=== PATIENT | male | born 1975 | race Caucasian/White ===

== ENCOUNTER 2017-01-03 10:28 | Inpatient (IN) | payer SELFPAY ==
[~2017-01-03] VITALS: Ht 170.2 cm; Wt 65.8 kg
[~2017-01-03 10:28] MED LIST: AMOX875T PO; HYDR-971 PO; NAPR500T8 PO
[2017-01-03 11:48] LABS: BASO # 0.1 x10^3/uL (0.0-0.2); BASO % 1 % (0-3); EOS % 1 % (0-3); HEMOGLOBIN 13.3 g/dL (13.0-17.5); LYMPH # 0.8 x10^3/uL (1.0-4.8); LYMPH % 8 % (24-48); MEAN CORPUSCULAR HEMOGLOBIN 29 pg (25-35); MEAN CORPUSCULAR HGB CONC 33 g/dL (31-37); MEAN CORPUSCULAR VOLUME 86 fL (79-100); MONO % 7 % (0-9); NEUT % 83 % (31-73); PLATELET COUNT 389 x10^3/uL (140-400); RED BLOOD COUNT 4.65 x10^6/uL (4.30-5.70); RED CELL DISTRIBUTION WIDTH 13.1 % (11.5-14.5); WHITE BLOOD COUNT 9.7 x10^3/uL (4.0-11.0)
[2017-01-03 12:01] LABS: ALBUMIN 3.5 g/dL (3.4-5.0); ALBUMIN/GLOBULIN RATIO 0.5 (1.0-1.7); CALCIUM 10.3 mg/dL (8.5-10.1); CREATININE 1.4 mg/dL (0.7-1.3); GFR 55.3; POTASSIUM 4.2 mmol/L (3.5-5.1); TOTAL BILIRUBIN 0.8 mg/dL (0.2-1.0); TOTAL PROTEIN 9.9 g/dL (6.4-8.2)
--- NOTE | 2017-01-03 12:03 | RAD ---
Indication injury to the small toe. Diabetic ulcer associated with the great toe. AP oblique and lateral views of the right foot were obtained. Soft tissue swelling is seen associated with the great toe. Definite plain film findings of osteomyelitis are not seen. An acute bony finding is not seen. There is some deformity seen associated with the distal phalanx of the small toe but this has a chronic appearance. IMPRESSION: No acute bony finding
--- NOTE | 2017-01-03 12:25 | PHYS DOC ---
Past Medical History Past Medical History: Diabetes-Type I, Diabetes-Type II Past Surgical History: Appendectomy, Cholecystectomy Smoking: Second-hand Additional Information: Nonsmoker Alcohol Use: Rarely Drug Use: None Adult General Chief Complaint Chief Complaint: TOE PROBLEM HPI HPI Patient is a 41 year old diabetic male who presents with right great toe infection for one week. He states that the wound started as a normal-sized blister on the toe. The wound has gotten worse over the last week with redness spreading across the foot. He also reports that he stubbed to the right fifth toe approximately one week ago. He denies any fevers. He does not have any pain associated with the infection because of his diabetic neuropathy. He does not take any medication for his diabetes because he does not have insurance and does not have a primary care provider. Review of Systems Review of Systems Constitutional: Denies fever or chills. [] Eyes: Denies change in visual acuity, redness, or eye pain. [] HENT: Denies ear pain, nasal congestion or sore throat. [] Respiratory: Denies cough or shortness of breath. [] Cardiovascular: Denies chest pain, palpitations or edema. [] GI: Denies abdominal pain, nausea, vomiting, bloody stools or diarrhea. [] : Denies dysuria, hematuria or urinary frequency. [] Musculoskeletal: Denies back pain or joint pain. [] Integument: Reports right great toe redness with purulent drainage with redness extending across the foot. Reports redness of the right fifth toe. Neurologic: Denies headache, focal weakness. Reports diabetic neuropathy in the feet bilaterally. Endocrine: Denies polyuria or polydipsia. [] Psych: Denies anxiety or depression. [] All systems reviewed and negative unless otherwise stated in the HPI. Current Medications Current Medications Current Medications Medications (Trade) Dose Ordered Sig/Fahad Start Time Stop Time Status Last Admin Dose Admin Insulin Human Regular 10 unit 10 unit 1X ONCE 01/03/17 12:30 01/03/17 12:33 DC 01/03/17 13:01 10 UNIT Piperacillin Sod/ Tazobactam Sod 1 each 1 each PRN DAILY PRN 01/03/17 12:30 Piperacillin Sod/ Tazobactam Sod/ Sodium Chloride (Zosyn/Iv Sodium Chloride 0.9% 50ml) 50 ml @ 100 mls/hr 1X ONCE 01/03/17 13:00 01/03/17 13:29 DC 01/03/17 12:56 100 MLS/HR Sodium Chloride (Iv Sodium Chloride 0.9% 1000ml Bag) 1,000 ml @ 1,000 mls/hr 1X ONCE 01/03/17 12:30 01/03/17 13:29 DC 01/03/17 12:55 1,000 MLS/HR Vancomycin HCl (Vanco Per Pharmacy) 1 each PRN DAILY PRN 01/03/17 12:30 01/03/17 14:53 1 EACH Vancomycin HCl 1.75 gm/Sodium Chloride 500 ml @ 250 mls/hr 1X ONCE 01/03/17 13:00 01/03/17 14:59 DC 01/03/17 13:24 250 MLS/HR Allergies Allergies Allergies Coded Allergies Type Severity Reaction Last Updated Verified diphenhydramine Allergy Intermediate 11/10/16 Yes erythromycin base Allergy Intermediate 11/10/16 Yes Physical Exam Physical Exam Constitutional: Well developed, well nourished, no acute distress, non-toxic appearance. [] HENT: Normocephalic, atraumatic, oropharynx moist. [] Eyes: PERRLA, EOMI, conjunctiva normal, no discharge. [] Skin: Warm, dry. There is a diabetic foot ulcer of the right great toe extending circumferentially around the proximal phalanx. There is a felon of the distal right great toe. There is erythema extending across the distal metatarsals. There is erythema of the right fifth toe. There is no lymphangitis. Back: No midline tenderness, no CVA tenderness. [] Extremities: No tenderness, ROM intact, mild right foot edema. 2+ PT and PT pulses. Less than 2 second capillary refill in the toes. There is no sensation in the toes or foot due to neuropathy. Neurologic: Alert and oriented X 3, normal motor function, no focal deficits noted. There is no sensation in the toes or foot due to neuropathy. Psychologic: Affect normal, judgement normal, mood normal. [] Current Patient Data Vital Signs Vital Signs Date Time Temp Pulse Resp B/P Pulse Ox O2 Delivery O2 Flow Rate FiO2 01/03/17 10:51 98.0 94 18 100 Room Air 98.0 Lab Values Laboratory Tests Test 01/03/17 11:22 White Blood Count 9.7x10^3/uL (4.0-11.0) Red Blood Count 4.65x10^6/uL (4.30-5.70) Hemoglobin 13.3g/dL (13.0-17.5) Hematocrit 40.0% (39.0-53.0) Mean Corpuscular Volume 86fL (79-100) Mean Corpuscular Hemoglobin 29pg (25-35) Mean Corpuscular Hemoglobin Concent 33g/dL (31-37) Red Cell Distribution Width 13.1% (11.5-14.5) Platelet Count 389x10^3/uL (140-400) Neutrophils (%) (Auto) 83% (31-73) H Lymphocytes (%) (Auto) 8% (24-48) L Monocytes (%) (Auto) 7% (0-9) Eosinophils (%) (Auto) 1% (0-3) Basophils (%) (Auto) 1% (0-3) Neutrophils # (Auto) 8.0x10^3uL (1.8-7.7) H Lymphocytes # (Auto) 0.8x10^3/uL (1.0-4.8) L Monocytes # (Auto) 0.7x10^3/uL (0.0-1.1) Eosinophils # (Auto) 0.0x10^3/uL (0.0-0.7) Basophils # (Auto) 0.1x10^3/uL (0.0-0.2) Sodium Level 130mmol/L (136-145) L Potassium Level 4.2mmol/L (3.5-5.1) Chloride Level 88mmol/L (98-107) L Carbon Dioxide Level 31mmol/L (21-32) Anion Gap 11 (6-14) Blood Urea Nitrogen 23mg/dL (8-26) Creatinine 1.4mg/dL (0.7-1.3) H Estimated GFR (Cockcroft-Gault) 55.3 BUN/Creatinine Ratio 16 (6-20) Glucose Level 544mg/dL (70-99) *H Calcium Level 10.3mg/dL (8.5-10.1) H Total Bilirubin 0.8mg/dL (0.2-1.0) Aspartate Amino Transferase (AST) 12U/L (15-37) L Alanine Aminotransferase (ALT) 18U/L (16-63) Alkaline Phosphatase 177U/L (46-116) H Total Protein 9.9g/dL (6.4-8.2) H Albumin 3.5g/dL (3.4-5.0) Albumin/Globulin Ratio 0.5 (1.0-1.7) L Laboratory Tests 01/03/17 11:22 Laboratory Tests 01/03/17 11:22 EKG EKG [] Radiology/Procedures Radiology/Procedures REASON: great toe diabetic ulcer, stubbed 5th toe PROCEDURE: FOOT RIGHT 3V Indication injury to the small toe. Diabetic ulcer associated with the great toe. AP oblique and lateral views of the right foot were obtained. Soft tissue swelling is seen associated with the great toe. Definite plain film findings of osteomyelitis are not seen. An acute bony finding is not seen. There is some deformity seen associated with the distal phalanx of the small toe but this has a chronic appearance. IMPRESSION: No acute bony finding Course & Med Decision Making Course & Med Decision Making Pertinent Labs and Imaging studies reviewed. (See chart for details) Patient is a diabetic male with poorly controlled diabetes who presents with right great toe infection with cellulitis extending across the foot. There appears to be a felon of the great toe. His vital signs are stable. He does not have leukocytosis but does have significantly elevated glucose of 544 with corresponding pseudohyponatremia. He is started on IV vancomycin and Zosyn for the infection. He is also given IV fluids and IV insulin for his hyperglycemia. He's admitted to the hospital by Dr. Sumner of the hospitalist service. He is in agreement with plan for hospital admission. He remains stable in the emergency department. Dragon Disclaimer Dragon Disclaimer This electronic medical record was generated, in whole or in part, using a voice recognition dictation system. Departure Departure Impression: Primary Impression: Diabetic foot infection Additional Impression: Cellulitis of foot Disposition: ADMITTED INPATIENT Admitting Physician: Vanessa Sumner Condition: STABLE Referrals: NO PCP (PCP) Problem Qualifiers KULDEEP GONZALEZ Jan 03, 2017 12:25
[2017-01-03] MEDS ORDERED: INSULIN REGULAR 100 UNIT/ML 10ML VIAL. IV ONE (12:30)
[2017-01-03] MEDS ORDERED: IV NORMAL SALINE 1000ML BAG 1,000 ML IV ONE (12:30)
[2017-01-03] MEDS ORDERED: PIP/TAZO PER PHARMACY MC PRN (12:30)
[2017-01-03] MEDS ORDERED: PIPERACILLIN/TAZOBACTAM 3.375 GM in IV NORMAL SALINE 50ML 50 ML IV ONE (13:00)
[2017-01-03] MEDS ORDERED: VANCOMYCIN 1.75 GM in IV NORMAL SALINE 500ML BAG 500 ML IV ONE (13:00)
[2017-01-03] MEDS: VANCOMYCIN PER PHARMACY MC PRN (14:53)
[2017-01-03] MEDS ORDERED: MORPHINE SULFATE 2 MG/ML DISP.SYRIN. IV PRN (16:00)
[2017-01-03] MEDS ORDERED: DEXTROSE 50% 25 GM / 50ML DISP.SYRIN. IV PRN (16:00)
--- NOTE | 2017-01-03 16:28 | PDOC1 ---
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 Xray foot ok, but BS 533 on admission and the need for IV antibiotics per mid level provider,. CRea 1,4 HEavy counselling about DM and its target organs which now he has manifestations of. HE understands WBC 9.7,. BS 544, crea 1,4 Xray neg Past Medical History Cardiovascular: HTN Endocrine: Diabetes Past Surgical History Past Surgical History: Cholecystectomy, Tonsillectomy Family History Family History: No Significant Social History Smoke: No ALCOHOL: none Drugs: None Current Problem List Problem List Problems Medical Problems: (1) Cellulitis of foot Status: Acute (2) Diabetic foot infection Status: Acute Problems: Current Medications Current Medications Current Medications Vancomycin HCl (Vanco Per Pharmacy) 1 each PRN DAILY PRN MC SEE COMMENTS Last administered on 01/03/17 14:53; Start 01/03/17 at 12:30 Piperacillin Sod/ Tazobactam Sod 1 each 1 each PRN DAILY PRN MC SEE COMMENTS; Start 01/03/17 at 12:30 Sodium Chloride (Iv Sodium Chloride 0.9% 1000ml Bag) 1,000 ml @ 1,000 mls/hr 1X ONCE IV Last administered on 01/03/17 12:55; Start 01/03/17 at 12:30; Stop 01/03/17 at 13:29; Status DC Insulin Human Regular 10 unit 10 unit 1X ONCE IV Last administered on 13:01; Start 01/03/17 at 12:30; Stop 01/03/17 at 12:33; Status DC Vancomycin HCl 1.75 gm/Sodium Chloride 500 ml @ 250 mls/hr 1X ONCE IV Last administered on 01/03/17 13:24; Start 01/03/17 at 13:00; Stop 01/03/17 at 14:59 ; Status DC Piperacillin Sod/ Tazobactam Sod 3.375 gm/Sodium Chloride 50 ml @ 100 mls/hr 1X ONCE IV Last administered on 01/03/17t 12:56; Start 01/03/17 at 13:00; Stop 01/03/17 at 13:29; Status DC Piperacillin Sod/ Tazobactam Sod 3.375 gm/Sodium Chloride 50 ml @ 100 mls/hr Q6HRS IV ; Start 01/03/17 at 18:00 Vancomycin HCl/ Sodium Chloride (Iv Sodium Chloride 0.9% 250ml) 250 ml @ 250 mls/hr Q12H IV ; Start 01/04/17 at 01:00 Vancomycin HCl 1 each 1X ONCE MC ; Start 01/05/17 at 00:30; Stop 01/05/17 at 00 :31 Oxycodone/ Acetaminophen (Percocet 5/325) 1 tab PRN Q4HRS PRN PO PAIN; Start at 16:00 Morphine Sulfate 2 mg PRN Q2HR PRN IV PAIN; Start 01/03/17 at 16:00 Insulin Aspart (Novolog) 0-9 UNITS TIDWMEALS SQ ; Start 01/03/17 at 17:00 Dextrose 12.5 gm PRN Q15MIN PRN IV SEE COMMENTS; Start 01/03/17 at 16:00 Active Scripts Active Naproxen 500 Mg Tablet.dr 1 Tab PO BID [place] 5-325 Tablet (Acetaminophen/Hydrocodone Bitart) 1 Each Tablet 1-2 Tab PO Q4-6HRS Amoxicillin 875 Mg Tablet 1 Tab PO BID Allergies Allergies: Coded Allergies: diphenhydramine (Verified Allergy, Intermediate, 11/10/16) erythromycin base (Verified Allergy, Intermediate, 11/10/16) ROS General: No: Appetite, Chills, Fatigue, Malaise, Night Sweats, Other PSYCHOLOGICAL ROS: No: Anxiety, Behavioral Disorder, Concentration difficultie , Decreased libido, Depression, Disorientation, Hallucinations, Hostility, Irritablity, Memory difficulties, Mood Swings, Obsessive thoughts, Other, Physical abuse, Sexual abuse, Sleep disturbances, Suicidal ideation Eyes: Yes Decreased vision HEENT: No: Epistaxis, Heacaches, Hearing change, Nasal congestion, Nasal discharge, Oral lesions, Other, Sinus pain, Sneezing, Snoring, Sore Throat, Tinnitus, Vertigo, Visual Changes, Vocal changes ALLERGY AND IMMUNOLOGY: No: Hives, Insect Bite Sensitivity, Itchy/Watery Eyes, Nasal Congestion, Other, Post Nasal Drip, Seasonal Allergies Hematological and Lymphatic: No: Bleeding Problems, Blood Clots, Blood Transfusions, Brusing, Night Sweats, Other, Pallor, Swollen Lymph Nodes ENDOCRINE: YES: Skin Changes Breast: No New/Changing Breast Lumps, No Nipple changes, No Nipple discharge, No Other Respiratory: No: Cough, Hemoptysis, Orthopnea, Other, Pleuritic Pain, SOB with excertion, Shortness of breath, Sputum Changes, Stridor, Tachypnea, Wheezing Cardiovascular: No Chest Pain, No Edema, No Lt Headedness, No Orthopnea, No Other, No Palpitations, No Paroxysmal Noc. Dyspnea Gastrointestinal: No Abdominal Pain, No Constipation, No Diarrhea, No Hematochezia, No Melena, No Nausea, No Other, No Vomiting Genitourinary: No , No , No , No , No , No , No , No Discharge, No Dysuria, No Flank Pain, No Frequency, No Hematuria, No Incontinence, No Other, No Pain, No Retention, No Urgency Musculoskeletal: No Gait Disturbance, No Joint Pain, No Joint Stiffness, No Joint Swelling, No Muscle Pain, No Muscular Weakness, No Other, No Pain In:, No Swelling In: Skin: Yes Acne (wound R big toe) Physical Exam General: Alert, Oriented X3, Cooperative, No acute distress HEENT: PERRLA Lungs: Clear to auscultation Heart: S1S2, RRR, no thrills, no rubs Breasts: Normal, Rt breast nml w/o mass, Lt breast nml w/o mass, Nipples normal Abdomen: Normal bowel sounds, Soft, No tenderness, No hepatosplenomegaly, No masses Male Genitals Exam: normal genitalia, normal prostate PELVIC: Nml ext genitalia Extremities: Other (R big toe has what seems to be necrotic, ulcerated wound, no active dc, non foul smelling) Skin: No rashes, No breakdown, No significant lesion Neuro: Normal gait, Normal speech, Strength at 5/5 X4 ext, Normal tone, Sensation intact, Cranial nerves 3-12 NL, Reflexes 2+ Vitals Vitals Vital Signs Date Time Temp Pulse Resp B/P Pulse Ox O2 Delivery O2 Flow Rate FiO2 01/03/17 10:51 98.0 94 18 100 Room Air 98.0 Labs Labs Laboratory Tests Test 01/03/17 11:22 01/03/17 14:14 White Blood Count 9.7x10^3/uL (4.0-11.0) Red Blood Count 4.65x10^6/uL (4.30-5.70) Hemoglobin 13.3g/dL (13.0-17.5) Hematocrit 40.0% (39.0-53.0) Mean Corpuscular Volume 86fL (79-100) Mean Corpuscular Hemoglobin 29pg (25-35) Mean Corpuscular Hemoglobin Concent 33g/dL (31-37) Red Cell Distribution Width 13.1% (11.5-14.5) Platelet Count 389x10^3/uL (140-400) Neutrophils (%) (Auto) 83% (31-73) Lymphocytes (%) (Auto) 8% (24-48) Monocytes (%) (Auto) 7% (0-9) Eosinophils (%) (Auto) 1% (0-3) Basophils (%) (Auto) 1% (0-3) Neutrophils # (Auto) 8.0x10^3uL (1.8-7.7) Lymphocytes # (Auto) 0.8x10^3/uL (1.0-4.8) Monocytes # (Auto) 0.7x10^3/uL (0.0-1.1) Eosinophils # (Auto) 0.0x10^3/uL (0.0-0.7) Basophils # (Auto) 0.1x10^3/uL (0.0-0.2) Sodium Level 130mmol/L (136-145) Potassium Level 4.2mmol/L (3.5-5.1) Chloride Level 88mmol/L (98-107) Carbon Dioxide Level 31mmol/L (21-32) Anion Gap 11 (6-14) Blood Urea Nitrogen 23mg/dL (8-26) Creatinine 1.4mg/dL (0.7-1.3) Estimated GFR (Cockcroft-Gault) 55.3 BUN/Creatinine Ratio 16 (6-20) Glucose Level 544mg/dL (70-99) Calcium Level 10.3mg/dL (8.5-10.1) Total Bilirubin 0.8mg/dL (0.2-1.0) Aspartate Amino Transf (AST/SGOT) 12U/L (15-37) Alanine Aminotransferase (ALT/SGPT) 18U/L (16-63) Alkaline Phosphatase 177U/L (46-116) Total Protein 9.9g/dL (6.4-8.2) Albumin 3.5g/dL (3.4-5.0) Albumin/Globulin Ratio 0.5 (1.0-1.7) Glucose (Fingerstick) 361mg/dL (70-99) Laboratory Tests Test 01/03/17 11:22 01/03/17 14:14 White Blood Count 9.7x10^3/uL (4.0-11.0) Red Blood Count 4.65x10^6/uL (4.30-5.70) Hemoglobin 13.3g/dL (13.0-17.5) Hematocrit 40.0% (39.0-53.0) Mean Corpuscular Volume 86fL (79-100) Mean Corpuscular Hemoglobin 29pg (25-35) Mean Corpuscular Hemoglobin Concent 33g/dL (31-37) Red Cell Distribution Width 13.1% (11.5-14.5) Platelet Count 389x10^3/uL (140-400) Neutrophils (%) (Auto) 83% (31-73) Lymphocytes (%) (Auto) 8% (24-48) Monocytes (%) (Auto) 7% (0-9) Eosinophils (%) (Auto) 1% (0-3) Basophils (%) (Auto) 1% (0-3) Neutrophils # (Auto) 8.0x10^3uL (1.8-7.7) Lymphocytes # (Auto) 0.8x10^3/uL (1.0-4.8) Monocytes # (Auto) 0.7x10^3/uL (0.0-1.1) Eosinophils # (Auto) 0.0x10^3/uL (0.0-0.7) Basophils # (Auto) 0.1x10^3/uL (0.0-0.2) Sodium Level 130mmol/L (136-145) Potassium Level 4.2mmol/L (3.5-5.1) Chloride Level 88mmol/L (98-107) Carbon Dioxide Level 31mmol/L (21-32) Anion Gap 11 (6-14) Blood Urea Nitrogen 23mg/dL (8-26) Creatinine 1.4mg/dL (0.7-1.3) Estimated GFR (Cockcroft-Gault) 55.3 BUN/Creatinine Ratio 16 (6-20) Glucose Level 544mg/dL (70-99) Calcium Level 10.3mg/dL (8.5-10.1) Total Bilirubin 0.8mg/dL (0.2-1.0) Aspartate Amino Transf (AST/SGOT) 12U/L (15-37) Alanine Aminotransferase (ALT/SGPT) 18U/L (16-63) Alkaline Phosphatase 177U/L (46-116) Total Protein 9.9g/dL (6.4-8.2) Albumin 3.5g/dL (3.4-5.0) Albumin/Globulin Ratio 0.5 (1.0-1.7) Glucose (Fingerstick) 361mg/dL (70-99) VTE Prophylaxis Ordered VTE Prophylaxis Devices: Yes VTE Pharmacological Prophylaxi: Yes Assessment/Plan Assessment/Plan 1. DM 2 uncontrolled with unknown hgba1c and end organ target damage as below 2. DM foot wound, R big toe, severe neuropathy - caused his wound 3. NISSA likely on CKD 4. Blind left eye/dm retinopathy 5. HTN 6. HONK POA PLAN: IVF now Start levemir 20 qhs 10 novolog TID x SSI high dose CHeck hgba1c DM education ID consult Broad spectrum Follow BC Cont PO BP meds PAin control Check ESR Will need podiatry and optha as OP - might order ophtha eval while in house sec to poor compliance dw him in room and mid level at ER MOnitor BMP RACHEL KINGSLEY MD Jan 03, 2017 16:28
[2017-01-03] MEDS ORDERED: INSULIN ASPART 300 UNITS/3 ML INSULN.PEN SQ SCH (17:00)
[2017-01-03] MEDS: IV NORMAL SALINE 1000ML BAG 1,000 ML IV SCH (17:22)
[2017-01-03] MEDS: PIPERACILLIN/TAZOBACTAM 3.375 GM in IV NORMAL SALINE 50ML 50 ML IV SCH (17:25)
[2017-01-03] MEDS: INSULIN ASPART 300 UNITS/3 ML INSULN.PEN SQ SCH (17:30)
[2017-01-03 18:19] VITALS: BP 137/86
[2017-01-03] MEDS ORDERED: INSULIN DETEMIR 300 UNITS/3 ML INSULN.PEN. SQ SCH (21:00)
[2017-01-03] MEDS ORDERED: INSULIN ASPART 300 UNITS/3 ML INSULN.PEN SQ ONE (21:30)
[2017-01-03] MEDS ORDERED: INSULIN DETEMIR 300 UNITS/3 ML INSULN.PEN. SQ ONE (21:30)
[2017-01-03 23:20] VITALS: BP 120/76
[2017-01-04] MEDS: PIPERACILLIN/TAZOBACTAM 3.375 GM in IV NORMAL SALINE 50ML 50 ML IV SCH ×4 (00:26→17:49)
[2017-01-04] MEDS: VANCOMYCIN 1 GM in IV NORMAL SALINE 250ML 250 ML IV SCH ×2 (00:27→12:47)
--- NOTE | 2017-01-04 00:38 | ACF ---
Admission Forms Criteria CELLULITIS Clinical Indications for Admission to Inpatient Care (Place 'X' for any and all applicable criteria): Admission is indicated for ANY ONE of the following(1)(2)(3)(4)(5): [ ]I. Limb-threatening infection [ ]II. High-risk comorbid condition as indicated by ANY ONE of the following: [ ]a) Uncontrolled diabetes (eg, HbA1c greater than 10% (0.1)) [ ]b) Cirrhosis [ ]c) Neutropenia [ ]d) Asplenia [ ]e) Immunosuppression [ ]f) Symptomatic heart failure [ ]III. Failure of outpatient therapy as indicated by ALL of the following: [ ]a) Progression or no improvement after adequate trial (minimum of 48 hours, with longer period for stable lower extremity infection) [ ]b) Adequate antibiotic regimen as indicated by use of ANY ONE of the following: [ ]i) First-generation cephalosporin (e.g., cephalexin) [ ]ii) Antistaphylococcal penicillin (e.g., dicloxacillin) [ ]iii) Penicillin-allergic patient regimen (clindamycin, extended-spectrum fluoroquinolone, or doxycycline) [ ]iv) Resistant organism (eg, methicillin-resistant Staphylococcus aureus) regimen (6) [ ]c) Outpatient intravenous therapy regimen is not appropriate due to ANY ONE of the following. (7)(8)(9)(10): [ ]i) It was tried and was not successful (eg, progression of infection). [ ]ii) It is not available or cannot be arranged in a clinically appropriate time frame (e.g., the next day). [ ]iii) Clinical presentation (eg, acuity of infection, rapidity of progression, confirmed or suspected bacteremia) is judged to require ALL of the following: [ ]1) Immediate initiation of intravenous therapy ( eg, cannot wait for next day) [ ]2) Intensity of patient monitoring and observation (eg, vital sign measurement, checks for infection progression) that cannot be provided at other than inpatient level of care [ ]IV. Mental status changes [ ]V. Bacteremia [ ]. Hemodynamic instability [ ]VII. Suspected necrotizing soft tissue infection (e.g., gas in tissue)(11)( 12) [ ]VIII. Orbital infection (13)(14) [ ]IX. Associated surgical procedure (e.g., abscess drainage, debridement) not amenable to outpatient, emergency department, or observation care [ ]X. Cutaneous gangrene [ ]XI. High fever (temperature greater than 39.5 degrees C (103.1 degrees F) (oral)) not responsive to outpatient, emergency department, or observation care therapy [X]XIII. Inpatient admission required rather than observation care (Also use Cellulitis: Observation Care as appropriate) because of ANY ONE of the following : [ ]a) Periorbital or perineal infection that is severe or worsening [ ]b) Severe pain requiring acute inpatient management [ ]c) IV fluid to replace significant ongoing (e.g., for over 24 hours) losses (greater than 3L/m2 per day) [ ]d) Compartment syndrome monitoring (17) [ ]e) Strict or protective (eg, laminar flow) isolation [ ]f) Urgent debridement or skin grafting [ ]g) Bone or joint debridement [ ]h) Immediate inpatient surgery [X]i) Other condition, treatment or monitoring requiring inpatient admission (He is started on IV vancomycin and Zosyn for the infection. He is also given IV fluids and IV insulin for his hyperglycemia). Extended stay beyond goal length of stay may be needed for (1)(18): [ ]a) Necrotizing soft tissue infection or fasciitis [ ]b) Gram-negative infection [ ]c) Methicillin-resistant Staphylococcal aureus (MRSA) infection [ ]d) Peripheral venous insufficiency with cellulitis [ ]e) Extensive edema [ ]f) Sepsis or continued Hemodynamic instability [ ]g) Continued high fever or mental status change [ ]h) Bacteremia [ ]i) Active serious comorbid conditions ( eg, heart failure, renal insufficiency) The original [facility] [employer] content created by [facility] has been revised. The portions of the content which have been revised are identified through the use of italic text or in bold, and [facility] has neither reviewed nor approved the modified material. All other unmodified content is copyright [facility] Please see references footnoted in the original [facility] edition 2016 Admission Criteria Met?: Yes MARION GATICA Jan 04, 2017 00:38
[2017-01-04 03:25] VITALS: BP 137/82
[2017-01-04] MEDS: IV NORMAL SALINE 1000ML BAG 1,000 ML IV SCH ×3 (05:45→17:50)
[2017-01-04 06:44] LABS: BASO # 0.1 x10^3/uL (0.0-0.2); BASO % 1 % (0-3); EOS % 2 % (0-3); HEMATOCRIT 32.2 % (39.0-53.0); LYMPH # 1.6 x10^3/uL (1.0-4.8); LYMPH % 20 % (24-48); MEAN CORPUSCULAR HEMOGLOBIN 29 pg (25-35); MEAN CORPUSCULAR HGB CONC 34 g/dL (31-37); MEAN CORPUSCULAR VOLUME 85 fL (79-100); MONO % 14 % (0-9); NEUT % 63 % (31-73); PLATELET COUNT 343 x10^3/uL (140-400); RED BLOOD COUNT 3.81 x10^6/uL (4.30-5.70); RED CELL DISTRIBUTION WIDTH 12.6 % (11.5-14.5); WHITE BLOOD COUNT 8.2 x10^3/uL (4.0-11.0)
[2017-01-04 06:57] LABS: GFR 81.6; POTASSIUM 3.7 mmol/L (3.5-5.1)
[2017-01-04 07:00] VITALS: BP 136/71
[2017-01-04] MEDS: INSULIN ASPART 300 UNITS/3 ML INSULN.PEN SQ SCH ×6 (08:55→17:27)
[2017-01-04] MEDS ORDERED: PNEUMOC CONJ VACC 23-VALENT 0.5 ML VIAL. VAX IM ONE (09:00)
--- NOTE | 2017-01-04 10:50 | PDOC ---
PROGRESS NOTES Chief Complaint Chief Complaint 1. DM 2 uncontrolled with unknown hgba1c and end organ target damage as below 2. DM foot wound, R big toe, severe neuropathy - caused his wound 3. NISSA likely on CKD 4. Blind left eye/dm retinopathy 5. HTN 6. HONK POA History of Present Illness History of Present Illness NO complaints Blind left eye for 1.5 yrs now - has never seen ophtha - no insurance BS has been running high, 500s highest - calls last night Seen by ID this AM Wound I have inspected PLAN: Inc levemir to 35 qhs Inc novolog 15 tID SSI HIgh dose OPhtha consult in the light of blindness and signif end organ target damage Await ID recs [id number] still pending sw RN and pt Vitals Vitals Vital Signs Date Time Temp Pulse Resp B/P Pulse Ox O2 Delivery O2 Flow Rate FiO2 01/04/17 07:00 98.7 85 16 136/71 96 Room Air 98.7 Physical Exam General: Alert, Oriented X3, Cooperative, No acute distress Abdomen: Normal bowel sounds, Soft, No tenderness, No hepatosplenomegaly, No masses Extremities: Other (R big toe has what seems to be necrotic, ulcerated wound, no active dc, non foul smelling) Skin: No rashes, No breakdown, No significant lesion Labs LABS Laboratory Tests Test 01/03/17 11:22 01/03/17 14:14 01/03/17 16:05 01/03/17 20:53 White Blood Count 9.7x10^3/uL (4.0-11.0) Red Blood Count 4.65x10^6/uL (4.30-5.70) Hemoglobin 13.3g/dL (13.0-17.5) Hematocrit 40.0% (39.0-53.0) Mean Corpuscular Volume 86fL (79-100) Mean Corpuscular Hemoglobin 29pg (25-35) Mean Corpuscular Hemoglobin Concent 33g/dL (31-37) Red Cell Distribution Width 13.1% (11.5-14.5) Platelet Count 389x10^3/uL (140-400) Neutrophils (%) (Auto) 83% (31-73) Lymphocytes (%) (Auto) 8% (24-48) Monocytes (%) (Auto) 7% (0-9) Eosinophils (%) (Auto) 1% (0-3) Basophils (%) (Auto) 1% (0-3) Neutrophils # (Auto) 8.0x10^3uL (1.8-7.7) Lymphocytes # (Auto) 0.8x10^3/uL (1.0-4.8) Monocytes # (Auto) 0.7x10^3/uL (0.0-1.1) Eosinophils # (Auto) 0.0x10^3/uL (0.0-0.7) Basophils # (Auto) 0.1x10^3/uL (0.0-0.2) Erythrocyte Sedimentation Rate 90 (0-15) Sodium Level 130mmol/L (136-145) Potassium Level 4.2mmol/L (3.5-5.1) Chloride Level 88mmol/L (98-107) Carbon Dioxide Level 31mmol/L (21-32) Anion Gap 11 (6-14) Blood Urea Nitrogen 23mg/dL (8-26) Creatinine 1.4mg/dL (0.7-1.3) Estimated GFR (Cockcroft-Gault) 55.3 BUN/Creatinine Ratio 16 (6-20) Glucose Level 544mg/dL (70-99) Calcium Level 10.3mg/dL (8.5-10.1) Total Bilirubin 0.8mg/dL (0.2-1.0) Aspartate Amino Transf (AST/SGOT) 12U/L (15-37) Alanine Aminotransferase (ALT/SGPT) 18U/L (16-63) Alkaline Phosphatase 177U/L (46-116) Total Protein 9.9g/dL (6.4-8.2) Albumin 3.5g/dL (3.4-5.0) Albumin/Globulin Ratio 0.5 (1.0-1.7) Glucose (Fingerstick) 361mg/dL (70-99) 284mg/dL (70-99) 417mg/dL (70-99) Test 01/04/17 05:40 01/04/17 07:15 White Blood Count 8.2x10^3/uL (4.0-11.0) Red Blood Count 3.81x10^6/uL (4.30-5.70) Hemoglobin 11.0g/dL (13.0-17.5) Hematocrit 32.2% (39.0-53.0) Mean Corpuscular Volume 85fL (79-100) Mean Corpuscular Hemoglobin 29pg (25-35) Mean Corpuscular Hemoglobin Concent 34g/dL (31-37) Red Cell Distribution Width 12.6% (11.5-14.5) Platelet Count 343x10^3/uL (140-400) Neutrophils (%) (Auto) 63% (31-73) Lymphocytes (%) (Auto) 20% (24-48) Monocytes (%) (Auto) 14% (0-9) Eosinophils (%) (Auto) 2% (0-3) Basophils (%) (Auto) 1% (0-3) Neutrophils # (Auto) 5.2x10^3uL (1.8-7.7) Lymphocytes # (Auto) 1.6x10^3/uL (1.0-4.8) Monocytes # (Auto) 1.2x10^3/uL (0.0-1.1) Eosinophils # (Auto) 0.1x10^3/uL (0.0-0.7) Basophils # (Auto) 0.1x10^3/uL (0.0-0.2) Sodium Level 138mmol/L (136-145) Potassium Level 3.7mmol/L (3.5-5.1) Chloride Level 100mmol/L (98-107) Carbon Dioxide Level 29mmol/L (21-32) Anion Gap 9 (6-14) Blood Urea Nitrogen 15mg/dL (8-26) Creatinine 1.0mg/dL (0.7-1.3) Estimated GFR (Cockcroft-Gault) 81.6 Glucose Level 237mg/dL (70-99) Calcium Level 9.0mg/dL (8.5-10.1) Glucose (Fingerstick) 225mg/dL (70-99) Review of Systems Review of Systems no pain, no soa, no cp, no abd pain, no diarrhea Assessment and Plan Assessmemt and Plan Problems Medical Problems: (1) Cellulitis of foot Status: Acute (2) Diabetic foot infection Status: Acute Problems: Comment Review of Relevant I have reviewed the following items lilli (where applicable) has been applied. Labs Laboratory Tests Test 01/03/17 11:22 01/03/17 14:14 01/03/17 16:05 01/03/17 20:53 White Blood Count 9.7x10^3/uL (4.0-11.0) Red Blood Count 4.65x10^6/uL (4.30-5.70) Hemoglobin 13.3g/dL (13.0-17.5) Hematocrit 40.0% (39.0-53.0) Mean Corpuscular Volume 86fL (79-100) Mean Corpuscular Hemoglobin 29pg (25-35) Mean Corpuscular Hemoglobin Concent 33g/dL (31-37) Red Cell Distribution Width 13.1% (11.5-14.5) Platelet Count 389x10^3/uL (140-400) Neutrophils (%) (Auto) 83% (31-73) Lymphocytes (%) (Auto) 8% (24-48) Monocytes (%) (Auto) 7% (0-9) Eosinophils (%) (Auto) 1% (0-3) Basophils (%) (Auto) 1% (0-3) Neutrophils # (Auto) 8.0x10^3uL (1.8-7.7) Lymphocytes # (Auto) 0.8x10^3/uL (1.0-4.8) Monocytes # (Auto) 0.7x10^3/uL (0.0-1.1) Eosinophils # (Auto) 0.0x10^3/uL (0.0-0.7) Basophils # (Auto) 0.1x10^3/uL (0.0-0.2) Erythrocyte Sedimentation Rate 90 (0-15) Sodium Level 130mmol/L (136-145) Potassium Level 4.2mmol/L (3.5-5.1) Chloride Level 88mmol/L (98-107) Carbon Dioxide Level 31mmol/L (21-32) Anion Gap 11 (6-14) Blood Urea Nitrogen 23mg/dL (8-26) Creatinine 1.4mg/dL (0.7-1.3) Estimated GFR (Cockcroft-Gault) 55.3 BUN/Creatinine Ratio 16 (6-20) Glucose Level 544mg/dL (70-99) Calcium Level 10.3mg/dL (8.5-10.1) Total Bilirubin 0.8mg/dL (0.2-1.0) Aspartate Amino Transf (AST/SGOT) 12U/L (15-37) Alanine Aminotransferase (ALT/SGPT) 18U/L (16-63) Alkaline Phosphatase 177U/L (46-116) Total Protein 9.9g/dL (6.4-8.2) Albumin 3.5g/dL (3.4-5.0) Albumin/Globulin Ratio 0.5 (1.0-1.7) Glucose (Fingerstick) 361mg/dL (70-99) 284mg/dL (70-99) 417mg/dL (70-99) Test 01/04/17 05:40 01/04/17 07:15 White Blood Count 8.2x10^3/uL (4.0-11.0) Red Blood Count 3.81x10^6/uL (4.30-5.70) Hemoglobin 11.0g/dL (13.0-17.5) Hematocrit 32.2% (39.0-53.0) Mean Corpuscular Volume 85fL (79-100) Mean Corpuscular Hemoglobin 29pg (25-35) Mean Corpuscular Hemoglobin Concent 34g/dL (31-37) Red Cell Distribution Width 12.6% (11.5-14.5) Platelet Count 343x10^3/uL (140-400) Neutrophils (%) (Auto) 63% (31-73) Lymphocytes (%) (Auto) 20% (24-48) Monocytes (%) (Auto) 14% (0-9) Eosinophils (%) (Auto) 2% (0-3) Basophils (%) (Auto) 1% (0-3) Neutrophils # (Auto) 5.2x10^3uL (1.8-7.7) Lymphocytes # (Auto) 1.6x10^3/uL (1.0-4.8) Monocytes # (Auto) 1.2x10^3/uL (0.0-1.1) Eosinophils # (Auto) 0.1x10^3/uL (0.0-0.7) Basophils # (Auto) 0.1x10^3/uL (0.0-0.2) Sodium Level 138mmol/L (136-145) Potassium Level 3.7mmol/L (3.5-5.1) Chloride Level 100mmol/L (98-107) Carbon Dioxide Level 29mmol/L (21-32) Anion Gap 9 (6-14) Blood Urea Nitrogen 15mg/dL (8-26) Creatinine 1.0mg/dL (0.7-1.3) Estimated GFR (Cockcroft-Gault) 81.6 Glucose Level 237mg/dL (70-99) Calcium Level 9.0mg/dL (8.5-10.1) Glucose (Fingerstick) 225mg/dL (70-99) Laboratory Tests Test 01/03/17 11:22 01/03/17 14:14 01/03/17 16:05 01/03/17 20:53 White Blood Count 9.7x10^3/uL (4.0-11.0) Red Blood Count 4.65x10^6/uL (4.30-5.70) Hemoglobin 13.3g/dL (13.0-17.5) Hematocrit 40.0% (39.0-53.0) Mean Corpuscular Volume 86fL (79-100) Mean Corpuscular Hemoglobin 29pg (25-35) Mean Corpuscular Hemoglobin Concent 33g/dL (31-37) Red Cell Distribution Width 13.1% (11.5-14.5) Platelet Count 389x10^3/uL (140-400) Neutrophils (%) (Auto) 83% (31-73) Lymphocytes (%) (Auto) 8% (24-48) Monocytes (%) (Auto) 7% (0-9) Eosinophils (%) (Auto) 1% (0-3) Basophils (%) (Auto) 1% (0-3) Neutrophils # (Auto) 8.0x10^3uL (1.8-7.7) Lymphocytes # (Auto) 0.8x10^3/uL (1.0-4.8) Monocytes # (Auto) 0.7x10^3/uL (0.0-1.1) Eosinophils # (Auto) 0.0x10^3/uL (0.0-0.7) Basophils # (Auto) 0.1x10^3/uL (0.0-0.2) Erythrocyte Sedimentation Rate 90 (0-15) Sodium Level 130mmol/L (136-145) Potassium Level 4.2mmol/L (3.5-5.1) Chloride Level 88mmol/L (98-107) Carbon Dioxide Level 31mmol/L (21-32) Anion Gap 11 (6-14) Blood Urea Nitrogen 23mg/dL (8-26) Creatinine 1.4mg/dL (0.7-1.3) Estimated GFR (Cockcroft-Gault) 55.3 BUN/Creatinine Ratio 16 (6-20) Glucose Level 544mg/dL (70-99) Calcium Level 10.3mg/dL (8.5-10.1) Total Bilirubin 0.8mg/dL (0.2-1.0) Aspartate Amino Transf (AST/SGOT) 12U/L (15-37) Alanine Aminotransferase (ALT/SGPT) 18U/L (16-63) Alkaline Phosphatase 177U/L (46-116) Total Protein 9.9g/dL (6.4-8.2) Albumin 3.5g/dL (3.4-5.0) Albumin/Globulin Ratio 0.5 (1.0-1.7) Glucose (Fingerstick) 361mg/dL (70-99) 284mg/dL (70-99) 417mg/dL (70-99) Test 01/04/17 05:40 01/04/17 07:15 White Blood Count 8.2x10^3/uL (4.0-11.0) Red Blood Count 3.81x10^6/uL (4.30-5.70) Hemoglobin 11.0g/dL (13.0-17.5) Hematocrit 32.2% (39.0-53.0) Mean Corpuscular Volume 85fL (79-100) Mean Corpuscular Hemoglobin 29pg (25-35) Mean Corpuscular Hemoglobin Concent 34g/dL (31-37) Red Cell Distribution Width 12.6% (11.5-14.5) Platelet Count 343x10^3/uL (140-400) Neutrophils (%) (Auto) 63% (31-73) Lymphocytes (%) (Auto) 20% (24-48) Monocytes (%) (Auto) 14% (0-9) Eosinophils (%) (Auto) 2% (0-3) Basophils (%) (Auto) 1% (0-3) Neutrophils # (Auto) 5.2x10^3uL (1.8-7.7) Lymphocytes # (Auto) 1.6x10^3/uL (1.0-4.8) Monocytes # (Auto) 1.2x10^3/uL (0.0-1.1) Eosinophils # (Auto) 0.1x10^3/uL (0.0-0.7) Basophils # (Auto) 0.1x10^3/uL (0.0-0.2) Sodium Level 138mmol/L (136-145) Potassium Level 3.7mmol/L (3.5-5.1) Chloride Level 100mmol/L (98-107) Carbon Dioxide Level 29mmol/L (21-32) Anion Gap 9 (6-14) Blood Urea Nitrogen 15mg/dL (8-26) Creatinine 1.0mg/dL (0.7-1.3) Estimated GFR (Cockcroft-Gault) 81.6 Glucose Level 237mg/dL (70-99) Calcium Level 9.0mg/dL (8.5-10.1) Glucose (Fingerstick) 225mg/dL (70-99) Microbiology 01/03/17 Gram Stain - Final, Complete Medications Current Medications Vancomycin HCl (Vanco Per Pharmacy) 1 each PRN DAILY PRN MC SEE COMMENTS Last administered on 01/03/17 14:53; Start 01/03/17 at 12:30 Piperacillin Sod/ Tazobactam Sod 1 each 1 each PRN DAILY PRN MC SEE COMMENTS; Start 01/03/17 at 12:30 Sodium Chloride (Iv Sodium Chloride 0.9% 1000ml Bag) 1,000 ml @ 1,000 mls/hr 1X ONCE IV Last administered on 01/03/17 12:55; Start 01/03/17 at 12:30; Stop 01/03/17 at 13:29; Status DC Insulin Human Regular 10 unit 10 unit 1X ONCE IV Last administered on 13:01; Start 01/03/17 at 12:30; Stop 01/03/17 at 12:33; Status DC Vancomycin HCl 1.75 gm/Sodium Chloride 500 ml @ 250 mls/hr 1X ONCE IV Last administered on 01/03/17 13:24; Start 01/03/17 at 13:00; Stop 01/03/17 at 14:59 ; Status DC Piperacillin Sod/ Tazobactam Sod 3.375 gm/Sodium Chloride 50 ml @ 100 mls/hr 1X ONCE IV Last administered on 01/03/17 12:56; Start 01/03/17 at 13:00; Stop 01/03/17 at 13:29; Status DC Piperacillin Sod/ Tazobactam Sod 3.375 gm/Sodium Chloride 50 ml @ 100 mls/hr Q6HRS IV Last administered on 01/04/17 05:45; Start 01/03/17 at 18:00 Vancomycin HCl/ Sodium Chloride (Iv Sodium Chloride 0.9% 250ml) 250 ml @ 250 mls/hr Q12H IV Last administered on 01/04/17 00:27; Start 01/04/17 at 01:00 Vancomycin HCl 1 each 1X ONCE MC ; Start 01/05/17 at 00:30; Stop 01/05/17 at 00 :31 Oxycodone/ Acetaminophen (Percocet 5/325) 1 tab PRN Q4HRS PRN PO PAIN; Start at 16:00 Morphine Sulfate 2 mg PRN Q2HR PRN IV PAIN; Start 01/03/17 at 16:00 Insulin Aspart (Novolog) 0-9 UNITS TIDWMEALS SQ Last administered on 01/04/17 08:55; Start 01/03/17 at 17:00 Dextrose 12.5 gm PRN Q15MIN PRN IV SEE COMMENTS; Start 01/03/17 at 16:00 Insulin Detemir (Levemir) 20 units QHS SQ ; Start 01/03/17 at 21:00; Stop at 09:11; Status DC Insulin Aspart (Novolog) 10 units TIDAC SQ Last administered on 01/03/17 17:30 ; Start 01/03/17 at 17:00; Stop 01/03/17 at 21:08; Status DC Pneumococcal Polyvalent Vaccine 0.5 ml 0.5 ml ONCE ONCE VAX IM Last administered on 01/04/17 09:59; Start 01/04/17 at 09:00; Stop 01/04/17 at 09:01 ; Status DC Sodium Chloride (Iv Sodium Chloride 0.9% 1000ml Bag) 1,000 ml @ 100 mls/hr Q10H IV Last administered on 01/04/17 05:45; Start 01/03/17 at 16:30 Insulin Aspart (Novolog) 15 units TIDAC SQ Last administered on 01/04/17 08:56 ; Start 01/04/17 at 07:30 Insulin Detemir (Levemir) 35 units 1X ONCE SQ Last administered on 01/03/17 21:18; Start 01/03/17 at 21:30; Stop 01/03/17 at 21:31; Status DC Insulin Aspart (Novolog) 12 units 1X ONCE SQ Last administered on 01/03/17 21 :17; Start 01/03/17 at 21:30; Stop 01/03/17 at 21:31; Status DC Insulin Detemir (Levemir) 35 units QHS SQ ; Start 01/04/17 at 21:00 Active Scripts Active Naproxen 500 Mg Tablet.dr 1 Tab PO BID [place] 5-325 Tablet (Acetaminophen/Hydrocodone Bitart) 1 Each Tablet 1-2 Tab PO Q4-6HRS Amoxicillin 875 Mg Tablet 1 Tab PO BID Vitals/I & O Vital Sign - Last 24 Hours 01/03/17 01/03/17 01/03/17 01/03/17 10:51 15:00 18:19 20:00 Temp 98.0 98.1 98.0 98.1 Pulse 94 91 Resp 18 18 B/P 137/86 Pulse Ox 100 94 O2 Delivery Room Air Room Air Room Air Room Air 01/03/17 01/04/17 01/04/17 23:20 03:25 07:00 Temp 98.4 98.6 98.7 98.4 98.6 98.7 Pulse 92 84 85 Resp 18 14 16 B/P 120/76 137/82 136/71 Pulse Ox 98 97 96 O2 Delivery Room Air Room Air Room Air Intake and Output 01/03/17 01/03/17 01/04/17 15:00 23:00 07:00 Intake Total 1050 ml 230 ml 1475 ml Balance 1050 ml 230 ml 1475 ml RACHEL KINGSLEY MD Jan 04, 2017 10:50
[2017-01-04 11:00] VITALS: BP 116/72
--- NOTE | 2017-01-04 11:09 | PDOC ---
Infectious Disease Note Vital Sign Vital Signs Vital Signs Date Time Temp Pulse Resp B/P Pulse Ox O2 Delivery O2 Flow Rate FiO2 01/04/17 07:00 98.7 85 16 136/71 96 Room Air 98.7 Labs Lab Laboratory Tests Test 01/03/17 11:22 01/03/17 14:14 01/03/17 16:05 01/03/17 20:53 White Blood Count 9.7x10^3/uL (4.0-11.0) Red Blood Count 4.65x10^6/uL (4.30-5.70) Hemoglobin 13.3g/dL (13.0-17.5) Hematocrit 40.0% (39.0-53.0) Mean Corpuscular Volume 86fL (79-100) Mean Corpuscular Hemoglobin 29pg (25-35) Mean Corpuscular Hemoglobin Concent 33g/dL (31-37) Red Cell Distribution Width 13.1% (11.5-14.5) Platelet Count 389x10^3/uL (140-400) Neutrophils (%) (Auto) 83% (31-73) Lymphocytes (%) (Auto) 8% (24-48) Monocytes (%) (Auto) 7% (0-9) Eosinophils (%) (Auto) 1% (0-3) Basophils (%) (Auto) 1% (0-3) Neutrophils # (Auto) 8.0x10^3uL (1.8-7.7) Lymphocytes # (Auto) 0.8x10^3/uL (1.0-4.8) Monocytes # (Auto) 0.7x10^3/uL (0.0-1.1) Eosinophils # (Auto) 0.0x10^3/uL (0.0-0.7) Basophils # (Auto) 0.1x10^3/uL (0.0-0.2) Erythrocyte Sedimentation Rate 90 (0-15) Sodium Level 130mmol/L (136-145) Potassium Level 4.2mmol/L (3.5-5.1) Chloride Level 88mmol/L (98-107) Carbon Dioxide Level 31mmol/L (21-32) Anion Gap 11 (6-14) Blood Urea Nitrogen 23mg/dL (8-26) Creatinine 1.4mg/dL (0.7-1.3) Estimated GFR (Cockcroft-Gault) 55.3 BUN/Creatinine Ratio 16 (6-20) Glucose Level 544mg/dL (70-99) Calcium Level 10.3mg/dL (8.5-10.1) Total Bilirubin 0.8mg/dL (0.2-1.0) Aspartate Amino Transf (AST/SGOT) 12U/L (15-37) Alanine Aminotransferase (ALT/SGPT) 18U/L (16-63) Alkaline Phosphatase 177U/L (46-116) Total Protein 9.9g/dL (6.4-8.2) Albumin 3.5g/dL (3.4-5.0) Albumin/Globulin Ratio 0.5 (1.0-1.7) Glucose (Fingerstick) 361mg/dL (70-99) 284mg/dL (70-99) 417mg/dL (70-99) Test 01/04/17 05:40 01/04/17 07:15 White Blood Count 8.2x10^3/uL (4.0-11.0) Red Blood Count 3.81x10^6/uL (4.30-5.70) Hemoglobin 11.0g/dL (13.0-17.5) Hematocrit 32.2% (39.0-53.0) Mean Corpuscular Volume 85fL (79-100) Mean Corpuscular Hemoglobin 29pg (25-35) Mean Corpuscular Hemoglobin Concent 34g/dL (31-37) Red Cell Distribution Width 12.6% (11.5-14.5) Platelet Count 343x10^3/uL (140-400) Neutrophils (%) (Auto) 63% (31-73) Lymphocytes (%) (Auto) 20% (24-48) Monocytes (%) (Auto) 14% (0-9) Eosinophils (%) (Auto) 2% (0-3) Basophils (%) (Auto) 1% (0-3) Neutrophils # (Auto) 5.2x10^3uL (1.8-7.7) Lymphocytes # (Auto) 1.6x10^3/uL (1.0-4.8) Monocytes # (Auto) 1.2x10^3/uL (0.0-1.1) Eosinophils # (Auto) 0.1x10^3/uL (0.0-0.7) Basophils # (Auto) 0.1x10^3/uL (0.0-0.2) Sodium Level 138mmol/L (136-145) Potassium Level 3.7mmol/L (3.5-5.1) Chloride Level 100mmol/L (98-107) Carbon Dioxide Level 29mmol/L (21-32) Anion Gap 9 (6-14) Blood Urea Nitrogen 15mg/dL (8-26) Creatinine 1.0mg/dL (0.7-1.3) Estimated GFR (Cockcroft-Gault) 81.6 Glucose Level 237mg/dL (70-99) Calcium Level 9.0mg/dL (8.5-10.1) Glucose (Fingerstick) 225mg/dL (70-99) Objective Assessment Infected diabetic ulcer of right great toe Diabetic neuropathy NISSA Avulsion of right 5th toenail d/t trauma Plan Plan of Care sherin and Romulo f/u am labs and cultures await podiatry evaluation glycemic control D/w Dr. Sumner Thank you Dict 65... Attending Co-Sign Attending Co-Sign The patient was seen and interviewed as well as examined at the bedside. The chart was reviewed. The case was discussed. Agree with the plan of care. JUSTINO ATKINSON APRN Jan 04, 2017 09:14 SHARON BAPTISTE MD Jan 04, 2017 15:22
[2017-01-04] MEDS: VANCOMYCIN PER PHARMACY MC PRN (12:22)
[2017-01-04 15:00] VITALS: BP 126/76
[2017-01-04 19:00] VITALS: BP 123/80
[2017-01-04] MEDS ORDERED: INSULIN DETEMIR 300 UNITS/3 ML INSULN.PEN. SQ SCH (21:00)
[2017-01-04] MEDS: OXYCODONE/APAP 5/325 TABLET. PO PRN (22:12)
[2017-01-04 23:11] VITALS: BP 134/87
[2017-01-05] MEDS: PIPERACILLIN/TAZOBACTAM 3.375 GM in IV NORMAL SALINE 50ML 50 ML IV SCH ×4 (00:05→18:18)
[2017-01-05] MEDS: VANCOMYCIN PER PHARMACY MC PRN ×2 (02:19→11:14)
[2017-01-05 03:00] VITALS: BP 139/84
[2017-01-05] MEDS: VANCOMYCIN 1 GM in IV NORMAL SALINE 250ML 250 ML IV SCH ×2 (03:05→13:52)
--- NOTE | 2017-01-05 04:50 | CONS ---
DATE OF CONSULTATION: 01/03/2017 REFERRING PHYSICIAN: Dr. Sumner. REASON FOR CONSULTATION: Right toe wound infection. HISTORY OF PRESENT ILLNESS: The patient is a 41-year-old male who has been a diabetic for about 13 years associated with peripheral neuropathy and poor glycemic control. He has some visual loss in his right eye and does not drive. He walks or takes a bus to get around. As such, he developed a callus to his right great toe. About a week ago after spending the day walking, he was getting into the bathtub and noticed a blister on the dorsal side of the right great toe. The blister ruptured after he rubbed it. He has since been applying hydrogen peroxide, alcohol and topical triple antibiotic ointment to help keep it clean. However, the toe became increasingly red and swollen. He reports subjective fevers without chills or sweats. During this time, the patient got up in the middle of the night to go to the bathroom when he stepped his right fifth toe on the vacuum cleaner housekeeping causing the toenail to rip. On arrival to the ER, he was afebrile with a normal WBC count. Sed rate was 90. Glucose level was 544. An x-ray of the right foot showed soft tissue swelling without bony abnormality. A culture of the wound was ordered. He was started on vancomycin and Zosyn. PAST MEDICAL HISTORY: Diabetes mellitus type 2 for about 13 years. Peripheral neuropathy. Right vision loss. 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 PAST SURGICAL HISTORY: Appendectomy, cholecystectomy. SOCIAL HISTORY: The patient is single. Nonsmoker. FAMILY HISTORY: Noncontributory. ALLERGIES: BENADRYL AND . MEDICATIONS: Vancomycin and Zosyn. Other medications are available and have been reviewed on the JAN. REVIEW OF SYSTEMS: The patient verbalizes at the moment. Denies headache, nasal/sinus congestion or sore throat. Mild cough, but denies shortness of air or chest discomfort. He had some nausea and vomiting prior to admit that has since down. He denies abdominal pain, diarrhea or constipation. Denies dysuria, frequency or urgency. PHYSICAL EXAMINATION: GENERAL: male, propped up in bed, in no apparent distress. VITAL SIGNS: Temperature 98.7, blood pressure 136/71, heart rate 85, respiratory rate 16, pulse oximetry 96% on room air. Weight is 145 pounds. HEENT: Pupils equally round and reactive. Normal conjunctivae. Oral mucosa is pink and moist. No lesions seen. NECK: Supple, no adenopathy present. LUNGS: Clear to auscultation bilaterally. HEART: Normal S1, S2. ABDOMEN: Bowel sounds present, soft, nontender. EXTREMITIES: No gross edema or cyanosis. The right great toe is swollen with ulceration on the plantar aspect of the toe with ischemic changes. Malodorous. Nontender. Distal pedis pulse palpable. Right fifth toenail loose. No redness or swelling. SKIN: Without rash. Warm to touch. NEUROLOGIC: Alert and oriented x 3. Moves all extremities. Decreased sensation in the lower extremities. LABORATORY DATA: Today, WBC 8.2, hemoglobin 11.0, platelet count 343,000, sed rate 90, electrolytes are unremarkable. Creatinine 1.0 from 1.4 on admission. BUN 15, glucose 237. Albumin 3.5, total bilirubin 0.8, AST 12, ALT 18. Blood cultures and anaerobic-aerobic cultures pending. X-ray per HPI. IMPRESSION: 1. Infected diabetic ulcer of the right great toe. 2. Diabetic neuropathy. 3. Acute kidney injury. 4. Avulsion of right fifth toenail due to trauma. PLAN: Continue vancomycin and Zosyn. We will follow up on repeat laboratory values in the morning and cultures. Await Podiatry evaluation. Needs glycemic control. Thank you Dr. Sumner for asking us to participate in this patient's care. Should you have further questions or concerns, please call. SHARON BAPTISTE MD DR: NUHA/stephen JOB#: [id number] / [id number]
[2017-01-05] MEDS: IV NORMAL SALINE 1000ML BAG 1,000 ML IV SCH (05:32)
[2017-01-05 06:15] LABS: BASO # 0.1 x10^3/uL (0.0-0.2); BASO % 1 % (0-3); EOS % 2 % (0-3); HEMATOCRIT 29.8 % (39.0-53.0); HEMOGLOBIN 10.2 g/dL (13.0-17.5); LYMPH # 1.9 x10^3/uL (1.0-4.8); LYMPH % 22 % (24-48); MEAN CORPUSCULAR HEMOGLOBIN 29 pg (25-35); MEAN CORPUSCULAR HGB CONC 34 g/dL (31-37); MEAN CORPUSCULAR VOLUME 86 fL (79-100); MONO % 11 % (0-9); NEUT % 64 % (31-73); PLATELET COUNT 335 x10^3/uL (140-400); RED BLOOD COUNT 3.47 x10^6/uL (4.30-5.70); RED CELL DISTRIBUTION WIDTH 12.8 % (11.5-14.5); WHITE BLOOD COUNT 8.8 x10^3/uL (4.0-11.0)
[2017-01-05 06:34] LABS: CALCIUM 8.7 mg/dL (8.5-10.1); CREATININE 0.9 mg/dL (0.7-1.3); GFR 92.1; POTASSIUM 3.4 mmol/L (3.5-5.1)
[2017-01-05 07:00] VITALS: BP 145/88
[2017-01-05] MEDS: INSULIN ASPART 300 UNITS/3 ML INSULN.PEN SQ SCH ×6 (08:33→17:10)
[2017-01-05] MEDS ORDERED: INFLUENZA VAX SCREEN BY RX. MC PRN (10:00)
[2017-01-05] MEDS ORDERED: FLU VACC QUAD 2016-17 (36MOS+)/PF 0.5 ML SYRINGE. VAX IM ONE (10:15)
[2017-01-05 10:52] VITALS: BP 128/80
--- NOTE | 2017-01-05 10:57 | PDOC ---
PROGRESS NOTES Chief Complaint Chief Complaint 1. DM 1 uncontrolled, A1c 11.8, with end organ target damage - multiple 2. DM foot wound, R big toe, severe neuropathy - caused his wound 3. NISSA likely on CKD 4. Blind left eye/dm retinopathy 5. HTN 6. HONK POA 7. Concern for Peripheral vascular disease, check BEBETO History of Present Illness History of Present Illness weakness, nausea, some sweatyness without fever Blind left eye for 1.5 yrs now - BS has been running high, now low 73 this AM, will back off on dosing ID following PLAN: dec levemir to 30 qhs novolog 13 TID SSI HIgh dose OPhtha consult pending check BEBETO right, consult vascular, pulses are palpable, poor for age, Vitals Vitals Vital Signs Date Time Temp Pulse Resp B/P Pulse Ox O2 Delivery O2 Flow Rate FiO2 01/05/17 08:00 Room Air 01/05/17 07:00 98.5 82 18 145/88 95 98.5 Physical Exam Physical Exam dorsalis pedis pulse on left is relatively weak General: Alert, Oriented X3, Cooperative, No acute distress Heart: Regular rate (distant), No murmurs Abdomen: Normal bowel sounds, Soft, No tenderness, No hepatosplenomegaly, No masses Extremities: Other (R big toe has what seems to be necrotic, ulcerated wound, no active dc, non foul smelling) Skin: No rashes, No breakdown, No significant lesion Labs LABS Laboratory Tests Test 01/04/17 11:01 01/04/17 16:25 01/04/17 21:04 01/05/17 00:15 Glucose (Fingerstick) 138mg/dL (70-99) 108mg/dL (70-99) 230mg/dL (70-99) Vancomycin Level Trough 13.6mcg/mL (10.0-20.0) Vancomycin Last Dose Date [id number] Vancomycin Last Dose Time 1300 Test 01/05/17 05:50 01/05/17 07:15 White Blood Count 8.8x10^3/uL (4.0-11.0) Red Blood Count 3.47x10^6/uL (4.30-5.70) Hemoglobin 10.2g/dL (13.0-17.5) Hematocrit 29.8% (39.0-53.0) Mean Corpuscular Volume 86fL (79-100) Mean Corpuscular Hemoglobin 29pg (25-35) Mean Corpuscular Hemoglobin Concent 34g/dL (31-37) Red Cell Distribution Width 12.8% (11.5-14.5) Platelet Count 335x10^3/uL (140-400) Neutrophils (%) (Auto) 64% (31-73) Lymphocytes (%) (Auto) 22% (24-48) Monocytes (%) (Auto) 11% (0-9) Eosinophils (%) (Auto) 2% (0-3) Basophils (%) (Auto) 1% (0-3) Neutrophils # (Auto) 5.6x10^3uL (1.8-7.7) Lymphocytes # (Auto) 1.9x10^3/uL (1.0-4.8) Monocytes # (Auto) 1.0x10^3/uL (0.0-1.1) Eosinophils # (Auto) 0.2x10^3/uL (0.0-0.7) Basophils # (Auto) 0.1x10^3/uL (0.0-0.2) Sodium Level 142mmol/L (136-145) Potassium Level 3.4mmol/L (3.5-5.1) Chloride Level 105mmol/L (98-107) Carbon Dioxide Level 27mmol/L (21-32) Anion Gap 10 (6-14) Blood Urea Nitrogen 9mg/dL (8-26) Creatinine 0.9mg/dL (0.7-1.3) Estimated GFR (Cockcroft-Gault) 92.1 Glucose Level 206mg/dL (70-99) Calcium Level 8.7mg/dL (8.5-10.1) Glucose (Fingerstick) 153mg/dL (70-99) Review of Systems Review of Systems weakness, nausea Assessment and Plan Assessmemt and Plan Problems Medical Problems: (1) Cellulitis of foot Status: Acute (2) Diabetic foot infection Status: Acute Problems: Comment Review of Relevant I have reviewed the following items lilli (where applicable) has been applied. Labs Laboratory Tests Test 01/03/17 11:22 01/03/17 14:14 01/03/17 16:05 01/03/17 20:53 White Blood Count 9.7x10^3/uL (4.0-11.0) Red Blood Count 4.65x10^6/uL (4.30-5.70) Hemoglobin 13.3g/dL (13.0-17.5) Hematocrit 40.0% (39.0-53.0) Mean Corpuscular Volume 86fL (79-100) Mean Corpuscular Hemoglobin 29pg (25-35) Mean Corpuscular Hemoglobin Concent 33g/dL (31-37) Red Cell Distribution Width 13.1% (11.5-14.5) Platelet Count 389x10^3/uL (140-400) Neutrophils (%) (Auto) 83% (31-73) Lymphocytes (%) (Auto) 8% (24-48) Monocytes (%) (Auto) 7% (0-9) Eosinophils (%) (Auto) 1% (0-3) Basophils (%) (Auto) 1% (0-3) Neutrophils # (Auto) 8.0x10^3uL (1.8-7.7) Lymphocytes # (Auto) 0.8x10^3/uL (1.0-4.8) Monocytes # (Auto) 0.7x10^3/uL (0.0-1.1) Eosinophils # (Auto) 0.0x10^3/uL (0.0-0.7) Basophils # (Auto) 0.1x10^3/uL (0.0-0.2) Erythrocyte Sedimentation Rate 90 (0-15) Sodium Level 130mmol/L (136-145) Potassium Level 4.2mmol/L (3.5-5.1) Chloride Level 88mmol/L (98-107) Carbon Dioxide Level 31mmol/L (21-32) Anion Gap 11 (6-14) Blood Urea Nitrogen 23mg/dL (8-26) Creatinine 1.4mg/dL (0.7-1.3) Estimated GFR (Cockcroft-Gault) 55.3 BUN/Creatinine Ratio 16 (6-20) Glucose Level 544mg/dL (70-99) Hemoglobin A1c 11.8% (4.8-5.6) Calcium Level 10.3mg/dL (8.5-10.1) Total Bilirubin 0.8mg/dL (0.2-1.0) Aspartate Amino Transf (AST/SGOT) 12U/L (15-37) Alanine Aminotransferase (ALT/SGPT) 18U/L (16-63) Alkaline Phosphatase 177U/L (46-116) Total Protein 9.9g/dL (6.4-8.2) Albumin 3.5g/dL (3.4-5.0) Albumin/Globulin Ratio 0.5 (1.0-1.7) Glucose (Fingerstick) 361mg/dL (70-99) 284mg/dL (70-99) 417mg/dL (70-99) Test 01/04/17 05:40 01/04/17 07:15 01/04/17 11:01 01/04/17 16:25 White Blood Count 8.2x10^3/uL (4.0-11.0) Red Blood Count 3.81x10^6/uL (4.30-5.70) Hemoglobin 11.0g/dL (13.0-17.5) Hematocrit 32.2% (39.0-53.0) Mean Corpuscular Volume 85fL (79-100) Mean Corpuscular Hemoglobin 29pg (25-35) Mean Corpuscular Hemoglobin Concent 34g/dL (31-37) Red Cell Distribution Width 12.6% (11.5-14.5) Platelet Count 343x10^3/uL (140-400) Neutrophils (%) (Auto) 63% (31-73) Lymphocytes (%) (Auto) 20% (24-48) Monocytes (%) (Auto) 14% (0-9) Eosinophils (%) (Auto) 2% (0-3) Basophils (%) (Auto) 1% (0-3) Neutrophils # (Auto) 5.2x10^3uL (1.8-7.7) Lymphocytes # (Auto) 1.6x10^3/uL (1.0-4.8) Monocytes # (Auto) 1.2x10^3/uL (0.0-1.1) Eosinophils # (Auto) 0.1x10^3/uL (0.0-0.7) Basophils # (Auto) 0.1x10^3/uL (0.0-0.2) Sodium Level 138mmol/L (136-145) Potassium Level 3.7mmol/L (3.5-5.1) Chloride Level 100mmol/L (98-107) Carbon Dioxide Level 29mmol/L (21-32) Anion Gap 9 (6-14) Blood Urea Nitrogen 15mg/dL (8-26) Creatinine 1.0mg/dL (0.7-1.3) Estimated GFR (Cockcroft-Gault) 81.6 Glucose Level 237mg/dL (70-99) Calcium Level 9.0mg/dL (8.5-10.1) Glucose (Fingerstick) 225mg/dL (70-99) 138mg/dL (70-99) 108mg/dL (70-99) Test 01/04/17 21:04 01/05/17 00:15 01/05/17 05:50 01/05/17 07:15 Glucose (Fingerstick) 230mg/dL (70-99) 153mg/dL (70-99) Vancomycin Level Trough 13.6mcg/mL (10.0-20.0) Vancomycin Last Dose Date [id number] Vancomycin Last Dose Time 1300 White Blood Count 8.8x10^3/uL (4.0-11.0) Red Blood Count 3.47x10^6/uL (4.30-5.70) Hemoglobin 10.2g/dL (13.0-17.5) Hematocrit 29.8% (39.0-53.0) Mean Corpuscular Volume 86fL (79-100) Mean Corpuscular Hemoglobin 29pg (25-35) Mean Corpuscular Hemoglobin Concent 34g/dL (31-37) Red Cell Distribution Width 12.8% (11.5-14.5) Platelet Count 335x10^3/uL (140-400) Neutrophils (%) (Auto) 64% (31-73) Lymphocytes (%) (Auto) 22% (24-48) Monocytes (%) (Auto) 11% (0-9) Eosinophils (%) (Auto) 2% (0-3) Basophils (%) (Auto) 1% (0-3) Neutrophils # (Auto) 5.6x10^3uL (1.8-7.7) Lymphocytes # (Auto) 1.9x10^3/uL (1.0-4.8) Monocytes # (Auto) 1.0x10^3/uL (0.0-1.1) Eosinophils # (Auto) 0.2x10^3/uL (0.0-0.7) Basophils # (Auto) 0.1x10^3/uL (0.0-0.2) Sodium Level 142mmol/L (136-145) Potassium Level 3.4mmol/L (3.5-5.1) Chloride Level 105mmol/L (98-107) Carbon Dioxide Level 27mmol/L (21-32) Anion Gap 10 (6-14) Blood Urea Nitrogen 9mg/dL (8-26) Creatinine 0.9mg/dL (0.7-1.3) Estimated GFR (Cockcroft-Gault) 92.1 Glucose Level 206mg/dL (70-99) Calcium Level 8.7mg/dL (8.5-10.1) Laboratory Tests Test 01/04/17 11:01 01/04/17 16:25 01/04/17 21:04 01/05/17 00:15 Glucose (Fingerstick) 138mg/dL (70-99) 108mg/dL (70-99) 230mg/dL (70-99) Vancomycin Level Trough 13.6mcg/mL (10.0-20.0) Vancomycin Last Dose Date [id number] Vancomycin Last Dose Time 1300 Test 01/05/17 05:50 01/05/17 07:15 White Blood Count 8.8x10^3/uL (4.0-11.0) Red Blood Count 3.47x10^6/uL (4.30-5.70) Hemoglobin 10.2g/dL (13.0-17.5) Hematocrit 29.8% (39.0-53.0) Mean Corpuscular Volume 86fL (79-100) Mean Corpuscular Hemoglobin 29pg (25-35) Mean Corpuscular Hemoglobin Concent 34g/dL (31-37) Red Cell Distribution Width 12.8% (11.5-14.5) Platelet Count 335x10^3/uL (140-400) Neutrophils (%) (Auto) 64% (31-73) Lymphocytes (%) (Auto) 22% (24-48) Monocytes (%) (Auto) 11% (0-9) Eosinophils (%) (Auto) 2% (0-3) Basophils (%) (Auto) 1% (0-3) Neutrophils # (Auto) 5.6x10^3uL (1.8-7.7) Lymphocytes # (Auto) 1.9x10^3/uL (1.0-4.8) Monocytes # (Auto) 1.0x10^3/uL (0.0-1.1) Eosinophils # (Auto) 0.2x10^3/uL (0.0-0.7) Basophils # (Auto) 0.1x10^3/uL (0.0-0.2) Sodium Level 142mmol/L (136-145) Potassium Level 3.4mmol/L (3.5-5.1) Chloride Level 105mmol/L (98-107) Carbon Dioxide Level 27mmol/L (21-32) Anion Gap 10 (6-14) Blood Urea Nitrogen 9mg/dL (8-26) Creatinine 0.9mg/dL (0.7-1.3) Estimated GFR (Cockcroft-Gault) 92.1 Glucose Level 206mg/dL (70-99) Calcium Level 8.7mg/dL (8.5-10.1) Glucose (Fingerstick) 153mg/dL (70-99) Microbiology 01/03/17 Blood Culture - Preliminary, Resulted NO GROWTH AFTER 1 DAY 01/03/17 Gram Stain - Final, Complete Medications Current Medications Vancomycin HCl (Vanco Per Pharmacy) 1 each PRN DAILY PRN MC SEE COMMENTS Last administered on 01/05/17 02:19; Start 01/03/17 at 12:30 Piperacillin Sod/ Tazobactam Sod 1 each 1 each PRN DAILY PRN MC SEE COMMENTS; Start 01/03/17 at 12:30 Sodium Chloride (Iv Sodium Chloride 0.9% 1000ml Bag) 1,000 ml @ 1,000 mls/hr 1X ONCE IV Last administered on 01/03/17 12:55; Start 01/03/17 at 12:30; Stop 01/03/17 at 13:29; Status DC Insulin Human Regular 10 unit 10 unit 1X ONCE IV Last administered on 13:01; Start 01/03/17 at 12:30; Stop 01/03/17 at 12:33; Status DC Vancomycin HCl 1.75 gm/Sodium Chloride 500 ml @ 250 mls/hr 1X ONCE IV Last administered on 01/03/17 13:24; Start 01/03/17 at 13:00; Stop 01/03/17 at 14:59 ; Status DC Piperacillin Sod/ Tazobactam Sod 3.375 gm/Sodium Chloride 50 ml @ 100 mls/hr 1X ONCE IV Last administered on 01/03/17 12:56; Start 01/03/17 at 13:00; Stop 01/03/17 at 13:29; Status DC Piperacillin Sod/ Tazobactam Sod 3.375 gm/Sodium Chloride 50 ml @ 100 mls/hr Q6HRS IV Last administered on 01/05/17 05:31; Start 01/03/17 at 18:00 Vancomycin HCl/ Sodium Chloride (Iv Sodium Chloride 0.9% 250ml) 250 ml @ 250 mls/hr Q12H IV Last administered on 01/05/17 03:05; Start 01/04/17 at 01:00 Vancomycin HCl 1 each 1X ONCE MC Last administered on 01/05/17 00:30; Start 01/05/17 at 00:30; Stop 01/05/17 at 00:31; Status DC Oxycodone/ Acetaminophen (Percocet 5/325) 1 tab PRN Q4HRS PRN PO PAIN Last administered on 01/04/17 22:12; Start 01/03/17 at 16:00 Morphine Sulfate 2 mg PRN Q2HR PRN IV PAIN; Start 01/03/17 at 16:00 Insulin Aspart (Novolog) 0-9 UNITS TIDWMEALS SQ Last administered on 01/05/17 08:34; Start 01/03/17 at 17:00 Dextrose 12.5 gm PRN Q15MIN PRN IV SEE COMMENTS; Start 01/03/17 at 16:00 Insulin Detemir (Levemir) 20 units QHS SQ ; Start 01/03/17 at 21:00; Stop at 09:11; Status DC Insulin Aspart (Novolog) 10 units TIDAC SQ Last administered on 01/03/17 17:30 ; Start 01/03/17 at 17:00; Stop 01/03/17 at 21:08; Status DC Pneumococcal Polyvalent Vaccine 0.5 ml 0.5 ml ONCE ONCE VAX IM Last administered on 01/04/17 09:59; Start 01/04/17 at 09:00; Stop 01/04/17 at 09:01 ; Status DC Sodium Chloride (Iv Sodium Chloride 0.9% 1000ml Bag) 1,000 ml @ 100 mls/hr Q10H IV Last administered on 01/05/17 05:32; Start 01/03/17 at 16:30 Insulin Aspart (Novolog) 15 units TIDAC SQ Last administered on 01/05/17 08:33 ; Start 01/04/17 at 07:30 Insulin Detemir (Levemir) 35 units 1X ONCE SQ Last administered on 01/03/17 21:18; Start 01/03/17 at 21:30; Stop 01/03/17 at 21:31; Status DC Insulin Aspart (Novolog) 12 units 1X ONCE SQ Last administered on 01/03/17 21 :17; Start 01/03/17 at 21:30; Stop 01/03/17 at 21:31; Status DC Insulin Detemir (Levemir) 35 units QHS SQ Last administered on 01/04/17 21:36 ; Start 01/04/17 at 21:00 Info (Do NOT chart on this placeholder) 1 each PRN 1X PRN MC SEE COMMENTS; Start 01/05/17 at 10:00; Status UNV Influenza Virus Vaccine Quadrival (Fluarix Quad [id number] Syringe) 0.5 ml ONCE ONCE VAX IM ; Start 01/05/17 at 10:15; Stop 01/05/17 at 10:16; Status DC Active Scripts Active Naproxen 500 Mg Tablet. 1 Tab PO BID Wheeler 5-325 Tablet (Acetaminophen/Hydrocodone Bitart) 1 Each Tablet 1-2 Tab PO Q4-6HRS Amoxicillin 875 Mg Tablet 1 Tab PO BID Vitals/I & O Vital Sign - Last 24 Hours 01/04/17 01/04/17 01/04/17 01/04/17 11:00 15:00 19:00 19:40 Temp 98.6 98.1 97.6 98.6 98.1 97.6 Pulse 82 91 90 Resp 18 16 20 B/P 116/72 126/76 123/80 Pulse Ox 99 97 97 O2 Delivery Room Air Room Air Room Air Room Air 01/04/17 01/04/17 01/04/17 01/05/17 22:12 23:11 23:12 03:00 Temp 98.5 98.2 98.5 98.2 Pulse 87 85 Resp B/P 134/87 139/84 Pulse Ox 97 99 99 95 O2 Delivery Room Air Room Air Room Air Room Air 01/05/17 01/05/17 07:00 08:00 Temp 98.5 98.5 Pulse 82 Resp 18 B/P 145/88 Pulse Ox 95 O2 Delivery Room Air Room Air Intake and Output 01/04/17 01/04/17 01/05/17 15:00 23:00 07:00 Intake Total 2841 ml 1597 ml Balance 2841 ml 1597 ml JOANN MAYA MD Jan 05, 2017 10:56
--- NOTE | 2017-01-05 11:17 | PDOC ---
Infectious Disease Note Subjective Subjective No acute distress overnight. Denies any pain at this time. Low blood sugar earlier is better ROS ROS GEN: Denies fevers, chills, sweats HEENT: Denies blurred vision, sore throat CV: Denies chest pain RESP: Denies shortness of air, cough GI: Denies n/v/d NEURO: Denies confusion, dizziness MSK: Denies weakness, joint pain/swelling Vital Sign Vital Signs Vital Signs Date Time Temp Pulse Resp B/P Pulse Ox O2 Delivery O2 Flow Rate FiO2 01/05/17 10:52 98.5 74 18 128/80 99 Room Air 98.5 Physical Exam PHYSICAL EXAM GENERAL: NAD, Alert HEENT: PERRL, OC/OP -clear NECK: Supple, no JVD, no LN LUNGS: Clear HEART: S1S2, no gallop, no murmur ABD: Soft, NT, no organomegaly, no rebound EXT: No edema, no cyanosis. Toe dressed with some dried blood. + Pulses DIRECTOR RELIGIOUS EDUCATION: Alert, oriented x 3, no focal neurologic deficit SKIN: No rash IV: ok Labs Lab Laboratory Tests Test 01/04/17 16:25 01/04/17 21:04 01/05/17 00:15 01/05/17 05:50 Glucose (Fingerstick) 108mg/dL (70-99) 230mg/dL (70-99) Vancomycin Level Trough 13.6mcg/mL (10.0-20.0) Vancomycin Last Dose Date Vancomycin Last Dose Time 1300 White Blood Count 8.8x10^3/uL (4.0-11.0) Red Blood Count 3.47x10^6/uL (4.30-5.70) Hemoglobin 10.2g/dL (13.0-17.5) Hematocrit 29.8% (39.0-53.0) Mean Corpuscular Volume 86fL (79-100) Mean Corpuscular Hemoglobin 29pg (25-35) Mean Corpuscular Hemoglobin Concent 34g/dL (31-37) Red Cell Distribution Width 12.8% (11.5-14.5) Platelet Count 335x10^3/uL (140-400) Neutrophils (%) (Auto) 64% (31-73) Lymphocytes (%) (Auto) 22% (24-48) Monocytes (%) (Auto) 11% (0-9) Eosinophils (%) (Auto) 2% (0-3) Basophils (%) (Auto) 1% (0-3) Neutrophils # (Auto) 5.6x10^3uL (1.8-7.7) Lymphocytes # (Auto) 1.9x10^3/uL (1.0-4.8) Monocytes # (Auto) 1.0x10^3/uL (0.0-1.1) Eosinophils # (Auto) 0.2x10^3/uL (0.0-0.7) Basophils # (Auto) 0.1x10^3/uL (0.0-0.2) Sodium Level 142mmol/L (136-145) Potassium Level 3.4mmol/L (3.5-5.1) Chloride Level 105mmol/L (98-107) Carbon Dioxide Level 27mmol/L (21-32) Anion Gap 10 (6-14) Blood Urea Nitrogen 9mg/dL (8-26) Creatinine 0.9mg/dL (0.7-1.3) Estimated GFR (Cockcroft-Gault) 92.1 Glucose Level 206mg/dL (70-99) Calcium Level 8.7mg/dL (8.5-10.1) Test 01/05/17 07:15 01/05/17 10:51 Glucose (Fingerstick) 153mg/dL (70-99) 73mg/dL (70-99) Objective Assessment Infected diabetic ulcer of right great toe. Staph aureus Diabetic neuropathy NISSA Avulsion of right 5th toenail d/t trauma Plan Plan of Care cont. vanc and Zosyn grew S. aureus in wound Podiatry evaluation declined. Vascular consulted F/u labs and cults D/w SHARON Khan MD Jan 05, 2017 11:17
[2017-01-05] MEDS ORDERED: POTASSIUM CHLORIDE 20 MEQ in IV NORMAL SALINE 1000ML BAG 1,000 ML IV SCH (11:30)
--- NOTE | 2017-01-05 11:50 | PDOC2 ---
CONSULT Date of Consult Date of Consult DATE: 01/05/17 TIME: 11:44 Reason for Consult Reason for Consult: S. 41 yrs Wmale, diabetic for 13-15 years, not well controlled, developed non- healing ulcer on right foot. Developed gradually worsening vision in right eye over last 2 years. Cannot see well with right, and seeing blurry with left eye. No new changes, no pain, no redness. No recent eye exam. O. EOM Full and normal OU Ext 2+ low tear meniscus OU Conj No injection, no discharge OU Cornea Clear and compact OU AC deep and quiet OU Pupil 3 mm round reacting equal no APD OU Lens mild cortical changes of cataract OU Fundus signs of diabetic retinopathy and maculopathy OU (OD > OS) Confrontation Visual Field No gross limitations OU A. Diabetic Retinopathy OD > OS/ mild Cortical Cataract OU/ Dry Eyes P. Explained to pt about diabetic eye and retina complications and needed complete ocular exam in my office when discharged from here. Probably will nee laser photocoagulation treatments Thanking you, Chela Asencio MD Past Medical History Cardiovascular: HTN Endocrine: Diabetes Past Surgical History Past Surgical History: Cholecystectomy, Tonsillectomy Family History Family History: No Significant Social History No ALCOHOL: none Drugs: None Current Problem List Problem List Problems Medical Problems: (1) Cellulitis of foot Status: Acute (2) Diabetic foot infection Status: Acute Current Medications Current Medications Current Medications Vancomycin HCl (Vanco Per Pharmacy) 1 each PRN DAILY PRN MC SEE COMMENTS Last administered on 01/05/17 11:14; Start 01/03/17 at 12:30 Piperacillin Sod/ Tazobactam Sod 1 each 1 each PRN DAILY PRN MC SEE COMMENTS; Start 01/03/17 at 12:30; Stop 01/05/17 at 11:05; Status DC Sodium Chloride (Iv Sodium Chloride 0.9% 1000ml Bag) 1,000 ml @ 1,000 mls/hr 1X ONCE IV Last administered on 01/03/17 12:55; Start 01/03/17 at 12:30; Stop 01/03/17 at 13:29; Status DC Insulin Human Regular 10 unit 10 unit 1X ONCE IV Last administered on 13:01; Start 01/03/17 at 12:30; Stop 01/03/17 at 12:33; Status DC Vancomycin HCl 1.75 gm/Sodium Chloride 500 ml @ 250 mls/hr 1X ONCE IV Last administered on 01/03/17 13:24; Start 01/03/17 at 13:00; Stop 01/03/17 at 14:59 ; Status DC Piperacillin Sod/ Tazobactam Sod 3.375 gm/Sodium Chloride 50 ml @ 100 mls/hr 1X ONCE IV Last administered on 01/03/17 12:56; Start 01/03/17 at 13:00; Stop 01/03/17 at 13:29; Status DC Piperacillin Sod/ Tazobactam Sod 3.375 gm/Sodium Chloride 50 ml @ 100 mls/hr Q6HRS IV Last administered on 01/05/17 05:31; Start 01/03/17 at 18:00 Vancomycin HCl/ Sodium Chloride (Iv Sodium Chloride 0.9% 250ml) 250 ml @ 250 mls/hr Q12H IV Last administered on 01/05/17 03:05; Start 01/04/17 at 01:00 Vancomycin HCl 1 each 1X ONCE MC Last administered on 01/05/17 00:30; Start 01/05/17 at 00:30; Stop 01/05/17 at 00:31; Status DC Oxycodone/ Acetaminophen (Percocet 5/325) 1 tab PRN Q4HRS PRN PO PAIN Last administered on 01/04/17 22:12; Start 01/03/17 at 16:00 Morphine Sulfate 2 mg PRN Q2HR PRN IV PAIN; Start 01/03/17 at 16:00 Insulin Aspart (Novolog) 0-9 UNITS TIDWMEALS SQ Last administered on 01/05/17 08:34; Start 01/03/17 at 17:00 Dextrose 12.5 gm PRN Q15MIN PRN IV SEE COMMENTS; Start 01/03/17 at 16:00 Insulin Detemir (Levemir) 20 units QHS SQ ; Start 01/03/17 at 21:00; Stop at 09:11; Status DC Insulin Aspart (Novolog) 10 units TIDAC SQ Last administered on 01/03/17 17:30 ; Start 01/03/17 at 17:00; Stop 01/03/17 at 21:08; Status DC Pneumococcal Polyvalent Vaccine 0.5 ml 0.5 ml ONCE ONCE VAX IM Last administered on 01/04/17 09:59; Start 01/04/17 at 09:00; Stop 01/04/17 at 09:01 ; Status DC Sodium Chloride (Iv Sodium Chloride 0.9% 1000ml Bag) 1,000 ml @ 100 mls/hr Q10H IV Last administered on 01/05/17 05:32; Start 01/03/17 at 16:30; Stop at 11:11; Status DC Insulin Aspart (Novolog) 15 units TIDAC SQ Last administered on 01/05/17 08:33 ; Start 01/04/17 at 07:30; Stop 01/05/17 at 10:56; Status DC Insulin Detemir (Levemir) 35 units 1X ONCE SQ Last administered on 01/03/17 21:18; Start 01/03/17 at 21:30; Stop 01/03/17 at 21:31; Status DC Insulin Aspart (Novolog) 12 units 1X ONCE SQ Last administered on 01/03/17 21 :17; Start 01/03/17 at 21:30; Stop 01/03/17 at 21:31; Status DC Insulin Detemir (Levemir) 35 units QHS SQ Last administered on 01/04/17 21:36 ; Start 01/04/17 at 21:00; Stop 01/05/17 at 10:56; Status DC Info (Do NOT chart on this placeholder) 1 each PRN 1X PRN MC SEE COMMENTS; Start 01/05/17 at 10:00; Status UNV Influenza Virus Vaccine Quadrival (Fluarix Quad [id number] Syringe) 0.5 ml ONCE ONCE VAX IM ; Start 01/05/17 at 10:15; Stop 01/05/17 at 10:16; Status DC Insulin Aspart (Novolog) 14 units TIDAC SQ ; Start 01/05/17 at 11:30 Insulin Detemir 30 units 30 units QHS SQ ; Start 01/05/17 at 21:00 Potassium Chloride 20 meq/ Sodium Chloride 1,010 ml @ 100 mls/hr Q10H6M IV ; Start 01/05/17 at 11:30; Stop 01/05/17 at 11:30; Status DC Potassium Chloride/Sodium Chloride (KCl 20 Meq-NS 1,000 ml Iv Soln) 1,000 ml @ 100 mls/hr Q10H IV ; Start 01/05/17 at 11:30 Active Scripts Active Naproxen 500 Mg Tablet. 1 Tab PO BID [place] 5-325 Tablet (Acetaminophen/Hydrocodone Bitart) 1 Each Tablet 1-2 Tab PO Q4-6HRS Amoxicillin 875 Mg Tablet 1 Tab PO BID Allergies Allergies: Coded Allergies: diphenhydramine (Verified Allergy, Intermediate, 11/10/16) erythromycin base (Verified Allergy, Intermediate, 11/10/16) Vitals VITALS Vital Signs Date Time Temp Pulse Resp B/P Pulse Ox O2 Delivery O2 Flow Rate FiO2 01/05/17 10:52 98.5 74 18 128/80 99 Room Air 98.5 Labs Labs Laboratory Tests Test 01/03/17 14:14 01/03/17 16:05 01/03/17 20:53 01/04/17 05:40 Glucose (Fingerstick) 361mg/dL (70-99) 284mg/dL (70-99) 417mg/dL (70-99) White Blood Count 8.2x10^3/uL (4.0-11.0) Red Blood Count 3.81x10^6/uL (4.30-5.70) Hemoglobin 11.0g/dL (13.0-17.5) Hematocrit 32.2% (39.0-53.0) Mean Corpuscular Volume 85fL (79-100) Mean Corpuscular Hemoglobin 29pg (25-35) Mean Corpuscular Hemoglobin Concent 34g/dL (31-37) Red Cell Distribution Width 12.6% (11.5-14.5) Platelet Count 343x10^3/uL (140-400) Neutrophils (%) (Auto) 63% (31-73) Lymphocytes (%) (Auto) 20% (24-48) Monocytes (%) (Auto) 14% (0-9) Eosinophils (%) (Auto) 2% (0-3) Basophils (%) (Auto) 1% (0-3) Neutrophils # (Auto) 5.2x10^3uL (1.8-7.7) Lymphocytes # (Auto) 1.6x10^3/uL (1.0-4.8) Monocytes # (Auto) 1.2x10^3/uL (0.0-1.1) Eosinophils # (Auto) 0.1x10^3/uL (0.0-0.7) Basophils # (Auto) 0.1x10^3/uL (0.0-0.2) Sodium Level 138mmol/L (136-145) Potassium Level 3.7mmol/L (3.5-5.1) Chloride Level 100mmol/L (98-107) Carbon Dioxide Level 29mmol/L (21-32) Anion Gap 9 (6-14) Blood Urea Nitrogen 15mg/dL (8-26) Creatinine 1.0mg/dL (0.7-1.3) Estimated GFR (Cockcroft-Gault) 81.6 Glucose Level 237mg/dL (70-99) Calcium Level 9.0mg/dL (8.5-10.1) Test 01/04/17 07:15 01/04/17 11:01 01/04/17 16:25 01/04/17 21:04 Glucose (Fingerstick) 225mg/dL (70-99) 138mg/dL (70-99) 108mg/dL (70-99) 230mg/dL (70-99) Test 01/05/17 00:15 01/05/17 05:50 01/05/17 07:15 01/05/17 10:51 Vancomycin Level Trough 13.6mcg/mL (10.0-20.0) Vancomycin Last Dose Date [id number] Vancomycin Last Dose Time 1300 White Blood Count 8.8x10^3/uL (4.0-11.0) Red Blood Count 3.47x10^6/uL (4.30-5.70) Hemoglobin 10.2g/dL (13.0-17.5) Hematocrit 29.8% (39.0-53.0) Mean Corpuscular Volume 86fL (79-100) Mean Corpuscular Hemoglobin 29pg (25-35) Mean Corpuscular Hemoglobin Concent 34g/dL (31-37) Red Cell Distribution Width 12.8% (11.5-14.5) Platelet Count 335x10^3/uL (140-400) Neutrophils (%) (Auto) 64% (31-73) Lymphocytes (%) (Auto) 22% (24-48) Monocytes (%) (Auto) 11% (0-9) Eosinophils (%) (Auto) 2% (0-3) Basophils (%) (Auto) 1% (0-3) Neutrophils # (Auto) 5.6x10^3uL (1.8-7.7) Lymphocytes # (Auto) 1.9x10^3/uL (1.0-4.8) Monocytes # (Auto) 1.0x10^3/uL (0.0-1.1) Eosinophils # (Auto) 0.2x10^3/uL (0.0-0.7) Basophils # (Auto) 0.1x10^3/uL (0.0-0.2) Sodium Level 142mmol/L (136-145) Potassium Level 3.4mmol/L (3.5-5.1) Chloride Level 105mmol/L (98-107) Carbon Dioxide Level 27mmol/L (21-32) Anion Gap 10 (6-14) Blood Urea Nitrogen 9mg/dL (8-26) Creatinine 0.9mg/dL (0.7-1.3) Estimated GFR (Cockcroft-Gault) 92.1 Glucose Level 206mg/dL (70-99) Calcium Level 8.7mg/dL (8.5-10.1) Magnesium Level 1.9mg/dL (1.8-2.4) Glucose (Fingerstick) 153mg/dL (70-99) 73mg/dL (70-99) Laboratory Tests Test 01/04/17 16:25 01/04/17 21:04 01/05/17 00:15 01/05/17 05:50 Glucose (Fingerstick) 108mg/dL (70-99) 230mg/dL (70-99) Vancomycin Level Trough 13.6mcg/mL (10.0-20.0) Vancomycin Last Dose Date Vancomycin Last Dose Time 1300 White Blood Count 8.8x10^3/uL (4.0-11.0) Red Blood Count 3.47x10^6/uL (4.30-5.70) Hemoglobin 10.2g/dL (13.0-17.5) Hematocrit 29.8% (39.0-53.0) Mean Corpuscular Volume 86fL (79-100) Mean Corpuscular Hemoglobin 29pg (25-35) Mean Corpuscular Hemoglobin Concent 34g/dL (31-37) Red Cell Distribution Width 12.8% (11.5-14.5) Platelet Count 335x10^3/uL (140-400) Neutrophils (%) (Auto) 64% (31-73) Lymphocytes (%) (Auto) 22% (24-48) Monocytes (%) (Auto) 11% (0-9) Eosinophils (%) (Auto) 2% (0-3) Basophils (%) (Auto) 1% (0-3) Neutrophils # (Auto) 5.6x10^3uL (1.8-7.7) Lymphocytes # (Auto) 1.9x10^3/uL (1.0-4.8) Monocytes # (Auto) 1.0x10^3/uL (0.0-1.1) Eosinophils # (Auto) 0.2x10^3/uL (0.0-0.7) Basophils # (Auto) 0.1x10^3/uL (0.0-0.2) Sodium Level 142mmol/L (136-145) Potassium Level 3.4mmol/L (3.5-5.1) Chloride Level 105mmol/L (98-107) Carbon Dioxide Level 27mmol/L (21-32) Anion Gap 10 (6-14) Blood Urea Nitrogen 9mg/dL (8-26) Creatinine 0.9mg/dL (0.7-1.3) Estimated GFR (Cockcroft-Gault) 92.1 Glucose Level 206mg/dL (70-99) Calcium Level 8.7mg/dL (8.5-10.1) Magnesium Level 1.9mg/dL (1.8-2.4) Test 01/05/17 07:15 01/05/17 10:51 Glucose (Fingerstick) 153mg/dL (70-99) 73mg/dL (70-99) VLAD ASENCIO MD Jan 05, 2017 11:50
[2017-01-05] MEDS: OXYCODONE/APAP 5/325 TABLET. PO PRN ×2 (14:13→22:41)
[2017-01-05 15:02] VITALS: BP 163/87
--- NOTE | 2017-01-05 18:50 | PDOC ---
Provider Note Provider Note VASCULAR CONSULT Dictated Diabetic foot infection with ulceration to the bone palpable dp pulse uncontrolled diabetes Rec: open first toe amputation continued abx diabetic care wound VAC pt may benefit from HBO YUNG ZARAGOZA MD Jan 05, 2017 18:50
[2017-01-05 19:15] VITALS: BP 123/76
[2017-01-05] MEDS: INSULIN DETEMIR 300 UNITS/3 ML INSULN.PEN. SQ SCH (21:51)
[2017-01-05 23:07] VITALS: BP 123/87
[2017-01-06] VITALS (12 sets, daily range): BP systolic 128–200; BP diastolic 70–116
[2017-01-06] MEDS: PIPERACILLIN/TAZOBACTAM 3.375 GM in IV NORMAL SALINE 50ML 50 ML IV SCH ×4 (00:23→17:52)
[2017-01-06] MEDS: VANCOMYCIN 1 GM in IV NORMAL SALINE 250ML 250 ML IV SCH ×2 (00:27→12:40)
--- NOTE | 2017-01-06 00:35 | DS ---
DATE OF DISCHARGE: 01/05/2017 REASON FOR CONSULTATION: Draining sore, first toe, right foot. HISTORY OF PRESENT ILLNESS: This is a 41-year-old diabetic male with uncontrolled diabetes and end-stage organ damage with vision loss, peripheral neuropathy, and peripheral vascular disease. He is admitted to the hospital with a draining sore on the plantar surface of his right foot. When evaluated in the Emergency Room, he was noted to have blood sugar of 530. Serum creatinine 1.4. The patient does not smoke. He does know he has diabetes. He has been previously on insulin, but has not been managing his diabetes lately because of financial concerns and lack of insurance. At the time of admission, his white count was 9700, blood sugar was 544, creatinine was 1.4. Vascular consultation was requested because of a draining infected first toe. The patient does not have a history of previous tobacco use. He is on no illicit drugs. PRIOR SURGERIES: Include cholecystectomy and tonsillectomy. No history of claudication or ischemic rest pain, but the patient does state he has almost no sensation in his lower extremities. ALLERGIES: He is allergic to Benadryl and erythromycin. CURRENT MEDICATIONS: He was placed on vancomycin in the Emergency Room as well as piperacillin. He has IV infusion running. He is on regular insulin and Percocet for pain. PHYSICAL EXAMINATION: GENERAL: Sitting in bed, in no acute distress. LUNGS: Clear. ABDOMEN: Soft, nontender, no organomegaly or masses. EXTREMITIES: He has excellent brachial and radial pulses. Palpable femoral and popliteal pulses bilaterally. Palpable dorsalis pedis pulses bilaterally. He has a callus buildup beneath the plantar surface of the first toe on the right foot. There is purulent drainage beneath this and there is a blister on the toe tip with purulent drainage coming from this. Expecting plantar surface of the wound, there is an area of full thickness necrosis, which penetrates to the bone. There is some surrounding cellulitis extending up toward the metatarsophalangeal joint. 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 The patient is going to require some long-term antibiotics as well as digit amputation and wound management. I discussed this with the patient. Would recommend continuing him on antibiotic therapy for now and we will schedule him for open first toe amputation in the near future. Wound VAC and wound care will be required long-term. Thank you for this consult. YUNG ZARAGOZA MD DR: SEUN/stephen JOB#: [id number] / [id number]
[2017-01-06] MEDS: INSULIN ASPART 300 UNITS/3 ML INSULN.PEN SQ SCH ×6 (07:30→17:59)
--- NOTE | 2017-01-06 08:25 | PDOC ---
Infectious Disease Note Subjective Subjective Planning for for digit amputation this afternoon. + Bm ROS ROS GEN: Denies fevers, chills, sweats HEENT: Denies blurred vision, sore throat CV: Denies chest pain RESP: Denies shortness of air, cough GI: Denies n/v/d NEURO: Denies confusion, dizziness MSK: Denies weakness, joint pain/swelling Vital Sign Vital Signs Vital Signs Date Time Temp Pulse Resp B/P Pulse Ox O2 Delivery O2 Flow Rate FiO2 01/06/17 03:05 97.9 80 18 137/81 95 Room Air 97.9 Physical Exam PHYSICAL EXAM GENERAL: NAD, Alert HEENT: PERRL, OC/OP -clear NECK: Supple, no JVD, no LN LUNGS: Clear HEART: S1S2, no gallop, no murmur ABD: Soft, NT, no organomegaly, no rebound EXT: No edema, no cyanosis. 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 Staph aureus Diabetic neuropathy NISSA Avulsion of right 5th toenail d/t trauma Plan Plan of Care cont. vanc and Zosyn; will change to PO after surgery if wound is closed grew S. aureus in wound F/u labs and cults SHARON BAPTISTE MD Jan 06, 2017 08:25
[2017-01-06] MEDS: VANCOMYCIN PER PHARMACY MC PRN (10:26)
[2017-01-06] MEDS ORDERED: LIDOCAINE 1% PF 30 ML VIAL. ONE (12:30)
[2017-01-06] MEDS ORDERED: BUPIVACAINE 0.25% 50 ML VIAL. ONE (12:30)
[2017-01-06] MEDS ORDERED: PROPOFOL 20 ML IV ONE (12:49)
[2017-01-06] MEDS ORDERED: LIDOCAINE 2% PF Vial for OR 5 ML VIAL. ONE (12:50)
[2017-01-06] MEDS ORDERED: ONDANSETRON PF 4 MG/2 ML VIAL. ONE (12:50)
[2017-01-06] MEDS ORDERED: FAMOTIDINE 20 MG/2 ML VIAL ONE (12:50)
[2017-01-06] MEDS ORDERED: FENTANYL PF 100 MCG/2 ML VIAL. ONE ×2 (12:52→14:51)
[2017-01-06] MEDS ORDERED: POTASSIUM CHLORIDE 20 MEQ TABLET.ER. PO ONE (14:15)
--- NOTE | 2017-01-06 15:00 | PDOC ---
VASCULAR BRIEF OPERATIVE NOTE Date: Jan 06, 2017 Pre-Op Diagnosis neuropathic ulcer 1st toe right foot Post-Op Diagnosis same Procedure Performed open first toe amputation with wound VAC application Surgeon Danielle Anesthesia Type: General Blood Loss min YUNG ZARAGOZA MD Jan 06, 2017 15:00
[2017-01-06] MEDS ORDERED: FENTANYL PF 100 MCG/2 ML VIAL. IV PRN ×2 (15:15)
[2017-01-06] MEDS ORDERED: MORPHINE SULFATE 4 MG/ML DISP.SYRIN. IV PRN (15:15)
[2017-01-06] MEDS ORDERED: MORPHINE SULFATE 2 MG/ML DISP.SYRIN. IV PRN (15:15)
[2017-01-06] MEDS ORDERED: HYDROMORPHONE 2 MG/ML VIAL. IV PRN (15:15)
[2017-01-06] MEDS: IV RINGERS,LACTATED 1000ML 1,000 ML IV SCH (15:30)
--- NOTE | 2017-01-06 19:57 | OP ---
DATE OF SURGERY: 01/06/2017 PREOPERATIVE DIAGNOSIS: Open ulcerated wound, plantar surface, first right toe, extending down to bone. POSTOPERATIVE DIAGNOSIS: Open ulcerated wound, plantar surface, first right toe, extending down to bone. PROCEDURE PERFORMED: First toe amputation, wound VAC application. SURGEON: Yung Santos MD ANESTHESIA: General. INDICATIONS: This is a 41-year-old, poorly-controlled diabetic male, who presented with neuropathic ulceration of the first toe of his right foot. There was associated cellulitis and hypertrophic callus formation. He had palpable popliteal and distal pulses. ____ for IV antibiotics, management of his diabetes and amputation of the toe. He has been on IV antibiotics since admission to the hospital. His blood sugars were under better control than they were initially. First toe amputation was recommended. DESCRIPTION OF PROCEDURE: The patient was given general anesthetic, prepped and draped in sterile fashion. A fishmouth incision was placed at the base of the first toe. Soft tissues were divided using sharp dissection and electrocautery. There was excellent pulsatile bleeding from the digital vessels. The bone was transected and proximal bone segment was removed with a rongeur. Hemostasis achieved with electrocautery. The wound was dressed with a wound VAC sponge and a wound VAC was applied. The patient tolerated the procedure well and was moved from the operating room to recovery in satisfactory stable condition. YUNG SANTOS MD DR: SEUN/stephen JOB#: [id number] / [id number]
[2017-01-06] MEDS: OXYCODONE/APAP 5/325 TABLET. PO PRN (20:56)
[2017-01-06] MEDS: INSULIN DETEMIR 300 UNITS/3 ML INSULN.PEN. SQ SCH (21:01)
[2017-01-07] MEDS: PIPERACILLIN/TAZOBACTAM 3.375 GM in IV NORMAL SALINE 50ML 50 ML IV SCH ×2 (00:23→05:52)
[2017-01-07] MEDS: VANCOMYCIN 1 GM in IV NORMAL SALINE 250ML 250 ML IV SCH (01:49)
[2017-01-07 03:00] VITALS: BP 139/86
[2017-01-07] MEDS: IV RINGERS,LACTATED 1000ML 1,000 ML IV SCH (05:47)
[2017-01-07 07:41] VITALS: BP 154/87
[2017-01-07] MEDS: INSULIN ASPART 300 UNITS/3 ML INSULN.PEN SQ SCH ×6 (08:11→16:31)
--- NOTE | 2017-01-07 08:41 | PDOC ---
Infectious Disease Note Subjective Subjective s/p open first toe amputation with wound VAC Pt doing well. Passing gas and +Bm ROS ROS GEN: Denies fevers, chills, sweats HEENT: Denies blurred vision, sore throat CV: Denies chest pain RESP: Denies shortness of air, cough GI: Denies n/v/d NEURO: Denies confusion, dizziness MSK: Denies weakness, joint pain/swelling Vital Sign Vital Signs Vital Signs Date Time Temp Pulse Resp B/P Pulse Ox O2 Delivery O2 Flow Rate FiO2 01/07/17 07:41 98.0 81 16 154/87 96 98.0 01/07/17 03:00 Room Air 01/06/17 15:02 10 Physical Exam PHYSICAL EXAM GENERAL: NAD, Alert HEENT: PERRL, OC/OP- clear NECK: Supple, no JVD, no LN LUNGS: Clear HEART: S1S2, no gallop, no murmur ABD: Soft, NT, no organomegaly, no rebound EXT: No edema, no cyanosis; Right toe wound vac; clean, dry, intact dressing 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 MSSA - s/p open first toe amputation with wound VAC 01/06 Diabetic neuropathy NISSA Avulsion of right 5th toenail d/t trauma Plan Plan of Care Discont. vanc and Zosyn for now Rocephin - discussed Rationale and indicated meds include Nafcillin/Cefazolin but given lack of insurance and transportation issues need once a day PICC line D/w Social service F/u labs and cults D/w SHARON Khan MD Jan 07, 2017 08:41
[2017-01-07] MEDS ORDERED: POLYETHYLENE GLYCOL 3350 17 GM PACKET. PO SCH (09:00)
--- NOTE | 2017-01-07 09:59 | PDOC ---
PROGRESS NOTES Chief Complaint Chief Complaint 1. DM 1 uncontrolled, A1c 11.8, with end organ target damage - multiple 2. DM foot wound, R big toe, w/ neuropathy - osteomyelitis 3. NISSA on CKD 4. Blind left eye/dm retinopathy 5. HTN 6. HONK POA 7. Peripheral vascular disease 8. hypokalemia, replaced History of Present Illness History of Present Illness feels better s/p amputation sugars better cont levemir novolog doses SSI avail pt and OT Vitals Vitals Vital Signs Date Time Temp Pulse Resp B/P Pulse Ox O2 Delivery O2 Flow Rate FiO2 01/07/17 07:41 98.0 81 16 154/87 96 98.0 01/07/17 03:00 Room Air 01/06/17 15:02 10 Physical Exam Physical Exam General: Alert, Oriented X3, Cooperative, No acute distress Heart: Regular rate (distant), No murmurs Abdomen: Normal bowel sounds, Soft, No tenderness, No hepatosplenomegaly, No masses Extremities: Other (R big toe has what seems to be necrotic, ulcerated wound, no active dc, non foul smelling) Skin: No rashes, No breakdown, No significant lesion Labs LABS Laboratory Tests Test 01/06/17 11:20 01/06/17 15:11 01/06/17 16:12 01/06/17 20:30 Glucose (Fingerstick) 101mg/dL (70-99) 114mg/dL (70-99) 111mg/dL (70-99) 294mg/dL (70-99) Test 01/07/17 07:47 Glucose (Fingerstick) 162mg/dL (70-99) Review of Systems Review of Systems min pain, 0/10 now stooled yesterday str. ok Assessment and Plan Assessmemt and Plan Pt and OT stool softener, cont current blood sugars better Problems Medical Problems: (1) Cellulitis of foot Status: Acute (2) Diabetic foot infection Status: Acute Problems: Comment Review of Relevant I have reviewed the following items lilli (where applicable) has been applied. Labs Laboratory Tests Test 01/05/17 10:51 01/05/17 11:56 01/05/17 16:10 01/05/17 21:30 Glucose (Fingerstick) 73mg/dL (70-99) 134mg/dL (70-99) 186mg/dL (70-99) 191mg/dL (70-99) Test 01/06/17 08:14 01/06/17 11:20 01/06/17 15:11 01/06/17 16:12 Glucose (Fingerstick) 113mg/dL (70-99) 101mg/dL (70-99) 114mg/dL (70-99) 111mg/dL (70-99) Test 01/06/17 20:30 01/07/17 07:47 Glucose (Fingerstick) 294mg/dL (70-99) 162mg/dL (70-99) Laboratory Tests Test 01/06/17 11:20 01/06/17 15:11 01/06/17 16:12 01/06/17 20:30 Glucose (Fingerstick) 101mg/dL (70-99) 114mg/dL (70-99) 111mg/dL (70-99) 294mg/dL (70-99) Test 01/07/17 07:47 Glucose (Fingerstick) 162mg/dL (70-99) Microbiology 01/03/17 Blood Culture - Preliminary, Resulted NO GROWTH AFTER 3 DAYS 01/03/17 Gram Stain - Final, Complete Medications Current Medications Vancomycin HCl (Vanco Per Pharmacy) 1 each PRN DAILY PRN MC SEE COMMENTS Last administered on 01/06/17 10:26; Start 01/03/17 at 12:30 Piperacillin Sod/ Tazobactam Sod 1 each 1 each PRN DAILY PRN MC SEE COMMENTS; Start 01/03/17 at 12:30; Stop 01/05/17 at 11:05; Status DC Sodium Chloride (Iv Sodium Chloride 0.9% 1000ml Bag) 1,000 ml @ 1,000 mls/hr 1X ONCE IV Last administered on 01/03/17 12:55; Start 01/03/17 at 12:30; Stop 01/03/17 at 13:29; Status DC Insulin Human Regular 10 unit 10 unit 1X ONCE IV Last administered on 13:01; Start 01/03/17 at 12:30; Stop 01/03/17 at 12:33; Status DC Vancomycin HCl 1.75 gm/Sodium Chloride 500 ml @ 250 mls/hr 1X ONCE IV Last administered on 01/03/17 13:24; Start 01/03/17 at 13:00; Stop 01/03/17 at 14:59 ; Status DC Piperacillin Sod/ Tazobactam Sod 3.375 gm/Sodium Chloride 50 ml @ 100 mls/hr 1X ONCE IV Last administered on 01/03/17 12:56; Start 01/03/17 at 13:00; Stop 01/03/17 at 13:29; Status DC Piperacillin Sod/ Tazobactam Sod 3.375 gm/Sodium Chloride 50 ml @ 100 mls/hr Q6HRS IV Last administered on 01/07/17 05:52; Start 01/03/17 at 18:00 Vancomycin HCl/ Sodium Chloride (Iv Sodium Chloride 0.9% 250ml) 250 ml @ 250 mls/hr Q12H IV Last administered on 01/07/17 01:49; Start 01/04/17 at 01:00 Vancomycin HCl 1 each 1X ONCE MC Last administered on 01/05/17 00:30; Start 01/05/17 at 00:30; Stop 01/05/17 at 00:31; Status DC Oxycodone/ Acetaminophen (Percocet 5/325) 1 tab PRN Q4HRS PRN PO PAIN Last administered on 01/06/17 20:56; Start 01/03/17 at 16:00 Morphine Sulfate 2 mg PRN Q2HR PRN IV PAIN; Start 01/03/17 at 16:00 Insulin Aspart (Novolog) 0-9 UNITS TIDWMEALS SQ Last administered on 01/07/17 08:11; Start 01/03/17 at 17:00 Dextrose 12.5 gm PRN Q15MIN PRN IV SEE COMMENTS; Start 01/03/17 at 16:00 Insulin Detemir (Levemir) 20 units QHS SQ ; Start 01/03/17 at 21:00; Stop at 09:11; Status DC Insulin Aspart (Novolog) 10 units TIDAC SQ Last administered on 01/03/17 17:30 ; Start 01/03/17 at 17:00; Stop 01/03/17 at 21:08; Status DC Pneumococcal Polyvalent Vaccine 0.5 ml 0.5 ml ONCE ONCE VAX IM Last administered on 01/04/17 09:59; Start 01/04/17 at 09:00; Stop 01/04/17 at 09:01 ; Status DC Sodium Chloride (Iv Sodium Chloride 0.9% 1000ml Bag) 1,000 ml @ 100 mls/hr Q10H IV Last administered on 01/05/17 05:32; Start 01/03/17 at 16:30; Stop at 11:11; Status DC Insulin Aspart (Novolog) 15 units TIDAC SQ Last administered on 01/05/17 08:33 ; Start 01/04/17 at 07:30; Stop 01/05/17 at 10:56; Status DC Insulin Detemir (Levemir) 35 units 1X ONCE SQ Last administered on 01/03/17 21:18; Start 01/03/17 at 21:30; Stop 01/03/17 at 21:31; Status DC Insulin Aspart (Novolog) 12 units 1X ONCE SQ Last administered on 01/03/17 21 :17; Start 01/03/17 at 21:30; Stop 01/03/17 at 21:31; Status DC Insulin Detemir (Levemir) 35 units QHS SQ Last administered on 01/04/17 21:36 ; Start 01/04/17 at 21:00; Stop 01/05/17 at 10:56; Status DC Info (Do NOT chart on this placeholder) 1 each PRN 1X PRN MC SEE COMMENTS; Start 01/05/17 at 10:00; Status UNV Influenza Virus Vaccine Quadrival (Fluarix Quad [id number] Syringe) 0.5 ml ONCE ONCE VAX IM Last administered on 01/05/17 13:07; Start 01/05/17 at 10:15; Stop 01/05/17 at 10:16; Status DC Insulin Aspart (Novolog) 14 units TIDAC SQ Last administered on 01/07/17 08:11 ; Start 01/05/17 at 11:30 Insulin Detemir 30 units 30 units QHS SQ Last administered on 01/06/17 21:01; Start 01/05/17 at 21:00 Potassium Chloride 20 meq/ Sodium Chloride 1,010 ml @ 100 mls/hr Q10H6M IV ; Start 01/05/17 at 11:30; Stop 01/05/17 at 11:30; Status DC Potassium Chloride/Sodium Chloride (KCl 20 Meq-NS 1,000 ml Iv Soln) 1,000 ml @ 100 mls/hr Q10H IV Last administered on 01/07/17t 05:52; Start 01/05/17 at 11: 30 Bupivacaine HCl (Marcaine 0.25%) 50 ml STK-MED ONCE .ROUTE ; Start 01/06/17 at 12:30; Stop 01/06/17 at 12:31; Status DC Lidocaine HCl 30 ml 30 ml STK-MED ONCE .ROUTE ; Start 01/06/17 at 12:30; Stop at 12:31; Status DC Propofol (Diprivan) 20 ml @ As Directed STK-MED ONCE IV ; Start 01/06/17 at 12: 49; Stop 01/06/17 at 12:50; Status DC Lidocaine HCl (Lidocaine Pf 2% Vial) 5 ml STK-MED ONCE .ROUTE ; Start 01/06/17 at 12:50; Stop 01/06/17 at 12:51; Status DC Famotidine (Pepcid) 20 mg STK-MED ONCE .ROUTE ; Start 01/06/17 at 12:50; Stop at 12:51; Status DC Ondansetron HCl (Zofran) 4 mg STK-MED ONCE .ROUTE ; Start 01/06/17 at 12:50; Stop 01/06/17 at 12:51; Status DC Fentanyl Citrate (Fentanyl 2ml Vial) 100 mcg STK-MED ONCE .ROUTE ; Start at 12:52; Stop 01/06/17 at 12:53; Status DC Potassium Chloride (Klor-Con) 20 meq 1X ONCE PO Last administered on t 17:36; Start 01/06/17 at 14:15; Stop 01/06/17 at 14:16; Status DC Fentanyl Citrate (Fentanyl 2ml Vial) 100 mcg STK-MED ONCE .ROUTE ; Start at 14:51; Stop 01/06/17 at 14:52; Status DC Fentanyl Citrate (Fentanyl 2ml Vial) 25 mcg PRN Q5MIN PRN IV Acute Pain; Start 01/06/17 at 15:15; Stop 01/06/17 at 20:00; Status DC Fentanyl Citrate (Fentanyl 2ml Vial) 50 mcg PRN Q5MIN PRN IV Acute Pain; Start 01/06/17 at 15:15; Stop 01/06/17 at 20:00; Status DC Morphine Sulfate 2 mg PRN Q10MIN PRN IV Mild Pain; Start 01/06/17 at 15:15; Stop 01/06/17 at 20:00; Status DC Morphine Sulfate 4 mg PRN Q10MIN PRN IV Moderate Pain; Start 01/06/17 at 15:15 ; Stop 01/06/17 at 20:00; Status DC Hydromorphone HCl 0.4 mg 0.4 mg PRN Q10MIN PRN IV Moderate to severe pain; Start 01/06/17 at 15:15; Stop 01/06/17 at 20:00; Status DC Lactated Ringer's (Iv Lactated Ringers) 1,000 ml @ 75 mls/hr [id number] IV ; Start 01/06/17 at 15:30 Active Scripts Active Naproxen 500 Mg Tablet. 1 Tab PO BID [place] 5-325 Tablet (Acetaminophen/Hydrocodone Bitart) 1 Each Tablet 1-2 Tab PO Q4-6HRS Amoxicillin 875 Mg Tablet 1 Tab PO BID Vitals/I & O Vital Sign - Last 24 Hours 01/06/17 01/06/17 01/06/17 01/06/17 11:00 11:56 15:02 15:02 Temp 97.7 97.3 97.4 97.7 97.3 97.4 Pulse 78 77 98 Resp 16 B/P 151/90 164/93 116/67 Pulse Ox 95 98 100 O2 Delivery Room Air Room Air Mask Simple Mask O2 Flow Rate 10 10 01/06/17 01/06/17 01/06/17 01/06/17 15:17 15:30 15:32 15:45 Temp 98.2 97.7 98.2 97.7 Pulse 103 74 100 79 Resp 18 16 B/P 141/79 198/70 138/85 200/116 Pulse Ox 92 96 94 O2 Delivery Room Air Room Air Room Air Room Air 01/06/17 01/06/17 01/06/17 01/06/17 16:00 16:15 16:45 17:15 Pulse 70 67 71 81 B/P 192/77 135/72 135/75 165/82 Pulse Ox 97 96 97 98 O2 Delivery Room Air Room Air Room Air Room Air 01/06/17 01/06/17 01/06/17 01/06/17 18:15 19:00 19:50 20:56 Pulse 79 89 Resp 20 B/P 176/89 128/79 Pulse Ox 98 96 96 O2 Delivery Room Air Room Air Room Air Room Air 01/06/17 01/06/17 01/07/17 01/07/17 22:00 23:00 03:00 07:41 Temp 98.2 98.1 98.0 98.2 98.1 98.0 Pulse 98 86 81 Resp 20 18 18 16 B/P 142/89 139/86 154/87 Pulse Ox 96 95 95 96 O2 Delivery Room Air Room Air Room Air Intake and Output 01/06/17 01/06/17 01/07/17 15:00 23:00 07:00 Intake Total 1050 ml 3800 ml Output Total 875 ml 750 ml Balance 175 ml 3050 ml JOANN MAYA MD Jan 07, 2017 09:59
[2017-01-07] MEDS ORDERED: POLYETHYLENE GLYCOL 3350 17 GM PACKET. PO PRN (10:15)
[2017-01-07] MEDS: POLYETHYLENE GLYCOL 3350 17 GM PACKET. PO SCH (10:38)
[2017-01-07] MEDS: DOCUSATE SODIUM 100 MG CAPSULE PO SCH (10:38)
[2017-01-07 10:52] LABS: BASO # 0.1 x10^3/uL (0.0-0.2); BASO % 1 % (0-3); EOS % 3 % (0-3); HEMOGLOBIN 11.2 g/dL (13.0-17.5); LYMPH # 1.6 x10^3/uL (1.0-4.8); LYMPH % 21 % (24-48); MEAN CORPUSCULAR HEMOGLOBIN 29 pg (25-35); MEAN CORPUSCULAR HGB CONC 34 g/dL (31-37); MEAN CORPUSCULAR VOLUME 85 fL (79-100); MONO % 9 % (0-9); NEUT % 67 % (31-73); PLATELET COUNT 415 x10^3/uL (140-400); RED CELL DISTRIBUTION WIDTH 12.7 % (11.5-14.5); WHITE BLOOD COUNT 7.9 x10^3/uL (4.0-11.0)
[2017-01-07] MEDS: CEFTRIAXONE SODIUM 2 GM in IV NORMAL SALINE 100ML 100 ML IV SCH (11:00)
[2017-01-07 11:08] LABS: ALBUMIN 2.4 g/dL (3.4-5.0); ALBUMIN/GLOBULIN RATIO 0.5 (1.0-1.7); CALCIUM 9.1 mg/dL (8.5-10.1); GFR 81.6; MAGNESIUM 1.7 mg/dL (1.8-2.4); POTASSIUM 4.5 mmol/L (3.5-5.1); TOTAL BILIRUBIN 0.2 mg/dL (0.2-1.0); TOTAL PROTEIN 6.9 g/dL (6.4-8.2)
[2017-01-07 11:14] VITALS: BP 141/88
--- NOTE | 2017-01-07 12:03 | PDOC ---
SURGICAL PROGRESS NOTE Subjective no complaints Vital Signs Vital Signs Date Time Temp Pulse Resp B/P Pulse Ox O2 Delivery O2 Flow Rate FiO2 01/07/17 11:14 97.7 85 16 141/88 95 Room Air 97.7 01/06/17 15:02 10 I&O Intake and Output 01/07/17 07:00 Intake Total 4850 ml Output Total 1625 ml Balance 3225 ml Intake Oral 1050 ml IV Total 3800 ml Output Urine Total 1625 ml # Voids 2 Extremities: Other (wound vac in place; ) Labs Laboratory Tests Test 01/05/17 16:10 01/05/17 21:30 01/06/17 08:14 01/06/17 11:20 Glucose (Fingerstick) 186mg/dL (70-99) 191mg/dL (70-99) 113mg/dL (70-99) 101mg/dL (70-99) Test 01/06/17 15:11 01/06/17 16:12 01/06/17 20:30 01/07/17 07:47 Glucose (Fingerstick) 114mg/dL (70-99) 111mg/dL (70-99) 294mg/dL (70-99) 162mg/dL (70-99) Test 01/07/17 10:40 01/07/17 11:21 White Blood Count 7.9x10^3/uL (4.0-11.0) Red Blood Count 3.90x10^6/uL (4.30-5.70) Hemoglobin 11.2g/dL (13.0-17.5) Hematocrit 33.0% (39.0-53.0) Mean Corpuscular Volume 85fL (79-100) Mean Corpuscular Hemoglobin 29pg (25-35) Mean Corpuscular Hemoglobin Concent 34g/dL (31-37) Red Cell Distribution Width 12.7% (11.5-14.5) Platelet Count 415x10^3/uL (140-400) Neutrophils (%) (Auto) 67% (31-73) Lymphocytes (%) (Auto) 21% (24-48) Monocytes (%) (Auto) 9% (0-9) Eosinophils (%) (Auto) 3% (0-3) Basophils (%) (Auto) 1% (0-3) Neutrophils # (Auto) 5.3x10^3uL (1.8-7.7) Lymphocytes # (Auto) 1.6x10^3/uL (1.0-4.8) Monocytes # (Auto) 0.7x10^3/uL (0.0-1.1) Eosinophils # (Auto) 0.2x10^3/uL (0.0-0.7) Basophils # (Auto) 0.1x10^3/uL (0.0-0.2) Sodium Level 141mmol/L (136-145) Potassium Level 4.5mmol/L (3.5-5.1) Chloride Level 104mmol/L (98-107) Carbon Dioxide Level 33mmol/L (21-32) Anion Gap 4 (6-14) Blood Urea Nitrogen 5mg/dL (8-26) Creatinine 1.0mg/dL (0.7-1.3) Estimated GFR (Cockcroft-Gault) 81.6 BUN/Creatinine Ratio 5 (6-20) Glucose Level 137mg/dL (70-99) Calcium Level 9.1mg/dL (8.5-10.1) Magnesium Level 1.7mg/dL (1.8-2.4) Total Bilirubin 0.2mg/dL (0.2-1.0) Aspartate Amino Transf (AST/SGOT) 15U/L (15-37) Alanine Aminotransferase (ALT/SGPT) 15U/L (16-63) Alkaline Phosphatase 103U/L (46-116) Total Protein 6.9g/dL (6.4-8.2) Albumin 2.4g/dL (3.4-5.0) Albumin/Globulin Ratio 0.5 (1.0-1.7) Glucose (Fingerstick) 143mg/dL (70-99) Laboratory Tests Test 01/06/17 15:11 01/06/17 16:12 01/06/17 20:30 01/07/17 07:47 Glucose (Fingerstick) 114mg/dL (70-99) 111mg/dL (70-99) 294mg/dL (70-99) 162mg/dL (70-99) Test 01/07/17 10:40 01/07/17 11:21 White Blood Count 7.9x10^3/uL (4.0-11.0) Red Blood Count 3.90x10^6/uL (4.30-5.70) Hemoglobin 11.2g/dL (13.0-17.5) Hematocrit 33.0% (39.0-53.0) Mean Corpuscular Volume 85fL (79-100) Mean Corpuscular Hemoglobin 29pg (25-35) Mean Corpuscular Hemoglobin Concent 34g/dL (31-37) Red Cell Distribution Width 12.7% (11.5-14.5) Platelet Count 415x10^3/uL (140-400) Neutrophils (%) (Auto) 67% (31-73) Lymphocytes (%) (Auto) 21% (24-48) Monocytes (%) (Auto) 9% (0-9) Eosinophils (%) (Auto) 3% (0-3) Basophils (%) (Auto) 1% (0-3) Neutrophils # (Auto) 5.3x10^3uL (1.8-7.7) Lymphocytes # (Auto) 1.6x10^3/uL (1.0-4.8) Monocytes # (Auto) 0.7x10^3/uL (0.0-1.1) Eosinophils # (Auto) 0.2x10^3/uL (0.0-0.7) Basophils # (Auto) 0.1x10^3/uL (0.0-0.2) Sodium Level 141mmol/L (136-145) Potassium Level 4.5mmol/L (3.5-5.1) Chloride Level 104mmol/L (98-107) Carbon Dioxide Level 33mmol/L (21-32) Anion Gap 4 (6-14) Blood Urea Nitrogen 5mg/dL (8-26) Creatinine 1.0mg/dL (0.7-1.3) Estimated GFR (Cockcroft-Gault) 81.6 BUN/Creatinine Ratio 5 (6-20) Glucose Level 137mg/dL (70-99) Calcium Level 9.1mg/dL (8.5-10.1) Magnesium Level 1.7mg/dL (1.8-2.4) Total Bilirubin 0.2mg/dL (0.2-1.0) Aspartate Amino Transf (AST/SGOT) 15U/L (15-37) Alanine Aminotransferase (ALT/SGPT) 15U/L (16-63) Alkaline Phosphatase 103U/L (46-116) Total Protein 6.9g/dL (6.4-8.2) Albumin 2.4g/dL (3.4-5.0) Albumin/Globulin Ratio 0.5 (1.0-1.7) Glucose (Fingerstick) 143mg/dL (70-99) Problem List Problems Medical Problems: (1) Cellulitis of foot Status: Acute (2) Diabetic foot infection Status: Acute Problems: WESLEY THORNTON II, MD Jan 07, 2017 12:03
--- NOTE | 2017-01-07 12:50 | RAD ---
Portable chest, 01/07/2017: History: Check PICC placement Comparison is made to a study from 03/28/2011. A right PICC has been inserted extending into the superior vena cava. The heart size and pulmonary vascularity are normal. The lungs are clear. There is no evidence of pleural fluid. IMPRESSION: 1. The right PICC extends into the superior vena cava. 2. No acute cardiopulmonary abnormality is detected.
[2017-01-07 14:39] VITALS: BP 142/86
[2017-01-07] MEDS ORDERED: MAGNESIUM SULFATE 2GM 50 ML IV ONE (15:15)
[2017-01-07] MEDS: OXYCODONE/APAP 5/325 TABLET. PO PRN (18:16)
[2017-01-07 19:10] VITALS: BP 157/85
[2017-01-07] MEDS: INSULIN DETEMIR 300 UNITS/3 ML INSULN.PEN. SQ SCH (21:22)
[2017-01-07 23:07] VITALS: BP 142/86
[2017-01-08] MEDS: OXYCODONE/APAP 5/325 TABLET. PO PRN ×3 (01:28→21:45)
[2017-01-08 03:14] VITALS: BP 139/94
[2017-01-08 07:00] VITALS: BP 146/84
[2017-01-08] MEDS: DOCUSATE SODIUM 100 MG CAPSULE PO SCH (08:42)
[2017-01-08] MEDS: POLYETHYLENE GLYCOL 3350 17 GM PACKET. PO SCH (08:43)
[2017-01-08] MEDS: INSULIN ASPART 300 UNITS/3 ML INSULN.PEN SQ SCH ×6 (08:54→17:31)
--- NOTE | 2017-01-08 09:46 | PDOC ---
Infectious Disease Note Subjective Subjective s/p open first toe amputation with wound VAC Pt doing well. Passing gas and +Bm ROS ROS GEN: Denies fevers, chills, sweats HEENT: Denies blurred vision, sore throat CV: Denies chest pain RESP: Denies shortness of air, cough GI: Denies n/v/d NEURO: Denies confusion, dizziness MSK: Denies weakness, joint pain/swelling Vital Sign Vital Signs Vital Signs Date Time Temp Pulse Resp B/P Pulse Ox O2 Delivery O2 Flow Rate FiO2 01/08/17 03:14 97.7 88 18 139/94 95 Room Air 97.7 Physical Exam PHYSICAL EXAM GENERAL: NAD, Alert HEENT: PERRL, OC/OP -clear NECK: Supple, no JVD, no LN LUNGS: Clear HEART: S1S2, no gallop, no murmur ABD: Soft, NT, no organomegaly, no rebound EXT: No edema, no cyanosis. Vac to right foot EVENT DECORATOR: Alert, oriented x 3, no focal neurologic deficit SKIN: No rash IV: PICC - clean Labs Lab Laboratory Tests Test 01/07/17 10:40 01/07/17 11:21 01/07/17 16:28 01/07/17 20:50 White Blood Count 7.9x10^3/uL (4.0-11.0) Red Blood Count 3.90x10^6/uL (4.30-5.70) Hemoglobin 11.2g/dL (13.0-17.5) Hematocrit 33.0% (39.0-53.0) Mean Corpuscular Volume 85fL (79-100) Mean Corpuscular Hemoglobin 29pg (25-35) Mean Corpuscular Hemoglobin Concent 34g/dL (31-37) Red Cell Distribution Width 12.7% (11.5-14.5) Platelet Count 415x10^3/uL (140-400) Neutrophils (%) (Auto) 67% (31-73) Lymphocytes (%) (Auto) 21% (24-48) Monocytes (%) (Auto) 9% (0-9) Eosinophils (%) (Auto) 3% (0-3) Basophils (%) (Auto) 1% (0-3) Neutrophils # (Auto) 5.3x10^3uL (1.8-7.7) Lymphocytes # (Auto) 1.6x10^3/uL (1.0-4.8) Monocytes # (Auto) 0.7x10^3/uL (0.0-1.1) Eosinophils # (Auto) 0.2x10^3/uL (0.0-0.7) Basophils # (Auto) 0.1x10^3/uL (0.0-0.2) Sodium Level 141mmol/L (136-145) Potassium Level 4.5mmol/L (3.5-5.1) Chloride Level 104mmol/L (98-107) Carbon Dioxide Level 33mmol/L (21-32) Anion Gap 4 (6-14) Blood Urea Nitrogen 5mg/dL (8-26) Creatinine 1.0mg/dL (0.7-1.3) Estimated GFR (Cockcroft-Gault) 81.6 BUN/Creatinine Ratio 5 (6-20) Glucose Level 137mg/dL (70-99) Calcium Level 9.1mg/dL (8.5-10.1) Magnesium Level 1.7mg/dL (1.8-2.4) Total Bilirubin 0.2mg/dL (0.2-1.0) Aspartate Amino Transf (AST/SGOT) 15U/L (15-37) Alanine Aminotransferase (ALT/SGPT) 15U/L (16-63) Alkaline Phosphatase 103U/L (46-116) Total Protein 6.9g/dL (6.4-8.2) Albumin 2.4g/dL (3.4-5.0) Albumin/Globulin Ratio 0.5 (1.0-1.7) Glucose (Fingerstick) 143mg/dL (70-99) 148mg/dL (70-99) 147mg/dL (70-99) Test 01/08/17 07:45 Glucose (Fingerstick) 172mg/dL (70-99) Objective Assessment Infected diabetic ulcer of right great toe. MSSA - s/p open first toe amputation with wound VAC 01/06 Diabetic neuropathy NISSA Avulsion of right 5th toenail d/t trauma Plan Plan of Care Cont Rocephin 4 to 6 weeks. Dose in am Q Thursday CBC/CMP/Sed rate Contact ID electronic data processing auditor in 2 weeks to eval in outpatient D/w Social service Ok to d/c ID to sign off SHARON BAPTISTE MD Jan 08, 2017 09:46
--- NOTE | 2017-01-08 10:41 | PDOC ---
PROGRESS NOTES Chief Complaint Chief Complaint 1. DM 1 uncontrolled, A1c 11.8, with end organ target damage - multiple 2. DM foot wound, R big toe, w/ neuropathy - osteomyelitis and s/p Great toe amputation 3. NISSA on CKD 4. Blind left eye/dm retinopathy 5. HTN 6. HONK POA 7. Peripheral vascular disease 8. Hypokalemia, replaced History of Present Illness History of Present Illness The pt was sitting up in bed doing well upon arrival to his room. He is complaining of some pain at the site of the amputation. He has been able to tolerate the wound vac well. Pt also states that his sugars have been better controlled. Today he has questions about discharge- he is concerned with his ability to come back for regular IV abx treatment. Plan to discuss case with case management/SW to see if discharge possible Vitals Vitals Vital Signs Date Time Temp Pulse Resp B/P Pulse Ox O2 Delivery O2 Flow Rate FiO2 01/08/17 07:00 97.3 84 18 146/84 91 97.3 01/08/17 03:14 Room Air Physical Exam Physical Exam General: Alert, Oriented X3, Cooperative, No acute distress Heart: Regular rate (distant), Normal S1, Normal S2, No murmurs Lungs: Clear, Other (no wheezes) Abdomen: Normal bowel sounds, Soft, No tenderness Extremities: No clubbing, No edema, Other (wound vac in place over incision site on Right foot at site of right great toe) Skin: No rashes, No breakdown, No significant lesion Labs LABS Laboratory Tests Test 01/07/17 10:40 01/07/17 11:21 01/07/17 16:28 01/07/17 20:50 White Blood Count 7.9x10^3/uL (4.0-11.0) Red Blood Count 3.90x10^6/uL (4.30-5.70) Hemoglobin 11.2g/dL (13.0-17.5) Hematocrit 33.0% (39.0-53.0) Mean Corpuscular Volume 85fL (79-100) Mean Corpuscular Hemoglobin 29pg (25-35) Mean Corpuscular Hemoglobin Concent 34g/dL (31-37) Red Cell Distribution Width 12.7% (11.5-14.5) Platelet Count 415x10^3/uL (140-400) Neutrophils (%) (Auto) 67% (31-73) Lymphocytes (%) (Auto) 21% (24-48) Monocytes (%) (Auto) 9% (0-9) Eosinophils (%) (Auto) 3% (0-3) Basophils (%) (Auto) 1% (0-3) Neutrophils # (Auto) 5.3x10^3uL (1.8-7.7) Lymphocytes # (Auto) 1.6x10^3/uL (1.0-4.8) Monocytes # (Auto) 0.7x10^3/uL (0.0-1.1) Eosinophils # (Auto) 0.2x10^3/uL (0.0-0.7) Basophils # (Auto) 0.1x10^3/uL (0.0-0.2) Sodium Level 141mmol/L (136-145) Potassium Level 4.5mmol/L (3.5-5.1) Chloride Level 104mmol/L (98-107) Carbon Dioxide Level 33mmol/L (21-32) Anion Gap 4 (6-14) Blood Urea Nitrogen 5mg/dL (8-26) Creatinine 1.0mg/dL (0.7-1.3) Estimated GFR (Cockcroft-Gault) 81.6 BUN/Creatinine Ratio 5 (6-20) Glucose Level 137mg/dL (70-99) Calcium Level 9.1mg/dL (8.5-10.1) Magnesium Level 1.7mg/dL (1.8-2.4) Total Bilirubin 0.2mg/dL (0.2-1.0) Aspartate Amino Transf (AST/SGOT) 15U/L (15-37) Alanine Aminotransferase (ALT/SGPT) 15U/L (16-63) Alkaline Phosphatase 103U/L (46-116) Total Protein 6.9g/dL (6.4-8.2) Albumin 2.4g/dL (3.4-5.0) Albumin/Globulin Ratio 0.5 (1.0-1.7) Glucose (Fingerstick) 143mg/dL (70-99) 148mg/dL (70-99) 147mg/dL (70-99) Test 01/08/17 07:45 Glucose (Fingerstick) 172mg/dL (70-99) Review of Systems Review of Systems Complaining of Pain at site of incision Complaining of hunger All other ROS Assessment and Plan Assessmemt and Plan Problems Medical Problems: (1) Cellulitis of foot Status: Acute (2) Diabetic foot infection Status: Acute 1. DM 1 uncontrolled, A1c 11.8, with end organ target damage - multiple 2. DM foot wound, R big toe, w/ neuropathy - osteomyelitis and s/p Great toe amputation 3. NISSA on CKD 4. Blind left eye/dm retinopathy 5. HTN 6. HONK POA 7. Peripheral vascular disease 8. Hypokalemia, replaced Plan: - Continue Care per Regular Floor protocol - Infectious Disease Consulted- appreciate recommendations - Continue Rocephin for 4 to 6 weeks - F/U outpatient after discharge - ID signed off 01/08/17 - Wound Vac in place over R Great Toe amputation site - Continuing the IV Abx at this time - Continue Regular home medications - Scheduled Regular Glucose Checks in place per protocol; Restarted regular home diabetes regimen with ISS in place prn - Will continue regular vitals Disposition: Discharge when ok with subspecialists; SW has given him hardship applications and pt stated he is still in process of coordinating getting back for regular abx treatments- pt asked about whether there was any way to help; Would like to discuss situation further with Case Management Problems: Comment Review of Relevant I have reviewed the following items lilli (where applicable) has been applied. Labs Laboratory Tests Test 01/06/17 11:20 01/06/17 15:11 01/06/17 16:12 01/06/17 20:30 Glucose (Fingerstick) 101mg/dL (70-99) 114mg/dL (70-99) 111mg/dL (70-99) 294mg/dL (70-99) Test 01/07/17 07:47 01/07/17 10:40 01/07/17 11:21 01/07/17 16:28 Glucose (Fingerstick) 162mg/dL (70-99) 143mg/dL (70-99) 148mg/dL (70-99) White Blood Count 7.9x10^3/uL (4.0-11.0) Red Blood Count 3.90x10^6/uL (4.30-5.70) Hemoglobin 11.2g/dL (13.0-17.5) Hematocrit 33.0% (39.0-53.0) Mean Corpuscular Volume 85fL (79-100) Mean Corpuscular Hemoglobin 29pg (25-35) Mean Corpuscular Hemoglobin Concent 34g/dL (31-37) Red Cell Distribution Width 12.7% (11.5-14.5) Platelet Count 415x10^3/uL (140-400) Neutrophils (%) (Auto) 67% (31-73) Lymphocytes (%) (Auto) 21% (24-48) Monocytes (%) (Auto) 9% (0-9) Eosinophils (%) (Auto) 3% (0-3) Basophils (%) (Auto) 1% (0-3) Neutrophils # (Auto) 5.3x10^3uL (1.8-7.7) Lymphocytes # (Auto) 1.6x10^3/uL (1.0-4.8) Monocytes # (Auto) 0.7x10^3/uL (0.0-1.1) Eosinophils # (Auto) 0.2x10^3/uL (0.0-0.7) Basophils # (Auto) 0.1x10^3/uL (0.0-0.2) Sodium Level 141mmol/L (136-145) Potassium Level 4.5mmol/L (3.5-5.1) Chloride Level 104mmol/L (98-107) Carbon Dioxide Level 33mmol/L (21-32) Anion Gap 4 (6-14) Blood Urea Nitrogen 5mg/dL (8-26) Creatinine 1.0mg/dL (0.7-1.3) Estimated GFR (Cockcroft-Gault) 81.6 BUN/Creatinine Ratio 5 (6-20) Glucose Level 137mg/dL (70-99) Calcium Level 9.1mg/dL (8.5-10.1) Magnesium Level 1.7mg/dL (1.8-2.4) Total Bilirubin 0.2mg/dL (0.2-1.0) Aspartate Amino Transf (AST/SGOT) 15U/L (15-37) Alanine Aminotransferase (ALT/SGPT) 15U/L (16-63) Alkaline Phosphatase 103U/L (46-116) Total Protein 6.9g/dL (6.4-8.2) Albumin 2.4g/dL (3.4-5.0) Albumin/Globulin Ratio 0.5 (1.0-1.7) Test 01/07/17 20:50 01/08/17 07:45 Glucose (Fingerstick) 147mg/dL (70-99) 172mg/dL (70-99) Laboratory Tests Test 01/07/17 10:40 01/07/17 11:21 01/07/17 16:28 01/07/17 20:50 White Blood Count 7.9x10^3/uL (4.0-11.0) Red Blood Count 3.90x10^6/uL (4.30-5.70) Hemoglobin 11.2g/dL (13.0-17.5) Hematocrit 33.0% (39.0-53.0) Mean Corpuscular Volume 85fL (79-100) Mean Corpuscular Hemoglobin 29pg (25-35) Mean Corpuscular Hemoglobin Concent 34g/dL (31-37) Red Cell Distribution Width 12.7% (11.5-14.5) Platelet Count 415x10^3/uL (140-400) Neutrophils (%) (Auto) 67% (31-73) Lymphocytes (%) (Auto) 21% (24-48) Monocytes (%) (Auto) 9% (0-9) Eosinophils (%) (Auto) 3% (0-3) Basophils (%) (Auto) 1% (0-3) Neutrophils # (Auto) 5.3x10^3uL (1.8-7.7) Lymphocytes # (Auto) 1.6x10^3/uL (1.0-4.8) Monocytes # (Auto) 0.7x10^3/uL (0.0-1.1) Eosinophils # (Auto) 0.2x10^3/uL (0.0-0.7) Basophils # (Auto) 0.1x10^3/uL (0.0-0.2) Sodium Level 141mmol/L (136-145) Potassium Level 4.5mmol/L (3.5-5.1) Chloride Level 104mmol/L (98-107) Carbon Dioxide Level 33mmol/L (21-32) Anion Gap 4 (6-14) Blood Urea Nitrogen 5mg/dL (8-26) Creatinine 1.0mg/dL (0.7-1.3) Estimated GFR (Cockcroft-Gault) 81.6 BUN/Creatinine Ratio 5 (6-20) Glucose Level 137mg/dL (70-99) Calcium Level 9.1mg/dL (8.5-10.1) Magnesium Level 1.7mg/dL (1.8-2.4) Total Bilirubin 0.2mg/dL (0.2-1.0) Aspartate Amino Transf (AST/SGOT) 15U/L (15-37) Alanine Aminotransferase (ALT/SGPT) 15U/L (16-63) Alkaline Phosphatase 103U/L (46-116) Total Protein 6.9g/dL (6.4-8.2) Albumin 2.4g/dL (3.4-5.0) Albumin/Globulin Ratio 0.5 (1.0-1.7) Glucose (Fingerstick) 143mg/dL (70-99) 148mg/dL (70-99) 147mg/dL (70-99) Test 01/08/17 07:45 Glucose (Fingerstick) 172mg/dL (70-99) Microbiology 01/03/17 Blood Culture - Preliminary, Resulted NO GROWTH AFTER 4 DAYS 01/03/17 Gram Stain - Final, Complete Medications Current Medications Vancomycin HCl (Vanco Per Pharmacy) 1 each PRN DAILY PRN MC SEE COMMENTS Last administered on 01/06/17 10:26; Start 01/03/17 at 12:30; Stop 01/07/17 at 11:19 ; Status DC Piperacillin Sod/ Tazobactam Sod 1 each 1 each PRN DAILY PRN MC SEE COMMENTS; Start 01/03/17 at 12:30; Stop 01/05/17 at 11:05; Status DC Sodium Chloride (Iv Sodium Chloride 0.9% 1000ml Bag) 1,000 ml @ 1,000 mls/hr 1X ONCE IV Last administered on 01/03/17 12:55; Start 01/03/17 at 12:30; Stop 01/03/17 at 13:29; Status DC Insulin Human Regular 10 unit 10 unit 1X ONCE IV Last administered on 13:01; Start 01/03/17 at 12:30; Stop 01/03/17 at 12:33; Status DC Vancomycin HCl 1.75 gm/Sodium Chloride 500 ml @ 250 mls/hr 1X ONCE IV Last administered on 01/03/17 13:24; Start 01/03/17 at 13:00; Stop 01/03/17 at 14:59 ; Status DC Piperacillin Sod/ Tazobactam Sod 3.375 gm/Sodium Chloride 50 ml @ 100 mls/hr 1X ONCE IV Last administered on 01/03/17 12:56; Start 01/03/17 at 13:00; Stop 01/03/17 at 13:29; Status DC Piperacillin Sod/ Tazobactam Sod 3.375 gm/Sodium Chloride 50 ml @ 100 mls/hr Q6HRS IV Last administered on 01/07/17 05:52; Start 01/03/17 at 18:00; Stop at 10:10; Status DC Vancomycin HCl/ Sodium Chloride (Iv Sodium Chloride 0.9% 250ml) 250 ml @ 250 mls/hr Q12H IV Last administered on 01/07/17 01:49; Start 01/04/17 at 01:00; Stop 01/07/17 at 11:20; Status DC Vancomycin HCl 1 each 1X ONCE MC Last administered on 01/05/17 00:30; Start 01/05/17 at 00:30; Stop 01/05/17 at 00:31; Status DC Oxycodone/ Acetaminophen (Percocet 5/325) 1 tab PRN Q4HRS PRN PO PAIN Last administered on 01/08/17 08:43; Start 01/03/17 at 16:00 Morphine Sulfate 2 mg PRN Q2HR PRN IV PAIN; Start 01/03/17 at 16:00 Insulin Aspart (Novolog) 0-9 UNITS TIDWMEALS SQ Last administered on 01/08/17 08:54; Start 01/03/17 at 17:00 Dextrose 12.5 gm PRN Q15MIN PRN IV SEE COMMENTS; Start 01/03/17 at 16:00 Insulin Detemir (Levemir) 20 units QHS SQ ; Start 01/03/17 at 21:00; Stop at 09:11; Status DC Insulin Aspart (Novolog) 10 units TIDAC SQ Last administered on 01/03/17 17:30 ; Start 01/03/17 at 17:00; Stop 01/03/17 at 21:08; Status DC Pneumococcal Polyvalent Vaccine 0.5 ml 0.5 ml ONCE ONCE VAX IM Last administered on 01/04/17 09:59; Start 01/04/17 at 09:00; Stop 01/04/17 at 09:01 ; Status DC Sodium Chloride (Iv Sodium Chloride 0.9% 1000ml Bag) 1,000 ml @ 100 mls/hr Q10H IV Last administered on 01/05/17 05:32; Start 01/03/17 at 16:30; Stop at 11:11; Status DC Insulin Aspart (Novolog) 15 units TIDAC SQ Last administered on 01/05/17 08:33 ; Start 01/04/17 at 07:30; Stop 01/05/17 at 10:56; Status DC Insulin Detemir (Levemir) 35 units 1X ONCE SQ Last administered on 01/03/17 21:18; Start 01/03/17 at 21:30; Stop 01/03/17 at 21:31; Status DC Insulin Aspart (Novolog) 12 units 1X ONCE SQ Last administered on 01/03/17 21 :17; Start 01/03/17 at 21:30; Stop 01/03/17 at 21:31; Status DC Insulin Detemir (Levemir) 35 units QHS SQ Last administered on 01/04/17 21:36 ; Start 01/04/17 at 21:00; Stop 01/05/17 at 10:56; Status DC Info (Do NOT chart on this placeholder) 1 each PRN 1X PRN MC SEE COMMENTS; Start 01/05/17 at 10:00; Status UNV Influenza Virus Vaccine Quadrival (Fluarix Quad [id number] Syringe) 0.5 ml ONCE ONCE VAX IM Last administered on 01/05/17 13:07; Start 01/05/17 at 10:15; Stop 01/05/17 at 10:16; Status DC Insulin Aspart (Novolog) 14 units TIDAC SQ Last administered on 01/08/17 08:55 ; Start 01/05/17 at 11:30 Insulin Detemir 30 units 30 units QHS SQ Last administered on 01/07/17 21:22; Start 01/05/17 at 21:00 Potassium Chloride 20 meq/ Sodium Chloride 1,010 ml @ 100 mls/hr Q10H6M IV ; Start 01/05/17 at 11:30; Stop 01/05/17 at 11:30; Status DC Potassium Chloride/Sodium Chloride (KCl 20 Meq-NS 1,000 ml Iv Soln) 1,000 ml @ 100 mls/hr Q10H IV Last administered on 01/07/17 05:52; Start 01/05/17 at 11: 30; Stop 01/07/17 at 15:14; Status DC Bupivacaine HCl (Marcaine 0.25%) 50 ml STK-MED ONCE .ROUTE ; Start 01/06/17 at 12:30; Stop 01/06/17 at 12:31; Status DC Lidocaine HCl 30 ml 30 ml STK-MED ONCE .ROUTE ; Start 01/06/17 at 12:30; Stop at 12:31; Status DC Propofol (Diprivan) 20 ml @ As Directed STK-MED ONCE IV ; Start 01/06/17 at 12: 49; Stop 01/06/17 at 12:50; Status DC Lidocaine HCl (Lidocaine Pf 2% Vial) 5 ml STK-MED ONCE .ROUTE ; Start 01/06/17 at 12:50; Stop 01/06/17 at 12:51; Status DC Famotidine (Pepcid) 20 mg STK-MED ONCE .ROUTE ; Start 01/06/17 at 12:50; Stop at 12:51; Status DC Ondansetron HCl (Zofran) 4 mg STK-MED ONCE .ROUTE ; Start 01/06/17 at 12:50; Stop 01/06/17 at 12:51; Status DC Fentanyl Citrate (Fentanyl 2ml Vial) 100 mcg STK-MED ONCE .ROUTE ; Start at 12:52; Stop 01/06/17 at 12:53; Status DC Potassium Chloride (Klor-Con) 20 meq 1X ONCE PO Last administered on 17:36; Start 01/06/17 at 14:15; Stop 01/06/17 at 14:16; Status DC Fentanyl Citrate (Fentanyl 2ml Vial) 100 mcg STK-MED ONCE .ROUTE ; Start at 14:51; Stop 01/06/17 at 14:52; Status DC Fentanyl Citrate (Fentanyl 2ml Vial) 25 mcg PRN Q5MIN PRN IV Acute Pain; Start 01/06/17 at 15:15; Stop 01/06/17 at 20:00; Status DC Fentanyl Citrate (Fentanyl 2ml Vial) 50 mcg PRN Q5MIN PRN IV Acute Pain; Start 01/06/17 at 15:15; Stop 01/06/17 at 20:00; Status DC Morphine Sulfate 2 mg PRN Q10MIN PRN IV Mild Pain; Start 01/06/17 at 15:15; Stop 01/06/17 at 20:00; Status DC Morphine Sulfate 4 mg PRN Q10MIN PRN IV Moderate Pain; Start 01/06/17 at 15:15 ; Stop 01/06/17 at 20:00; Status DC Hydromorphone HCl 0.4 mg 0.4 mg PRN Q10MIN PRN IV Moderate to severe pain; Start 01/06/17 at 15:15; Stop 01/06/17 at 20:00; Status DC Lactated Ringer's (Iv Lactated Ringers) 1,000 ml @ 75 mls/hr [id number] IV ; Start 01/06/17 at 15:30; Stop 01/07/17 at 19:43; Status DC Polyethylene Glycol (miraLAX PACKET) 17 gm DAILY PO ; Start 01/07/17 at 09:00; Stop 01/07/17 at 10:07; Status DC Polyethylene Glycol (miraLAX PACKET) 17 gm PRN DAILY PRN PO CONSTIPATION; Start 01/07/17 at 10:15 Docusate Sodium (Colace) 100 mg DAILY PO Last administered on 01/08/17 08:42; Start 01/07/17 at 11:00 Polyethylene Glycol 17 gm 17 gm DAILY PO Last administered on 01/08/17 08:43; Start 01/07/17 at 11:00 Ceftriaxone Sodium 2 gm/ Sodium Chloride 100 ml @ 200 mls/hr Q24H IV Last administered on 01/07/17 11:00; Start 01/07/17 at 11:00 Magnesium Sulfate/ Dextrose (Magnesium Sulfate PREMIX 2GM) 50 ml @ 25 mls/hr 1X ONCE IV Last administered on 01/07/17t 16:13; Start 01/07/17 at 15:15; Stop 01/07/17 at 17:14; Status DC Active Scripts Active Naproxen 500 Mg Tablet. 1 Tab PO BID [place] 5-325 Tablet (Acetaminophen/Hydrocodone Bitart) 1 Each Tablet 1-2 Tab PO Q4-6HRS Amoxicillin 875 Mg Tablet 1 Tab PO BID Vitals/I & O Vital Sign - Last 24 Hours 01/07/17 01/07/17 01/07/17 01/07/17 11:14 14:39 19:10 19:52 Temp 97.7 98.6 98.5 97.7 98.6 98.5 Pulse 85 84 84 Resp 16 18 18 B/P 141/88 142/86 157/85 Pulse Ox 95 98 94 O2 Delivery Room Air Room Air Room Air Room Air 01/07/17 01/08/17 01/08/17 01/08/17 23:07 01:28 02:30 03:14 Temp 97.7 97.7 97.7 97.7 Pulse 80 88 Resp 20 20 20 18 B/P 142/86 139/94 Pulse Ox 96 96 96 95 O2 Delivery Room Air Room Air Room Air Room Air 01/08/17 07:00 Temp 97.3 97.3 Pulse 84 Resp 18 B/P 146/84 Pulse Ox 91 Intake and Output 01/07/17 01/07/17 01/08/17 15:00 23:00 07:00 Intake Total 1840 ml Output Total 200 ml 2725 ml 1650 ml Balance -200 ml -885 ml -1650 ml FRANCISCO GARCIA III DO Jan 08, 2017 10:41
[2017-01-08 11:00] VITALS: BP 118/79
[2017-01-08] MEDS: CEFTRIAXONE SODIUM 2 GM in IV NORMAL SALINE 100ML 100 ML IV SCH (11:48)
--- NOTE | 2017-01-08 13:40 | PDOC ---
SURGICAL PROGRESS NOTE Subjective pt without complaints Vital Signs Vital Signs Date Time Temp Pulse Resp B/P Pulse Ox O2 Delivery O2 Flow Rate FiO2 01/08/17 11:00 98.3 81 16 118/79 93 Room Air 98.3 I&O Intake and Output 01/08/17 07:00 Intake Total 1840 ml Output Total 4575 ml Balance -2735 ml Intake Oral 1840 ml Output Urine Total 4575 ml Extremities: Other (wound vac in place right great toe and ray open amp site with minimal erythema surrounding the open wound. ) Labs Laboratory Tests Test 01/06/17 15:11 01/06/17 16:12 01/06/17 20:30 01/07/17 07:47 Glucose (Fingerstick) 114mg/dL (70-99) 111mg/dL (70-99) 294mg/dL (70-99) 162mg/dL (70-99) Test 01/07/17 10:40 01/07/17 11:21 01/07/17 16:28 01/07/17 20:50 White Blood Count 7.9x10^3/uL (4.0-11.0) Red Blood Count 3.90x10^6/uL (4.30-5.70) Hemoglobin 11.2g/dL (13.0-17.5) Hematocrit 33.0% (39.0-53.0) Mean Corpuscular Volume 85fL (79-100) Mean Corpuscular Hemoglobin 29pg (25-35) Mean Corpuscular Hemoglobin Concent 34g/dL (31-37) Red Cell Distribution Width 12.7% (11.5-14.5) Platelet Count 415x10^3/uL (140-400) Neutrophils (%) (Auto) 67% (31-73) Lymphocytes (%) (Auto) 21% (24-48) Monocytes (%) (Auto) 9% (0-9) Eosinophils (%) (Auto) 3% (0-3) Basophils (%) (Auto) 1% (0-3) Neutrophils # (Auto) 5.3x10^3uL (1.8-7.7) Lymphocytes # (Auto) 1.6x10^3/uL (1.0-4.8) Monocytes # (Auto) 0.7x10^3/uL (0.0-1.1) Eosinophils # (Auto) 0.2x10^3/uL (0.0-0.7) Basophils # (Auto) 0.1x10^3/uL (0.0-0.2) Sodium Level 141mmol/L (136-145) Potassium Level 4.5mmol/L (3.5-5.1) Chloride Level 104mmol/L (98-107) Carbon Dioxide Level 33mmol/L (21-32) Anion Gap 4 (6-14) Blood Urea Nitrogen 5mg/dL (8-26) Creatinine 1.0mg/dL (0.7-1.3) Estimated GFR (Cockcroft-Gault) 81.6 BUN/Creatinine Ratio 5 (6-20) Glucose Level 137mg/dL (70-99) Calcium Level 9.1mg/dL (8.5-10.1) Magnesium Level 1.7mg/dL (1.8-2.4) Total Bilirubin 0.2mg/dL (0.2-1.0) Aspartate Amino Transf (AST/SGOT) 15U/L (15-37) Alanine Aminotransferase (ALT/SGPT) 15U/L (16-63) Alkaline Phosphatase 103U/L (46-116) Total Protein 6.9g/dL (6.4-8.2) Albumin 2.4g/dL (3.4-5.0) Albumin/Globulin Ratio 0.5 (1.0-1.7) Glucose (Fingerstick) 143mg/dL (70-99) 148mg/dL (70-99) 147mg/dL (70-99) Test 01/08/17 07:45 01/08/17 11:05 Glucose (Fingerstick) 172mg/dL (70-99) 161mg/dL (70-99) Laboratory Tests Test 01/07/17 16:28 01/07/17 20:50 01/08/17 07:45 01/08/17 11:05 Glucose (Fingerstick) 148mg/dL (70-99) 147mg/dL (70-99) 172mg/dL (70-99) 161mg/dL (70-99) Problem List Problems Medical Problems: (1) Cellulitis of foot Status: Acute (2) Diabetic foot infection Status: Acute Assessment/Plan Imp: 1. status post right great toe and ray resection with open wound, treated with suction dressing 2. DM Rec: 1. cont. wound care and IV antibx. Problems: WESLEY THORNTON II, MD Jan 08, 2017 13:40
[2017-01-08 15:00] VITALS: BP 126/89
[2017-01-08 19:00] VITALS: BP 143/85
[2017-01-08] MEDS: INSULIN DETEMIR 300 UNITS/3 ML INSULN.PEN. SQ SCH (21:39)
[2017-01-08 23:00] VITALS: BP 149/91
[2017-01-09 03:00] VITALS: BP 135/84
[2017-01-09 07:00] VITALS: BP 129/83
[2017-01-09] MEDS: INSULIN ASPART 300 UNITS/3 ML INSULN.PEN SQ SCH ×6 (08:00→17:00)
[2017-01-09] MEDS: DOCUSATE SODIUM 100 MG CAPSULE PO SCH (08:32)
[2017-01-09] MEDS: POLYETHYLENE GLYCOL 3350 17 GM PACKET. PO SCH (08:32)
[2017-01-09 11:00] VITALS: BP 104/75
[2017-01-09] MEDS: OXYCODONE/APAP 5/325 TABLET. PO PRN ×2 (11:45→21:21)
[2017-01-09] MEDS: CEFTRIAXONE SODIUM 2 GM in IV NORMAL SALINE 100ML 100 ML IV SCH (11:47)
--- NOTE | 2017-01-09 12:25 | PDOC ---
PROGRESS NOTES Chief Complaint Chief Complaint 1. DM 1 uncontrolled, A1c - 11.8, With end organ target damage - Multiple 2. DM foot wound, R big toe, w/ neuropathy - osteomyelitis and s/p Great toe amputation 3. NISSA on CKD 4. Blind left eye/dm retinopathy 5. HTN 6. HONK POA 7. Peripheral vascular disease 8. 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 said with was already discussed Will talk with insurance case manager to clarify Pt does not have insurance VSS JULIET RN Vitals Vitals Vital Signs Date Time Temp Pulse Resp B/P Pulse Ox O2 Delivery O2 Flow Rate FiO2 01/09/17 11:00 98.4 86 20 104/75 99 Room Air 98.4 01/08/17 22:45 10.0 Physical Exam Physical Exam General: Alert, Oriented X3, Cooperative, No acute distress Heart: Regular rate (distant), Normal S1, Normal S2, No murmurs Lungs: Clear, Other (no wheezes) Abdomen: Normal bowel sounds, Soft, No tenderness Extremities: Other (wound vac in place right great toe and ray open amp site with minimal erythema surrounding the open wound. ) Skin: No rashes, No breakdown, No significant lesion Labs LABS Laboratory Tests Test 01/08/17 16:59 01/08/17 20:53 01/09/17 07:28 Glucose (Fingerstick) 110mg/dL (70-99) 134mg/dL (70-99) 141mg/dL (70-99) Review of Systems Review of Systems Complains of fatigue Complains of hunger Assessment and Plan Assessmemt and Plan Problems Medical Problems: (1) Cellulitis of foot Status: Acute (2) Diabetic foot infection Status: Acute Assessment: 1. DM 1 uncontrolled, A1c - 11.8, With end organ target damage - Multiple 2. DM foot wound, R big toe, w/ neuropathy - osteomyelitis and s/p Great toe amputation 3. NISSA on CKD 4. Blind left eye/dm retinopathy 5. HTN 6. HONK POA 7. Peripheral vascular disease 8. Hypokalemia, replaced Plan: Discuss transportation situation with insurance case manager - pt does not have insurance ID is following - continue Rocephin 4-6 weeks at home Repeat labs Continue wound vac PTOT Appreciate subspecialty input Problems: Comment Review of Relevant I have reviewed the following items lilli (where applicable) has been applied. Labs Laboratory Tests Test 01/07/17 16:28 01/07/17 20:50 01/08/17 07:45 01/08/17 11:05 Glucose (Fingerstick) 148mg/dL (70-99) 147mg/dL (70-99) 172mg/dL (70-99) 161mg/dL (70-99) Test 01/08/17 16:59 01/08/17 20:53 01/09/17 07:28 Glucose (Fingerstick) 110mg/dL (70-99) 134mg/dL (70-99) 141mg/dL (70-99) Laboratory Tests Test 01/08/17 16:59 01/08/17 20:53 01/09/17 07:28 Glucose (Fingerstick) 110mg/dL (70-99) 134mg/dL (70-99) 141mg/dL (70-99) Microbiology 01/03/17 Blood Culture - Final, Complete NO GROWTH AFTER 5 DAYS 01/03/17 Gram Stain - Final, Complete Medications Current Medications Vancomycin HCl (Vanco Per Pharmacy) 1 each PRN DAILY PRN MC SEE COMMENTS Last administered on 01/06/17 10:26; Start 01/03/17 at 12:30; Stop 01/07/17 at 11:19 ; Status DC Piperacillin Sod/ Tazobactam Sod 1 each 1 each PRN DAILY PRN MC SEE COMMENTS; Start 01/03/17 at 12:30; Stop 01/05/17 at 11:05; Status DC Sodium Chloride (Iv Sodium Chloride 0.9% 1000ml Bag) 1,000 ml @ 1,000 mls/hr 1X ONCE IV Last administered on 01/03/17 12:55; Start 01/03/17 at 12:30; Stop 01/03/17 at 13:29; Status DC Insulin Human Regular 10 unit 10 unit 1X ONCE IV Last administered on 13:01; Start 01/03/17 at 12:30; Stop 01/03/17 at 12:33; Status DC Vancomycin HCl 1.75 gm/Sodium Chloride 500 ml @ 250 mls/hr 1X ONCE IV Last administered on 01/03/17 13:24; Start 01/03/17 at 13:00; Stop 01/03/17 at 14:59 ; Status DC Piperacillin Sod/ Tazobactam Sod 3.375 gm/Sodium Chloride 50 ml @ 100 mls/hr 1X ONCE IV Last administered on 01/03/17 12:56; Start 01/03/17 at 13:00; Stop 01/03/17 at 13:29; Status DC Piperacillin Sod/ Tazobactam Sod 3.375 gm/Sodium Chloride 50 ml @ 100 mls/hr Q6HRS IV Last administered on 01/07/17 05:52; Start 01/03/17 at 18:00; Stop at 10:10; Status DC Vancomycin HCl/ Sodium Chloride (Iv Sodium Chloride 0.9% 250ml) 250 ml @ 250 mls/hr Q12H IV Last administered on 01/07/17 01:49; Start 01/04/17 at 01:00; Stop 01/07/17 at 11:20; Status DC Vancomycin HCl 1 each 1X ONCE MC Last administered on 01/05/17 00:30; Start 01/05/17 at 00:30; Stop 01/05/17 at 00:31; Status DC Oxycodone/ Acetaminophen (Percocet 5/325) 1 tab PRN Q4HRS PRN PO PAIN Last administered on 01/09/17 11:45; Start 01/03/17 at 16:00 Morphine Sulfate 2 mg PRN Q2HR PRN IV PAIN; Start 01/03/17 at 16:00 Insulin Aspart (Novolog) 0-9 UNITS TIDWMEALS SQ Last administered on 01/09/17 11:56; Start 01/03/17 at 17:00 Dextrose 12.5 gm PRN Q15MIN PRN IV SEE COMMENTS; Start 01/03/17 at 16:00 Insulin Detemir (Levemir) 20 units QHS SQ ; Start 01/03/17 at 21:00; Stop at 09:11; Status DC Insulin Aspart (Novolog) 10 units TIDAC SQ Last administered on 01/03/17 17:30 ; Start 01/03/17 at 17:00; Stop 01/03/17 at 21:08; Status DC Pneumococcal Polyvalent Vaccine 0.5 ml 0.5 ml ONCE ONCE VAX IM Last administered on 01/04/17 09:59; Start 01/04/17 at 09:00; Stop 01/04/17 at 09:01 ; Status DC Sodium Chloride (Iv Sodium Chloride 0.9% 1000ml Bag) 1,000 ml @ 100 mls/hr Q10H IV Last administered on 01/05/17 05:32; Start 01/03/17 at 16:30; Stop at 11:11; Status DC Insulin Aspart (Novolog) 15 units TIDAC SQ Last administered on 01/05/17 08:33 ; Start 01/04/17 at 07:30; Stop 01/05/17 at 10:56; Status DC Insulin Detemir (Levemir) 35 units 1X ONCE SQ Last administered on 01/03/17 21:18; Start 01/03/17 at 21:30; Stop 01/03/17 at 21:31; Status DC Insulin Aspart (Novolog) 12 units 1X ONCE SQ Last administered on 01/03/17 21 :17; Start 01/03/17 at 21:30; Stop 01/03/17 at 21:31; Status DC Insulin Detemir (Levemir) 35 units QHS SQ Last administered on 01/04/17 21:36 ; Start 01/04/17 at 21:00; Stop 01/05/17 at 10:56; Status DC Info (Do NOT chart on this placeholder) 1 each PRN 1X PRN MC SEE COMMENTS; Start 01/05/17 at 10:00; Status UNV Influenza Virus Vaccine Quadrival (Fluarix Quad 0614-0721 Syringe) 0.5 ml ONCE ONCE VAX IM Last administered on 01/05/17 13:07; Start 01/05/17 at 10:15; Stop 01/05/17 at 10:16; Status DC Insulin Aspart (Novolog) 14 units TIDAC SQ Last administered on 01/09/17 11:56 ; Start 01/05/17 at 11:30 Insulin Detemir 30 units 30 units QHS SQ Last administered on 01/08/17 21:39; Start 01/05/17 at 21:00 Potassium Chloride 20 meq/ Sodium Chloride 1,010 ml @ 100 mls/hr Q10H6M IV ; Start 01/05/17 at 11:30; Stop 01/05/17 at 11:30; Status DC Potassium Chloride/Sodium Chloride (KCl 20 Meq-NS 1,000 ml Iv Soln) 1,000 ml @ 100 mls/hr Q10H IV Last administered on 01/07/17 05:52; Start 01/05/17 at 11: 30; Stop 01/07/17 at 15:14; Status DC Bupivacaine HCl (Marcaine 0.25%) 50 ml STK-MED ONCE .ROUTE ; Start 01/06/17 at 12:30; Stop 01/06/17 at 12:31; Status DC Lidocaine HCl 30 ml 30 ml STK-MED ONCE .ROUTE ; Start 01/06/17 at 12:30; Stop at 12:31; Status DC Propofol (Diprivan) 20 ml @ As Directed STK-MED ONCE IV ; Start 01/06/17 at 12: 49; Stop 01/06/17 at 12:50; Status DC Lidocaine HCl (Lidocaine Pf 2% Vial) 5 ml STK-MED ONCE .ROUTE ; Start 01/06/17 at 12:50; Stop 01/06/17 at 12:51; Status DC Famotidine (Pepcid) 20 mg STK-MED ONCE .ROUTE ; Start 01/06/17 at 12:50; Stop at 12:51; Status DC Ondansetron HCl (Zofran) 4 mg STK-MED ONCE .ROUTE ; Start 01/06/17 at 12:50; Stop 01/06/17 at 12:51; Status DC Fentanyl Citrate (Fentanyl 2ml Vial) 100 mcg STK-MED ONCE .ROUTE ; Start at 12:52; Stop 01/06/17 at 12:53; Status DC Potassium Chloride (Klor-Con) 20 meq 1X ONCE PO Last administered on t 17:36; Start 01/06/17 at 14:15; Stop 01/06/17 at 14:16; Status DC Fentanyl Citrate (Fentanyl 2ml Vial) 100 mcg STK-MED ONCE .ROUTE ; Start at 14:51; Stop 01/06/17 at 14:52; Status DC Fentanyl Citrate (Fentanyl 2ml Vial) 25 mcg PRN Q5MIN PRN IV Acute Pain; Start 01/06/17 at 15:15; Stop 01/06/17 at 20:00; Status DC Fentanyl Citrate (Fentanyl 2ml Vial) 50 mcg PRN Q5MIN PRN IV Acute Pain; Start 01/06/17 at 15:15; Stop 01/06/17 at 20:00; Status DC Morphine Sulfate 2 mg PRN Q10MIN PRN IV Mild Pain; Start 01/06/17 at 15:15; Stop 01/06/17 at 20:00; Status DC Morphine Sulfate 4 mg PRN Q10MIN PRN IV Moderate Pain; Start 01/06/17 at 15:15 ; Stop 01/06/17 at 20:00; Status DC Hydromorphone HCl 0.4 mg 0.4 mg PRN Q10MIN PRN IV Moderate to severe pain; Start 01/06/17 at 15:15; Stop 01/06/17 at 20:00; Status DC Lactated Ringer's (Iv Lactated Ringers) 1,000 ml @ 75 mls/hr [id number] IV ; Start 01/06/17 at 15:30; Stop 01/07/17 at 19:43; Status DC Polyethylene Glycol (miraLAX PACKET) 17 gm DAILY PO ; Start 01/07/17 at 09:00; Stop 01/07/17 at 10:07; Status DC Polyethylene Glycol (miraLAX PACKET) 17 gm PRN DAILY PRN PO CONSTIPATION; Start 01/07/17 at 10:15 Docusate Sodium (Colace) 100 mg DAILY PO Last administered on 01/09/17 08:32; Start 01/07/17 at 11:00 Polyethylene Glycol 17 gm 17 gm DAILY PO Last administered on 01/09/17 08:32; Start 01/07/17 at 11:00 Ceftriaxone Sodium 2 gm/ Sodium Chloride 100 ml @ 200 mls/hr Q24H IV Last administered on 01/09/17 11:47; Start 01/07/17 at 11:00 Magnesium Sulfate/ Dextrose (Magnesium Sulfate PREMIX 2GM) 50 ml @ 25 mls/hr 1X ONCE IV Last administered on 01/07/17 16:13; Start 01/07/17 at 15:15; Stop 01/07/17 at 17:14; Status DC Active Scripts Active Naproxen 500 Mg Tablet.dr 1 Tab PO BID [place] 5-325 Tablet (Acetaminophen/Hydrocodone Bitart) 1 Each Tablet 1-2 Tab PO Q4-6HRS Amoxicillin 875 Mg Tablet 1 Tab PO BID Vitals/I & O Vital Sign - Last 24 Hours 01/08/17 01/08/17 01/08/17 01/08/17 15:00 19:00 20:00 21:45 Temp 97.8 98.1 97.8 98.1 Pulse 84 82 Resp 18 18 14 B/P 126/89 143/85 Pulse Ox 91 97 97 O2 Delivery Room Air Room Air Room Air Room Air O2 Flow Rate 10.0 01/08/17 01/08/17 01/09/17 01/09/17 22:45 23:00 03:00 07:00 Temp 98.1 97.7 98.0 98.1 97.7 98.0 Pulse 80 76 82 Resp 16 18 18 16 B/P 149/91 135/84 129/83 Pulse Ox 95 95 95 97 O2 Delivery Room Air Room Air Room Air Room Air O2 Flow Rate 10.0 01/09/17 11:00 Temp 98.4 98.4 Pulse 86 Resp 20 B/P 104/75 Pulse Ox 99 O2 Delivery Room Air Intake and Output 01/08/17 01/08/17 01/09/17 15:00 23:00 07:00 Intake Total 1000 ml 0 ml Output Total 1250 ml Balance -250 ml 0 ml FRANCISCO GARCIA III DO Jan 09, 2017 12:25
[2017-01-09 15:00] VITALS: BP 91/59
--- NOTE | 2017-01-09 15:38 | PATHOLOGY ---
PATHOLOGY REPORT * * * * * * * * FINAL DIAGNOSIS: Right great toe amputation: - Gangrenous necrosis and ulceration of toe with extensive acute cellulitis and acute osteomyelitis. (JPM:csd; d/t: 01/09/2017) REPORT ELECTRONICALLY SIGNED BY: Marshal Stout M.D. DATE/TIME: 01/09/2017 15:37 * * * * * * * * GROSS PATHOLOGY: The specimen is received in formalin labeled "Aung Reese, right great toe". Received is an amputated digit measuring 4.1 x 3.9 x 3.3 cm in greatest dimensions. The bone margin is jagged in appearance. The bone and soft tissue margins are inked black. The nail is present displaying a pale montano appearance measuring 1.9 x 1.7 cm. The epidermal surface displays a poorly circumscribed, irregular in contour, partially crusted and light montano to gregory-brown lesion measuring 4.9 x 3.2 cm, which is 0.1 cm from the closest skin margin. The specimen is submitted representatively as follows: A1 hospital insurance representative sections of lesion to show relationship to closest skin margin A2-A3 full-thickness longitudinal cross-section of specimen, submitted from proximal to distal aspects, following decalcification. (CAA; 01/08/2017) INITIAL CPT CODE(S): A; 14816, 96239 Professional services performed by [facility] [place] [address] Technical services performed by [facility] at [address] [place] [address]. SPECIMEN(S) RECEIVED: A.Right great toe CLINICAL HISTORY: Diabetic wound ulcer PATIENT: AUNG REESE /AGE: 4 1975 (Age: 41) PATIENT #: [id number] ALT CASE #: SPECIMEN COLLECTION DATE: 01/06/2017 SPECIMEN RECEIVED DATE: 01/07/2017 [facility] [place] [address] - PHONE: [phone] * * * END OF REPORT * * *
[2017-01-09 19:25] VITALS: BP 137/89
[2017-01-09] MEDS: INSULIN DETEMIR 300 UNITS/3 ML INSULN.PEN. SQ SCH (21:26)
[2017-01-09 23:14] VITALS: BP 126/73
[2017-01-10 03:02] VITALS: BP 127/85
[2017-01-10 06:14] LABS: CALCIUM 9.4 mg/dL (8.5-10.1); CREATININE 0.9 mg/dL (0.7-1.3); GFR 92.1; POTASSIUM 4.4 mmol/L (3.5-5.1)
[2017-01-10 06:17] LABS: BASO # 0.1 x10^3/uL (0.0-0.2); BASO % 1 % (0-3); EOS % 3 % (0-3); HEMOGLOBIN 11.7 g/dL (13.0-17.5); LYMPH # 2.2 x10^3/uL (1.0-4.8); LYMPH % 24 % (24-48); MEAN CORPUSCULAR HEMOGLOBIN 28 pg (25-35); MEAN CORPUSCULAR HGB CONC 34 g/dL (31-37); MEAN CORPUSCULAR VOLUME 85 fL (79-100); MONO % 9 % (0-9); NEUT % 64 % (31-73); PLATELET COUNT 414 x10^3/uL (140-400); RED BLOOD COUNT 4.13 x10^6/uL (4.30-5.70); RED CELL DISTRIBUTION WIDTH 12.9 % (11.5-14.5); WHITE BLOOD COUNT 9.1 x10^3/uL (4.0-11.0)
[2017-01-10 07:00] VITALS: BP 127/93
[2017-01-10] MEDS: DOCUSATE SODIUM 100 MG CAPSULE PO SCH (08:16)
[2017-01-10] MEDS: POLYETHYLENE GLYCOL 3350 17 GM PACKET. PO SCH (08:16)
[2017-01-10] MEDS: INSULIN ASPART 300 UNITS/3 ML INSULN.PEN SQ SCH ×6 (08:23→17:23)
[2017-01-10 11:00] VITALS: BP 131/78
--- NOTE | 2017-01-10 11:22 | PDOC ---
PROGRESS NOTES Chief Complaint Chief Complaint 1. DM 1 uncontrolled, A1c - 11.8, With end organ target damage - Multiple 2. DM foot wound, R big toe, w/ neuropathy - osteomyelitis and s/p Great toe amputation 3. NISSA on CKD 4. Blind left eye/dm retinopathy 5. HTN 6. HONK POA 7. Peripheral vascular disease 8. Hypokalemia, replaced History of Present Illness History of Present Illness Pt sitting up in bed Wound vac in place on R foot Two family members in the room Pt does not have insurance Working with long term care social worker Probable D/C today if OK with subspecialists VSTrudy CHUNG RN Vitals Vitals Vital Signs Date Time Temp Pulse Resp B/P Pulse Ox O2 Delivery O2 Flow Rate FiO2 01/10/17 07:00 98.0 90 20 127/93 99 Room Air 98.0 Physical Exam Physical Exam General: Alert, Oriented X3, Cooperative, No acute distress Heart: Regular rate (distant), Normal S1, Normal S2, No murmurs Lungs: Clear, Other (no wheezes) Abdomen: Normal bowel sounds, Soft, No tenderness Extremities: Other (wound vac in place right great toe and ray open amp site with minimal erythema surrounding the open wound. ) Skin: No rashes, No breakdown Labs LABS Laboratory Tests Test 01/09/17 11:40 01/09/17 17:09 01/09/17 20:30 01/10/17 05:00 Glucose (Fingerstick) 171mg/dL (70-99) 102mg/dL (70-99) 201mg/dL (70-99) White Blood Count 9.1x10^3/uL (4.0-11.0) Red Blood Count 4.13x10^6/uL (4.30-5.70) Hemoglobin 11.7g/dL (13.0-17.5) Hematocrit 35.0% (39.0-53.0) Mean Corpuscular Volume 85fL (79-100) Mean Corpuscular Hemoglobin 28pg (25-35) Mean Corpuscular Hemoglobin Concent 34g/dL (31-37) Red Cell Distribution Width 12.9% (11.5-14.5) Platelet Count 414x10^3/uL (140-400) Neutrophils (%) (Auto) 64% (31-73) Lymphocytes (%) (Auto) 24% (24-48) Monocytes (%) (Auto) 9% (0-9) Eosinophils (%) (Auto) 3% (0-3) Basophils (%) (Auto) 1% (0-3) Neutrophils # (Auto) 5.8x10^3uL (1.8-7.7) Lymphocytes # (Auto) 2.2x10^3/uL (1.0-4.8) Monocytes # (Auto) 0.8x10^3/uL (0.0-1.1) Eosinophils # (Auto) 0.2x10^3/uL (0.0-0.7) Basophils # (Auto) 0.1x10^3/uL (0.0-0.2) Sodium Level 139mmol/L (136-145) Potassium Level 4.4mmol/L (3.5-5.1) Chloride Level 101mmol/L (98-107) Carbon Dioxide Level 30mmol/L (21-32) Anion Gap 8 (6-14) Blood Urea Nitrogen 17mg/dL (8-26) Creatinine 0.9mg/dL (0.7-1.3) Estimated GFR (Cockcroft-Gault) 92.1 Glucose Level 236mg/dL (70-99) Calcium Level 9.4mg/dL (8.5-10.1) Test 01/10/17 07:58 Glucose (Fingerstick) 241mg/dL (70-99) Review of Systems Review of Systems Complains of fatigue Complains of hunger Assessment and Plan Assessmemt and Plan Problems Medical Problems: (1) Cellulitis of foot Status: Acute (2) Diabetic foot infection Status: Acute Assessment: 1. DM 1 uncontrolled, A1c - 11.8, With end organ target damage - Multiple 2. DM foot wound, R big toe, w/ neuropathy - osteomyelitis and s/p Great toe amputation 3. NISSA on CKD 4. Blind left eye/dm retinopathy 5. HTN 6. HONK POA 7. Peripheral vascular disease 8. Hypokalemia, replaced Plan: Probable D/C today if OK with subspecialties ID is following - continue abx from home, f/u with ID in two weeks Continue wound vac from home Continue home meds Appreciate input from subspecialties Problems: Comment Review of Relevant I have reviewed the following items lilli (where applicable) has been applied. Labs Laboratory Tests Test 01/08/17 16:59 01/08/17 20:53 01/09/17 07:28 01/09/17 11:40 Glucose (Fingerstick) 110mg/dL (70-99) 134mg/dL (70-99) 141mg/dL (70-99) 171mg/dL (70-99) Test 01/09/17 17:09 01/09/17 20:30 01/10/17 05:00 01/10/17 07:58 Glucose (Fingerstick) 102mg/dL (70-99) 201mg/dL (70-99) 241mg/dL (70-99) White Blood Count 9.1x10^3/uL (4.0-11.0) Red Blood Count 4.13x10^6/uL (4.30-5.70) Hemoglobin 11.7g/dL (13.0-17.5) Hematocrit 35.0% (39.0-53.0) Mean Corpuscular Volume 85fL (79-100) Mean Corpuscular Hemoglobin 28pg (25-35) Mean Corpuscular Hemoglobin Concent 34g/dL (31-37) Red Cell Distribution Width 12.9% (11.5-14.5) Platelet Count 414x10^3/uL (140-400) Neutrophils (%) (Auto) 64% (31-73) Lymphocytes (%) (Auto) 24% (24-48) Monocytes (%) (Auto) 9% (0-9) Eosinophils (%) (Auto) 3% (0-3) Basophils (%) (Auto) 1% (0-3) Neutrophils # (Auto) 5.8x10^3uL (1.8-7.7) Lymphocytes # (Auto) 2.2x10^3/uL (1.0-4.8) Monocytes # (Auto) 0.8x10^3/uL (0.0-1.1) Eosinophils # (Auto) 0.2x10^3/uL (0.0-0.7) Basophils # (Auto) 0.1x10^3/uL (0.0-0.2) Sodium Level 139mmol/L (136-145) Potassium Level 4.4mmol/L (3.5-5.1) Chloride Level 101mmol/L (98-107) Carbon Dioxide Level 30mmol/L (21-32) Anion Gap 8 (6-14) Blood Urea Nitrogen 17mg/dL (8-26) Creatinine 0.9mg/dL (0.7-1.3) Estimated GFR (Cockcroft-Gault) 92.1 Glucose Level 236mg/dL (70-99) Calcium Level 9.4mg/dL (8.5-10.1) Laboratory Tests Test 01/09/17 11:40 01/09/17 17:09 01/09/17 20:30 01/10/17 05:00 Glucose (Fingerstick) 171mg/dL (70-99) 102mg/dL (70-99) 201mg/dL (70-99) White Blood Count 9.1x10^3/uL (4.0-11.0) Red Blood Count 4.13x10^6/uL (4.30-5.70) Hemoglobin 11.7g/dL (13.0-17.5) Hematocrit 35.0% (39.0-53.0) Mean Corpuscular Volume 85fL (79-100) Mean Corpuscular Hemoglobin 28pg (25-35) Mean Corpuscular Hemoglobin Concent 34g/dL (31-37) Red Cell Distribution Width 12.9% (11.5-14.5) Platelet Count 414x10^3/uL (140-400) Neutrophils (%) (Auto) 64% (31-73) Lymphocytes (%) (Auto) 24% (24-48) Monocytes (%) (Auto) 9% (0-9) Eosinophils (%) (Auto) 3% (0-3) Basophils (%) (Auto) 1% (0-3) Neutrophils # (Auto) 5.8x10^3uL (1.8-7.7) Lymphocytes # (Auto) 2.2x10^3/uL (1.0-4.8) Monocytes # (Auto) 0.8x10^3/uL (0.0-1.1) Eosinophils # (Auto) 0.2x10^3/uL (0.0-0.7) Basophils # (Auto) 0.1x10^3/uL (0.0-0.2) Sodium Level 139mmol/L (136-145) Potassium Level 4.4mmol/L (3.5-5.1) Chloride Level 101mmol/L (98-107) Carbon Dioxide Level 30mmol/L (21-32) Anion Gap 8 (6-14) Blood Urea Nitrogen 17mg/dL (8-26) Creatinine 0.9mg/dL (0.7-1.3) Estimated GFR (Cockcroft-Gault) 92.1 Glucose Level 236mg/dL (70-99) Calcium Level 9.4mg/dL (8.5-10.1) Test 01/10/17 07:58 Glucose (Fingerstick) 241mg/dL (70-99) Microbiology 01/03/17 Blood Culture - Final, Complete NO GROWTH AFTER 5 DAYS 01/03/17 Gram Stain - Final, Complete Medications Current Medications Vancomycin HCl (Vanco Per Pharmacy) 1 each PRN DAILY PRN MC SEE COMMENTS Last administered on 01/06/17 10:26; Start 01/03/17 at 12:30; Stop 01/07/17 at 11:19 ; Status DC Piperacillin Sod/ Tazobactam Sod 1 each 1 each PRN DAILY PRN MC SEE COMMENTS; Start 01/03/17 at 12:30; Stop 01/05/17 at 11:05; Status DC Sodium Chloride (Iv Sodium Chloride 0.9% 1000ml Bag) 1,000 ml @ 1,000 mls/hr 1X ONCE IV Last administered on 01/03/17 12:55; Start 01/03/17 at 12:30; Stop 01/03/17 at 13:29; Status DC Insulin Human Regular 10 unit 10 unit 1X ONCE IV Last administered on 13:01; Start 01/03/17 at 12:30; Stop 01/03/17 at 12:33; Status DC Vancomycin HCl 1.75 gm/Sodium Chloride 500 ml @ 250 mls/hr 1X ONCE IV Last administered on 01/03/17 13:24; Start 01/03/17 at 13:00; Stop 01/03/17 at 14:59 ; Status DC Piperacillin Sod/ Tazobactam Sod 3.375 gm/Sodium Chloride 50 ml @ 100 mls/hr 1X ONCE IV Last administered on 01/03/17 12:56; Start 01/03/17 at 13:00; Stop 01/03/17 at 13:29; Status DC Piperacillin Sod/ Tazobactam Sod 3.375 gm/Sodium Chloride 50 ml @ 100 mls/hr Q6HRS IV Last administered on 01/07/17 05:52; Start 01/03/17 at 18:00; Stop at 10:10; Status DC Vancomycin HCl/ Sodium Chloride (Iv Sodium Chloride 0.9% 250ml) 250 ml @ 250 mls/hr Q12H IV Last administered on 01/07/17 01:49; Start 01/04/17 at 01:00; Stop 01/07/17 at 11:20; Status DC Vancomycin HCl 1 each 1X ONCE MC Last administered on 01/05/17 00:30; Start 01/05/17 at 00:30; Stop 01/05/17 at 00:31; Status DC Oxycodone/ Acetaminophen (Percocet 5/325) 1 tab PRN Q4HRS PRN PO PAIN Last administered on 01/09/17 21:21; Start 01/03/17 at 16:00 Morphine Sulfate 2 mg PRN Q2HR PRN IV PAIN; Start 01/03/17 at 16:00 Insulin Aspart (Novolog) 0-9 UNITS TIDWMEALS SQ Last administered on 01/10/17 08:23; Start 01/03/17 at 17:00 Dextrose 12.5 gm PRN Q15MIN PRN IV SEE COMMENTS; Start 01/03/17 at 16:00 Insulin Detemir (Levemir) 20 units QHS SQ ; Start 01/03/17 at 21:00; Stop at 09:11; Status DC Insulin Aspart (Novolog) 10 units TIDAC SQ Last administered on 01/03/17 17:30 ; Start 01/03/17 at 17:00; Stop 01/03/17 at 21:08; Status DC Pneumococcal Polyvalent Vaccine 0.5 ml 0.5 ml ONCE ONCE VAX IM Last administered on 01/04/17 09:59; Start 01/04/17 at 09:00; Stop 01/04/17 at 09:01 ; Status DC Sodium Chloride (Iv Sodium Chloride 0.9% 1000ml Bag) 1,000 ml @ 100 mls/hr Q10H IV Last administered on 01/05/17 05:32; Start 01/03/17 at 16:30; Stop at 11:11; Status DC Insulin Aspart (Novolog) 15 units TIDAC SQ Last administered on 01/05/17 08:33 ; Start 01/04/17 at 07:30; Stop 01/05/17 at 10:56; Status DC Insulin Detemir (Levemir) 35 units 1X ONCE SQ Last administered on 01/03/17 21:18; Start 01/03/17 at 21:30; Stop 01/03/17 at 21:31; Status DC Insulin Aspart (Novolog) 12 units 1X ONCE SQ Last administered on 01/03/17 21 :17; Start 01/03/17 at 21:30; Stop 01/03/17 at 21:31; Status DC Insulin Detemir (Levemir) 35 units QHS SQ Last administered on 01/04/17 21:36 ; Start 01/04/17 at 21:00; Stop 01/05/17 at 10:56; Status DC Info (Do NOT chart on this placeholder) 1 each PRN 1X PRN MC SEE COMMENTS; Start 01/05/17 at 10:00; Status UNV Influenza Virus Vaccine Quadrival (Fluarix Quad [id number] Syringe) 0.5 ml ONCE ONCE VAX IM Last administered on 01/05/17 13:07; Start 01/05/17 at 10:15; Stop 01/05/17 at 10:16; Status DC Insulin Aspart (Novolog) 14 units TIDAC SQ Last administered on 01/10/17 08:24 ; Start 01/05/17 at 11:30 Insulin Detemir 30 units 30 units QHS SQ Last administered on 01/09/17 21:26; Start 01/05/17 at 21:00 Potassium Chloride 20 meq/ Sodium Chloride 1,010 ml @ 100 mls/hr Q10H6M IV ; Start 01/05/17 at 11:30; Stop 01/05/17 at 11:30; Status DC Potassium Chloride/Sodium Chloride (KCl 20 Meq-NS 1,000 ml Iv Soln) 1,000 ml @ 100 mls/hr Q10H IV Last administered on 01/07/17 05:52; Start 01/05/17 at 11: 30; Stop 01/07/17 at 15:14; Status DC Bupivacaine HCl (Marcaine 0.25%) 50 ml STK-MED ONCE .ROUTE ; Start 01/06/17 at 12:30; Stop 01/06/17 at 12:31; Status DC Lidocaine HCl 30 ml 30 ml STK-MED ONCE .ROUTE ; Start 01/06/17 at 12:30; Stop at 12:31; Status DC Propofol (Diprivan) 20 ml @ As Directed STK-MED ONCE IV ; Start 01/06/17 at 12: 49; Stop 01/06/17 at 12:50; Status DC Lidocaine HCl (Lidocaine Pf 2% Vial) 5 ml STK-MED ONCE .ROUTE ; Start 01/06/17 at 12:50; Stop 01/06/17 at 12:51; Status DC Famotidine (Pepcid) 20 mg STK-MED ONCE .ROUTE ; Start 01/06/17 at 12:50; Stop at 12:51; Status DC Ondansetron HCl (Zofran) 4 mg STK-MED ONCE .ROUTE ; Start 01/06/17 at 12:50; Stop 01/06/17 at 12:51; Status DC Fentanyl Citrate (Fentanyl 2ml Vial) 100 mcg STK-MED ONCE .ROUTE ; Start at 12:52; Stop 01/06/17 at 12:53; Status DC Potassium Chloride (Klor-Con) 20 meq 1X ONCE PO Last administered on t 17:36; Start 01/06/17 at 14:15; Stop 01/06/17 at 14:16; Status DC Fentanyl Citrate (Fentanyl 2ml Vial) 100 mcg STK-MED ONCE .ROUTE ; Start at 14:51; Stop 01/06/17 at 14:52; Status DC Fentanyl Citrate (Fentanyl 2ml Vial) 25 mcg PRN Q5MIN PRN IV Acute Pain; Start 01/06/17 at 15:15; Stop 01/06/17 at 20:00; Status DC Fentanyl Citrate (Fentanyl 2ml Vial) 50 mcg PRN Q5MIN PRN IV Acute Pain; Start 01/06/17 at 15:15; Stop 01/06/17 at 20:00; Status DC Morphine Sulfate 2 mg PRN Q10MIN PRN IV Mild Pain; Start 01/06/17 at 15:15; Stop 01/06/17 at 20:00; Status DC Morphine Sulfate 4 mg PRN Q10MIN PRN IV Moderate Pain; Start 01/06/17 at 15:15 ; Stop 01/06/17 at 20:00; Status DC Hydromorphone HCl 0.4 mg 0.4 mg PRN Q10MIN PRN IV Moderate to severe pain; Start 01/06/17 at 15:15; Stop 01/06/17 at 20:00; Status DC Lactated Ringer's (Iv Lactated Ringers) 1,000 ml @ 75 mls/hr [id number] IV ; Start 01/06/17 at 15:30; Stop 01/07/17 at 19:43; Status DC Polyethylene Glycol (miraLAX PACKET) 17 gm DAILY PO ; Start 01/07/17 at 09:00; Stop 01/07/17 at 10:07; Status DC Polyethylene Glycol (miraLAX PACKET) 17 gm PRN DAILY PRN PO CONSTIPATION; Start 01/07/17 at 10:15 Docusate Sodium (Colace) 100 mg DAILY PO Last administered on 01/10/17 08:16; Start 01/07/17 at 11:00 Polyethylene Glycol 17 gm 17 gm DAILY PO Last administered on 01/10/17 08:16; Start 01/07/17 at 11:00 Ceftriaxone Sodium 2 gm/ Sodium Chloride 100 ml @ 200 mls/hr Q24H IV Last administered on 01/09/17 11:47; Start 01/07/17 at 11:00 Magnesium Sulfate/ Dextrose (Magnesium Sulfate PREMIX 2GM) 50 ml @ 25 mls/hr 1X ONCE IV Last administered on 01/07/17 16:13; Start 01/07/17 at 15:15; Stop 01/07/17 at 17:14; Status DC Active Scripts Active Naproxen 500 Mg Tablet. 1 Tab PO BID [place] 5-325 Tablet (Acetaminophen/Hydrocodone Bitart) 1 Each Tablet 1-2 Tab PO Q4-6HRS Amoxicillin 875 Mg Tablet 1 Tab PO BID Vitals/I & O Vital Sign - Last 24 Hours 01/09/17 01/09/17 01/09/17 01/09/17 15:00 19:25 20:50 21:21 Temp 98.6 98.1 98.6 98.1 Pulse 80 82 Resp B/P 91/59 137/89 Pulse Ox 94 94 94 O2 Delivery Room Air Room Air Room Air Room Air 01/09/17 01/09/17 01/10/17 01/10/17 22:22 23:14 03:02 07:00 Temp 98.2 98.2 98.0 98.2 98.2 98.0 Pulse 82 83 90 Resp B/P 126/73 127/85 127/93 Pulse Ox 94 95 92 99 O2 Delivery Room Air Room Air Room Air Room Air Intake and Output 01/09/17 01/09/17 01/10/17 15:00 23:00 07:00 Intake Total 120 ml Output Total 500 ml 800 ml Balance -380 ml -800 ml FRANCISCO GARCIA III DO Jan 10, 2017 11:22
[2017-01-10] MEDS: CEFTRIAXONE SODIUM 2 GM in IV NORMAL SALINE 100ML 100 ML IV SCH (12:56)
[2017-01-10 15:00] VITALS: BP 120/81
[2017-01-10] MEDS: OXYCODONE/APAP 5/325 TABLET. PO PRN ×2 (17:27→22:28)
[2017-01-10 19:00] VITALS: BP 135/80
[2017-01-10] MEDS: INSULIN DETEMIR 300 UNITS/3 ML INSULN.PEN. SQ SCH (22:33)
[2017-01-10 23:00] VITALS: BP 129/82
[2017-01-11 03:14] VITALS: BP 139/86
[2017-01-11] MEDS: OXYCODONE/APAP 5/325 TABLET. PO PRN ×2 (05:45→21:51)
[2017-01-11 06:11] LABS: BASO # 0.1 x10^3/uL (0.0-0.2); BASO % 2 % (0-3); EOS % 3 % (0-3); HEMOGLOBIN 11.2 g/dL (13.0-17.5); LYMPH # 1.7 x10^3/uL (1.0-4.8); LYMPH % 22 % (24-48); MEAN CORPUSCULAR HEMOGLOBIN 29 pg (25-35); MEAN CORPUSCULAR HGB CONC 34 g/dL (31-37); MEAN CORPUSCULAR VOLUME 86 fL (79-100); MONO % 10 % (0-9); NEUT % 63 % (31-73); PLATELET COUNT 343 x10^3/uL (140-400); RED BLOOD COUNT 3.83 x10^6/uL (4.30-5.70); WHITE BLOOD COUNT 7.6 x10^3/uL (4.0-11.0)
[2017-01-11 06:27] LABS: CALCIUM 8.9 mg/dL (8.5-10.1); GFR 81.6; POTASSIUM 4.5 mmol/L (3.5-5.1)
[2017-01-11 07:00] VITALS: BP 128/79
[2017-01-11] MEDS: DOCUSATE SODIUM 100 MG CAPSULE PO SCH (09:00)
[2017-01-11] MEDS: POLYETHYLENE GLYCOL 3350 17 GM PACKET. PO SCH (09:00)
[2017-01-11] MEDS: INSULIN ASPART 300 UNITS/3 ML INSULN.PEN SQ SCH ×6 (09:18→17:22)
[2017-01-11 11:00] VITALS: BP 126/76
[2017-01-11] MEDS: CEFTRIAXONE SODIUM 2 GM in IV NORMAL SALINE 100ML 100 ML IV SCH (12:42)
--- NOTE | 2017-01-11 12:55 | PDOC ---
PROGRESS NOTES Chief Complaint Chief Complaint 1. DM 1 uncontrolled, A1c - 11.8, With end organ target damage - Multiple 2. DM foot wound, R big toe, w/ neuropathy - osteomyelitis and s/p Great toe amputation 3. NISSA on CKD 4. Blind left eye/dm retinopathy 5. HTN 6. HONK POA 7. Peripheral vascular disease 8. 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 - pt is still concerned about getting transportation home upon D/C and for follow up visits Cousin Tima said he may be able to help with transportation some of the time Probable D/C in am VSS DW RN Vitals Vitals Vital Signs Date Time Temp Pulse Resp B/P Pulse Ox O2 Delivery O2 Flow Rate FiO2 01/11/17 11:00 98.0 81 20 126/76 95 Room Air 98.0 01/10/17 23:30 10.0 Physical Exam Physical Exam General: Alert, Oriented X3, Cooperative, No acute distress Heart: Regular rate (distant), Normal S1, Normal S2, No murmurs Lungs: Clear, Other (no wheezes) Abdomen: Normal bowel sounds, Soft, No tenderness Extremities: Other (wound vac in place right great toe and ray open amp site with minimal erythema surrounding the open wound. ) Skin: No rashes, No breakdown Labs LABS Laboratory Tests Test 01/10/17 17:09 01/10/17 20:33 01/11/17 05:45 01/11/17 07:43 Glucose (Fingerstick) 118mg/dL (70-99) 186mg/dL (70-99) 228mg/dL (70-99) White Blood Count 7.6x10^3/uL (4.0-11.0) Red Blood Count 3.83x10^6/uL (4.30-5.70) Hemoglobin 11.2g/dL (13.0-17.5) Hematocrit 33.0% (39.0-53.0) Mean Corpuscular Volume 86fL (79-100) Mean Corpuscular Hemoglobin 29pg (25-35) Mean Corpuscular Hemoglobin Concent 34g/dL (31-37) Red Cell Distribution Width 13.0% (11.5-14.5) Platelet Count 343x10^3/uL (140-400) Neutrophils (%) (Auto) 63% (31-73) Lymphocytes (%) (Auto) 22% (24-48) Monocytes (%) (Auto) 10% (0-9) Eosinophils (%) (Auto) 3% (0-3) Basophils (%) (Auto) 2% (0-3) Neutrophils # (Auto) 4.8x10^3uL (1.8-7.7) Lymphocytes # (Auto) 1.7x10^3/uL (1.0-4.8) Monocytes # (Auto) 0.8x10^3/uL (0.0-1.1) Eosinophils # (Auto) 0.2x10^3/uL (0.0-0.7) Basophils # (Auto) 0.1x10^3/uL (0.0-0.2) Sodium Level 139mmol/L (136-145) Potassium Level 4.5mmol/L (3.5-5.1) Chloride Level 101mmol/L (98-107) Carbon Dioxide Level 30mmol/L (21-32) Anion Gap 8 (6-14) Blood Urea Nitrogen 18mg/dL (8-26) Creatinine 1.0mg/dL (0.7-1.3) Estimated GFR (Cockcroft-Gault) 81.6 Glucose Level 243mg/dL (70-99) Calcium Level 8.9mg/dL (8.5-10.1) Test 01/11/17 11:52 Glucose (Fingerstick) 186mg/dL (70-99) Review of Systems Review of Systems Complains of weakness Complains of fatigue Assessment and Plan Assessmemt and Plan Problems Medical Problems: (1) Cellulitis of foot Status: Acute (2) Diabetic foot infection Status: Acute Assessment: 1. DM 1 uncontrolled, A1c - 11.8, With end organ target damage - Multiple 2. DM foot wound, R big toe, w/ neuropathy - osteomyelitis and s/p Great toe amputation 3. NISSA on CKD 4. Blind left eye/dm retinopathy 5. HTN 6. HONK POA 7. Peripheral vascular disease 8. Hypokalemia, replaced Plan: Probable D/C in am Continue abx from home Continue wound vac from home Fu with subspecialists as directed Recheck labs in am PTOT Problems: Comment Review of Relevant I have reviewed the following items lilli (where applicable) has been applied. Labs Laboratory Tests Test 01/09/17 17:09 01/09/17 20:30 01/10/17 05:00 01/10/17 07:58 Glucose (Fingerstick) 102mg/dL (70-99) 201mg/dL (70-99) 241mg/dL (70-99) White Blood Count 9.1x10^3/uL (4.0-11.0) Red Blood Count 4.13x10^6/uL (4.30-5.70) Hemoglobin 11.7g/dL (13.0-17.5) Hematocrit 35.0% (39.0-53.0) Mean Corpuscular Volume 85fL (79-100) Mean Corpuscular Hemoglobin 28pg (25-35) Mean Corpuscular Hemoglobin Concent 34g/dL (31-37) Red Cell Distribution Width 12.9% (11.5-14.5) Platelet Count 414x10^3/uL (140-400) Neutrophils (%) (Auto) 64% (31-73) Lymphocytes (%) (Auto) 24% (24-48) Monocytes (%) (Auto) 9% (0-9) Eosinophils (%) (Auto) 3% (0-3) Basophils (%) (Auto) 1% (0-3) Neutrophils # (Auto) 5.8x10^3uL (1.8-7.7) Lymphocytes # (Auto) 2.2x10^3/uL (1.0-4.8) Monocytes # (Auto) 0.8x10^3/uL (0.0-1.1) Eosinophils # (Auto) 0.2x10^3/uL (0.0-0.7) Basophils # (Auto) 0.1x10^3/uL (0.0-0.2) Sodium Level 139mmol/L (136-145) Potassium Level 4.4mmol/L (3.5-5.1) Chloride Level 101mmol/L (98-107) Carbon Dioxide Level 30mmol/L (21-32) Anion Gap 8 (6-14) Blood Urea Nitrogen 17mg/dL (8-26) Creatinine 0.9mg/dL (0.7-1.3) Estimated GFR (Cockcroft-Gault) 92.1 Glucose Level 236mg/dL (70-99) Calcium Level 9.4mg/dL (8.5-10.1) Test 01/10/17 11:51 01/10/17 17:09 01/10/17 20:33 01/11/17 05:45 Glucose (Fingerstick) 191mg/dL (70-99) 118mg/dL (70-99) 186mg/dL (70-99) White Blood Count 7.6x10^3/uL (4.0-11.0) Red Blood Count 3.83x10^6/uL (4.30-5.70) Hemoglobin 11.2g/dL (13.0-17.5) Hematocrit 33.0% (39.0-53.0) Mean Corpuscular Volume 86fL (79-100) Mean Corpuscular Hemoglobin 29pg (25-35) Mean Corpuscular Hemoglobin Concent 34g/dL (31-37) Red Cell Distribution Width 13.0% (11.5-14.5) Platelet Count 343x10^3/uL (140-400) Neutrophils (%) (Auto) 63% (31-73) Lymphocytes (%) (Auto) 22% (24-48) Monocytes (%) (Auto) 10% (0-9) Eosinophils (%) (Auto) 3% (0-3) Basophils (%) (Auto) 2% (0-3) Neutrophils # (Auto) 4.8x10^3uL (1.8-7.7) Lymphocytes # (Auto) 1.7x10^3/uL (1.0-4.8) Monocytes # (Auto) 0.8x10^3/uL (0.0-1.1) Eosinophils # (Auto) 0.2x10^3/uL (0.0-0.7) Basophils # (Auto) 0.1x10^3/uL (0.0-0.2) Sodium Level 139mmol/L (136-145) Potassium Level 4.5mmol/L (3.5-5.1) Chloride Level 101mmol/L (98-107) Carbon Dioxide Level 30mmol/L (21-32) Anion Gap 8 (6-14) Blood Urea Nitrogen 18mg/dL (8-26) Creatinine 1.0mg/dL (0.7-1.3) Estimated GFR (Cockcroft-Gault) 81.6 Glucose Level 243mg/dL (70-99) Calcium Level 8.9mg/dL (8.5-10.1) Test 01/11/17 07:43 01/11/17 11:52 Glucose (Fingerstick) 228mg/dL (70-99) 186mg/dL (70-99) Laboratory Tests Test 01/10/17 17:09 01/10/17 20:33 01/11/17 05:45 01/11/17 07:43 Glucose (Fingerstick) 118mg/dL (70-99) 186mg/dL (70-99) 228mg/dL (70-99) White Blood Count 7.6x10^3/uL (4.0-11.0) Red Blood Count 3.83x10^6/uL (4.30-5.70) Hemoglobin 11.2g/dL (13.0-17.5) Hematocrit 33.0% (39.0-53.0) Mean Corpuscular Volume 86fL (79-100) Mean Corpuscular Hemoglobin 29pg (25-35) Mean Corpuscular Hemoglobin Concent 34g/dL (31-37) Red Cell Distribution Width 13.0% (11.5-14.5) Platelet Count 343x10^3/uL (140-400) Neutrophils (%) (Auto) 63% (31-73) Lymphocytes (%) (Auto) 22% (24-48) Monocytes (%) (Auto) 10% (0-9) Eosinophils (%) (Auto) 3% (0-3) Basophils (%) (Auto) 2% (0-3) Neutrophils # (Auto) 4.8x10^3uL (1.8-7.7) Lymphocytes # (Auto) 1.7x10^3/uL (1.0-4.8) Monocytes # (Auto) 0.8x10^3/uL (0.0-1.1) Eosinophils # (Auto) 0.2x10^3/uL (0.0-0.7) Basophils # (Auto) 0.1x10^3/uL (0.0-0.2) Sodium Level 139mmol/L (136-145) Potassium Level 4.5mmol/L (3.5-5.1) Chloride Level 101mmol/L (98-107) Carbon Dioxide Level 30mmol/L (21-32) Anion Gap 8 (6-14) Blood Urea Nitrogen 18mg/dL (8-26) Creatinine 1.0mg/dL (0.7-1.3) Estimated GFR (Cockcroft-Gault) 81.6 Glucose Level 243mg/dL (70-99) Calcium Level 8.9mg/dL (8.5-10.1) Test 01/11/17 11:52 Glucose (Fingerstick) 186mg/dL (70-99) Microbiology 01/03/17 Blood Culture - Final, Complete NO GROWTH AFTER 5 DAYS 01/03/17 Gram Stain - Final, Complete Medications Current Medications Vancomycin HCl (Vanco Per Pharmacy) 1 each PRN DAILY PRN MC SEE COMMENTS Last administered on 01/06/17 10:26; Start 01/03/17 at 12:30; Stop 01/07/17 at 11:19 ; Status DC Piperacillin Sod/ Tazobactam Sod 1 each 1 each PRN DAILY PRN MC SEE COMMENTS; Start 01/03/17 at 12:30; Stop 01/05/17 at 11:05; Status DC Sodium Chloride (Iv Sodium Chloride 0.9% 1000ml Bag) 1,000 ml @ 1,000 mls/hr 1X ONCE IV Last administered on 01/03/17 12:55; Start 01/03/17 at 12:30; Stop 01/03/17 at 13:29; Status DC Insulin Human Regular 10 unit 10 unit 1X ONCE IV Last administered on 13:01; Start 01/03/17 at 12:30; Stop 01/03/17 at 12:33; Status DC Vancomycin HCl 1.75 gm/Sodium Chloride 500 ml @ 250 mls/hr 1X ONCE IV Last administered on 01/03/17 13:24; Start 01/03/17 at 13:00; Stop 01/03/17 at 14:59 ; Status DC Piperacillin Sod/ Tazobactam Sod 3.375 gm/Sodium Chloride 50 ml @ 100 mls/hr 1X ONCE IV Last administered on 01/03/17 12:56; Start 01/03/17 at 13:00; Stop 01/03/17 at 13:29; Status DC Piperacillin Sod/ Tazobactam Sod 3.375 gm/Sodium Chloride 50 ml @ 100 mls/hr Q6HRS IV Last administered on 01/07/17 05:52; Start 01/03/17 at 18:00; Stop at 10:10; Status DC Vancomycin HCl/ Sodium Chloride (Iv Sodium Chloride 0.9% 250ml) 250 ml @ 250 mls/hr Q12H IV Last administered on 01/07/17 01:49; Start 01/04/17 at 01:00; Stop 01/07/17 at 11:20; Status DC Vancomycin HCl 1 each 1X ONCE MC Last administered on 01/05/17 00:30; Start 01/05/17 at 00:30; Stop 01/05/17 at 00:31; Status DC Oxycodone/ Acetaminophen (Percocet 5/325) 1 tab PRN Q4HRS PRN PO PAIN Last administered on 01/11/17 05:45; Start 01/03/17 at 16:00 Morphine Sulfate 2 mg PRN Q2HR PRN IV PAIN; Start 01/03/17 at 16:00 Insulin Aspart (Novolog) 0-9 UNITS TIDWMEALS SQ Last administered on 01/11/17 09:19; Start 01/03/17 at 17:00 Dextrose 12.5 gm PRN Q15MIN PRN IV SEE COMMENTS; Start 01/03/17 at 16:00 Insulin Detemir (Levemir) 20 units QHS SQ ; Start 01/03/17 at 21:00; Stop at 09:11; Status DC Insulin Aspart (Novolog) 10 units TIDAC SQ Last administered on 01/03/17 17:30 ; Start 01/03/17 at 17:00; Stop 01/03/17 at 21:08; Status DC Pneumococcal Polyvalent Vaccine 0.5 ml 0.5 ml ONCE ONCE VAX IM Last administered on 01/04/17 09:59; Start 01/04/17 at 09:00; Stop 01/04/17 at 09:01 ; Status DC Sodium Chloride (Iv Sodium Chloride 0.9% 1000ml Bag) 1,000 ml @ 100 mls/hr Q10H IV Last administered on 01/05/17 05:32; Start 01/03/17 at 16:30; Stop at 11:11; Status DC Insulin Aspart (Novolog) 15 units TIDAC SQ Last administered on 01/05/17 08:33 ; Start 01/04/17 at 07:30; Stop 01/05/17 at 10:56; Status DC Insulin Detemir (Levemir) 35 units 1X ONCE SQ Last administered on 01/03/17 21:18; Start 01/03/17 at 21:30; Stop 01/03/17 at 21:31; Status DC Insulin Aspart (Novolog) 12 units 1X ONCE SQ Last administered on 01/03/17 21 :17; Start 01/03/17 at 21:30; Stop 01/03/17 at 21:31; Status DC Insulin Detemir (Levemir) 35 units QHS SQ Last administered on 01/04/17 21:36 ; Start 01/04/17 at 21:00; Stop 01/05/17 at 10:56; Status DC Info (Do NOT chart on this placeholder) 1 each PRN 1X PRN MC SEE COMMENTS; Start 01/05/17 at 10:00; Status UNV Influenza Virus Vaccine Quadrival (Fluarix Quad [id number] Syringe) 0.5 ml ONCE ONCE VAX IM Last administered on 01/05/17 13:07; Start 01/05/17 at 10:15; Stop 01/05/17 at 10:16; Status DC Insulin Aspart (Novolog) 14 units TIDAC SQ Last administered on 01/11/17 09:18 ; Start 01/05/17 at 11:30 Insulin Detemir 30 units 30 units QHS SQ Last administered on 01/10/17 22:33; Start 01/05/17 at 21:00 Potassium Chloride 20 meq/ Sodium Chloride 1,010 ml @ 100 mls/hr Q10H6M IV ; Start 01/05/17 at 11:30; Stop 01/05/17 at 11:30; Status DC Potassium Chloride/Sodium Chloride (KCl 20 Meq-NS 1,000 ml Iv Soln) 1,000 ml @ 100 mls/hr Q10H IV Last administered on 01/07/17t 05:52; Start 01/05/17 at 11: 30; Stop 01/07/17 at 15:14; Status DC Bupivacaine HCl (Marcaine 0.25%) 50 ml STK-MED ONCE .ROUTE ; Start 01/06/17 at 12:30; Stop 01/06/17 at 12:31; Status DC Lidocaine HCl 30 ml 30 ml STK-MED ONCE .ROUTE ; Start 01/06/17 at 12:30; Stop at 12:31; Status DC Propofol (Diprivan) 20 ml @ As Directed STK-MED ONCE IV ; Start 01/06/17 at 12: 49; Stop 01/06/17 at 12:50; Status DC Lidocaine HCl (Lidocaine Pf 2% Vial) 5 ml STK-MED ONCE .ROUTE ; Start 01/06/17 at 12:50; Stop 01/06/17 at 12:51; Status DC Famotidine (Pepcid) 20 mg STK-MED ONCE .ROUTE ; Start 01/06/17 at 12:50; Stop at 12:51; Status DC Ondansetron HCl (Zofran) 4 mg STK-MED ONCE .ROUTE ; Start 01/06/17 at 12:50; Stop 01/06/17 at 12:51; Status DC Fentanyl Citrate (Fentanyl 2ml Vial) 100 mcg STK-MED ONCE .ROUTE ; Start at 12:52; Stop 01/06/17 at 12:53; Status DC Potassium Chloride (Klor-Con) 20 meq 1X ONCE PO Last administered on t 17:36; Start 01/06/17 at 14:15; Stop 01/06/17 at 14:16; Status DC Fentanyl Citrate (Fentanyl 2ml Vial) 100 mcg STK-MED ONCE .ROUTE ; Start at 14:51; Stop 01/06/17 at 14:52; Status DC Fentanyl Citrate (Fentanyl 2ml Vial) 25 mcg PRN Q5MIN PRN IV Acute Pain; Start 01/06/17 at 15:15; Stop 01/06/17 at 20:00; Status DC Fentanyl Citrate (Fentanyl 2ml Vial) 50 mcg PRN Q5MIN PRN IV Acute Pain; Start 01/06/17 at 15:15; Stop 01/06/17 at 20:00; Status DC Morphine Sulfate 2 mg PRN Q10MIN PRN IV Mild Pain; Start 01/06/17 at 15:15; Stop 01/06/17 at 20:00; Status DC Morphine Sulfate 4 mg PRN Q10MIN PRN IV Moderate Pain; Start 01/06/17 at 15:15 ; Stop 01/06/17 at 20:00; Status DC Hydromorphone HCl 0.4 mg 0.4 mg PRN Q10MIN PRN IV Moderate to severe pain; Start 01/06/17 at 15:15; Stop 01/06/17 at 20:00; Status DC Lactated Ringer's (Iv Lactated Ringers) 1,000 ml @ 75 mls/hr [id number] IV ; Start 01/06/17 at 15:30; Stop 01/07/17 at 19:43; Status DC Polyethylene Glycol (miraLAX PACKET) 17 gm DAILY PO ; Start 01/07/17 at 09:00; Stop 01/07/17 at 10:07; Status DC Polyethylene Glycol (miraLAX PACKET) 17 gm PRN DAILY PRN PO CONSTIPATION; Start 01/07/17 at 10:15 Docusate Sodium (Colace) 100 mg DAILY PO Last administered on 01/10/17 08:16; Start 01/07/17 at 11:00 Polyethylene Glycol 17 gm 17 gm DAILY PO Last administered on 01/10/17 08:16; Start 01/07/17 at 11:00 Ceftriaxone Sodium 2 gm/ Sodium Chloride 100 ml @ 200 mls/hr Q24H IV Last administered on 01/11/17 12:42; Start 01/07/17 at 11:00 Magnesium Sulfate/ Dextrose (Magnesium Sulfate PREMIX 2GM) 50 ml @ 25 mls/hr 1X ONCE IV Last administered on 01/07/17 16:13; Start 01/07/17 at 15:15; Stop 01/07/17 at 17:14; Status DC Active Scripts Active Naproxen 500 Mg Tablet. 1 Tab PO BID [place] 5-325 Tablet (Acetaminophen/Hydrocodone Bitart) 1 Each Tablet 1-2 Tab PO Q4-6HRS Amoxicillin 875 Mg Tablet 1 Tab PO BID Vitals/I & O Vital Sign - Last 24 Hours 01/10/17 01/10/17 01/10/17 01/10/17 15:00 19:00 20:30 23:00 Temp 98.4 97.7 98.1 98.4 97.7 98.1 Pulse 82 79 81 Resp 20 20 20 B/P 120/81 135/80 129/82 Pulse Ox 96 96 95 O2 Delivery Room Air Room Air Room Air Room Air 01/10/17 01/11/17 01/11/17 01/11/17 23:30 03:14 07:00 08:45 Temp 96.6 98.0 96.6 98.0 Pulse 74 77 Resp 16 B/P 139/86 128/79 Pulse Ox 95 95 97 O2 Delivery Room Air Room Air Room Air Room Air O2 Flow Rate 10.0 01/11/17 11:00 Temp 98.0 98.0 Pulse 81 Resp 20 B/P 126/76 Pulse Ox 95 O2 Delivery Room Air Intake and Output 01/10/17 01/10/17 01/11/17 15:00 23:00 07:00 Intake Total 250 ml Output Total 500 ml 1600 ml Balance -500 ml -1350 ml FRANCISCO GARCIA III DO Jan 11, 2017 12:55
[2017-01-11 15:00] VITALS: BP 128/84
[2017-01-11 19:59] VITALS: BP 117/77
[2017-01-11] MEDS ORDERED: INSULIN ASPART 300 UNITS/3 ML INSULN.PEN SQ ONE (21:30)
[2017-01-11] MEDS: INSULIN DETEMIR 300 UNITS/3 ML INSULN.PEN. SQ SCH (21:58)
[2017-01-11 23:28] VITALS: BP 133/77
[2017-01-12 03:06] VITALS: BP 131/82
[2017-01-12 06:56] LABS: BASO # 0.1 x10^3/uL (0.0-0.2); BASO % 1 % (0-3); EOS % 2 % (0-3); HEMATOCRIT 33.4 % (39.0-53.0); HEMOGLOBIN 11.1 g/dL (13.0-17.5); LYMPH # 1.8 x10^3/uL (1.0-4.8); LYMPH % 18 % (24-48); MEAN CORPUSCULAR HEMOGLOBIN 29 pg (25-35); MEAN CORPUSCULAR HGB CONC 33 g/dL (31-37); MEAN CORPUSCULAR VOLUME 86 fL (79-100); MONO % 8 % (0-9); NEUT % 71 % (31-73); PLATELET COUNT 436 x10^3/uL (140-400); RED BLOOD COUNT 3.87 x10^6/uL (4.30-5.70); RED CELL DISTRIBUTION WIDTH 12.9 % (11.5-14.5); WHITE BLOOD COUNT 10.1 x10^3/uL (4.0-11.0)
[2017-01-12 07:00] VITALS: BP 125/87
[2017-01-12 07:10] LABS: CALCIUM 9.3 mg/dL (8.5-10.1); CREATININE 0.9 mg/dL (0.7-1.3); GFR 92.1; POTASSIUM 4.3 mmol/L (3.5-5.1)
[2017-01-12] MEDS: DOCUSATE SODIUM 100 MG CAPSULE PO SCH (08:39)
[2017-01-12] MEDS: POLYETHYLENE GLYCOL 3350 17 GM PACKET. PO SCH (08:39)
[2017-01-12] MEDS: INSULIN ASPART 300 UNITS/3 ML INSULN.PEN SQ SCH ×6 (08:44→17:33)
[2017-01-12 11:00] VITALS: BP 136/88
--- NOTE | 2017-01-12 12:06 | PDOC ---
PROGRESS NOTES Subjective Subjective "I'm hoping to go home today or to a rehab place. 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 Wound vac dressing removed. Base of wound healthy with presence of granulation in wound base. Clean. Plan: 1. Ok to discharge from vascular surgery perspective once arrangements made for ongoing IV antibiotic therapy. 2. Continue wound vac dressing with dressing changes at [facility]. 3. Follow up with Dr. Danielle OREILLY. Vital Signs Date Time Temp Pulse Resp B/P Pulse Ox O2 Delivery O2 Flow Rate FiO2 01/12/17 11:00 98.2 86 18 136/88 95 Room Air 98.2 01/10/17 23:30 10.0 Intake and Output 01/12/17 07:00 Intake Total 450 ml Output Total 500 ml Balance -50 ml Intake Oral 450 ml Output Urine Total 500 ml # Voids 3 # Bowel Movements 1 Assessment Assessment Problems Medical Problems: (1) Cellulitis of foot Status: Acute (2) Diabetic foot infection Status: Acute Comment Review of Relevant I have reviewed the following items lilli (where applicable) has been applied. Labs Laboratory Tests Test 01/10/17 17:09 01/10/17 20:33 01/11/17 05:45 01/11/17 07:43 Glucose (Fingerstick) 118mg/dL (70-99) 186mg/dL (70-99) 228mg/dL (70-99) White Blood Count 7.6x10^3/uL (4.0-11.0) Red Blood Count 3.83x10^6/uL (4.30-5.70) Hemoglobin 11.2g/dL (13.0-17.5) Hematocrit 33.0% (39.0-53.0) Mean Corpuscular Volume 86fL (79-100) Mean Corpuscular Hemoglobin 29pg (25-35) Mean Corpuscular Hemoglobin Concent 34g/dL (31-37) Red Cell Distribution Width 13.0% (11.5-14.5) Platelet Count 343x10^3/uL (140-400) Neutrophils (%) (Auto) 63% (31-73) Lymphocytes (%) (Auto) 22% (24-48) Monocytes (%) (Auto) 10% (0-9) Eosinophils (%) (Auto) 3% (0-3) Basophils (%) (Auto) 2% (0-3) Neutrophils # (Auto) 4.8x10^3uL (1.8-7.7) Lymphocytes # (Auto) 1.7x10^3/uL (1.0-4.8) Monocytes # (Auto) 0.8x10^3/uL (0.0-1.1) Eosinophils # (Auto) 0.2x10^3/uL (0.0-0.7) Basophils # (Auto) 0.1x10^3/uL (0.0-0.2) Sodium Level 139mmol/L (136-145) Potassium Level 4.5mmol/L (3.5-5.1) Chloride Level 101mmol/L (98-107) Carbon Dioxide Level 30mmol/L (21-32) Anion Gap 8 (6-14) Blood Urea Nitrogen 18mg/dL (8-26) Creatinine 1.0mg/dL (0.7-1.3) Estimated GFR (Cockcroft-Gault) 81.6 Glucose Level 243mg/dL (70-99) Calcium Level 8.9mg/dL (8.5-10.1) Test 01/11/17 11:52 01/11/17 17:02 01/11/17 20:58 01/12/17 06:30 Glucose (Fingerstick) 186mg/dL (70-99) 140mg/dL (70-99) 306mg/dL (70-99) White Blood Count 10.1x10^3/uL (4.0-11.0) Red Blood Count 3.87x10^6/uL (4.30-5.70) Hemoglobin 11.1g/dL (13.0-17.5) Hematocrit 33.4% (39.0-53.0) Mean Corpuscular Volume 86fL (79-100) Mean Corpuscular Hemoglobin 29pg (25-35) Mean Corpuscular Hemoglobin Concent 33g/dL (31-37) Red Cell Distribution Width 12.9% (11.5-14.5) Platelet Count 436x10^3/uL (140-400) Neutrophils (%) (Auto) 71% (31-73) Lymphocytes (%) (Auto) 18% (24-48) Monocytes (%) (Auto) 8% (0-9) Eosinophils (%) (Auto) 2% (0-3) Basophils (%) (Auto) 1% (0-3) Neutrophils # (Auto) 7.1x10^3uL (1.8-7.7) Lymphocytes # (Auto) 1.8x10^3/uL (1.0-4.8) Monocytes # (Auto) 0.8x10^3/uL (0.0-1.1) Eosinophils # (Auto) 0.2x10^3/uL (0.0-0.7) Basophils # (Auto) 0.1x10^3/uL (0.0-0.2) Sodium Level 140mmol/L (136-145) Potassium Level 4.3mmol/L (3.5-5.1) Chloride Level 103mmol/L (98-107) Carbon Dioxide Level 30mmol/L (21-32) Anion Gap 7 (6-14) Blood Urea Nitrogen 16mg/dL (8-26) Creatinine 0.9mg/dL (0.7-1.3) Estimated GFR (Cockcroft-Gault) 92.1 Glucose Level 244mg/dL (70-99) Calcium Level 9.3mg/dL (8.5-10.1) Test 01/12/17 08:16 01/12/17 10:47 Glucose (Fingerstick) 236mg/dL (70-99) 324mg/dL (70-99) Laboratory Tests Test 01/11/17 17:02 01/11/17 20:58 01/12/17 06:30 01/12/17 08:16 Glucose (Fingerstick) 140mg/dL (70-99) 306mg/dL (70-99) 236mg/dL (70-99) White Blood Count 10.1x10^3/uL (4.0-11.0) Red Blood Count 3.87x10^6/uL (4.30-5.70) Hemoglobin 11.1g/dL (13.0-17.5) Hematocrit 33.4% (39.0-53.0) Mean Corpuscular Volume 86fL (79-100) Mean Corpuscular Hemoglobin 29pg (25-35) Mean Corpuscular Hemoglobin Concent 33g/dL (31-37) Red Cell Distribution Width 12.9% (11.5-14.5) Platelet Count 436x10^3/uL (140-400) Neutrophils (%) (Auto) 71% (31-73) Lymphocytes (%) (Auto) 18% (24-48) Monocytes (%) (Auto) 8% (0-9) Eosinophils (%) (Auto) 2% (0-3) Basophils (%) (Auto) 1% (0-3) Neutrophils # (Auto) 7.1x10^3uL (1.8-7.7) Lymphocytes # (Auto) 1.8x10^3/uL (1.0-4.8) Monocytes # (Auto) 0.8x10^3/uL (0.0-1.1) Eosinophils # (Auto) 0.2x10^3/uL (0.0-0.7) Basophils # (Auto) 0.1x10^3/uL (0.0-0.2) Sodium Level 140mmol/L (136-145) Potassium Level 4.3mmol/L (3.5-5.1) Chloride Level 103mmol/L (98-107) Carbon Dioxide Level 30mmol/L (21-32) Anion Gap 7 (6-14) Blood Urea Nitrogen 16mg/dL (8-26) Creatinine 0.9mg/dL (0.7-1.3) Estimated GFR (Cockcroft-Gault) 92.1 Glucose Level 244mg/dL (70-99) Calcium Level 9.3mg/dL (8.5-10.1) Test 01/12/17 10:47 Glucose (Fingerstick) 324mg/dL (70-99) Microbiology 01/03/17 Blood Culture - Final, Complete NO GROWTH AFTER 5 DAYS 01/03/17 Gram Stain - Final, Complete Medications Current Medications Vancomycin HCl (Vanco Per Pharmacy) 1 each PRN DAILY PRN MC SEE COMMENTS Last administered on 01/06/17t 10:26; Start 01/03/17 at 12:30; Stop 01/07/17 at 11:19 ; Status DC Piperacillin Sod/ Tazobactam Sod 1 each 1 each PRN DAILY PRN MC SEE COMMENTS; Start 01/03/17 at 12:30; Stop 01/05/17 at 11:05; Status DC Sodium Chloride (Iv Sodium Chloride 0.9% 1000ml Bag) 1,000 ml @ 1,000 mls/hr 1X ONCE IV Last administered on 01/03/17 12:55; Start 01/03/17 at 12:30; Stop 01/03/17 at 13:29; Status DC Insulin Human Regular 10 unit 10 unit 1X ONCE IV Last administered on 13:01; Start 01/03/17 at 12:30; Stop 01/03/17 at 12:33; Status DC Vancomycin HCl 1.75 gm/Sodium Chloride 500 ml @ 250 mls/hr 1X ONCE IV Last administered on 01/03/17 13:24; Start 01/03/17 at 13:00; Stop 01/03/17 at 14:59 ; Status DC Piperacillin Sod/ Tazobactam Sod 3.375 gm/Sodium Chloride 50 ml @ 100 mls/hr 1X ONCE IV Last administered on 01/03/17 12:56; Start 01/03/17 at 13:00; Stop 01/03/17 at 13:29; Status DC Piperacillin Sod/ Tazobactam Sod 3.375 gm/Sodium Chloride 50 ml @ 100 mls/hr Q6HRS IV Last administered on 01/07/17 05:52; Start 01/03/17 at 18:00; Stop at 10:10; Status DC Vancomycin HCl/ Sodium Chloride (Iv Sodium Chloride 0.9% 250ml) 250 ml @ 250 mls/hr Q12H IV Last administered on 01/07/17 01:49; Start 01/04/17 at 01:00; Stop 01/07/17 at 11:20; Status DC Vancomycin HCl 1 each 1X ONCE MC Last administered on 01/05/17 00:30; Start 01/05/17 at 00:30; Stop 01/05/17 at 00:31; Status DC Oxycodone/ Acetaminophen (Percocet 5/325) 1 tab PRN Q4HRS PRN PO PAIN Last administered on 01/11/17 21:51; Start 01/03/17 at 16:00 Morphine Sulfate 2 mg PRN Q2HR PRN IV PAIN; Start 01/03/17 at 16:00 Insulin Aspart (Novolog) 0-9 UNITS TIDWMEALS SQ Last administered on 01/12/17 08:44; Start 01/03/17 at 17:00 Dextrose 12.5 gm PRN Q15MIN PRN IV SEE COMMENTS; Start 01/03/17 at 16:00 Insulin Detemir (Levemir) 20 units QHS SQ ; Start 01/03/17 at 21:00; Stop at 09:11; Status DC Insulin Aspart (Novolog) 10 units TIDAC SQ Last administered on 01/03/17 17:30 ; Start 01/03/17 at 17:00; Stop 01/03/17 at 21:08; Status DC Pneumococcal Polyvalent Vaccine 0.5 ml 0.5 ml ONCE ONCE VAX IM Last administered on 01/04/17 09:59; Start 01/04/17 at 09:00; Stop 01/04/17 at 09:01 ; Status DC Sodium Chloride (Iv Sodium Chloride 0.9% 1000ml Bag) 1,000 ml @ 100 mls/hr Q10H IV Last administered on 01/05/17 05:32; Start 01/03/17 at 16:30; Stop at 11:11; Status DC Insulin Aspart (Novolog) 15 units TIDAC SQ Last administered on 01/05/17 08:33 ; Start 01/04/17 at 07:30; Stop 01/05/17 at 10:56; Status DC Insulin Detemir (Levemir) 35 units 1X ONCE SQ Last administered on 01/03/17 21:18; Start 01/03/17 at 21:30; Stop 01/03/17 at 21:31; Status DC Insulin Aspart (Novolog) 12 units 1X ONCE SQ Last administered on 01/03/17 21 :17; Start 01/03/17 at 21:30; Stop 01/03/17 at 21:31; Status DC Insulin Detemir (Levemir) 35 units QHS SQ Last administered on 01/04/17 21:36 ; Start 01/04/17 at 21:00; Stop 01/05/17 at 10:56; Status DC Info (Do NOT chart on this placeholder) 1 each PRN 1X PRN MC SEE COMMENTS; Start 01/05/17 at 10:00; Status UNV Influenza Virus Vaccine Quadrival (Fluarix Quad [id number] Syringe) 0.5 ml ONCE ONCE VAX IM Last administered on 01/05/17 13:07; Start 01/05/17 at 10:15; Stop 01/05/17 at 10:16; Status DC Insulin Aspart (Novolog) 14 units TIDAC SQ Last administered on 01/12/17 08:44 ; Start 01/05/17 at 11:30 Insulin Detemir 30 units 30 units QHS SQ Last administered on 01/11/17 21:58; Start 01/05/17 at 21:00 Potassium Chloride 20 meq/ Sodium Chloride 1,010 ml @ 100 mls/hr Q10H6M IV ; Start 01/05/17 at 11:30; Stop 01/05/17 at 11:30; Status DC Potassium Chloride/Sodium Chloride (KCl 20 Meq-NS 1,000 ml Iv Soln) 1,000 ml @ 100 mls/hr Q10H IV Last administered on 01/07/17 05:52; Start 01/05/17 at 11: 30; Stop 01/07/17 at 15:14; Status DC Bupivacaine HCl (Marcaine 0.25%) 50 ml STK-MED ONCE .ROUTE ; Start 01/06/17 at 12:30; Stop 01/06/17 at 12:31; Status DC Lidocaine HCl 30 ml 30 ml STK-MED ONCE .ROUTE ; Start 01/06/17 at 12:30; Stop at 12:31; Status DC Propofol (Diprivan) 20 ml @ As Directed STK-MED ONCE IV ; Start 01/06/17 at 12: 49; Stop 01/06/17 at 12:50; Status DC Lidocaine HCl (Lidocaine Pf 2% Vial) 5 ml STK-MED ONCE .ROUTE ; Start 01/06/17 at 12:50; Stop 01/06/17 at 12:51; Status DC Famotidine (Pepcid) 20 mg STK-MED ONCE .ROUTE ; Start 01/06/17 at 12:50; Stop at 12:51; Status DC Ondansetron HCl (Zofran) 4 mg STK-MED ONCE .ROUTE ; Start 01/06/17 at 12:50; Stop 01/06/17 at 12:51; Status DC Fentanyl Citrate (Fentanyl 2ml Vial) 100 mcg STK-MED ONCE .ROUTE ; Start at 12:52; Stop 01/06/17 at 12:53; Status DC Potassium Chloride (Klor-Con) 20 meq 1X ONCE PO Last administered on t 17:36; Start 01/06/17 at 14:15; Stop 01/06/17 at 14:16; Status DC Fentanyl Citrate (Fentanyl 2ml Vial) 100 mcg STK-MED ONCE .ROUTE ; Start at 14:51; Stop 01/06/17 at 14:52; Status DC Fentanyl Citrate (Fentanyl 2ml Vial) 25 mcg PRN Q5MIN PRN IV Acute Pain; Start 01/06/17 at 15:15; Stop 01/06/17 at 20:00; Status DC Fentanyl Citrate (Fentanyl 2ml Vial) 50 mcg PRN Q5MIN PRN IV Acute Pain; Start 01/06/17 at 15:15; Stop 01/06/17 at 20:00; Status DC Morphine Sulfate 2 mg PRN Q10MIN PRN IV Mild Pain; Start 01/06/17 at 15:15; Stop 01/06/17 at 20:00; Status DC Morphine Sulfate 4 mg PRN Q10MIN PRN IV Moderate Pain; Start 01/06/17 at 15:15 ; Stop 01/06/17 at 20:00; Status DC Hydromorphone HCl 0.4 mg 0.4 mg PRN Q10MIN PRN IV Moderate to severe pain; Start 01/06/17 at 15:15; Stop 01/06/17 at 20:00; Status DC Lactated Ringer's (Iv Lactated Ringers) 1,000 ml @ 75 mls/hr [id number] IV ; Start 01/06/17 at 15:30; Stop 01/07/17 at 19:43; Status DC Polyethylene Glycol (miraLAX PACKET) 17 gm DAILY PO ; Start 01/07/17 at 09:00; Stop 01/07/17 at 10:07; Status DC Polyethylene Glycol (miraLAX PACKET) 17 gm PRN DAILY PRN PO CONSTIPATION; Start 01/07/17 at 10:15 Docusate Sodium (Colace) 100 mg DAILY PO Last administered on 01/10/17 08:16; Start 01/07/17 at 11:00 Polyethylene Glycol 17 gm 17 gm DAILY PO Last administered on 01/10/17 08:16; Start 01/07/17 at 11:00 Ceftriaxone Sodium 2 gm/ Sodium Chloride 100 ml @ 200 mls/hr Q24H IV Last administered on 01/11/17 12:42; Start 01/07/17 at 11:00 Magnesium Sulfate/ Dextrose (Magnesium Sulfate PREMIX 2GM) 50 ml @ 25 mls/hr 1X ONCE IV Last administered on 01/07/17 16:13; Start 01/07/17 at 15:15; Stop 01/07/17 at 17:14; Status DC Insulin Aspart (Novolog) 9 units 1X ONCE SQ Last administered on 01/11/17 21: 58; Start 01/11/17 at 21:30; Stop 01/11/17 at 21:31; Status DC Active Scripts Active Naproxen 500 Mg Tablet.dr 1 Tab PO BID Celina 5-325 Tablet (Acetaminophen/Hydrocodone Bitart) 1 Each Tablet 1-2 Tab PO Q4-6HRS Amoxicillin 875 Mg Tablet 1 Tab PO BID Vitals/I & O Vital Sign - Last 24 Hours 01/11/17 01/11/17 01/11/17 01/11/17 15:00 19:59 20:30 23:28 Temp 98.0 98.6 98.6 98.0 98.6 98.6 Pulse 79 87 87 Resp 18 B/P 128/84 117/77 133/77 Pulse Ox 95 99 96 O2 Delivery Room Air Room Air Room Air Room Air 01/12/17 01/12/17 01/12/17 01/12/17 03:06 07:00 07:50 11:00 Temp 97.8 98.3 98.2 97.8 98.3 98.2 Pulse 88 85 86 Resp 18 B/P 131/82 125/87 136/88 Pulse Ox 96 97 95 O2 Delivery Room Air Room Air Room Air Room Air Intake and Output 01/11/17 01/11/17 01/12/17 15:00 23:00 07:00 Intake Total 450 ml Output Total 500 ml Balance -500 ml 450 ml BEN GORE APRN Jan 12, 2017 12:06
[2017-01-12] MEDS: OXYCODONE/APAP 5/325 TABLET. PO PRN ×2 (12:56→20:53)
[2017-01-12] MEDS: CEFTRIAXONE SODIUM 2 GM in IV NORMAL SALINE 100ML 100 ML IV SCH (12:56)
--- NOTE | 2017-01-12 13:43 | PDOC ---
PROGRESS NOTES Chief Complaint Chief Complaint 1. DM 1 uncontrolled, A1c - 11.8 2. DM foot wound, R big toe, w/ neuropathy - osteomyelitis and s/p Great toe amputation 3. NISSA on CKD 4. Blind left eye/dm retinopathy 5. HTN 6. HONK POA 7. Peripheral vascular disease 8. Hypokalemia, replaced Plan wound wac Abx per ID recommendations Cont Rocephin 4 to 6 weeks. Q Thursday CBC/CMP/Sed rate Follow up ID in 2 weeks as out pt SW to arrange for abx and transportation labs reviwed Pain control SSI History of Present Illness History of Present Illness no new complaints No fever pain tolerable Vitals Vitals Vital Signs Date Time Temp Pulse Resp B/P Pulse Ox O2 Delivery O2 Flow Rate FiO2 01/12/17 12:56 Room Air 01/12/17 11:00 98.2 86 18 136/88 95 98.2 Physical Exam Physical Exam General: Alert, Oriented X3, Cooperative, No acute distress Heart: Regular rate (distant), Normal S1, Normal S2, No murmurs Lungs: Clear, Other (no wheezes) Abdomen: Normal bowel sounds, Soft, No tenderness Extremities: Other (wound vac in place right great toe and ray open amp site with minimal erythema surrounding the open wound. ) Skin: No rashes, No breakdown Labs LABS Laboratory Tests Test 01/11/17 17:02 01/11/17 20:58 01/12/17 06:30 01/12/17 08:16 Glucose (Fingerstick) 140mg/dL (70-99) 306mg/dL (70-99) 236mg/dL (70-99) White Blood Count 10.1x10^3/uL (4.0-11.0) Red Blood Count 3.87x10^6/uL (4.30-5.70) Hemoglobin 11.1g/dL (13.0-17.5) Hematocrit 33.4% (39.0-53.0) Mean Corpuscular Volume 86fL (79-100) Mean Corpuscular Hemoglobin 29pg (25-35) Mean Corpuscular Hemoglobin Concent 33g/dL (31-37) Red Cell Distribution Width 12.9% (11.5-14.5) Platelet Count 436x10^3/uL (140-400) Neutrophils (%) (Auto) 71% (31-73) Lymphocytes (%) (Auto) 18% (24-48) Monocytes (%) (Auto) 8% (0-9) Eosinophils (%) (Auto) 2% (0-3) Basophils (%) (Auto) 1% (0-3) Neutrophils # (Auto) 7.1x10^3uL (1.8-7.7) Lymphocytes # (Auto) 1.8x10^3/uL (1.0-4.8) Monocytes # (Auto) 0.8x10^3/uL (0.0-1.1) Eosinophils # (Auto) 0.2x10^3/uL (0.0-0.7) Basophils # (Auto) 0.1x10^3/uL (0.0-0.2) Sodium Level 140mmol/L (136-145) Potassium Level 4.3mmol/L (3.5-5.1) Chloride Level 103mmol/L (98-107) Carbon Dioxide Level 30mmol/L (21-32) Anion Gap 7 (6-14) Blood Urea Nitrogen 16mg/dL (8-26) Creatinine 0.9mg/dL (0.7-1.3) Estimated GFR (Cockcroft-Gault) 92.1 Glucose Level 244mg/dL (70-99) Calcium Level 9.3mg/dL (8.5-10.1) Test 01/12/17 10:47 Glucose (Fingerstick) 324mg/dL (70-99) Assessment and Plan Assessmemt and Plan Problems Medical Problems: (1) Cellulitis of foot Status: Acute (2) Diabetic foot infection Status: Acute Problems: Comment Review of Relevant I have reviewed the following items lilli (where applicable) has been applied. Labs Laboratory Tests Test 01/10/17 17:09 01/10/17 20:33 01/11/17 05:45 01/11/17 07:43 Glucose (Fingerstick) 118mg/dL (70-99) 186mg/dL (70-99) 228mg/dL (70-99) White Blood Count 7.6x10^3/uL (4.0-11.0) Red Blood Count 3.83x10^6/uL (4.30-5.70) Hemoglobin 11.2g/dL (13.0-17.5) Hematocrit 33.0% (39.0-53.0) Mean Corpuscular Volume 86fL (79-100) Mean Corpuscular Hemoglobin 29pg (25-35) Mean Corpuscular Hemoglobin Concent 34g/dL (31-37) Red Cell Distribution Width 13.0% (11.5-14.5) Platelet Count 343x10^3/uL (140-400) Neutrophils (%) (Auto) 63% (31-73) Lymphocytes (%) (Auto) 22% (24-48) Monocytes (%) (Auto) 10% (0-9) Eosinophils (%) (Auto) 3% (0-3) Basophils (%) (Auto) 2% (0-3) Neutrophils # (Auto) 4.8x10^3uL (1.8-7.7) Lymphocytes # (Auto) 1.7x10^3/uL (1.0-4.8) Monocytes # (Auto) 0.8x10^3/uL (0.0-1.1) Eosinophils # (Auto) 0.2x10^3/uL (0.0-0.7) Basophils # (Auto) 0.1x10^3/uL (0.0-0.2) Sodium Level 139mmol/L (136-145) Potassium Level 4.5mmol/L (3.5-5.1) Chloride Level 101mmol/L (98-107) Carbon Dioxide Level 30mmol/L (21-32) Anion Gap 8 (6-14) Blood Urea Nitrogen 18mg/dL (8-26) Creatinine 1.0mg/dL (0.7-1.3) Estimated GFR (Cockcroft-Gault) 81.6 Glucose Level 243mg/dL (70-99) Calcium Level 8.9mg/dL (8.5-10.1) Test 01/11/17 11:52 01/11/17 17:02 01/11/17 20:58 01/12/17 06:30 Glucose (Fingerstick) 186mg/dL (70-99) 140mg/dL (70-99) 306mg/dL (70-99) White Blood Count 10.1x10^3/uL (4.0-11.0) Red Blood Count 3.87x10^6/uL (4.30-5.70) Hemoglobin 11.1g/dL (13.0-17.5) Hematocrit 33.4% (39.0-53.0) Mean Corpuscular Volume 86fL (79-100) Mean Corpuscular Hemoglobin 29pg (25-35) Mean Corpuscular Hemoglobin Concent 33g/dL (31-37) Red Cell Distribution Width 12.9% (11.5-14.5) Platelet Count 436x10^3/uL (140-400) Neutrophils (%) (Auto) 71% (31-73) Lymphocytes (%) (Auto) 18% (24-48) Monocytes (%) (Auto) 8% (0-9) Eosinophils (%) (Auto) 2% (0-3) Basophils (%) (Auto) 1% (0-3) Neutrophils # (Auto) 7.1x10^3uL (1.8-7.7) Lymphocytes # (Auto) 1.8x10^3/uL (1.0-4.8) Monocytes # (Auto) 0.8x10^3/uL (0.0-1.1) Eosinophils # (Auto) 0.2x10^3/uL (0.0-0.7) Basophils # (Auto) 0.1x10^3/uL (0.0-0.2) Sodium Level 140mmol/L (136-145) Potassium Level 4.3mmol/L (3.5-5.1) Chloride Level 103mmol/L (98-107) Carbon Dioxide Level 30mmol/L (21-32) Anion Gap 7 (6-14) Blood Urea Nitrogen 16mg/dL (8-26) Creatinine 0.9mg/dL (0.7-1.3) Estimated GFR (Cockcroft-Gault) 92.1 Glucose Level 244mg/dL (70-99) Calcium Level 9.3mg/dL (8.5-10.1) Test 01/12/17 08:16 01/12/17 10:47 Glucose (Fingerstick) 236mg/dL (70-99) 324mg/dL (70-99) Laboratory Tests Test 01/11/17 17:02 01/11/17 20:58 01/12/17 06:30 01/12/17 08:16 Glucose (Fingerstick) 140mg/dL (70-99) 306mg/dL (70-99) 236mg/dL (70-99) White Blood Count 10.1x10^3/uL (4.0-11.0) Red Blood Count 3.87x10^6/uL (4.30-5.70) Hemoglobin 11.1g/dL (13.0-17.5) Hematocrit 33.4% (39.0-53.0) Mean Corpuscular Volume 86fL (79-100) Mean Corpuscular Hemoglobin 29pg (25-35) Mean Corpuscular Hemoglobin Concent 33g/dL (31-37) Red Cell Distribution Width 12.9% (11.5-14.5) Platelet Count 436x10^3/uL (140-400) Neutrophils (%) (Auto) 71% (31-73) Lymphocytes (%) (Auto) 18% (24-48) Monocytes (%) (Auto) 8% (0-9) Eosinophils (%) (Auto) 2% (0-3) Basophils (%) (Auto) 1% (0-3) Neutrophils # (Auto) 7.1x10^3uL (1.8-7.7) Lymphocytes # (Auto) 1.8x10^3/uL (1.0-4.8) Monocytes # (Auto) 0.8x10^3/uL (0.0-1.1) Eosinophils # (Auto) 0.2x10^3/uL (0.0-0.7) Basophils # (Auto) 0.1x10^3/uL (0.0-0.2) Sodium Level 140mmol/L (136-145) Potassium Level 4.3mmol/L (3.5-5.1) Chloride Level 103mmol/L (98-107) Carbon Dioxide Level 30mmol/L (21-32) Anion Gap 7 (6-14) Blood Urea Nitrogen 16mg/dL (8-26) Creatinine 0.9mg/dL (0.7-1.3) Estimated GFR (Cockcroft-Gault) 92.1 Glucose Level 244mg/dL (70-99) Calcium Level 9.3mg/dL (8.5-10.1) Test 01/12/17 10:47 Glucose (Fingerstick) 324mg/dL (70-99) Microbiology 01/03/17 Blood Culture - Final, Complete NO GROWTH AFTER 5 DAYS 01/03/17 Gram Stain - Final, Complete Medications Current Medications Vancomycin HCl (Vanco Per Pharmacy) 1 each PRN DAILY PRN MC SEE COMMENTS Last administered on 01/06/17 10:26; Start 01/03/17 at 12:30; Stop 01/07/17 at 11:19 ; Status DC Piperacillin Sod/ Tazobactam Sod 1 each 1 each PRN DAILY PRN MC SEE COMMENTS; Start 01/03/17 at 12:30; Stop 01/05/17 at 11:05; Status DC Sodium Chloride (Iv Sodium Chloride 0.9% 1000ml Bag) 1,000 ml @ 1,000 mls/hr 1X ONCE IV Last administered on 01/03/17 12:55; Start 01/03/17 at 12:30; Stop 01/03/17 at 13:29; Status DC Insulin Human Regular 10 unit 10 unit 1X ONCE IV Last administered on 13:01; Start 01/03/17 at 12:30; Stop 01/03/17 at 12:33; Status DC Vancomycin HCl 1.75 gm/Sodium Chloride 500 ml @ 250 mls/hr 1X ONCE IV Last administered on 01/03/17 13:24; Start 01/03/17 at 13:00; Stop 01/03/17 at 14:59 ; Status DC Piperacillin Sod/ Tazobactam Sod 3.375 gm/Sodium Chloride 50 ml @ 100 mls/hr 1X ONCE IV Last administered on 01/03/17 12:56; Start 01/03/17 at 13:00; Stop 01/03/17 at 13:29; Status DC Piperacillin Sod/ Tazobactam Sod 3.375 gm/Sodium Chloride 50 ml @ 100 mls/hr Q6HRS IV Last administered on 01/07/17 05:52; Start 01/03/17 at 18:00; Stop at 10:10; Status DC Vancomycin HCl/ Sodium Chloride (Iv Sodium Chloride 0.9% 250ml) 250 ml @ 250 mls/hr Q12H IV Last administered on 01/07/17 01:49; Start 01/04/17 at 01:00; Stop 01/07/17 at 11:20; Status DC Vancomycin HCl 1 each 1X ONCE MC Last administered on 01/05/17 00:30; Start 01/05/17 at 00:30; Stop 01/05/17 at 00:31; Status DC Oxycodone/ Acetaminophen (Percocet 5/325) 1 tab PRN Q4HRS PRN PO PAIN Last administered on 01/12/17 12:56; Start 01/03/17 at 16:00 Morphine Sulfate 2 mg PRN Q2HR PRN IV PAIN; Start 01/03/17 at 16:00 Insulin Aspart (Novolog) 0-9 UNITS TIDWMEALS SQ Last administered on 01/12/17 12:57; Start 01/03/17 at 17:00 Dextrose 12.5 gm PRN Q15MIN PRN IV SEE COMMENTS; Start 01/03/17 at 16:00 Insulin Detemir (Levemir) 20 units QHS SQ ; Start 01/03/17 at 21:00; Stop at 09:11; Status DC Insulin Aspart (Novolog) 10 units TIDAC SQ Last administered on 01/03/17 17:30 ; Start 01/03/17 at 17:00; Stop 01/03/17 at 21:08; Status DC Pneumococcal Polyvalent Vaccine 0.5 ml 0.5 ml ONCE ONCE VAX IM Last administered on 01/04/17 09:59; Start 01/04/17 at 09:00; Stop 01/04/17 at 09:01 ; Status DC Sodium Chloride (Iv Sodium Chloride 0.9% 1000ml Bag) 1,000 ml @ 100 mls/hr Q10H IV Last administered on 01/05/17 05:32; Start 01/03/17 at 16:30; Stop at 11:11; Status DC Insulin Aspart (Novolog) 15 units TIDAC SQ Last administered on 01/05/17 08:33 ; Start 01/04/17 at 07:30; Stop 01/05/17 at 10:56; Status DC Insulin Detemir (Levemir) 35 units 1X ONCE SQ Last administered on 01/03/17 21:18; Start 01/03/17 at 21:30; Stop 01/03/17 at 21:31; Status DC Insulin Aspart (Novolog) 12 units 1X ONCE SQ Last administered on 01/03/17 21 :17; Start 01/03/17 at 21:30; Stop 01/03/17 at 21:31; Status DC Insulin Detemir (Levemir) 35 units QHS SQ Last administered on 01/04/17 21:36 ; Start 01/04/17 at 21:00; Stop 01/05/17 at 10:56; Status DC Info (Do NOT chart on this placeholder) 1 each PRN 1X PRN MC SEE COMMENTS; Start 01/05/17 at 10:00; Status UNV Influenza Virus Vaccine Quadrival (Fluarix Quad [id number] Syringe) 0.5 ml ONCE ONCE VAX IM Last administered on 01/05/17 13:07; Start 01/05/17 at 10:15; Stop 01/05/17 at 10:16; Status DC Insulin Aspart (Novolog) 14 units TIDAC SQ Last administered on 01/12/17 12:58 ; Start 01/05/17 at 11:30 Insulin Detemir 30 units 30 units QHS SQ Last administered on 01/11/17 21:58; Start 01/05/17 at 21:00 Potassium Chloride 20 meq/ Sodium Chloride 1,010 ml @ 100 mls/hr Q10H6M IV ; Start 01/05/17 at 11:30; Stop 01/05/17 at 11:30; Status DC Potassium Chloride/Sodium Chloride (KCl 20 Meq-NS 1,000 ml Iv Soln) 1,000 ml @ 100 mls/hr Q10H IV Last administered on 01/07/17 05:52; Start 01/05/17 at 11: 30; Stop 01/07/17 at 15:14; Status DC Bupivacaine HCl (Marcaine 0.25%) 50 ml STK-MED ONCE .ROUTE ; Start 01/06/17 at 12:30; Stop 01/06/17 at 12:31; Status DC Lidocaine HCl 30 ml 30 ml STK-MED ONCE .ROUTE ; Start 01/06/17 at 12:30; Stop at 12:31; Status DC Propofol (Diprivan) 20 ml @ As Directed STK-MED ONCE IV ; Start 01/06/17 at 12: 49; Stop 01/06/17 at 12:50; Status DC Lidocaine HCl (Lidocaine Pf 2% Vial) 5 ml STK-MED ONCE .ROUTE ; Start 01/06/17 at 12:50; Stop 01/06/17 at 12:51; Status DC Famotidine (Pepcid) 20 mg STK-MED ONCE .ROUTE ; Start 01/06/17 at 12:50; Stop at 12:51; Status DC Ondansetron HCl (Zofran) 4 mg STK-MED ONCE .ROUTE ; Start 01/06/17 at 12:50; Stop 01/06/17 at 12:51; Status DC Fentanyl Citrate (Fentanyl 2ml Vial) 100 mcg STK-MED ONCE .ROUTE ; Start at 12:52; Stop 01/06/17 at 12:53; Status DC Potassium Chloride (Klor-Con) 20 meq 1X ONCE PO Last administered on t 17:36; Start 01/06/17 at 14:15; Stop 01/06/17 at 14:16; Status DC Fentanyl Citrate (Fentanyl 2ml Vial) 100 mcg STK-MED ONCE .ROUTE ; Start at 14:51; Stop 01/06/17 at 14:52; Status DC Fentanyl Citrate (Fentanyl 2ml Vial) 25 mcg PRN Q5MIN PRN IV Acute Pain; Start 01/06/17 at 15:15; Stop 01/06/17 at 20:00; Status DC Fentanyl Citrate (Fentanyl 2ml Vial) 50 mcg PRN Q5MIN PRN IV Acute Pain; Start 01/06/17 at 15:15; Stop 01/06/17 at 20:00; Status DC Morphine Sulfate 2 mg PRN Q10MIN PRN IV Mild Pain; Start 01/06/17 at 15:15; Stop 01/06/17 at 20:00; Status DC Morphine Sulfate 4 mg PRN Q10MIN PRN IV Moderate Pain; Start 01/06/17 at 15:15 ; Stop 01/06/17 at 20:00; Status DC Hydromorphone HCl 0.4 mg 0.4 mg PRN Q10MIN PRN IV Moderate to severe pain; Start 01/06/17 at 15:15; Stop 01/06/17 at 20:00; Status DC Lactated Ringer's (Iv Lactated Ringers) 1,000 ml @ 75 mls/hr [id number] IV ; Start 01/06/17 at 15:30; Stop 01/07/17 at 19:43; Status DC Polyethylene Glycol (miraLAX PACKET) 17 gm DAILY PO ; Start 01/07/17 at 09:00; Stop 01/07/17 at 10:07; Status DC Polyethylene Glycol (miraLAX PACKET) 17 gm PRN DAILY PRN PO CONSTIPATION; Start 01/07/17 at 10:15 Docusate Sodium (Colace) 100 mg DAILY PO Last administered on 01/10/17 08:16; Start 01/07/17 at 11:00 Polyethylene Glycol 17 gm 17 gm DAILY PO Last administered on 01/10/17 08:16; Start 01/07/17 at 11:00 Ceftriaxone Sodium 2 gm/ Sodium Chloride 100 ml @ 200 mls/hr Q24H IV Last administered on 01/12/17 12:56; Start 01/07/17 at 11:00 Magnesium Sulfate/ Dextrose (Magnesium Sulfate PREMIX 2GM) 50 ml @ 25 mls/hr 1X ONCE IV Last administered on 01/07/17 16:13; Start 01/07/17 at 15:15; Stop 01/07/17 at 17:14; Status DC Insulin Aspart (Novolog) 9 units 1X ONCE SQ Last administered on 01/11/17 21: 58; Start 01/11/17 at 21:30; Stop 01/11/17 at 21:31; Status DC Active Scripts Active Naproxen 500 Mg Tablet.dr 1 Tab PO BID Chancellor 5-325 Tablet (Acetaminophen/Hydrocodone Bitart) 1 Each Tablet 1-2 Tab PO Q4-6HRS Amoxicillin 875 Mg Tablet 1 Tab PO BID Vitals/I & O Vital Sign - Last 24 Hours 01/11/17 01/11/17 01/11/17 01/11/17 15:00 19:59 20:30 23:28 Temp 98.0 98.6 98.6 98.0 98.6 98.6 Pulse 79 87 87 Resp 20 18 18 B/P 128/84 117/77 133/77 Pulse Ox 95 99 96 O2 Delivery Room Air Room Air Room Air Room Air 01/12/17 01/12/17 01/12/17 01/12/17 03:06 07:00 07:50 11:00 Temp 97.8 98.3 98.2 97.8 98.3 98.2 Pulse 88 85 86 Resp 18 18 18 B/P 131/82 125/87 136/88 Pulse Ox 96 97 95 O2 Delivery Room Air Room Air Room Air Room Air 01/12/17 12:56 O2 Delivery Room Air Intake and Output 01/11/17 01/11/17 01/12/17 15:00 23:00 07:00 Intake Total 450 ml Output Total 500 ml Balance -500 ml 450 ml MAI JUAN MD Jan 12, 2017 13:43
[2017-01-12 15:00] VITALS: BP 97/62
[2017-01-12 19:48] VITALS: BP 124/73
[2017-01-12] MEDS: INSULIN DETEMIR 300 UNITS/3 ML INSULN.PEN. SQ SCH (20:56)
[2017-01-12 23:40] VITALS: BP 140/81
[2017-01-13 03:45] VITALS: BP 152/76
[2017-01-13 05:16] LABS: BASO # 0.1 x10^3/uL (0.0-0.2); BASO % 1 % (0-3); EOS % 3 % (0-3); HEMATOCRIT 32.6 % (39.0-53.0); LYMPH % 26 % (24-48); MEAN CORPUSCULAR HEMOGLOBIN 29 pg (25-35); MEAN CORPUSCULAR HGB CONC 34 g/dL (31-37); MEAN CORPUSCULAR VOLUME 86 fL (79-100); MONO % 9 % (0-9); NEUT % 61 % (31-73); PLATELET COUNT 398 x10^3/uL (140-400); RED BLOOD COUNT 3.79 x10^6/uL (4.30-5.70); RED CELL DISTRIBUTION WIDTH 12.7 % (11.5-14.5); WHITE BLOOD COUNT 7.8 x10^3/uL (4.0-11.0)
[2017-01-13 05:30] LABS: CALCIUM 9.4 mg/dL (8.5-10.1); CREATININE 0.9 mg/dL (0.7-1.3); GFR 92.1; POTASSIUM 4.2 mmol/L (3.5-5.1)
[2017-01-13 07:00] VITALS: BP 152/93
[2017-01-13] MEDS: DOCUSATE SODIUM 100 MG CAPSULE PO SCH (07:47)
[2017-01-13] MEDS: POLYETHYLENE GLYCOL 3350 17 GM PACKET. PO SCH (07:47)
[2017-01-13] MEDS: INSULIN ASPART 300 UNITS/3 ML INSULN.PEN SQ SCH ×4 (07:54→13:23)
[2017-01-13 11:07] VITALS: BP 119/82
[2017-01-13] MEDS ORDERED: INSU100I27 SQ (13:14)
[2017-01-13] MEDS ORDERED: CEFT2FRO2 IV (13:14)
[2017-01-13] MEDS: CEFTRIAXONE SODIUM 2 GM in IV NORMAL SALINE 100ML 100 ML IV SCH (13:17)
--- NOTE | 2017-01-13 14:14 | PDOC ---
PROGRESS NOTES Chief Complaint Chief Complaint 1. DM 1 uncontrolled, A1c - 11.8 2. DM foot wound, R big toe, w/ neuropathy - osteomyelitis and s/p Great toe amputation 3. NISSA on CKD 4. Blind left eye/dm retinopathy 5. HTN 6. HONK POA 7. Peripheral vascular disease 8. Hypokalemia, replaced Plan wound wac Abx per ID recommendations Cont Rocephin 4 to 6 weeks. Q Thursday CBC/CMP/Sed rate Follow up ID in 2 weeks as out pt SW to arrange for abx and transportation labs reviwed Pain control SSI d/w SW, able to arrange abx and wound care. History of Present Illness History of Present Illness no new complaints No fever pain tolerable Vitals Vitals Vital Signs Date Time Temp Pulse Resp B/P Pulse Ox O2 Delivery O2 Flow Rate FiO2 01/13/17 11:07 98.2 81 20 119/82 100 Room Air 98.2 Physical Exam Physical Exam General: Alert, Oriented X3, Cooperative, No acute distress Heart: Regular rate (distant), Normal S1, Normal S2, No murmurs Lungs: Clear, Other (no wheezes) Abdomen: Normal bowel sounds, Soft, No tenderness Extremities: Other (wound vac in place right great toe and ray open amp site with minimal erythema surrounding the open wound. ) Skin: No rashes, No breakdown Labs LABS Laboratory Tests Test 01/12/17 16:55 01/12/17 20:28 01/13/17 05:00 01/13/17 07:20 Glucose (Fingerstick) 117mg/dL (70-99) 158mg/dL (70-99) 155mg/dL (70-99) White Blood Count 7.8x10^3/uL (4.0-11.0) Red Blood Count 3.79x10^6/uL (4.30-5.70) Hemoglobin 11.0g/dL (13.0-17.5) Hematocrit 32.6% (39.0-53.0) Mean Corpuscular Volume 86fL (79-100) Mean Corpuscular Hemoglobin 29pg (25-35) Mean Corpuscular Hemoglobin Concent 34g/dL (31-37) Red Cell Distribution Width 12.7% (11.5-14.5) Platelet Count 398x10^3/uL (140-400) Neutrophils (%) (Auto) 61% (31-73) Lymphocytes (%) (Auto) 26% (24-48) Monocytes (%) (Auto) 9% (0-9) Eosinophils (%) (Auto) 3% (0-3) Basophils (%) (Auto) 1% (0-3) Neutrophils # (Auto) 4.7x10^3uL (1.8-7.7) Lymphocytes # (Auto) 2.0x10^3/uL (1.0-4.8) Monocytes # (Auto) 0.7x10^3/uL (0.0-1.1) Eosinophils # (Auto) 0.2x10^3/uL (0.0-0.7) Basophils # (Auto) 0.1x10^3/uL (0.0-0.2) Sodium Level 141mmol/L (136-145) Potassium Level 4.2mmol/L (3.5-5.1) Chloride Level 103mmol/L (98-107) Carbon Dioxide Level 30mmol/L (21-32) Anion Gap 8 (6-14) Blood Urea Nitrogen 16mg/dL (8-26) Creatinine 0.9mg/dL (0.7-1.3) Estimated GFR (Cockcroft-Gault) 92.1 Glucose Level 158mg/dL (70-99) Calcium Level 9.4mg/dL (8.5-10.1) Test 01/13/17 11:21 Glucose (Fingerstick) 151mg/dL (70-99) Assessment and Plan Assessmemt and Plan Problems Medical Problems: (1) Cellulitis of foot Status: Acute (2) Diabetic foot infection Status: Acute Problems: Comment Review of Relevant I have reviewed the following items lilli (where applicable) has been applied. Labs Laboratory Tests Test 01/11/17 17:02 01/11/17 20:58 01/12/17 06:30 01/12/17 08:16 Glucose (Fingerstick) 140mg/dL (70-99) 306mg/dL (70-99) 236mg/dL (70-99) White Blood Count 10.1x10^3/uL (4.0-11.0) Red Blood Count 3.87x10^6/uL (4.30-5.70) Hemoglobin 11.1g/dL (13.0-17.5) Hematocrit 33.4% (39.0-53.0) Mean Corpuscular Volume 86fL (79-100) Mean Corpuscular Hemoglobin 29pg (25-35) Mean Corpuscular Hemoglobin Concent 33g/dL (31-37) Red Cell Distribution Width 12.9% (11.5-14.5) Platelet Count 436x10^3/uL (140-400) Neutrophils (%) (Auto) 71% (31-73) Lymphocytes (%) (Auto) 18% (24-48) Monocytes (%) (Auto) 8% (0-9) Eosinophils (%) (Auto) 2% (0-3) Basophils (%) (Auto) 1% (0-3) Neutrophils # (Auto) 7.1x10^3uL (1.8-7.7) Lymphocytes # (Auto) 1.8x10^3/uL (1.0-4.8) Monocytes # (Auto) 0.8x10^3/uL (0.0-1.1) Eosinophils # (Auto) 0.2x10^3/uL (0.0-0.7) Basophils # (Auto) 0.1x10^3/uL (0.0-0.2) Sodium Level 140mmol/L (136-145) Potassium Level 4.3mmol/L (3.5-5.1) Chloride Level 103mmol/L (98-107) Carbon Dioxide Level 30mmol/L (21-32) Anion Gap 7 (6-14) Blood Urea Nitrogen 16mg/dL (8-26) Creatinine 0.9mg/dL (0.7-1.3) Estimated GFR (Cockcroft-Gault) 92.1 Glucose Level 244mg/dL (70-99) Calcium Level 9.3mg/dL (8.5-10.1) Test 01/12/17 10:47 01/12/17 16:55 01/12/17 20:28 01/13/17 05:00 Glucose (Fingerstick) 324mg/dL (70-99) 117mg/dL (70-99) 158mg/dL (70-99) White Blood Count 7.8x10^3/uL (4.0-11.0) Red Blood Count 3.79x10^6/uL (4.30-5.70) Hemoglobin 11.0g/dL (13.0-17.5) Hematocrit 32.6% (39.0-53.0) Mean Corpuscular Volume 86fL (79-100) Mean Corpuscular Hemoglobin 29pg (25-35) Mean Corpuscular Hemoglobin Concent 34g/dL (31-37) Red Cell Distribution Width 12.7% (11.5-14.5) Platelet Count 398x10^3/uL (140-400) Neutrophils (%) (Auto) 61% (31-73) Lymphocytes (%) (Auto) 26% (24-48) Monocytes (%) (Auto) 9% (0-9) Eosinophils (%) (Auto) 3% (0-3) Basophils (%) (Auto) 1% (0-3) Neutrophils # (Auto) 4.7x10^3uL (1.8-7.7) Lymphocytes # (Auto) 2.0x10^3/uL (1.0-4.8) Monocytes # (Auto) 0.7x10^3/uL (0.0-1.1) Eosinophils # (Auto) 0.2x10^3/uL (0.0-0.7) Basophils # (Auto) 0.1x10^3/uL (0.0-0.2) Sodium Level 141mmol/L (136-145) Potassium Level 4.2mmol/L (3.5-5.1) Chloride Level 103mmol/L (98-107) Carbon Dioxide Level 30mmol/L (21-32) Anion Gap 8 (6-14) Blood Urea Nitrogen 16mg/dL (8-26) Creatinine 0.9mg/dL (0.7-1.3) Estimated GFR (Cockcroft-Gault) 92.1 Glucose Level 158mg/dL (70-99) Calcium Level 9.4mg/dL (8.5-10.1) Test 01/13/17 07:20 01/13/17 11:21 Glucose (Fingerstick) 155mg/dL (70-99) 151mg/dL (70-99) Laboratory Tests Test 01/12/17 16:55 01/12/17 20:28 2/28/17 05:00 01/13/17 07:20 Glucose (Fingerstick) 117mg/dL (70-99) 158mg/dL (70-99) 155mg/dL (70-99) White Blood Count 7.8x10^3/uL (4.0-11.0) Red Blood Count 3.79x10^6/uL (4.30-5.70) Hemoglobin 11.0g/dL (13.0-17.5) Hematocrit 32.6% (39.0-53.0) Mean Corpuscular Volume 86fL (79-100) Mean Corpuscular Hemoglobin 29pg (25-35) Mean Corpuscular Hemoglobin Concent 34g/dL (31-37) Red Cell Distribution Width 12.7% (11.5-14.5) Platelet Count 398x10^3/uL (140-400) Neutrophils (%) (Auto) 61% (31-73) Lymphocytes (%) (Auto) 26% (24-48) Monocytes (%) (Auto) 9% (0-9) Eosinophils (%) (Auto) 3% (0-3) Basophils (%) (Auto) 1% (0-3) Neutrophils # (Auto) 4.7x10^3uL (1.8-7.7) Lymphocytes # (Auto) 2.0x10^3/uL (1.0-4.8) Monocytes # (Auto) 0.7x10^3/uL (0.0-1.1) Eosinophils # (Auto) 0.2x10^3/uL (0.0-0.7) Basophils # (Auto) 0.1x10^3/uL (0.0-0.2) Sodium Level 141mmol/L (136-145) Potassium Level 4.2mmol/L (3.5-5.1) Chloride Level 103mmol/L (98-107) Carbon Dioxide Level 30mmol/L (21-32) Anion Gap 8 (6-14) Blood Urea Nitrogen 16mg/dL (8-26) Creatinine 0.9mg/dL (0.7-1.3) Estimated GFR (Cockcroft-Gault) 92.1 Glucose Level 158mg/dL (70-99) Calcium Level 9.4mg/dL (8.5-10.1) Test 01/13/17 11:21 Glucose (Fingerstick) 151mg/dL (70-99) Microbiology 01/03/17 Blood Culture - Final, Complete NO GROWTH AFTER 5 DAYS 01/03/17 Gram Stain - Final, Complete Medications Current Medications Vancomycin HCl (Vanco Per Pharmacy) 1 each PRN DAILY PRN MC SEE COMMENTS Last administered on 01/06/17 10:26; Start 01/03/17 at 12:30; Stop 01/07/17 at 11:19 ; Status DC Piperacillin Sod/ Tazobactam Sod 1 each 1 each PRN DAILY PRN MC SEE COMMENTS; Start 01/03/17 at 12:30; Stop 01/05/17 at 11:05; Status DC Sodium Chloride (Iv Sodium Chloride 0.9% 1000ml Bag) 1,000 ml @ 1,000 mls/hr 1X ONCE IV Last administered on 01/03/17 12:55; Start 01/03/17 at 12:30; Stop 01/03/17 at 13:29; Status DC Insulin Human Regular 10 unit 10 unit 1X ONCE IV Last administered on 13:01; Start 01/03/17 at 12:30; Stop 01/03/17 at 12:33; Status DC Vancomycin HCl 1.75 gm/Sodium Chloride 500 ml @ 250 mls/hr 1X ONCE IV Last administered on 01/03/17 13:24; Start 01/03/17 at 13:00; Stop 01/03/17 at 14:59 ; Status DC Piperacillin Sod/ Tazobactam Sod 3.375 gm/Sodium Chloride 50 ml @ 100 mls/hr 1X ONCE IV Last administered on 01/03/17 12:56; Start 01/03/17 at 13:00; Stop 01/03/17 at 13:29; Status DC Piperacillin Sod/ Tazobactam Sod 3.375 gm/Sodium Chloride 50 ml @ 100 mls/hr Q6HRS IV Last administered on 01/07/17 05:52; Start 01/03/17 at 18:00; Stop at 10:10; Status DC Vancomycin HCl/ Sodium Chloride (Iv Sodium Chloride 0.9% 250ml) 250 ml @ 250 mls/hr Q12H IV Last administered on 01/07/17 01:49; Start 01/04/17 at 01:00; Stop 01/07/17 at 11:20; Status DC Vancomycin HCl 1 each 1X ONCE MC Last administered on 01/05/17 00:30; Start 01/05/17 at 00:30; Stop 01/05/17 at 00:31; Status DC Oxycodone/ Acetaminophen (Percocet 5/325) 1 tab PRN Q4HRS PRN PO PAIN Last administered on 01/12/17 20:53; Start 01/03/17 at 16:00 Morphine Sulfate 2 mg PRN Q2HR PRN IV PAIN; Start 01/03/17 at 16:00 Insulin Aspart (Novolog) 0-9 UNITS TIDWMEALS SQ Last administered on 01/13/17 13:23; Start 01/03/17 at 17:00 Dextrose 12.5 gm PRN Q15MIN PRN IV SEE COMMENTS; Start 01/03/17 at 16:00 Insulin Detemir (Levemir) 20 units QHS SQ ; Start 01/03/17 at 21:00; Stop at 09:11; Status DC Insulin Aspart (Novolog) 10 units TIDAC SQ Last administered on 01/03/17 17:30 ; Start 01/03/17 at 17:00; Stop 01/03/17 at 21:08; Status DC Pneumococcal Polyvalent Vaccine 0.5 ml 0.5 ml ONCE ONCE VAX IM Last administered on 01/04/17 09:59; Start 01/04/17 at 09:00; Stop 01/04/17 at 09:01 ; Status DC Sodium Chloride (Iv Sodium Chloride 0.9% 1000ml Bag) 1,000 ml @ 100 mls/hr Q10H IV Last administered on 01/05/17 05:32; Start 01/03/17 at 16:30; Stop at 11:11; Status DC Insulin Aspart (Novolog) 15 units TIDAC SQ Last administered on 01/05/17 08:33 ; Start 01/04/17 at 07:30; Stop 01/05/17 at 10:56; Status DC Insulin Detemir (Levemir) 35 units 1X ONCE SQ Last administered on 01/03/17 21:18; Start 01/03/17 at 21:30; Stop 01/03/17 at 21:31; Status DC Insulin Aspart (Novolog) 12 units 1X ONCE SQ Last administered on 01/03/17 21 :17; Start 01/03/17 at 21:30; Stop 01/03/17 at 21:31; Status DC Insulin Detemir (Levemir) 35 units QHS SQ Last administered on 01/04/17 21:36 ; Start 01/04/17 at 21:00; Stop 01/05/17 at 10:56; Status DC Info (Do NOT chart on this placeholder) 1 each PRN 1X PRN MC SEE COMMENTS; Start 01/05/17 at 10:00; Status UNV Influenza Virus Vaccine Quadrival (Fluarix Quad [id number] Syringe) 0.5 ml ONCE ONCE VAX IM Last administered on 01/05/17 13:07; Start 01/05/17 at 10:15; Stop 01/05/17 at 10:16; Status DC Insulin Aspart (Novolog) 14 units TIDAC SQ Last administered on 01/13/17 13:23 ; Start 01/05/17 at 11:30 Insulin Detemir 30 units 30 units QHS SQ Last administered on 01/12/17 20:56; Start 01/05/17 at 21:00 Potassium Chloride 20 meq/ Sodium Chloride 1,010 ml @ 100 mls/hr Q10H6M IV ; Start 01/05/17 at 11:30; Stop 01/05/17 at 11:30; Status DC Potassium Chloride/Sodium Chloride (KCl 20 Meq-NS 1,000 ml Iv Soln) 1,000 ml @ 100 mls/hr Q10H IV Last administered on 01/07/17 05:52; Start 01/05/17 at 11: 30; Stop 01/07/17 at 15:14; Status DC Bupivacaine HCl (Marcaine 0.25%) 50 ml STK-MED ONCE .ROUTE ; Start 01/06/17 at 12:30; Stop 01/06/17 at 12:31; Status DC Lidocaine HCl 30 ml 30 ml STK-MED ONCE .ROUTE ; Start 01/06/17 at 12:30; Stop at 12:31; Status DC Propofol (Diprivan) 20 ml @ As Directed STK-MED ONCE IV ; Start 01/06/17 at 12: 49; Stop 01/06/17 at 12:50; Status DC Lidocaine HCl (Lidocaine Pf 2% Vial) 5 ml STK-MED ONCE .ROUTE ; Start 01/06/17 at 12:50; Stop 01/06/17 at 12:51; Status DC Famotidine (Pepcid) 20 mg STK-MED ONCE .ROUTE ; Start 01/06/17 at 12:50; Stop at 12:51; Status DC Ondansetron HCl (Zofran) 4 mg STK-MED ONCE .ROUTE ; Start 01/06/17 at 12:50; Stop 01/06/17 at 12:51; Status DC Fentanyl Citrate (Fentanyl 2ml Vial) 100 mcg STK-MED ONCE .ROUTE ; Start at 12:52; Stop 01/06/17 at 12:53; Status DC Potassium Chloride (Klor-Con) 20 meq 1X ONCE PO Last administered on t 17:36; Start 01/06/17 at 14:15; Stop 01/06/17 at 14:16; Status DC Fentanyl Citrate (Fentanyl 2ml Vial) 100 mcg STK-MED ONCE .ROUTE ; Start at 14:51; Stop 01/06/17 at 14:52; Status DC Fentanyl Citrate (Fentanyl 2ml Vial) 25 mcg PRN Q5MIN PRN IV Acute Pain; Start 01/06/17 at 15:15; Stop 01/06/17 at 20:00; Status DC Fentanyl Citrate (Fentanyl 2ml Vial) 50 mcg PRN Q5MIN PRN IV Acute Pain; Start 01/06/17 at 15:15; Stop 01/06/17 at 20:00; Status DC Morphine Sulfate 2 mg PRN Q10MIN PRN IV Mild Pain; Start 01/06/17 at 15:15; Stop 01/06/17 at 20:00; Status DC Morphine Sulfate 4 mg PRN Q10MIN PRN IV Moderate Pain; Start 01/06/17 at 15:15 ; Stop 01/06/17 at 20:00; Status DC Hydromorphone HCl 0.4 mg 0.4 mg PRN Q10MIN PRN IV Moderate to severe pain; Start 01/06/17 at 15:15; Stop 01/06/17 at 20:00; Status DC Lactated Ringer's (Iv Lactated Ringers) 1,000 ml @ 75 mls/hr [id number] IV ; Start 01/06/17 at 15:30; Stop 01/07/17 at 19:43; Status DC Polyethylene Glycol (miraLAX PACKET) 17 gm DAILY PO ; Start 01/07/17 at 09:00; Stop 01/07/17 at 10:07; Status DC Polyethylene Glycol (miraLAX PACKET) 17 gm PRN DAILY PRN PO CONSTIPATION; Start 01/07/17 at 10:15 Docusate Sodium (Colace) 100 mg DAILY PO Last administered on 01/10/17 08:16; Start 01/07/17 at 11:00 Polyethylene Glycol 17 gm 17 gm DAILY PO Last administered on 01/10/17 08:16; Start 01/07/17 at 11:00 Ceftriaxone Sodium 2 gm/ Sodium Chloride 100 ml @ 200 mls/hr Q24H IV Last administered on 01/13/17 13:17; Start 01/07/17 at 11:00 Magnesium Sulfate/ Dextrose (Magnesium Sulfate PREMIX 2GM) 50 ml @ 25 mls/hr 1X ONCE IV Last administered on 01/07/17 16:13; Start 01/07/17 at 15:15; Stop 01/07/17 at 17:14; Status DC Insulin Aspart (Novolog) 9 units 1X ONCE SQ Last administered on 01/11/17 21: 58; Start 01/11/17 at 21:30; Stop 01/11/17 at 21:31; Status DC Active Scripts Active Ceftriaxone 2 Gm Piggyback (Ceftriaxone Na/Dextrose,Iso) 2 Gm/50 Ml Froz.piggy 2 Gm IV DAILY 28 Days Levemir Flextouch (Insulin Detemir) 100 Unit/1 Ml Insuln.pen 30 Units SQ QHS Naproxen 500 Mg Tablet. 1 Tab PO BID Hardwick 5-325 Tablet (Acetaminophen/Hydrocodone Bitart) 1 Each Tablet 1-2 Tab PO Q4-6HRS Vitals/I & O Vital Sign - Last 24 Hours 01/12/17 01/12/17 01/12/17 01/12/17 15:00 19:48 20:20 20:53 Temp 98.1 98.6 98.1 98.6 Pulse 82 82 Resp 20 20 20 B/P 97/62 124/73 Pulse Ox 96 95 95 O2 Delivery Room Air Room Air Room Air Room Air 01/12/17 01/12/17 01/13/17 01/13/17 21:55 23:40 03:45 07:00 Temp 97.8 97.6 97.7 97.8 97.6 97.7 Pulse 77 76 81 Resp 20 20 20 18 B/P 140/81 152/76 152/93 Pulse Ox 95 95 94 97 O2 Delivery Room Air Room Air Room Air Room Air 01/13/17 01/13/17 07:20 11:07 Temp 98.2 98.2 Pulse 81 Resp 20 B/P 119/82 Pulse Ox 100 O2 Delivery Room Air Room Air Intake and Output 01/12/17 01/12/17 01/13/17 15:00 23:00 07:00 Intake Total 240 ml 360 ml 647 ml Output Total 250 ml Balance -10 ml 360 ml 647 ml MAI JUNA MD Jan 13, 2017 14:14
[2017-01-13 15:15] VITALS: BP 124/90
--- NOTE | 2017-01-14 00:06 | DS ---
DATE OF DISCHARGE: 01/13/2017 DISCHARGE DIAGNOSES: 1. Type 1 diabetes mellitus, uncontrolled. 2. Diabetic foot wound, right big toe with neuropathy, suspected osteomyelitis, status post great toe amputation. 3. Acute kidney injury and chronic kidney disease, improving. 4. 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 5. Hypertension. 6. Hyperosmolar nonketotic acidosis. 7. Peripheral vascular disease. 8. Hypokalemia, replaced, resolved. CONSULTATION DURING HOSPITALIZATION: Dr. Young, ____ Harshal, Dr. Barragan. PROCEDURES DURING HOSPITALIZATION: First toe amputation and wound VAC application on 01/06/2017. BRIEF HOSPITAL COURSE: A 41-year-old male patient admitted to the hospital on 01/03/2017 for nearly 20 years history of diabetes, presented with uncontrolled diabetes and right big toe wound. He was evaluated by Vascular Surgery and later he was evaluated by Infectious Disease. Initially, the patient was started on broad spectrum antibiotics and his first toe was amputated for neuropathic diabetic ulcer. Post-procedure, the patient's blood sugars has been controlled with insulin and has been advised to have antibiotics for nearly 4-6 weeks as per ID. Today, I did discuss with certified social workers in health care if he could be able to arrange antibiotics and wound care. The patient needs to come to [facility] outpatient facility for regular antibiotics and also he needs to check his labs such as CBC, CMP and sed rate, and follow up with Infectious Disease in 2 weeks. DISCHARGE EXAMINATION: Please see my progress note. DISCHARGE CONDITION: Stable. PROGNOSIS: Guarded. FOLLOWUP: With Infectious Disease and primary care doctor in 1-4 weeks. MEDICATIONS: Reviewed and reconciled. Please see MRAD. Infectious Disease has been provided antibiotics and ____ script has been sent to pharmacy. Total time spent for discharge is 35 minutes for patient education, counseling, and coordination of care. MAI JUAN MD DR: FREDERICK/stephen JOB#: [id number] / [id number] DHAVAL
== END 2017-01-13 16:30 | disposition home or self-care (01) | DRG 617 ==
LOC: ER 10:28 → 4 NORTH 13:38
PROVIDERS: ADMIT Internal Medicine; ATTEND Internal Medicine
PROC: 0Y6P0Z0 Detachment at Right 1st Toe, Complete, Open Approach (ICD-10-PCS; principal; 2017-01-06 13:00)
PROC: 02HV33Z Insertion of Infusion Device into Superior Vena Cava, Percutaneous Approach (ICD-10-PCS; 2017-01-07)
PROC: B5181ZA Fluoroscopy of Superior Vena Cava using Low Osmolar Contrast, Guidance (ICD-10-PCS; 2017-01-07)
DX: E10.69 Type 1 diabetes mellitus with other specified complication (principal); M86.9 Osteomyelitis, unspecified; L03.115 Cellulitis of right lower limb; N17.9 Acute kidney failure, unspecified; E10.65 Type 1 diabetes mellitus with hyperglycemia; E10.319 Type 1 diabetes mellitus with unspecified diabetic retinopathy without macular edema; E10.22 Type 1 diabetes mellitus with diabetic chronic kidney disease; E10.42 Type 1 diabetes mellitus with diabetic polyneuropathy; E10.51 Type 1 diabetes mellitus with diabetic peripheral angiopathy without gangrene; E10.621 Type 1 diabetes mellitus with foot ulcer; E10.628 Type 1 diabetes mellitus with other skin complications; E87.6 Hypokalemia; L97.519 Non-pressure chronic ulcer of other part of right foot with unspecified severity; N18.9 Chronic kidney disease, unspecified; I12.9 Hypertensive chronic kidney disease with stage 1 through stage 4 chronic kidney disease, or unspecified chronic kidney disease; F32.9 Major depressive disorder, single episode, unspecified; H26.9 Unspecified cataract; H54.42 Blindness, left eye, normal vision right eye; H54.61 Unqualified visual loss, right eye, normal vision left eye; J45.909 Unspecified asthma, uncomplicated; Z79.4 Long term (current) use of insulin; Z89.419 Acquired absence of unspecified great toe; Z90.49 Acquired absence of other specified parts of digestive tract; Z88.8 Allergy status to other drugs, medicaments and biological substances; Z91.041 Radiographic dye allergy status
CPT/HCPCS: 36415; 71010; 73630; 80048; 80053; 80202; 82947; 83036; 83735; 85027; 85651; 87040; 87071; 87075; 87186; 87205; 88305; 88311; 90686; 90732; 96365; 96375; J0696; J1815; J2405; J2543; J2704; J3010; J3370; J3490; J7030; J7040; J7050; J7060; S0028; 97605; 99285-25

== ENCOUNTER → 2018-05-03 | Outpatient (CLI) | payer MEDICAID | END | disposition home or self-care (01) | LOC: PMGWOUND 11:49 | DX: E11.621 Type 2 diabetes mellitus with foot ulcer (principal); L97.512 Non-pressure chronic ulcer of other part of right foot with fat layer exposed; E11.51 Type 2 diabetes mellitus with diabetic peripheral angiopathy without gangrene; E11.65 Type 2 diabetes mellitus with hyperglycemia; E11.42 Type 2 diabetes mellitus with diabetic polyneuropathy; E11.319 Type 2 diabetes mellitus with unspecified diabetic retinopathy without macular edema; E11.22 Type 2 diabetes mellitus with diabetic chronic kidney disease; I12.9 Hypertensive chronic kidney disease with stage 1 through stage 4 chronic kidney disease, or unspecified chronic kidney disease; N18.9 Chronic kidney disease, unspecified; E11.69 Type 2 diabetes mellitus with other specified complication; M86.171 Other acute osteomyelitis, right ankle and foot; F32.9 Major depressive disorder, single episode, unspecified; F41.9 Anxiety disorder, unspecified; J45.909 Unspecified asthma, uncomplicated; E78.5 Hyperlipidemia, unspecified; H54.7 Unspecified visual loss; Z79.4 Long term (current) use of insulin; Z90.49 Acquired absence of other specified parts of digestive tract; Z89.419 Acquired absence of unspecified great toe | CPT/HCPCS: 93923; 97597 ==

== ENCOUNTER → 2018-05-10 | Outpatient (CLI) | payer MEDICAID | END | disposition home or self-care (01) | LOC: PMGWOUND 13:01 | DX: E11.621 Type 2 diabetes mellitus with foot ulcer (principal); L97.512 Non-pressure chronic ulcer of other part of right foot with fat layer exposed; E11.51 Type 2 diabetes mellitus with diabetic peripheral angiopathy without gangrene; E11.65 Type 2 diabetes mellitus with hyperglycemia; E11.42 Type 2 diabetes mellitus with diabetic polyneuropathy; E11.319 Type 2 diabetes mellitus with unspecified diabetic retinopathy without macular edema; E11.22 Type 2 diabetes mellitus with diabetic chronic kidney disease; I12.9 Hypertensive chronic kidney disease with stage 1 through stage 4 chronic kidney disease, or unspecified chronic kidney disease; N18.9 Chronic kidney disease, unspecified; E11.69 Type 2 diabetes mellitus with other specified complication; M86.171 Other acute osteomyelitis, right ankle and foot; F32.9 Major depressive disorder, single episode, unspecified; F41.9 Anxiety disorder, unspecified; J45.909 Unspecified asthma, uncomplicated; E78.5 Hyperlipidemia, unspecified; H54.7 Unspecified visual loss; Z79.4 Long term (current) use of insulin; Z90.49 Acquired absence of other specified parts of digestive tract; Z89.419 Acquired absence of unspecified great toe | CPT/HCPCS: 11042; 73630 ==

== ENCOUNTER → 2018-05-18 | Outpatient (CLI) | payer MEDICAID | END | disposition home or self-care (01) | LOC: PMGWOUND 11:20 | DX: E11.621 Type 2 diabetes mellitus with foot ulcer (principal); L97.512 Non-pressure chronic ulcer of other part of right foot with fat layer exposed; E11.51 Type 2 diabetes mellitus with diabetic peripheral angiopathy without gangrene; E11.65 Type 2 diabetes mellitus with hyperglycemia; E11.42 Type 2 diabetes mellitus with diabetic polyneuropathy; E11.319 Type 2 diabetes mellitus with unspecified diabetic retinopathy without macular edema; E11.22 Type 2 diabetes mellitus with diabetic chronic kidney disease; I12.9 Hypertensive chronic kidney disease with stage 1 through stage 4 chronic kidney disease, or unspecified chronic kidney disease; N18.9 Chronic kidney disease, unspecified; E11.69 Type 2 diabetes mellitus with other specified complication; M86.171 Other acute osteomyelitis, right ankle and foot; F32.9 Major depressive disorder, single episode, unspecified; F41.9 Anxiety disorder, unspecified; J45.909 Unspecified asthma, uncomplicated; E78.5 Hyperlipidemia, unspecified; H54.7 Unspecified visual loss; Z79.4 Long term (current) use of insulin; Z90.49 Acquired absence of other specified parts of digestive tract; Z89.419 Acquired absence of unspecified great toe | CPT/HCPCS: 11042 ==

== ENCOUNTER → 2018-05-24 | Outpatient (CLI) | payer MEDICAID | END | disposition home or self-care (01) | LOC: PMGWOUND 12:00 | DX: E11.621 Type 2 diabetes mellitus with foot ulcer (principal); L97.512 Non-pressure chronic ulcer of other part of right foot with fat layer exposed; E11.51 Type 2 diabetes mellitus with diabetic peripheral angiopathy without gangrene; E11.65 Type 2 diabetes mellitus with hyperglycemia; E11.42 Type 2 diabetes mellitus with diabetic polyneuropathy; E11.319 Type 2 diabetes mellitus with unspecified diabetic retinopathy without macular edema; E11.22 Type 2 diabetes mellitus with diabetic chronic kidney disease; I12.9 Hypertensive chronic kidney disease with stage 1 through stage 4 chronic kidney disease, or unspecified chronic kidney disease; N18.9 Chronic kidney disease, unspecified; E11.69 Type 2 diabetes mellitus with other specified complication; M86.171 Other acute osteomyelitis, right ankle and foot; F32.9 Major depressive disorder, single episode, unspecified; F41.9 Anxiety disorder, unspecified; J45.909 Unspecified asthma, uncomplicated; E78.5 Hyperlipidemia, unspecified; H54.7 Unspecified visual loss; Z79.4 Long term (current) use of insulin; Z90.49 Acquired absence of other specified parts of digestive tract; Z89.419 Acquired absence of unspecified great toe | CPT/HCPCS: 11042; 29445 ==

== ENCOUNTER → 2018-05-27 | Outpatient (CLI) | payer MEDICAID | END | disposition home or self-care (01) | LOC: PMGWOUND 11:29 | DX: E11.621 Type 2 diabetes mellitus with foot ulcer (principal); L97.512 Non-pressure chronic ulcer of other part of right foot with fat layer exposed; F41.9 Anxiety disorder, unspecified; E78.5 Hyperlipidemia, unspecified; E11.22 Type 2 diabetes mellitus with diabetic chronic kidney disease; I12.9 Hypertensive chronic kidney disease with stage 1 through stage 4 chronic kidney disease, or unspecified chronic kidney disease; N18.9 Chronic kidney disease, unspecified; F32.9 Major depressive disorder, single episode, unspecified; E11.69 Type 2 diabetes mellitus with other specified complication; M86.171 Other acute osteomyelitis, right ankle and foot; E11.42 Type 2 diabetes mellitus with diabetic polyneuropathy; E11.51 Type 2 diabetes mellitus with diabetic peripheral angiopathy without gangrene; J45.909 Unspecified asthma, uncomplicated; E11.319 Type 2 diabetes mellitus with unspecified diabetic retinopathy without macular edema; H54.7 Unspecified visual loss; Z90.49 Acquired absence of other specified parts of digestive tract; Z79.4 Long term (current) use of insulin | CPT/HCPCS: 29445; 36415 ==

== ENCOUNTER → 2018-05-27 | Outpatient (CLI) | payer OTHER ==
[2018-05-27] MEDS: GADOBUTROL 7.5 MMOL/7.5 ML VIAL IV (13:47)
[2018-05-27 14:57] LABS: CREATININE 1.7 mg/dL (0.7-1.3)
[2018-05-27 14:57] LABS: GFR 43.8
== END | disposition home or self-care (01) ==
LOC: MRI 13:27
DX: E11.621 Type 2 diabetes mellitus with foot ulcer (principal); L97.811 Non-pressure chronic ulcer of other part of right lower leg limited to breakdown of skin; I12.9 Hypertensive chronic kidney disease with stage 1 through stage 4 chronic kidney disease, or unspecified chronic kidney disease; E11.22 Type 2 diabetes mellitus with diabetic chronic kidney disease; N18.9 Chronic kidney disease, unspecified; J45.909 Unspecified asthma, uncomplicated; E87.6 Hypokalemia; E78.5 Hyperlipidemia, unspecified; Z89.421 Acquired absence of other right toe(s); Z98.890 Other specified postprocedural states; Z90.49 Acquired absence of other specified parts of digestive tract
CPT/HCPCS: 36415; 73720; 82565; A9585

== ENCOUNTER → 2018-06-03 | Outpatient (CLI) | payer OTHER | END | disposition home or self-care (01) | LOC: PMGWOUND 11:02 | DX: E11.621 Type 2 diabetes mellitus with foot ulcer (principal); L97.512 Non-pressure chronic ulcer of other part of right foot with fat layer exposed; E11.622 Type 2 diabetes mellitus with other skin ulcer; L89.93 Pressure ulcer of unspecified site, stage 3; L97.811 Non-pressure chronic ulcer of other part of right lower leg limited to breakdown of skin; F41.9 Anxiety disorder, unspecified; E78.5 Hyperlipidemia, unspecified; F32.9 Major depressive disorder, single episode, unspecified; E11.69 Type 2 diabetes mellitus with other specified complication; M86.171 Other acute osteomyelitis, right ankle and foot; E11.42 Type 2 diabetes mellitus with diabetic polyneuropathy; J45.909 Unspecified asthma, uncomplicated; H54.7 Unspecified visual loss; E11.51 Type 2 diabetes mellitus with diabetic peripheral angiopathy without gangrene; E11.22 Type 2 diabetes mellitus with diabetic chronic kidney disease; I12.9 Hypertensive chronic kidney disease with stage 1 through stage 4 chronic kidney disease, or unspecified chronic kidney disease; N18.9 Chronic kidney disease, unspecified; Z90.49 Acquired absence of other specified parts of digestive tract; Z89.419 Acquired absence of unspecified great toe; Z79.4 Long term (current) use of insulin | CPT/HCPCS: 99214 ==

== ENCOUNTER → 2018-06-08 | Outpatient (CLI) | payer OTHER | END | disposition home or self-care (01) | LOC: PMGWOUND 12:56 | DX: E11.621 Type 2 diabetes mellitus with foot ulcer (principal); L97.512 Non-pressure chronic ulcer of other part of right foot with fat layer exposed; E11.622 Type 2 diabetes mellitus with other skin ulcer; L89.893 Pressure ulcer of other site, stage 3; L97.811 Non-pressure chronic ulcer of other part of right lower leg limited to breakdown of skin; E78.5 Hyperlipidemia, unspecified; F32.9 Major depressive disorder, single episode, unspecified; F41.9 Anxiety disorder, unspecified; E11.69 Type 2 diabetes mellitus with other specified complication; M86.171 Other acute osteomyelitis, right ankle and foot; E11.42 Type 2 diabetes mellitus with diabetic polyneuropathy; E11.51 Type 2 diabetes mellitus with diabetic peripheral angiopathy without gangrene; E11.319 Type 2 diabetes mellitus with unspecified diabetic retinopathy without macular edema; E11.22 Type 2 diabetes mellitus with diabetic chronic kidney disease; I12.9 Hypertensive chronic kidney disease with stage 1 through stage 4 chronic kidney disease, or unspecified chronic kidney disease; N18.9 Chronic kidney disease, unspecified; J45.909 Unspecified asthma, uncomplicated; H54.7 Unspecified visual loss; Z90.49 Acquired absence of other specified parts of digestive tract; Z89.419 Acquired absence of unspecified great toe; Z79.4 Long term (current) use of insulin | CPT/HCPCS: 99214 ==

== ENCOUNTER → 2018-06-15 | Outpatient (CLI) | payer OTHER | END | disposition home or self-care (01) | LOC: PMGWOUND 10:55 | DX: E11.621 Type 2 diabetes mellitus with foot ulcer (principal); L97.512 Non-pressure chronic ulcer of other part of right foot with fat layer exposed; E11.622 Type 2 diabetes mellitus with other skin ulcer; L89.893 Pressure ulcer of other site, stage 3; L97.811 Non-pressure chronic ulcer of other part of right lower leg limited to breakdown of skin; F41.9 Anxiety disorder, unspecified; E78.5 Hyperlipidemia, unspecified; E11.22 Type 2 diabetes mellitus with diabetic chronic kidney disease; I12.9 Hypertensive chronic kidney disease with stage 1 through stage 4 chronic kidney disease, or unspecified chronic kidney disease; N18.9 Chronic kidney disease, unspecified; F32.9 Major depressive disorder, single episode, unspecified; E11.69 Type 2 diabetes mellitus with other specified complication; E11.42 Type 2 diabetes mellitus with diabetic polyneuropathy; M86.171 Other acute osteomyelitis, right ankle and foot; E11.51 Type 2 diabetes mellitus with diabetic peripheral angiopathy without gangrene; J45.909 Unspecified asthma, uncomplicated; E11.319 Type 2 diabetes mellitus with unspecified diabetic retinopathy without macular edema; H54.7 Unspecified visual loss; Z90.49 Acquired absence of other specified parts of digestive tract; Z89.419 Acquired absence of unspecified great toe; Z79.4 Long term (current) use of insulin | CPT/HCPCS: 99214 ==

== ENCOUNTER → 2018-06-22 | Outpatient (CLI) | payer OTHER | END | disposition home or self-care (01) | LOC: PMGWOUND 10:19 | DX: E11.621 Type 2 diabetes mellitus with foot ulcer (principal); L97.512 Non-pressure chronic ulcer of other part of right foot with fat layer exposed; E11.622 Type 2 diabetes mellitus with other skin ulcer; L89.893 Pressure ulcer of other site, stage 3; L97.811 Non-pressure chronic ulcer of other part of right lower leg limited to breakdown of skin; F41.9 Anxiety disorder, unspecified; E78.5 Hyperlipidemia, unspecified; E11.22 Type 2 diabetes mellitus with diabetic chronic kidney disease; I12.9 Hypertensive chronic kidney disease with stage 1 through stage 4 chronic kidney disease, or unspecified chronic kidney disease; N18.9 Chronic kidney disease, unspecified; F32.9 Major depressive disorder, single episode, unspecified; E11.42 Type 2 diabetes mellitus with diabetic polyneuropathy; E11.69 Type 2 diabetes mellitus with other specified complication; M86.171 Other acute osteomyelitis, right ankle and foot; E11.51 Type 2 diabetes mellitus with diabetic peripheral angiopathy without gangrene; E11.319 Type 2 diabetes mellitus with unspecified diabetic retinopathy without macular edema; J45.909 Unspecified asthma, uncomplicated; H54.7 Unspecified visual loss; Z90.49 Acquired absence of other specified parts of digestive tract; Z89.419 Acquired absence of unspecified great toe; Z89.421 Acquired absence of other right toe(s); Z79.4 Long term (current) use of insulin | CPT/HCPCS: 10060; 87071; 87075 ==

== ENCOUNTER → 2018-06-25 | Outpatient (CLI) | payer OTHER ==
[2017-02-20 08:05] VITALS: BP 130/79
[~2018-06-25] MED LIST changes: +CEFT2FRO2 IV; +INSU100I27 SQ
== END | disposition home or self-care (01) ==
LOC: PMGWOUND 10:58
PROVIDERS: ATTEND Preventive Medicine Undersea and Hyperbaric Medicine
DX: E11.621 Type 2 diabetes mellitus with foot ulcer (principal); L97.512 Non-pressure chronic ulcer of other part of right foot with fat layer exposed; E11.622 Type 2 diabetes mellitus with other skin ulcer; L89.893 Pressure ulcer of other site, stage 3; L97.811 Non-pressure chronic ulcer of other part of right lower leg limited to breakdown of skin; F41.9 Anxiety disorder, unspecified; E78.5 Hyperlipidemia, unspecified; E11.22 Type 2 diabetes mellitus with diabetic chronic kidney disease; I12.9 Hypertensive chronic kidney disease with stage 1 through stage 4 chronic kidney disease, or unspecified chronic kidney disease; N18.9 Chronic kidney disease, unspecified; F32.9 Major depressive disorder, single episode, unspecified; E11.42 Type 2 diabetes mellitus with diabetic polyneuropathy; E11.69 Type 2 diabetes mellitus with other specified complication; M86.171 Other acute osteomyelitis, right ankle and foot; E11.51 Type 2 diabetes mellitus with diabetic peripheral angiopathy without gangrene; E11.319 Type 2 diabetes mellitus with unspecified diabetic retinopathy without macular edema; J45.909 Unspecified asthma, uncomplicated; H54.7 Unspecified visual loss; Z90.49 Acquired absence of other specified parts of digestive tract; Z89.419 Acquired absence of unspecified great toe; Z89.421 Acquired absence of other right toe(s); Z79.4 Long term (current) use of insulin
CPT/HCPCS: 99214; G0463

== ENCOUNTER → 2018-06-30 | Outpatient (CLI) | payer OTHER ==
[2017-02-20 08:05] VITALS: BP 130/79
== END | disposition home or self-care (01) ==
LOC: PMGWOUND 10:55
PROVIDERS: ATTEND Preventive Medicine Undersea and Hyperbaric Medicine
DX: E11.621 Type 2 diabetes mellitus with foot ulcer (principal); E11.622 Type 2 diabetes mellitus with other skin ulcer; L97.811 Non-pressure chronic ulcer of other part of right lower leg limited to breakdown of skin; L97.512 Non-pressure chronic ulcer of other part of right foot with fat layer exposed; L89.93 Pressure ulcer of unspecified site, stage 3; I12.9 Hypertensive chronic kidney disease with stage 1 through stage 4 chronic kidney disease, or unspecified chronic kidney disease; E11.22 Type 2 diabetes mellitus with diabetic chronic kidney disease; N18.9 Chronic kidney disease, unspecified; E11.65 Type 2 diabetes mellitus with hyperglycemia; E11.319 Type 2 diabetes mellitus with unspecified diabetic retinopathy without macular edema; E11.42 Type 2 diabetes mellitus with diabetic polyneuropathy; E11.51 Type 2 diabetes mellitus with diabetic peripheral angiopathy without gangrene; E11.69 Type 2 diabetes mellitus with other specified complication; M86.171 Other acute osteomyelitis, right ankle and foot; L89.893 Pressure ulcer of other site, stage 3; E78.4 Other hyperlipidemia; J45.909 Unspecified asthma, uncomplicated; H54.7 Unspecified visual loss; F41.9 Anxiety disorder, unspecified; F32.9 Major depressive disorder, single episode, unspecified; Z79.4 Long term (current) use of insulin; Z90.49 Acquired absence of other specified parts of digestive tract; Z89.411 Acquired absence of right great toe; Z89.421 Acquired absence of other right toe(s)
CPT/HCPCS: 11042; 97597

== ENCOUNTER → 2018-07-05 | Outpatient (CLI) | payer OTHER ==
[2017-02-20 08:05] VITALS: BP 130/79
== END | disposition home or self-care (01) ==
LOC: PMGWOUND 13:24
PROVIDERS: ATTEND Emergency Medicine Undersea and Hyperbaric Medicine
DX: E11.621 Type 2 diabetes mellitus with foot ulcer (principal); L97.512 Non-pressure chronic ulcer of other part of right foot with fat layer exposed; L89.893 Pressure ulcer of other site, stage 3; E11.22 Type 2 diabetes mellitus with diabetic chronic kidney disease; I12.9 Hypertensive chronic kidney disease with stage 1 through stage 4 chronic kidney disease, or unspecified chronic kidney disease; N18.9 Chronic kidney disease, unspecified; E11.42 Type 2 diabetes mellitus with diabetic polyneuropathy; E11.65 Type 2 diabetes mellitus with hyperglycemia; E11.51 Type 2 diabetes mellitus with diabetic peripheral angiopathy without gangrene; E11.69 Type 2 diabetes mellitus with other specified complication; M86.171 Other acute osteomyelitis, right ankle and foot; R11.2 Nausea with vomiting, unspecified; J45.909 Unspecified asthma, uncomplicated; E78.4 Other hyperlipidemia; H54.7 Unspecified visual loss; F41.9 Anxiety disorder, unspecified; F32.9 Major depressive disorder, single episode, unspecified; Z89.421 Acquired absence of other right toe(s); Z90.49 Acquired absence of other specified parts of digestive tract; Z89.411 Acquired absence of right great toe; Z79.4 Long term (current) use of insulin
CPT/HCPCS: 82962; 97597

== ENCOUNTER → 2018-07-12 | Outpatient (CLI) | payer OTHER ==
[2017-02-20 08:05] VITALS: BP 130/79
== END | disposition home or self-care (01) ==
LOC: PMGWOUND 13:35
PROVIDERS: ATTEND Emergency Medicine Undersea and Hyperbaric Medicine
DX: E11.622 Type 2 diabetes mellitus with other skin ulcer (principal); L89.893 Pressure ulcer of other site, stage 3; L97.211 Non-pressure chronic ulcer of right calf limited to breakdown of skin; I12.9 Hypertensive chronic kidney disease with stage 1 through stage 4 chronic kidney disease, or unspecified chronic kidney disease; E11.22 Type 2 diabetes mellitus with diabetic chronic kidney disease; N18.9 Chronic kidney disease, unspecified; E11.69 Type 2 diabetes mellitus with other specified complication; M86.171 Other acute osteomyelitis, right ankle and foot; E11.42 Type 2 diabetes mellitus with diabetic polyneuropathy; E11.65 Type 2 diabetes mellitus with hyperglycemia; E11.51 Type 2 diabetes mellitus with diabetic peripheral angiopathy without gangrene; E11.319 Type 2 diabetes mellitus with unspecified diabetic retinopathy without macular edema; R11.2 Nausea with vomiting, unspecified; E78.4 Other hyperlipidemia; H54.7 Unspecified visual loss; J45.909 Unspecified asthma, uncomplicated; F32.9 Major depressive disorder, single episode, unspecified; F41.9 Anxiety disorder, unspecified; Z89.421 Acquired absence of other right toe(s); Z90.49 Acquired absence of other specified parts of digestive tract; Z89.411 Acquired absence of right great toe; Z79.4 Long term (current) use of insulin
CPT/HCPCS: 99214; G0463

== ENCOUNTER → 2018-07-26 | Outpatient (CLI) | payer OTHER ==
[2017-02-20 08:05] VITALS: BP 130/79
== END | disposition home or self-care (01) ==
LOC: PMGWOUND 13:23
PROVIDERS: ATTEND Emergency Medicine Undersea and Hyperbaric Medicine
DX: E11.621 Type 2 diabetes mellitus with foot ulcer (principal); L97.512 Non-pressure chronic ulcer of other part of right foot with fat layer exposed; L89.893 Pressure ulcer of other site, stage 3; I13.10 Hypertensive heart and chronic kidney disease without heart failure, with stage 1 through stage 4 chronic kidney disease, or unspecified chronic kidney disease; E11.22 Type 2 diabetes mellitus with diabetic chronic kidney disease; N18.9 Chronic kidney disease, unspecified; E11.69 Type 2 diabetes mellitus with other specified complication; M86.171 Other acute osteomyelitis, right ankle and foot; E11.42 Type 2 diabetes mellitus with diabetic polyneuropathy; E11.65 Type 2 diabetes mellitus with hyperglycemia; E11.51 Type 2 diabetes mellitus with diabetic peripheral angiopathy without gangrene; E11.319 Type 2 diabetes mellitus with unspecified diabetic retinopathy without macular edema; F41.9 Anxiety disorder, unspecified; F32.9 Major depressive disorder, single episode, unspecified; E78.4 Other hyperlipidemia; J45.909 Unspecified asthma, uncomplicated; H54.7 Unspecified visual loss; Z79.4 Long term (current) use of insulin; Z90.49 Acquired absence of other specified parts of digestive tract
CPT/HCPCS: 99213

== ENCOUNTER 2019-07-26 22:07 | Emergency (ER) | payer MEDICAID, OTHER ==
[~2019-07-26] VITALS: Ht 162.6 cm; Wt 79.4 kg
[~2019-07-26 22:07] MED LIST changes: +HYDR-3164 PO; -HYDR-971 PO
[2019-07-26 22:58] VITALS: BP 161/70
[2019-07-26] MEDS ORDERED: CIPR500T PO (23:22)
--- NOTE | 2019-07-26 23:22 | PHYS DOC ---
Past Medical History Past Medical History: Diabetes-Type II Additional Past Medical Histor: neuropathy Past Surgical History: Appendectomy, Cholecystectomy Additional Past Surgical Histo: R GREAT TOE AMPUTATION Alcohol Use: Rarely Drug Use: None Adult General Chief Complaint Chief Complaint: FOOT INJURY PAIN HPI HPI Patient is a 44 year old male who presents to the ER with complaints of a blister to the plantar surface of his R foot for the last 2 days. Pt states his old post op shoe caused the blister. He states that the area opened up today and drained clear fluids. He denies any fever. He denies any pain. He states that his blood sugar has been well controlled with his highest recent reading not greater than 160. Review of Systems Review of Systems Constitutional: Denies fever or chills [] GI: Denies abdominal pain, nausea, vomiting, or diarrhea [] Musculoskeletal: Denies back pain or joint pain [] Integument: see HPI Neurologic: Denies headache, focal weakness or sensory changes [] Endocrine: Denies polyuria or polydipsia; see HPI[] Complete systems were reviewed and found to be within normal limits, except as documented in this note. Allergies Allergies Allergies Coded Allergies Type Severity Reaction Last Updated Verified diphenhydramine Allergy Intermediate 02/20/17 Yes erythromycin base Allergy Intermediate 02/20/17 Yes Physical Exam Physical Exam Constitutional: Well developed, well nourished, no acute distress, non-toxic appearance. [] HENT: Normocephalic, atraumatic, bilateral external ears normal, oropharynx moist, no oral exudates, nose normal. [] Eyes: PERRLA, EOMI, conjunctiva normal, no discharge. [] Neck: Normal range of motion, no tenderness, supple, no stridor. [] Cardiovascular:Heart rate regular rhythm, no murmur [] Lungs & Thorax: Bilateral breath sounds clear to auscultation [] Abdomen: Bowel sounds normal, soft, no tenderness, no masses, no pulsatile masses. [] Skin: Warm, dry, no erythema, no rash. [] Back: No tenderness, no CVA tenderness. [] Extremities: No tenderness, no cyanosis, no clubbing, ROM intact, no edema. [] Neurologic: Alert and oriented X 3, normal motor function, normal sensory function, no focal deficits noted. [] Psychologic: Affect normal, judgement normal, mood normal. [] Current Patient Data Vital Signs Vital Signs Date Time Temp Pulse Resp B/P (MAP) Pulse Ox O2 Delivery O2 Flow Rate FiO2 07/26/19 22:58 98.5 73 18 161/70 (100) 96 Room Air 98.5 EKG EKG [] Radiology/Procedures Radiology/Procedures [] Course & Med Decision Making Course & Med Decision Making Pertinent Labs and Imaging studies reviewed. (See chart for details) [] Dragon Disclaimer Dragon Disclaimer This electronic medical record was generated, in whole or in part, using a voice recognition dictation system. Departure Departure Impression: Primary Impression: Blister (nonthermal), right foot, initial encounter Additional Impression: Unspecified open wound, right foot, initial encounter Referrals: AUBREE SHAY MD (PCP) Patient Instructions: Blisters, Diabetes and Foot Care Additional Instructions: Fill the prescription and use as directed. Call the wound clinic in the morning to schedule a follow up appointment for further treatment and evaluation. Return to the ER if symptoms worsen. Scripts Ciprofloxacin Hcl (CIPROFLOXACIN HCL) 500 Mg Tablet 1 TAB PO BID, #14 TAB 0 Refills Prov: MADELEINE TORIBIO APRN 07/26/19 Problem Qualifiers MADELEINE TORIBIO APRN Jul 26, 2019 23:22
== END 2019-07-26 23:27 | disposition home or self-care (01) ==
LOC: ER 22:07
DX: S90.821A Blister (nonthermal), right foot, initial encounter (principal); E11.40 Type 2 diabetes mellitus with diabetic neuropathy, unspecified; Z90.89 Acquired absence of other organs; Z90.49 Acquired absence of other specified parts of digestive tract; Z89.411 Acquired absence of right great toe; Z88.1 Allergy status to other antibiotic agents; Z88.8 Allergy status to other drugs, medicaments and biological substances; X58.XXXA Exposure to other specified factors, initial encounter; Y93.89 Activity, other specified; Y92.89 Other specified places as the place of occurrence of the external cause; Y99.8 Other external cause status
CPT/HCPCS: 99283

== ENCOUNTER 2019-12-27 10:06 | Day surgery (SDC) | payer MEDICAID ==
[~2019-12-27 10:06] MED LIST changes: +AMOX1TAB58 PO; +BISO1TAB45 PO; +CIPR500T PO; +GLYCOPYRROLATE 1 MG/5 ML VIAL. ONE; +HYDROmorphone 2 MG/ML VIAL IV PRN; +INSU100I13 SQ; +INSU100V6 SQ; +IV RINGERS,LACTATED 1000ML 1,000 ML IV SCH; +LIDOCAINE 2% PF 5 ML VIAL. ONE; +LINE600T12 PO; +MINERAL OIL for SURGERY 10 ML VIAL. MC ONE; +MORPHINE SULFATE 2 MG/ML VIAL. IV PRN; +NEOSTIGMINE METHYLSULFATE 5 MG/5 ML SYRINGE. ONE; +ONDANSETRON PF 4 MG/2 ML VIAL. IV PRN; +ONDANSETRON PF 4 MG/2 ML VIAL. ONE; +PROCHLORPERAZINE 10 MG/2 ML VIAL. IV PRN; +PROPOFOL 20 ML IV ONE; +fentaNYL PF VIAL 100 MCG/2 ML VIAL IV PRN; +fentaNYL PF VIAL 100 MCG/2 ML VIAL ONE
--- NOTE | 2019-12-27 10:50 | PDOC ---
SURGICAL PROGRESS NOTE Subjective 44 yo with RLE heel non healing wound. TO OR for STSG to right heel from right thigh. R/R/B/A d/w pt. Risks, benefits and alternatives are discussed with patient. Risks, including, but not limited to: bleeding, infection, damage to surrounding structures, risk of anesthesia, risk of , risk of graft failure . He appears to understand, his questions are answered and he elects to proceed. Office note H&P reviewed and unchanged. RLE marked with patient. Labs Laboratory Tests Test 12/27/19 10:42 Glucose (Fingerstick) 241 mg/dL (70-99) Laboratory Tests Test 12/27/19 10:42 Glucose (Fingerstick) 241 mg/dL (70-99) ESTEFANIA MAYERS MD Dec 27, 2019 10:50
[2019-12-27] MEDS: INSULIN LISPRO 100 UNIT/ML 3ML VIAL for OP,RR ONLY. SQ PRN ×3 (11:00→13:25)
[2019-12-27] MEDS ORDERED: DEXAMETHASONE SOD PHOS 4 MG/ML VIAL ONE (11:07)
[2019-12-27] MEDS ORDERED: SEVOFLURANE 31 TO 60 MINUTES. IH ONE (11:07)
[2019-12-27] MEDS ORDERED: BUPIVACAINE-EPI 0.5%-1:200000 MPF 30 ML VIAL. ONE (11:36)
--- NOTE | 2019-12-27 12:53 | PDOC4 ---
OPERATIVE NOTE Date: Date: Dec 27, 2019 Pre-Op Diagnosis: right posterior heel non healing ulcer Post-Op Diagnosis: same Procedure Performed: Split thickness skin graft from right thigh to posterior heel (3:1 mesh, 4 x 3 cm area). Surgeon: Pollo Mayers Anesthesia Type: GETA plus local Blood Loss: 50 Specimans Obtained: none Findings: right posterior ulcer with 50 % good granulation superiorly, 50 % inferior with hard slough (tendon remnant?). Complications: none Operative Note: After obtaining informed consent, patient was taken to OR, induced under GETA and prepped in the usual fashion over right leg and thigh. Right posterior heel ulcer evaluated and noted as above. Area debrided with metzenbaum scissors to prepare for graft. Concern for lower portion without good granulation tissue, but some. STSG harvested with dermatome from anterior right thigh. This area was dressed with aquacel and opsite. Graft meshed and then placed over area and tacked in place with 4 0 monocryl. Zeroform gauze placed over area and dressing placed with ABD, curlex and gabrielle wrap. Patient tolerated procedure well and sent to PACU in stable condition. All counts correct. Wound class is clean. ESTEFANIA MAYERS MD Dec 27, 2019 12:53
[2019-12-27] MEDS ORDERED: HYDROcodone/APAP 5/325MG 1 TAB TABLET PO ONE (13:00)
[2019-12-27 13:22] VITALS: BP 168/79
== END 2019-12-27 13:50 | disposition home or self-care (01) ==
LOC: SURG 10:06
PROVIDERS: ATTEND Surgery
DX: L97.419 Non-pressure chronic ulcer of right heel and midfoot with unspecified severity (principal); I10 Essential (primary) hypertension; J45.909 Unspecified asthma, uncomplicated; K21.9 Gastro-esophageal reflux disease without esophagitis; E11.42 Type 2 diabetes mellitus with diabetic polyneuropathy; F32.9 Major depressive disorder, single episode, unspecified; E66.9 Obesity, unspecified; Z68.31 Body mass index [BMI] 31.0-31.9, adult; Z90.49 Acquired absence of other specified parts of digestive tract; Z87.39 Personal history of other diseases of the musculoskeletal system and connective tissue; Z89.411 Acquired absence of right great toe; Z98.42 Cataract extraction status, left eye; Z98.890 Other specified postprocedural states; Z79.84 Long term (current) use of oral hypoglycemic drugs; Z96.1 Presence of intraocular lens
CPT/HCPCS: 15120; 82962; A7015; J1100; J2001; J2405; J2704; J2710; J3010; J3490; A4461

== ENCOUNTER → 2020-02-28 | Outpatient (CLI) | payer MEDICAID ==
[2020-02-22 11:43] VITALS: BP 171/80
[~2020-02-28] MED LIST changes: +ACET325T9 PO; +ENOX40DI3 SQ; +ERTA1VIA IJ; -GLYCOPYRROLATE 1 MG/5 ML VIAL. ONE; +HYDR-2761 PO; -HYDROmorphone 2 MG/ML VIAL IV PRN; -IV RINGERS,LACTATED 1000ML 1,000 ML IV SCH; +LACT1CAP19 PO; -LIDOCAINE 2% PF 5 ML VIAL. ONE; -MINERAL OIL for SURGERY 10 ML VIAL. MC ONE; -MORPHINE SULFATE 2 MG/ML VIAL. IV PRN; -NEOSTIGMINE METHYLSULFATE 5 MG/5 ML SYRINGE. ONE; -ONDANSETRON PF 4 MG/2 ML VIAL. IV PRN; -ONDANSETRON PF 4 MG/2 ML VIAL. ONE; +PANT40TA77 PO; -PROCHLORPERAZINE 10 MG/2 ML VIAL. IV PRN; -PROPOFOL 20 ML IV ONE; -fentaNYL PF VIAL 100 MCG/2 ML VIAL IV PRN; -fentaNYL PF VIAL 100 MCG/2 ML VIAL ONE
[2020-02-28 14:00] LABS: BASO # 0.1 x10^3/uL (0.0-0.2); BASO % 1 % (0-3); EOS # 0.2 x10^3/uL (0.0-0.7); EOS % 3 % (0-3); HEMATOCRIT 28.4 % (39.0-53.0); HEMOGLOBIN 9.5 g/dL (13.0-17.5); LYMPH # 1.7 x10^3/uL (1.0-4.8); LYMPH % 19 % (24-48); MEAN CORPUSCULAR HEMOGLOBIN 30 pg (25-35); MEAN CORPUSCULAR HGB CONC 33 g/dL (31-37); MEAN CORPUSCULAR VOLUME 90 fL (79-100); MONO # 0.6 x10^3/uL (0.0-1.1); MONO % 7 % (0-9); NEUT # 6.5 x10^3/uL (1.8-7.7); NEUT % 70 % (31-73); PLATELET COUNT 331 x10^3/uL (140-400); RED BLOOD COUNT 3.18 x10^6/uL (4.30-5.70); RED CELL DISTRIBUTION WIDTH 13.7 % (11.5-14.5); WHITE BLOOD COUNT 9.2 x10^3/uL (4.0-11.0)
[2020-02-28 14:19] LABS: CREATININE 1.5 mg/dL (0.7-1.3); GFR 50.2
== END ==
LOC: SPEC 13:52
PROVIDERS: ATTEND Internal Medicine Nephrology
DX: M86.171 Other acute osteomyelitis, right ankle and foot (principal); Z79.2 Long term (current) use of antibiotics
CPT/HCPCS: 36415; 80048; 85025; 85651

== ENCOUNTER → 2020-03-06 | Outpatient (CLI) | payer MEDICAID ==
[2020-02-22 11:43] VITALS: BP 171/80
[2020-03-06 15:43] LABS: CALCIUM 8.8 mg/dL (8.5-10.1); CREATININE 1.5 mg/dL (0.7-1.3); GFR 50.2; POTASSIUM 4.9 mmol/L (3.5-5.1)
[2020-03-06 16:40] LABS: BASO # 0.1 x10^3/uL (0.0-0.2); BASO % 1 % (0-3); EOS # 0.5 x10^3/uL (0.0-0.7); EOS % 7 % (0-3); HEMOGLOBIN 9.4 g/dL (13.0-17.5); LYMPH # 1.4 x10^3/uL (1.0-4.8); LYMPH % 20 % (24-48); MEAN CORPUSCULAR HEMOGLOBIN 31 pg (25-35); MEAN CORPUSCULAR HGB CONC 35 g/dL (31-37); MEAN CORPUSCULAR VOLUME 89 fL (79-100); MONO # 0.5 x10^3/uL (0.0-1.1); MONO % 8 % (0-9); NEUT # 4.5 x10^3/uL (1.8-7.7); NEUT % 64 % (31-73); PLATELET COUNT 294 x10^3/uL (140-400); RED BLOOD COUNT 3.04 x10^6/uL (4.30-5.70); RED CELL DISTRIBUTION WIDTH 13.4 % (11.5-14.5)
== END ==
LOC: SPEC 15:26
PROVIDERS: ATTEND Internal Medicine Nephrology
DX: M86.171 Other acute osteomyelitis, right ankle and foot (principal); Z79.2 Long term (current) use of antibiotics
CPT/HCPCS: 36415; 80048; 85025; 85651

== ENCOUNTER → 2020-03-09 | Outpatient (CLI) | payer MEDICAID ==
[2020-02-22 11:43] VITALS: BP 171/80
[2020-03-09 17:20] LABS: BASO # 0.1 x10^3/uL (0.0-0.2); BASO % 1 % (0-3); EOS # 0.3 x10^3/uL (0.0-0.7); EOS % 6 % (0-3); HEMOGLOBIN 9.2 g/dL (13.0-17.5); LYMPH # 1.5 x10^3/uL (1.0-4.8); LYMPH % 25 % (24-48); MEAN CORPUSCULAR HEMOGLOBIN 30 pg (25-35); MEAN CORPUSCULAR HGB CONC 34 g/dL (31-37); MEAN CORPUSCULAR VOLUME 88 fL (79-100); MONO # 0.5 x10^3/uL (0.0-1.1); MONO % 9 % (0-9); NEUT # 3.5 x10^3/uL (1.8-7.7); NEUT % 59 % (31-73); PLATELET COUNT 269 x10^3/uL (140-400); RED BLOOD COUNT 3.05 x10^6/uL (4.30-5.70); RED CELL DISTRIBUTION WIDTH 13.6 % (11.5-14.5); WHITE BLOOD COUNT 5.9 x10^3/uL (4.0-11.0)
[2020-03-09 17:43] LABS: CALCIUM 9.3 mg/dL (8.5-10.1); CREATININE 1.5 mg/dL (0.7-1.3); GFR 50.2; POTASSIUM 4.9 mmol/L (3.5-5.1)
== END | disposition home or self-care (01) ==
LOC: SPEC 17:05
PROVIDERS: ATTEND Internal Medicine Infectious Disease
DX: M86.171 Other acute osteomyelitis, right ankle and foot (principal); Z79.2 Long term (current) use of antibiotics
CPT/HCPCS: 36415; 80048; 85025; 85651

== ENCOUNTER → 2020-03-13 | Outpatient (CLI) | payer MEDICAID ==
[2020-02-22 11:43] VITALS: BP 171/80
[~2020-03-13] MED LIST changes: -ERTA1VIA IJ; +ERTA1VIA16 IJ
[2020-03-13 16:53] LABS: CALCIUM 9.2 mg/dL (8.5-10.1); CREATININE 1.5 mg/dL (0.7-1.3); GFR 50.2
[2020-03-13 17:46] LABS: BASO # 0.1 x10^3/uL (0.0-0.2); BASO % 1 % (0-3); EOS # 0.3 x10^3/uL (0.0-0.7); EOS % 5 % (0-3); HEMATOCRIT 28.2 % (39.0-53.0); HEMOGLOBIN 9.5 g/dL (13.0-17.5); LYMPH # 1.2 x10^3/uL (1.0-4.8); LYMPH % 19 % (24-48); MEAN CORPUSCULAR HEMOGLOBIN 30 pg (25-35); MEAN CORPUSCULAR HGB CONC 34 g/dL (31-37); MEAN CORPUSCULAR VOLUME 89 fL (79-100); MONO # 0.6 x10^3/uL (0.0-1.1); MONO % 9 % (0-9); NEUT # 4.2 x10^3/uL (1.8-7.7); NEUT % 65 % (31-73); PLATELET COUNT 247 x10^3/uL (140-400); RED BLOOD COUNT 3.16 x10^6/uL (4.30-5.70); RED CELL DISTRIBUTION WIDTH 13.9 % (11.5-14.5); WHITE BLOOD COUNT 6.4 x10^3/uL (4.0-11.0)
== END | disposition home or self-care (01) ==
LOC: SPEC 16:17
PROVIDERS: ATTEND Internal Medicine Infectious Disease
DX: M86.171 Other acute osteomyelitis, right ankle and foot (principal); Z79.2 Long term (current) use of antibiotics
CPT/HCPCS: 36415; 80048; 85025; 85651

== ENCOUNTER → 2020-03-16 | Outpatient (CLI) | payer MEDICAID ==
[2020-02-22 11:43] VITALS: BP 171/80
[2020-03-16 16:33] LABS: BASO # 0.1 x10^3/uL (0.0-0.2); BASO % 2 % (0-3); EOS # 0.2 x10^3/uL (0.0-0.7); EOS % 4 % (0-3); HEMATOCRIT 27.5 % (39.0-53.0); HEMOGLOBIN 9.1 g/dL (13.0-17.5); LYMPH # 1.4 x10^3/uL (1.0-4.8); LYMPH % 24 % (24-48); MEAN CORPUSCULAR HEMOGLOBIN 30 pg (25-35); MEAN CORPUSCULAR HGB CONC 33 g/dL (31-37); MEAN CORPUSCULAR VOLUME 89 fL (79-100); MONO # 0.5 x10^3/uL (0.0-1.1); MONO % 10 % (0-9); NEUT # 3.5 x10^3/uL (1.8-7.7); NEUT % 61 % (31-73); PLATELET COUNT 230 x10^3/uL (140-400); RED BLOOD COUNT 3.08 x10^6/uL (4.30-5.70); WHITE BLOOD COUNT 5.7 x10^3/uL (4.0-11.0)
[2020-03-16 17:18] LABS: CALCIUM 9.1 mg/dL (8.5-10.1); CREATININE 1.5 mg/dL (0.7-1.3); GFR 50.2; POTASSIUM 4.7 mmol/L (3.5-5.1)
== END | disposition home or self-care (01) ==
LOC: LAB 16:12
PROVIDERS: ATTEND Internal Medicine Infectious Disease
DX: E11.69 Type 2 diabetes mellitus with other specified complication (principal); E11.42 Type 2 diabetes mellitus with diabetic polyneuropathy; E11.22 Type 2 diabetes mellitus with diabetic chronic kidney disease; I12.9 Hypertensive chronic kidney disease with stage 1 through stage 4 chronic kidney disease, or unspecified chronic kidney disease; N18.9 Chronic kidney disease, unspecified; M86.171 Other acute osteomyelitis, right ankle and foot; Z79.2 Long term (current) use of antibiotics
CPT/HCPCS: 36415; 80048; 85025; 85651

== ENCOUNTER → 2020-03-20 | Outpatient (CLI) | payer MEDICAID ==
[2020-02-22 11:43] VITALS: BP 171/80
[2020-03-20 16:44] LABS: BASO # 0.1 x10^3/uL (0.0-0.2); BASO % 1 % (0-3); EOS # 0.2 x10^3/uL (0.0-0.7); EOS % 3 % (0-3); HEMOGLOBIN 9.9 g/dL (13.0-17.5); LYMPH # 1.1 x10^3/uL (1.0-4.8); LYMPH % 18 % (24-48); MEAN CORPUSCULAR HEMOGLOBIN 30 pg (25-35); MEAN CORPUSCULAR HGB CONC 34 g/dL (31-37); MEAN CORPUSCULAR VOLUME 88 fL (79-100); MONO # 0.6 x10^3/uL (0.0-1.1); MONO % 9 % (0-9); NEUT # 4.5 x10^3/uL (1.8-7.7); NEUT % 69 % (31-73); PLATELET COUNT 245 x10^3/uL (140-400); RED BLOOD COUNT 3.28 x10^6/uL (4.30-5.70); RED CELL DISTRIBUTION WIDTH 13.9 % (11.5-14.5); WHITE BLOOD COUNT 6.5 x10^3/uL (4.0-11.0)
[2020-03-20 17:15] LABS: CALCIUM 9.1 mg/dL (8.5-10.1); CREATININE 1.4 mg/dL (0.7-1.3); GFR 54.3; POTASSIUM 4.8 mmol/L (3.5-5.1)
== END | disposition home or self-care (01) ==
LOC: SPEC 16:18
PROVIDERS: ATTEND Internal Medicine Infectious Disease
DX: M86.171 Other acute osteomyelitis, right ankle and foot (principal)
CPT/HCPCS: 36415; 80048; 85025; 85651

== ENCOUNTER → 2020-03-23 | Outpatient (CLI) | payer MEDICAID ==
[2020-02-22 11:43] VITALS: BP 171/80
[2020-03-23 15:22] LABS: BASO # 0.1 x10^3/uL (0.0-0.2); BASO % 1 % (0-3); EOS # 0.1 x10^3/uL (0.0-0.7); EOS % 1 % (0-3); HEMATOCRIT 25.5 % (39.0-53.0); HEMOGLOBIN 8.5 g/dL (13.0-17.5); LYMPH % 10 % (24-48); MEAN CORPUSCULAR HEMOGLOBIN 30 pg (25-35); MEAN CORPUSCULAR HGB CONC 33 g/dL (31-37); MEAN CORPUSCULAR VOLUME 89 fL (79-100); MONO % 11 % (0-9); NEUT # 7.3 x10^3/uL (1.8-7.7); NEUT % 77 % (31-73); PLATELET COUNT 228 x10^3/uL (140-400); RED BLOOD COUNT 2.87 x10^6/uL (4.30-5.70); RED CELL DISTRIBUTION WIDTH 14.1 % (11.5-14.5); WHITE BLOOD COUNT 9.4 x10^3/uL (4.0-11.0)
[2020-03-23 15:40] LABS: CREATININE 1.5 mg/dL (0.7-1.3); GFR 50.2; POTASSIUM 4.5 mmol/L (3.5-5.1)
== END ==
LOC: SPEC 15:05
PROVIDERS: ATTEND Internal Medicine Infectious Disease
DX: M86.171 Other acute osteomyelitis, right ankle and foot (principal); Z79.2 Long term (current) use of antibiotics
CPT/HCPCS: 36415; 80048; 85025; 85651

== ENCOUNTER → 2020-04-03 | Outpatient (CLI) | payer MEDICAID ==
[2020-03-31 11:08] VITALS: BP 145/72
[~2020-04-03] MED LIST changes: +ASPI-612 PO; +CARV12.511 PO; +METO25TA4 PO; +VANC125C3 PO
[2020-04-03 17:28] LABS: BASO # 0.1 x10^3/uL (0.0-0.2); BASO % 1 % (0-3); EOS # 0.2 x10^3/uL (0.0-0.7); EOS % 3 % (0-3); HEMATOCRIT 25.8 % (39.0-53.0); HEMOGLOBIN 8.7 g/dL (13.0-17.5); LYMPH # 1.4 x10^3/uL (1.0-4.8); LYMPH % 18 % (24-48); MEAN CORPUSCULAR HEMOGLOBIN 30 pg (25-35); MEAN CORPUSCULAR HGB CONC 34 g/dL (31-37); MEAN CORPUSCULAR VOLUME 88 fL (79-100); MONO # 0.7 x10^3/uL (0.0-1.1); MONO % 8 % (0-9); NEUT # 5.5 x10^3/uL (1.8-7.7); NEUT % 70 % (31-73); PLATELET COUNT 450 x10^3/uL (140-400); RED BLOOD COUNT 2.91 x10^6/uL (4.30-5.70); RED CELL DISTRIBUTION WIDTH 14.3 % (11.5-14.5); WHITE BLOOD COUNT 7.8 x10^3/uL (4.0-11.0)
[2020-04-03 17:45] LABS: CALCIUM 8.6 mg/dL (8.5-10.1); CREATININE 1.5 mg/dL (0.7-1.3); GFR 50.2; POTASSIUM 5.9 mmol/L (3.5-5.1)
== END | disposition home or self-care (01) ==
LOC: SPEC 17:02
PROVIDERS: ATTEND Internal Medicine Infectious Disease
DX: M86.171 Other acute osteomyelitis, right ankle and foot (principal); N18.9 Chronic kidney disease, unspecified; Z79.2 Long term (current) use of antibiotics
CPT/HCPCS: 36415; 80048; 85025; 85651

== ENCOUNTER 2020-04-11 12:10 | Inpatient (IN) | payer MEDICAID ==
[~2020-04-11] VITALS: Ht 165.1 cm; Wt 101.0 kg
[2020-04-11] MEDS ORDERED: MORPHINE SULFATE 4 MG/ML VIAL. IV/SQ PRN (13:15)
--- NOTE | 2020-04-11 13:50 | PHYS DOC ---
Past Medical History Past Medical History: Asthma, Diabetes-Type II, High Cholesterol, Hypertension, Other Additional Past Medical Histor: neuropathy Past Surgical History: Appendectomy, Cholecystectomy Additional Past Surgical Histo: R GREAT TOE AMPUTATION Smoking Status: Never Smoker Alcohol Use: None Drug Use: None General Adult EDM: Chief Complaint: DIARRHEA HPI: HPI: Patient is a 45 year old male with history of diabetes type 2, hypertension, asthma, high cholesterol, who presents to the ED today complaining of diarrhea for 3 weeks. Patient reports having amputation of the right fifth toe roughly 3 weeks ago from an infected toe and being put on antibiotics, he states he developed C. difficile and was being treated for repeat with oral vancomycin. He states he completed the course of treatment a couple days ago. Patient also reports being on antibiotics through a midline and currently on IV antibiotics for the infection on the right fifth amputated toe. Denies any fever. He states he called his infectious disease doctor who sent him to the ED. Review of Systems: Review of Systems: Constitutional: Denies fever or chills. [] Eyes: Denies change in visual acuity. [] HENT: Denies nasal congestion or sore throat. [] Respiratory: Denies cough or shortness of breath. [] Cardiovascular: Denies chest pain or edema. [] GI: Reports diarrhea for 3 weeks. Denies abdominal pain, nausea, vomiting, bloody stools : Denies dysuria. [] Musculoskeletal: Denies back pain or joint pain. [] Integument: Denies rash. [] Neurologic: Denies headache, focal weakness or sensory changes. [] Endocrine: Denies polyuria or polydipsia. [] Lymphatic: Denies swollen glands. [] Psychiatric: Denies depression or anxiety. [] Heart Score: Risk Factors: Risk Factors: DM, Current or recent (<one month) smoker, HTN, HLP, family history of CAD, obesity. Risk Scores: Score 0 - 3: 2.5% MACE over next 6 weeks - Discharge Home Score 4 - 6: 20.3% MACE over next 6 weeks - Admit for Clinical Observation Score 7 - 10: 72.7% MACE over next 6 weeks - Early Invasive Strategies Current Medications: Current Medications Medications (Trade) Dose Ordered Sig/Fahad Start Time Stop Time Status Last Admin Dose Admin Morphine Sulfate (Morphine Sulfate) 4 mg PRN Q15MIN PRN 04/11/20 13:15 5/28/20 13:14 Allergies: Allergies: Allergies Coded Allergies Type Severity Reaction Last Updated Verified sulfamethoxazole Allergy Severe Rash 12/23/19 Yes trimethoprim Allergy Severe Rash 12/23/19 Yes diphenhydramine Allergy Intermediate Hives 12/23/19 Yes erythromycin base Allergy Intermediate 03/27/20 Yes lisinopril Allergy Intermediate 03/27/20 Yes Physical Exam: PE: Constitutional: Well developed, well nourished, no acute distress, non-toxic appearance. [] HENT: Normocephalic, atraumatic, bilateral external ears normal, oropharynx moist, no oral exudates, nose normal. [] Eyes: PERRLA, EOMI, conjunctiva normal, no discharge. [] Neck: Normal range of motion, no tenderness, supple, no stridor. [] Cardiovascular:Heart rate regular rhythm, no murmur [] Lungs & Thorax: Bilateral breath sounds clear to auscultation [] Abdomen: Bowel sounds normal, soft, no tenderness, no masses, no pulsatile masses. [] Skin: Midline noted to the right upper extremity. Right foot specifically on the fifth toe with a wound VAC. Back: No tenderness, no CVA tenderness. [] Extremities: No tenderness, no cyanosis, no clubbing, ROM intact, no edema. [] Neurologic: Alert and oriented X 3, normal motor function, normal sensory function, no focal deficits noted. [] Psychologic: Affect normal, judgement normal, mood normal. [] Current Patient Data: Vital Signs: Vital Signs Date Time Temp Pulse Resp B/P (MAP) Pulse Ox O2 Delivery O2 Flow Rate FiO2 04/11/20 12:35 98.8 85 18 146/74 (98) 99 Room Air 98.8 EKG: EKG: [] Radiology/Procedures: Radiology/Procedures: [] Course & Med Decision Making: Course & Med Decision Making Pertinent Labs and Imaging studies reviewed. (See chart for details) This is a 45-year-old male patient presented to the ED today with diarrhea for 3 weeks, has history of C. difficile from antibiotics use. He finished his C. difficile oral vancomycin a acouple days ago. He is currently on IV antibiotics for infected amputated right fifth toe. Vitals are stable, CBC with a normal WBC, CMP with sodium of 135, potassium 5.5- will be given IV fluids, sed rate 76, creatinine 1.6, BUN 41, creatinine around patient's baseline. Lactic is normal, C-reactive 71.3, glucose 267 with a normal anion gap. Spoke with Dr. Workman infectious disease who recommended admission. IV fluids ordered, spoke with Dr. Comer who accepted patient for admission. Venkatesh Disclaimer: Dragon Disclaimer: This electronic medical record was generated, in whole or in part, using a voice recognition dictation system. Departure Departure Impression: Primary Impression: Diarrhea Qualified Codes: R19.7 - Diarrhea, unspecified Additional Impressions: C. difficile colitis Chronic kidney disease Qualified Codes: N18.9 - Chronic kidney disease, unspecified Dehydration Hyperkalemia Disposition: ADMITTED INPATIENT Condition: STABLE Referrals: AUBREE SHAY MD (PCP) SHARA HERNANDEZ [employer] April 11, 2020 13:49
[2020-04-11 14:59] LABS: BASO # 0.1 x10^3/uL (0.0-0.2); BASO % 1 % (0-3); EOS # 0.3 x10^3/uL (0.0-0.7); EOS % 4 % (0-3); HEMATOCRIT 23.5 % (39.0-53.0); LYMPH # 1.2 x10^3/uL (1.0-4.8); LYMPH % 18 % (24-48); MEAN CORPUSCULAR HEMOGLOBIN 30 pg (25-35); MEAN CORPUSCULAR HGB CONC 34 g/dL (31-37); MEAN CORPUSCULAR VOLUME 88 fL (79-100); MONO # 0.8 x10^3/uL (0.0-1.1); MONO % 12 % (0-9); NEUT # 4.4 x10^3/uL (1.8-7.7); NEUT % 65 % (31-73); PLATELET COUNT 280 x10^3/uL (140-400); RED BLOOD COUNT 2.68 x10^6/uL (4.30-5.70); RED CELL DISTRIBUTION WIDTH 14.4 % (11.5-14.5); WHITE BLOOD COUNT 6.9 x10^3/uL (4.0-11.0)
[2020-04-11 15:07] LABS: CALCIUM 8.8 mg/dL (8.5-10.1); CREATININE 1.6 mg/dL (0.7-1.3); GFR 46.6; POTASSIUM 5.5 mmol/L (3.5-5.1)
[2020-04-11 15:12] LABS: ALBUMIN 3.1 g/dL (3.4-5.0); ALBUMIN/GLOBULIN RATIO 0.9 (1.0-1.7); TOTAL BILIRUBIN 0.2 mg/dL (0.2-1.0); TOTAL PROTEIN 6.7 g/dL (6.4-8.2)
[2020-04-11] MEDS ORDERED: DEXTROSE 50% 25 GM / 50ML DISP.SYRIN. IV PRN (17:45)
[2020-04-11] MEDS ORDERED: IV NORMAL SALINE 1000ML BAG 1,000 ML IV ONE (17:45)
[2020-04-11] MEDS ORDERED: ACETAMINOPHEN 325 MG TABLET. PO PRN ×3 (17:45→18:30)
[2020-04-11] MEDS ORDERED: MORPHINE SULFATE 2 MG/ML VIAL. IV PRN (17:45)
[2020-04-11] MEDS ORDERED: ONDANSETRON PF 4 MG/2 ML VIAL. IV PRN ×2 (17:45→18:30)
[2020-04-11] MEDS ORDERED: 0.9 % SODIUM CHLORIDE 10 ML DISP.SYRIN. IV PRN (18:30)
[2020-04-11] MEDS ORDERED: ALBUTEROL SULFATE 2.5 MG/3 ML NEBU. NEB PRN (18:30)
[2020-04-11] MEDS ORDERED: guaiFENesin ORAL 200 MG/10 ML LIQUID. PO PRN (18:30)
[2020-04-11] MEDS ORDERED: HYDROcodone/APAP 5/325MG 1 TAB TABLET PO PRN (18:30)
[2020-04-11] MEDS ORDERED: cloNIDine HCL 0.1 MG TABLET PO PRN (18:30)
[2020-04-11] MEDS: MEROPENEM 500 MG in IV NORMAL SALINE 50ML 50 ML IV SCH ×2 (19:55→23:46)
[2020-04-11] MEDS: IV NORMAL SALINE 1000ML BAG 1,000 ML IV SCH (19:55)
[2020-04-11] MEDS: CARVEDILOL 12.5 MG TABLET. PO SCH (20:01)
[2020-04-11] MEDS: VANCOMYCIN 125 MG/2.5 ML ORAL SOLUTION. PO SCH (21:57)
[2020-04-11] MEDS: LACTOBACILLUS RHAMNOSUS GG 1 CAPSULE. PO SCH (21:57)
[2020-04-11] MEDS: INSULIN GLARGINE SYRINGE. SQ SCH (21:59)
[2020-04-11] MEDS: ENOXAPARIN 40 MG/0.4 ML SYRINGE. SQ SCH (22:00)
--- NOTE | 2020-04-11 22:16 | PDOC1 ---
History and Physical Date of Admission Date of Admission DATE: 04/11/20 TIME: 22:14 Identification/Chief Complaint Chief Complaint SEEN IN ER WITH FAILED OUT PATIENT TREATMENT OF C-DIFF 45 year old male with history of diabetes type 2, hypertension, asthma, high cholesterol, who presents to the ED today complaining of diarrhea for 3 weeks. Patient reports having amputation of the right fifth toe roughly 3 weeks ago from an infected toe and being put on antibiotics, he developed C. difficile and was being treated for repeat with oral vancomycin. He states he completed the course of treatment reports being on antibiotics through a midline and currently on IV antibiotics for the infection on the right fifth amputated toe. Denies fever. //he called his infectious disease doctor who sent him to the ED. PT appeared dehydrated and k elevated Past Medical History Past Medical History Operative Note Operative Note Date of surgery: 02/16/2020 Preoperative diagnosis: Right foot ulcer with osteomyelitis fifth metatarsal Postoperative diagnosis: Same with extensive purulence and soft tissue destruction Operative procedure: Right fifth ray amputation Surgeon: Cathy Anesthesia: Gen. Estimated blood loss: 50 mL Complications: None Gross specimen of fifth ray for pathology Cardiovascular: HTN, Hyperlipidemia Pulmonary: Asthma CENTRAL NERVOUS SYSTEM: Periperal neuropathy GI: No pertinent hx Heme/Onc: Anemia NOS Hepatobiliary: Cholelithiasis Psych: Depression Rheumatologic: No pertinent hx Infectious disease: No pertinent hx Endocrine: Diabetes Past Surgical History Past Surgical History: Appendectomy, Cholecystectomy, Cataract Removal, Other Family History Family History: Diabetes, Heart Disease Social History Smoke: No ALCOHOL: none Drugs: None Current Problem List Problem List Problems Medical Problems: (1) C. difficile colitis Status: Acute (2) Chronic kidney disease Status: Acute (3) Dehydration Status: Acute (4) Diarrhea Status: Acute (5) Hyperkalemia Status: Acute Current Medications Current Medications Current Medications Morphine Sulfate (Morphine Sulfate) 4 mg PRN Q15MIN PRN IV/SQ PAIN GREATER THAN 3/10; Start 04/11/20 at 13:15; Stop 04/12/20 at 13:14 Ondansetron HCl (Zofran) 4 mg PRN Q8HRS PRN IV NAUSEA/VOMITING; Start 04/11/20 at 17:45; Stop 04/12/20 at 17:44 Morphine Sulfate (Morphine Sulfate) 2 mg PRN Q2HR PRN IV PAIN; Start 04/11/20 at 17:45; Stop 04/12/20 at 17:44 Acetaminophen (Tylenol) 650 mg PRN Q4HRS PRN PO FEVER > 100.3'F; Start 04/11/20 at 17:45; Stop 04/11/20 at 18:28; Status DC Sodium Chloride 1,000 ml @ 125 mls/hr 1X ONCE IV Last administered on 04/11/20at 17:45; Start 04/11/20 at 17:45; Stop 04/12/20 at 01:44 Insulin Human Lispro (HumaLOG) 0-5 UNITS TIDWMEALS SQ ; Start 04/12/20 at 08:00 Dextrose (Dextrose 50%-Water Syringe) 12.5 gm PRN Q15MIN PRN IV SEE COMMENTS; Start 04/11/20 at 17:45 Acetaminophen (Tylenol) 650 mg PRN Q4HRS PRN PO TEMP OVER 100.4F OR MILD PAIN; Start 04/11/20 at 18:30; Status Cancel Aspirin (Ecotrin) 81 mg DAILYWBKFT PO ; Start 04/12/20 at 08:00 Carvedilol (Coreg) 12.5 mg BIDWMEALS PO Last administered on 04/11/20at 20:01; Start 04/11/20 at 19:00 Enoxaparin Sodium (Lovenox 40mg Syringe) 40 mg Q24H SQ Last administered on 04/11/20at 22:00; Start 04/11/20 at 21:00 Ertapenem (INVanz 1GM IVPB for PT ASSIST PROGRAM) 1 gm DAILY10 IV ; Start 04/12/20 at 10:00; Status UNV Acetaminophen/ Hydrocodone Bitart (Lortab 5/325) 1 tab PRN Q6HRS PRN PO MODERATE TO SEVERE PAIN; Start 04/11/20 at 18:30 Lactobacillus Rhamnosus (Culturelle) 1 cap BID PO Last administered on 04/11/20at 21:57; Start 04/11/20 at 21:00 Pantoprazole Sodium (Protonix) 40 mg DAILYAC PO ; Start 04/12/20 at 07:30 Insulin Glargine (Lantus Syringe) 24 unit QHS SQ Last administered on 04/11/20at 21:59; Start 04/11/20 at 21:00 Vancomycin HCl (Vancomycin Oral Solution) 125 mg [id number] PO Last administered on 04/11/20at 21:57; Start 04/11/20 at 21:00 Meropenem 500 mg/ Sodium Chloride 50 ml @ 100 mls/hr Q6HRS IV Last administered on 04/11/20at 19:55; Start 04/11/20 at 19:00 Sodium Chloride (Normal Saline Flush) 3 ml QSHIFT PRN IV AFTER MEDS AND BLOOD DRAWS; Start 04/11/20 at 18:30 Sodium Chloride 1,000 ml @ 100 mls/hr Q10H IV Last administered on 04/11/20at 19:55; Start 04/11/20 at 18:26 Ondansetron HCl (Zofran) 4 mg PRN Q4HRS PRN IV NAUSEA/VOMITING; Start 04/11/20 at 18:30 Acetaminophen (Tylenol) 650 mg PRN Q4HRS PRN PO TEMP OVER 100.4F OR MILD PAIN; Start 04/11/20 at 18:30 Clonidine HCl (Catapres) 0.1 mg PRN Q6HRS PRN PO SBP>160 OR DBP>90; Start 04/11/20 at 18:30 Albuterol Sulfate (Ventolin Neb Soln) 2.5 mg PRN Q4HRS PRN NEB SHORTNESS OF BREATH; Start 04/11/20 at 18:30 Guaifenesin (Robitussin) 200 mg PRN Q4HRS PRN PO COUGH; Start 04/11/20 at 18:30 Lorazepam (Ativan Inj) 2 mg PRN Q4HRS PRN IV ANXIETY / AGITATION; Start 04/11/20 at 18:30 Active Scripts Active Aspirin Ec (Aspirin) 81 Mg Tablet.dr 81 Mg PO DAILYWBKFT 30 Days Carvedilol (Carvedilol) 12.5 Mg Tablet 12.5 Mg PO BIDWMEALS 30 Days Invanz (Ertapenem Sodium) 1 Gm Vial 1 Gm IJ DAILY10 14 Days Culturelle (Lactobacillus Rhamnosus Gg) 1 Each Cap.sprink 1 Cap PO BID 30 Days Tylenol (Acetaminophen) 325 Mg Tablet 650 Mg PO PRN Q4HRS PRN 30 Days Hydrocodone-Apap 5-325 (Hydrocodone Bit/Acetaminophen) 1 Tab Tablet 1 Tab PO PRN Q6HRS PRN 14 Days Enoxaparin Sodium 40 Mg/0.4 Ml Disp.syrin 40 Mg SQ Q24H 30 Days Reported Vancomycin Hcl 125 Mg Capsule 1 Cap PO QID Pantoprazole Sodium (Pantoprazole Sodium) 40 Mg Tablet.dr 40 Mg PO DAILYAC Lantus Solostar (Insulin Glargine,Hum.rec.anlog) 100 Unit/1 Ml Insuln.pen 24 Unit SQ QHS Humalog (Insulin Lispro) 100 Unit/1 Ml Vial 20 Unit SQ TIDPC Allergies Allergies: Coded Allergies: sulfamethoxazole (Verified Allergy, Severe, Rash, 12/23/19) HIVES, ITCHINESS trimethoprim (Verified Allergy, Severe, Rash, 12/23/19) HIVES, ITCHINESS diphenhydramine (Verified Allergy, Intermediate, Hives, 12/23/19) erythromycin base (Verified Allergy, Intermediate, 03/27/20) lisinopril (Verified Allergy, Intermediate, 03/27/20) Physical Exam Physical Exam Constitutional: Well developed, well nourished, no acute distress, non-toxic appearance. [] HENT: Normocephalic, atraumatic, bilateral external ears normal, oropharynx DRY no oral exudates, nose normal. [] Eyes: PERRLA, EOMI, conjunctiva normal, no discharge. [] Neck: Normal range of motion, no tenderness, supple, no stridor. [] Cardiovascular:Heart rate regular rhythm, no murmur [] Lungs & Thorax: Bilateral breath sounds clear to auscultation [] Abdomen: Bowel sounds normal, soft, no tenderness, no masses, no pulsatile masses. [] Skin: Midline noted to the right upper extremity. Right foot specifically on the fifth toe with a wound VAC. Back: No tenderness, no CVA tenderness. [] Extremities: No tenderness, no cyanosis, no clubbing, ROM intact, no edema. [] Neurologic: Alert and oriented X 3, normal motor function, normal sensory function, no focal deficits noted. [] Psychologic: Affect normal, judgment normal, mood normal. [] General: Alert, Oriented X3, Cooperative, No acute distress HEENT: Atraumatic, EOMI Lungs: Clear to auscultation, Normal air movement Heart: RRR Breasts: Not examined Abdomen: Soft Rectal Exam: not examined PELVIC: Examination not indicated Extremities: No cyanosis Neuro: Normal speech, Cranial nerves 3-12 NL Psych/Mental Status: Mental status NL, Mood NL Vitals Vitals Vital Signs Date Time Temp Pulse Resp B/P (MAP) Pulse Ox O2 Delivery O2 Flow Rate FiO2 04/11/20 20:01 72 130/84 04/11/20 19:00 17 98 Room Air 04/11/20 12:35 98.8 98.8 Labs Labs Laboratory Tests Test 04/11/20 14:35 04/11/20 20:37 White Blood Count 6.9 x10^3/uL (4.0-11.0) Red Blood Count 2.68 x10^6/uL (4.30-5.70) Hemoglobin 8.0 g/dL (13.0-17.5) Hematocrit 23.5 % (39.0-53.0) Mean Corpuscular Volume 88 fL (79-100) Mean Corpuscular Hemoglobin 30 pg (25-35) Mean Corpuscular Hemoglobin Concent 34 g/dL (31-37) Red Cell Distribution Width 14.4 % (11.5-14.5) Platelet Count 280 x10^3/uL (140-400) Neutrophils (%) (Auto) 65 % (31-73) Lymphocytes (%) (Auto) 18 % (24-48) Monocytes (%) (Auto) 12 % (0-9) Eosinophils (%) (Auto) 4 % (0-3) Basophils (%) (Auto) 1 % (0-3) Neutrophils # (Auto) 4.4 x10^3/uL (1.8-7.7) Lymphocytes # (Auto) 1.2 x10^3/uL (1.0-4.8) Monocytes # (Auto) 0.8 x10^3/uL (0.0-1.1) Eosinophils # (Auto) 0.3 x10^3/uL (0.0-0.7) Basophils # (Auto) 0.1 x10^3/uL (0.0-0.2) Erythrocyte Sedimentation Rate 76 (0-15) Sodium Level 135 mmol/L (136-145) Potassium Level 5.5 mmol/L (3.5-5.1) Chloride Level 101 mmol/L (98-107) Carbon Dioxide Level 27 mmol/L (21-32) Anion Gap 7 (6-14) Blood Urea Nitrogen 41 mg/dL (8-26) Creatinine 1.6 mg/dL (0.7-1.3) Estimated GFR (Cockcroft-Gault) 46.6 BUN/Creatinine Ratio 26 (6-20) Glucose Level 267 mg/dL (70-99) Lactic Acid Level 1.3 mmol/L (0.4-2.0) Calcium Level 8.8 mg/dL (8.5-10.1) Total Bilirubin 0.2 mg/dL (0.2-1.0) Aspartate Amino Transf (AST/SGOT) 16 U/L (15-37) Alanine Aminotransferase (ALT/SGPT) 27 U/L (16-63) Alkaline Phosphatase 123 U/L (46-116) C-Reactive Protein, Quantitative 71.3 mg/L (0-3.3) Total Protein 6.7 g/dL (6.4-8.2) Albumin 3.1 g/dL (3.4-5.0) Albumin/Globulin Ratio 0.9 (1.0-1.7) Procalcitonin < 0.10 ng/mL (0.00-0.10) Glucose (Fingerstick) 152 mg/dL (70-99) Laboratory Tests Test 04/11/20 14:35 04/11/20 20:37 White Blood Count 6.9 x10^3/uL (4.0-11.0) Red Blood Count 2.68 x10^6/uL (4.30-5.70) Hemoglobin 8.0 g/dL (13.0-17.5) Hematocrit 23.5 % (39.0-53.0) Mean Corpuscular Volume 88 fL (79-100) Mean Corpuscular Hemoglobin 30 pg (25-35) Mean Corpuscular Hemoglobin Concent 34 g/dL (31-37) Red Cell Distribution Width 14.4 % (11.5-14.5) Platelet Count 280 x10^3/uL (140-400) Neutrophils (%) (Auto) 65 % (31-73) Lymphocytes (%) (Auto) 18 % (24-48) Monocytes (%) (Auto) 12 % (0-9) Eosinophils (%) (Auto) 4 % (0-3) Basophils (%) (Auto) 1 % (0-3) Neutrophils # (Auto) 4.4 x10^3/uL (1.8-7.7) Lymphocytes # (Auto) 1.2 x10^3/uL (1.0-4.8) Monocytes # (Auto) 0.8 x10^3/uL (0.0-1.1) Eosinophils # (Auto) 0.3 x10^3/uL (0.0-0.7) Basophils # (Auto) 0.1 x10^3/uL (0.0-0.2) Erythrocyte Sedimentation Rate 76 (0-15) Sodium Level 135 mmol/L (136-145) Potassium Level 5.5 mmol/L (3.5-5.1) Chloride Level 101 mmol/L (98-107) Carbon Dioxide Level 27 mmol/L (21-32) Anion Gap 7 (6-14) Blood Urea Nitrogen 41 mg/dL (8-26) Creatinine 1.6 mg/dL (0.7-1.3) Estimated GFR (Cockcroft-Gault) 46.6 BUN/Creatinine Ratio 26 (6-20) Glucose Level 267 mg/dL (70-99) Lactic Acid Level 1.3 mmol/L (0.4-2.0) Calcium Level 8.8 mg/dL (8.5-10.1) Total Bilirubin 0.2 mg/dL (0.2-1.0) Aspartate Amino Transf (AST/SGOT) 16 U/L (15-37) Alanine Aminotransferase (ALT/SGPT) 27 U/L (16-63) Alkaline Phosphatase 123 U/L (46-116) C-Reactive Protein, Quantitative 71.3 mg/L (0-3.3) Total Protein 6.7 g/dL (6.4-8.2) Albumin 3.1 g/dL (3.4-5.0) Albumin/Globulin Ratio 0.9 (1.0-1.7) Procalcitonin < 0.10 ng/mL (0.00-0.10) Glucose (Fingerstick) 152 mg/dL (70-99) Images Images 02/16/2020 Abdominal aortogram Right lower extremity angiography INDICATION: Right lower extremity foot wounds. COMPARISON STUDY: Arterial duplex ultrasound May 16, 2020 Discussion The procedure was explained in its entirety to the patient or the patients designated inside technical sales representative by a member of the treatment team, including a discussion of the risks, benefits and commonly accepted alternatives to the procedure, as well as the expected consequences of no therapy whatsoever. Discussion of the risks included, but was not limited to, those that are most frequent and those that are rare but possibly severe or life-threatening, as well as the possibility of unforeseen complications. All elements of maximal sterile barrier technique including the use of a cap, mask, sterile gown, sterile gloves, large sterile sheet, appropriate hand hygiene, and 2% chlorhexidine for cutaneous antisepsis (or acceptable alternative antiseptic per current guidelines) were followed for this procedure. The left groin was prepped and draped using sterile barrier technique as described. Ultrasound evaluation demonstrates a left common femoral artery to be patent. The artery is accessed using direct ultrasound guidance and micropuncture technique. Ultrasound images were saved the medical record. 5 [place] vascular sheath was placed. Nonocclusive catheter was advanced into the abdominal aorta. CO2 angiography of the abdomen was performed demonstrating no aneurysm or stenosis. Visualized mesenteric vessels appear patent. Pelvic angiography was then performed again demonstrating no significant aortoiliac stenosis. Catheter was repositioned in the right common femoral artery. CO2 angiography of the right lower extremity was performed demonstrating no common femoral, profunda, superficial femoral artery stenosis. The popliteal artery is also widely patent. CO2 angiography demonstrates the proximal tibial vessels to be patent. Given need for improved resolution of below knee arteries contrast angiography was then performed. 20% narrowing in the proximal anterior tibial artery is seen. Otherwise anterior tibial artery and dorsalis pedis artery are patent to the mid foot. The peroneal artery and posterior tibial artery are patent. At the level of the midfoot there is occlusion of the dorsalis pedis artery with very poor filling of the more distal arteries. Only limited filling of distal digital arteries is seen. The appearance is suggestive of microvascular disease consistent with long-standing diabetes, noted and patient history. A closure device was deployed. The sheath was removed. Manual pressure was held in addition. Sterile dressings were applied. No immediate complications were identified. Total fluoroscopy time: 6.1 minutes min Dose area product: 172 Gycm2 Total contrast administered 16 cc The procedures performed under conscious sedation including continuous cardiopulmonary monitoring via dedicated sedation nurse. [id number] sedation time: 43 minutes Impression: No significant aortoiliac, or femoropopliteal stenosis. 20% narrowing anterior tibial artery, and likely not flow limiting. There is otherwise three-vessel runoff to the mid foot. 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 DICTATED and SIGNED BY: RUBIN COREY MD DATE: 02/17/20 1055 TDI Lateral E' P. V 8.56cm/s Medial E' P. V 8.69cm/s E/Lateral E' 13.1 E/Medial E' 12.9 Tricuspid Valve TR P. Velocity 314cm/s RAP ESTIMATE 3mmHg TR Peak Gr. 45mmHg RVSP 48mmHg Pulmonary Vein S1 Velocity 54.4cm/s S2 Velocity 69.20cm/s D2 Velocity 69.2cm/s PVa duration 130msec LEFT VENTRICLE The left ventricle is normal size. There is borderline to mild concentric left ventricular hypertrophy. The left ventricular systolic function is normal. The Ejection Fraction is 55-60%. There is normal LV segmental wall motion.. The left ventricular diastolic function and filling is normal for age. RIGHT VENTRICLE The right ventricle is normal size. There is normal right ventricular wall thickness. The right ventricular systolic function is normal. ATRIA The left atrium size is normal. The right atrium size is normal. The interatrial septum is intact with no evidence for an atrial septal defect or patent foramen ovale as noted on 2-D or Doppler imaging. AORTIC VALVE The aortic valve is normal in structure and function. Doppler and Color Flow revealed no significant aortic regurgitation. There is no significant aortic valvular stenosis. MITRAL VALVE The mitral valve is normal in structure and function. There is no evidence of mitral valve prolapse. There is no mitral valve stenosis. Doppler and Color-flow revealed trace mitral regurgitation. TRICUSPID VALVE The tricuspid valve is normal in structure and function. Doppler and Color Flow revealed trace tricuspid regurgitation with an estimated PAP of 48 mmHg. There is no tricuspid valve stenosis. PULMONIC VALVE The pulmonary valve is normal in structure and function. Doppler and Color Flow revealed trace pulmonic valvular regurgitation. GREAT VESSELS The aortic root is normal in size. The IVC is normal in size and collapses >50% with inspiration. PERICARDIAL EFFUSION There is no evidence of significant pericardial effusion. Critical Notification Critical Value: No <Conclusion> The left ventricular systolic function is normal. The Ejection Fraction is 55-60%. There is normal LV segmental wall motion.. Trace mitral regurgitation. Trace tricuspid regurgitation with an estimated PAP of 48 mmHg. There is no evidence of significant pericardial effusion. Signed by : Ralph Benito, Electronically Approved : 03/31/2020 08:16:47 VTE Prophylaxis Ordered VTE Prophylaxis Devices: Yes VTE Pharmacological Prophylaxi: Yes Assessment/Plan Assessment/Plan impression C. difficile - on oral vancomycin therapy, failed out-patient treatment Complicated right lateral foot diabetic ulcers - deep tracking, likely osteomyelitis. wound care, iv abx - INVANZ to continue, will consult ID for further recs. 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 Plan: admit NPO IV FLUID SUPPORT ID CONSULT Outpatient sleep study. Consider out-pt stress test for further risk stratification wound care consult nephrology consult 74 min pt exam, chart review> 50% of time spent with exam, chart review, pt care coordination SHILOH BLANCO MD April 11, 2020 22:16
[2020-04-11 23:00] VITALS: BP 138/79
[2020-04-12 03:00] VITALS: BP 118/74
[2020-04-12 03:45] LABS: BASO # 0.1 x10^3/uL (0.0-0.2); BASO % 1 % (0-3); EOS # 0.3 x10^3/uL (0.0-0.7); EOS % 4 % (0-3); HEMATOCRIT 22.9 % (39.0-53.0); HEMOGLOBIN 7.8 g/dL (13.0-17.5); LYMPH # 1.3 x10^3/uL (1.0-4.8); LYMPH % 20 % (24-48); MEAN CORPUSCULAR HEMOGLOBIN 30 pg (25-35); MEAN CORPUSCULAR HGB CONC 34 g/dL (31-37); MEAN CORPUSCULAR VOLUME 87 fL (79-100); MONO # 0.7 x10^3/uL (0.0-1.1); MONO % 10 % (0-9); NEUT # 4.5 x10^3/uL (1.8-7.7); NEUT % 65 % (31-73); PLATELET COUNT 279 x10^3/uL (140-400); RED BLOOD COUNT 2.62 x10^6/uL (4.30-5.70); RED CELL DISTRIBUTION WIDTH 14.3 % (11.5-14.5); WHITE BLOOD COUNT 6.9 x10^3/uL (4.0-11.0)
[2020-04-12 04:00] LABS: CALCIUM 8.5 mg/dL (8.5-10.1); CREATININE 1.4 mg/dL (0.7-1.3); GFR 54.3; POTASSIUM 4.9 mmol/L (3.5-5.1)
[2020-04-12] MEDS: IV NORMAL SALINE 1000ML BAG 1,000 ML IV SCH ×3 (04:26→17:40)
--- NOTE | 2020-04-12 04:41 | NUR ---
NS NOT GIVEN AT 0430. FLUIDS INFUSING
[2020-04-12] MEDS: MEROPENEM 500 MG in IV NORMAL SALINE 50ML 50 ML IV SCH ×3 (05:36→17:41)
[2020-04-12 07:00] VITALS: BP 123/69
--- NOTE | 2020-04-12 07:20 | NUR ---
WOUND VAC LEFT IN PLACE UPON ADMITTANCE LAST NIGHT. PT REQUESTED THERAPY TO CONTINUE UNTIL WOUND CARE CONSULTED.
[2020-04-12] MEDS: INSULIN LISPRO 300 UNITS/3 ML VIAL. SQ SCH ×3 (08:00→17:43)
--- NOTE | 2020-04-12 08:18 | PDOC ---
PROGRESS NOTES Chief Complaint Chief Complaint A/P: Hyperkalemia - on initial admissio likely from NISSA NISSA on Chronic kidney disease - Cr 2.1, up from 1.5 baseline. 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 wound care, iv abx - merrem, to continue, will consult ID for further recs. DM - A1c 7.5 10/18/2019, has a recent A1c pending from last week. Will cont lantus 20u QHS and bolus coverage during day History of Osteomyelitis of right fifth metatarsal head and neck - s/p debridement and amputation Diabetes mellitus with neuropathy - progressive neuropathy Status post history of right toe amputation. Right eye blindness - chronic, progressive, 2/2 cataract surgery previously FEN - ADA diet PPX - lovenox, renally dosed FULL CODE Dispo - inpatient for outpatient failure of complicated diabetic foot ulcer History of Present Illness History of Present Illness Mr Li is a 44yo M w/ PMHx diabetes mellitus type 2, peripheral neuropathy, right vision loss, depression, history of chronic low back pain, chronic nonhealing right foot ulcers, status post amputation of the right great toe and recent amputation of right 5th metatarsal head in February 2020 who returns on 03/26/2020 after feeling short of breath after HBO treatment at wound care clinic, was found with cor pulmonale required oxygen 3L NCO2 to maintain satu rations in the 90s. He returns now after worsening diarrhea outpatient, was directed by ID to go to the ED for IV fluids. He was found with K of 5.5, CR 1.6, no EKG changes EKG NSR. Consult Infectious Disease, GI and Wound Care. [He does have multiple diabetic ulcers: right Achilles tendon distally, 2 cm round over lateral right foot fifth metatarsal head area, and dorsomedial midfoot with orthopedic surgery with wound vac and outpatient wound clinic appointment which have been slowly improving until the past 2 weeks. He has previously had multiple non-healing ulcers and skin graft to his right thigh. He tested positive for c. difficile on 03/19/2020 as well] Overnight with 1 BM, not on his O2 currently. He says he feels a little better. Wound appears improved CR down to 1.4, K normalized. Vitals Vitals Vital Signs Date Time Temp Pulse Resp B/P (MAP) Pulse Ox O2 Delivery O2 Flow Rate FiO2 04/12/20 03:00 98.5 72 19 118/74 (89) 97 Room Air 98.5 Physical Exam General: Alert, Oriented X3, Cooperative, No acute distress Lungs: Clear, Other Abdomen: Soft Extremities: No cyanosis Labs LABS Laboratory Tests Test 04/11/20 14:35 04/11/20 20:37 04/12/20 03:10 White Blood Count 6.9 x10^3/uL (4.0-11.0) 6.9 x10^3/uL (4.0-11.0) Red Blood Count 2.68 x10^6/uL (4.30-5.70) 2.62 x10^6/uL (4.30-5.70) Hemoglobin 8.0 g/dL (13.0-17.5) 7.8 g/dL (13.0-17.5) Hematocrit 23.5 % (39.0-53.0) 22.9 % (39.0-53.0) Mean Corpuscular Volume 88 fL (79-100) 87 fL (79-100) Mean Corpuscular Hemoglobin 30 pg (25-35) 30 pg (25-35) Mean Corpuscular Hemoglobin Concent 34 g/dL (31-37) 34 g/dL (31-37) Red Cell Distribution Width 14.4 % (11.5-14.5) 14.3 % (11.5-14.5) Platelet Count 280 x10^3/uL (140-400) 279 x10^3/uL (140-400) Neutrophils (%) (Auto) 65 % (31-73) 65 % (31-73) Lymphocytes (%) (Auto) 18 % (24-48) 20 % (24-48) Monocytes (%) (Auto) 12 % (0-9) 10 % (0-9) Eosinophils (%) (Auto) 4 % (0-3) 4 % (0-3) Basophils (%) (Auto) 1 % (0-3) 1 % (0-3) Neutrophils # (Auto) 4.4 x10^3/uL (1.8-7.7) 4.5 x10^3/uL (1.8-7.7) Lymphocytes # (Auto) 1.2 x10^3/uL (1.0-4.8) 1.3 x10^3/uL (1.0-4.8) Monocytes # (Auto) 0.8 x10^3/uL (0.0-1.1) 0.7 x10^3/uL (0.0-1.1) Eosinophils # (Auto) 0.3 x10^3/uL (0.0-0.7) 0.3 x10^3/uL (0.0-0.7) Basophils # (Auto) 0.1 x10^3/uL (0.0-0.2) 0.1 x10^3/uL (0.0-0.2) Erythrocyte Sedimentation Rate 76 (0-15) Sodium Level 135 mmol/L (136-145) 138 mmol/L (136-145) Potassium Level 5.5 mmol/L (3.5-5.1) 4.9 mmol/L (3.5-5.1) Chloride Level 101 mmol/L (98-107) 105 mmol/L (98-107) Carbon Dioxide Level 27 mmol/L (21-32) 24 mmol/L (21-32) Anion Gap 7 (6-14) 9 (6-14) Blood Urea Nitrogen 41 mg/dL (8-26) 38 mg/dL (8-26) Creatinine 1.6 mg/dL (0.7-1.3) 1.4 mg/dL (0.7-1.3) Estimated GFR (Cockcroft-Gault) 46.6 54.3 BUN/Creatinine Ratio 26 (6-20) Glucose Level 267 mg/dL (70-99) 139 mg/dL (70-99) Lactic Acid Level 1.3 mmol/L (0.4-2.0) Calcium Level 8.8 mg/dL (8.5-10.1) 8.5 mg/dL (8.5-10.1) Total Bilirubin 0.2 mg/dL (0.2-1.0) Aspartate Amino Transf (AST/SGOT) 16 U/L (15-37) Alanine Aminotransferase (ALT/SGPT) 27 U/L (16-63) Alkaline Phosphatase 123 U/L (46-116) C-Reactive Protein, Quantitative 71.3 mg/L (0-3.3) Total Protein 6.7 g/dL (6.4-8.2) Albumin 3.1 g/dL (3.4-5.0) Albumin/Globulin Ratio 0.9 (1.0-1.7) Procalcitonin < 0.10 ng/mL (0.00-0.10) Glucose (Fingerstick) 152 mg/dL (70-99) Assessment and Plan Assessmemt and Plan Problems Medical Problems: (1) C. difficile colitis Status: Acute (2) Chronic kidney disease Status: Acute (3) Dehydration Status: Acute (4) Diarrhea Status: Acute (5) Hyperkalemia Status: Acute Comment Review of Relevant I have reviewed the following items lilli (where applicable) has been applied. Labs Laboratory Tests Test 04/11/20 14:35 04/11/20 20:37 04/12/20 03:10 White Blood Count 6.9 x10^3/uL (4.0-11.0) 6.9 x10^3/uL (4.0-11.0) Red Blood Count 2.68 x10^6/uL (4.30-5.70) 2.62 x10^6/uL (4.30-5.70) Hemoglobin 8.0 g/dL (13.0-17.5) 7.8 g/dL (13.0-17.5) Hematocrit 23.5 % (39.0-53.0) 22.9 % (39.0-53.0) Mean Corpuscular Volume 88 fL (79-100) 87 fL (79-100) Mean Corpuscular Hemoglobin 30 pg (25-35) 30 pg (25-35) Mean Corpuscular Hemoglobin Concent 34 g/dL (31-37) 34 g/dL (31-37) Red Cell Distribution Width 14.4 % (11.5-14.5) 14.3 % (11.5-14.5) Platelet Count 280 x10^3/uL (140-400) 279 x10^3/uL (140-400) Neutrophils (%) (Auto) 65 % (31-73) 65 % (31-73) Lymphocytes (%) (Auto) 18 % (24-48) 20 % (24-48) Monocytes (%) (Auto) 12 % (0-9) 10 % (0-9) Eosinophils (%) (Auto) 4 % (0-3) 4 % (0-3) Basophils (%) (Auto) 1 % (0-3) 1 % (0-3) Neutrophils # (Auto) 4.4 x10^3/uL (1.8-7.7) 4.5 x10^3/uL (1.8-7.7) Lymphocytes # (Auto) 1.2 x10^3/uL (1.0-4.8) 1.3 x10^3/uL (1.0-4.8) Monocytes # (Auto) 0.8 x10^3/uL (0.0-1.1) 0.7 x10^3/uL (0.0-1.1) Eosinophils # (Auto) 0.3 x10^3/uL (0.0-0.7) 0.3 x10^3/uL (0.0-0.7) Basophils # (Auto) 0.1 x10^3/uL (0.0-0.2) 0.1 x10^3/uL (0.0-0.2) Erythrocyte Sedimentation Rate 76 (0-15) Sodium Level 135 mmol/L (136-145) 138 mmol/L (136-145) Potassium Level 5.5 mmol/L (3.5-5.1) 4.9 mmol/L (3.5-5.1) Chloride Level 101 mmol/L (98-107) 105 mmol/L (98-107) Carbon Dioxide Level 27 mmol/L (21-32) 24 mmol/L (21-32) Anion Gap 7 (6-14) 9 (6-14) Blood Urea Nitrogen 41 mg/dL (8-26) 38 mg/dL (8-26) Creatinine 1.6 mg/dL (0.7-1.3) 1.4 mg/dL (0.7-1.3) Estimated GFR (Cockcroft-Gault) 46.6 54.3 BUN/Creatinine Ratio 26 (6-20) Glucose Level 267 mg/dL (70-99) 139 mg/dL (70-99) Lactic Acid Level 1.3 mmol/L (0.4-2.0) Calcium Level 8.8 mg/dL (8.5-10.1) 8.5 mg/dL (8.5-10.1) Total Bilirubin 0.2 mg/dL (0.2-1.0) Aspartate Amino Transf (AST/SGOT) 16 U/L (15-37) Alanine Aminotransferase (ALT/SGPT) 27 U/L (16-63) Alkaline Phosphatase 123 U/L (46-116) C-Reactive Protein, Quantitative 71.3 mg/L (0-3.3) Total Protein 6.7 g/dL (6.4-8.2) Albumin 3.1 g/dL (3.4-5.0) Albumin/Globulin Ratio 0.9 (1.0-1.7) Procalcitonin < 0.10 ng/mL (0.00-0.10) Glucose (Fingerstick) 152 mg/dL (70-99) Laboratory Tests Test 04/11/20 14:35 04/11/20 20:37 04/12/20 03:10 White Blood Count 6.9 x10^3/uL (4.0-11.0) 6.9 x10^3/uL (4.0-11.0) Red Blood Count 2.68 x10^6/uL (4.30-5.70) 2.62 x10^6/uL (4.30-5.70) Hemoglobin 8.0 g/dL (13.0-17.5) 7.8 g/dL (13.0-17.5) Hematocrit 23.5 % (39.0-53.0) 22.9 % (39.0-53.0) Mean Corpuscular Volume 88 fL (79-100) 87 fL (79-100) Mean Corpuscular Hemoglobin 30 pg (25-35) 30 pg (25-35) Mean Corpuscular Hemoglobin Concent 34 g/dL (31-37) 34 g/dL (31-37) Red Cell Distribution Width 14.4 % (11.5-14.5) 14.3 % (11.5-14.5) Platelet Count 280 x10^3/uL (140-400) 279 x10^3/uL (140-400) Neutrophils (%) (Auto) 65 % (31-73) 65 % (31-73) Lymphocytes (%) (Auto) 18 % (24-48) 20 % (24-48) Monocytes (%) (Auto) 12 % (0-9) 10 % (0-9) Eosinophils (%) (Auto) 4 % (0-3) 4 % (0-3) Basophils (%) (Auto) 1 % (0-3) 1 % (0-3) Neutrophils # (Auto) 4.4 x10^3/uL (1.8-7.7) 4.5 x10^3/uL (1.8-7.7) Lymphocytes # (Auto) 1.2 x10^3/uL (1.0-4.8) 1.3 x10^3/uL (1.0-4.8) Monocytes # (Auto) 0.8 x10^3/uL (0.0-1.1) 0.7 x10^3/uL (0.0-1.1) Eosinophils # (Auto) 0.3 x10^3/uL (0.0-0.7) 0.3 x10^3/uL (0.0-0.7) Basophils # (Auto) 0.1 x10^3/uL (0.0-0.2) 0.1 x10^3/uL (0.0-0.2) Erythrocyte Sedimentation Rate 76 (0-15) Sodium Level 135 mmol/L (136-145) 138 mmol/L (136-145) Potassium Level 5.5 mmol/L (3.5-5.1) 4.9 mmol/L (3.5-5.1) Chloride Level 101 mmol/L (98-107) 105 mmol/L (98-107) Carbon Dioxide Level 27 mmol/L (21-32) 24 mmol/L (21-32) Anion Gap 7 (6-14) 9 (6-14) Blood Urea Nitrogen 41 mg/dL (8-26) 38 mg/dL (8-26) Creatinine 1.6 mg/dL (0.7-1.3) 1.4 mg/dL (0.7-1.3) Estimated GFR (Cockcroft-Gault) 46.6 54.3 BUN/Creatinine Ratio 26 (6-20) Glucose Level 267 mg/dL (70-99) 139 mg/dL (70-99) Lactic Acid Level 1.3 mmol/L (0.4-2.0) Calcium Level 8.8 mg/dL (8.5-10.1) 8.5 mg/dL (8.5-10.1) Total Bilirubin 0.2 mg/dL (0.2-1.0) Aspartate Amino Transf (AST/SGOT) 16 U/L (15-37) Alanine Aminotransferase (ALT/SGPT) 27 U/L (16-63) Alkaline Phosphatase 123 U/L (46-116) C-Reactive Protein, Quantitative 71.3 mg/L (0-3.3) Total Protein 6.7 g/dL (6.4-8.2) Albumin 3.1 g/dL (3.4-5.0) Albumin/Globulin Ratio 0.9 (1.0-1.7) Procalcitonin < 0.10 ng/mL (0.00-0.10) Glucose (Fingerstick) 152 mg/dL (70-99) Medications Current Medications Morphine Sulfate (Morphine Sulfate) 4 mg PRN Q15MIN PRN IV/SQ PAIN GREATER THAN 3/10; Start 04/11/20 at 13:15; Stop 04/12/20 at 13:14 Ondansetron HCl (Zofran) 4 mg PRN Q8HRS PRN IV NAUSEA/VOMITING; Start 04/11/20 at 17:45; Stop 04/12/20 at 17:44 Morphine Sulfate (Morphine Sulfate) 2 mg PRN Q2HR PRN IV PAIN; Start 04/11/20 at 17:45; Stop 04/12/20 at 17:44 Acetaminophen (Tylenol) 650 mg PRN Q4HRS PRN PO FEVER > 100.3'F; Start 04/11/20 at 17:45; Stop 04/11/20 at 18:28; Status DC Sodium Chloride 1,000 ml @ 125 mls/hr 1X ONCE IV Last administered on 04/11/20at 17:45; Start 04/11/20 at 17:45; Stop 04/12/20 at 01:44; Status DC Insulin Human Lispro (HumaLOG) 0-5 UNITS TIDWMEALS SQ ; Start 04/12/20 at 08:00 Dextrose (Dextrose 50%-Water Syringe) 12.5 gm PRN Q15MIN PRN IV SEE COMMENTS; Start 04/11/20 at 17:45 Acetaminophen (Tylenol) 650 mg PRN Q4HRS PRN PO TEMP OVER 100.4F OR MILD PAIN; Start 04/11/20 at 18:30; Status Cancel Aspirin (Ecotrin) 81 mg DAILYWBKFT PO ; Start 04/12/20 at 08:00 Carvedilol (Coreg) 12.5 mg BIDWMEALS PO Last administered on 04/11/20at 20:01; Start 04/11/20 at 19:00 Enoxaparin Sodium (Lovenox 40mg Syringe) 40 mg Q24H SQ Last administered on 04/11/20at 22:00; Start 04/11/20 at 21:00 Ertapenem (INVanz 1GM IVPB for PT ASSIST PROGRAM) 1 gm DAILY10 IV ; Start 04/12/20 at 10:00; Status UNV Acetaminophen/ Hydrocodone Bitart (Lortab 5/325) 1 tab PRN Q6HRS PRN PO MODE RATE TO SEVERE PAIN; Start 04/11/20 at 18:30 Lactobacillus Rhamnosus (Culturelle) 1 cap BID PO Last administered on 04/11/20at 21:57; Start 04/11/20 at 21:00 Pantoprazole Sodium (Protonix) 40 mg DAILYAC PO ; Start 04/12/20 at 07:30 Insulin Glargine (Lantus Syringe) 24 unit QHS SQ Last administered on 04/11/20at 21:59; Start 04/11/20 at 21:00 Vancomycin HCl (Vancomycin Oral Solution) 125 mg [id number] PO Last administered on 04/11/20at 21:57; Start 04/11/20 at 21:00 Meropenem 500 mg/ Sodium Chloride 50 ml @ 100 mls/hr Q6HRS IV Last administered on 04/12/20at 05:36; Start 04/11/20 at 19:00 Sodium Chloride (Normal Saline Flush) 3 ml QSHIFT PRN IV AFTER MEDS AND BLOOD DRAWS; Start 04/11/20 at 18:30 Sodium Chloride 1,000 ml @ 100 mls/hr Q10H IV Last administered on 04/12/20at 05:41; Start 04/11/20 at 18:26 Ondansetron HCl (Zofran) 4 mg PRN Q4HRS PRN IV NAUSEA/VOMITING; Start 04/11/20 at 18:30 Acetaminophen (Tylenol) 650 mg PRN Q4HRS PRN PO TEMP OVER 100.4F OR MILD PAIN; Start 04/11/20 at 18:30 Clonidine HCl (Catapres) 0.1 mg PRN Q6HRS PRN PO SBP>160 OR DBP>90; Start 04/11/20 at 18:30 Albuterol Sulfate (Ventolin Neb Soln) 2.5 mg PRN Q4HRS PRN NEB SHORTNESS OF BREATH; Start 04/11/20 at 18:30 Guaifenesin (Robitussin) 200 mg PRN Q4HRS PRN PO COUGH; Start 04/11/20 at 18:30 Lorazepam (Ativan Inj) 2 mg PRN Q4HRS PRN IV ANXIETY / AGITATION; Start 04/11/20 at 18:30 Active Scripts Active Aspirin Ec (Aspirin) 81 Mg Tablet.dr 81 Mg PO DAILYWBKFT 30 Days Carvedilol (Carvedilol) 12.5 Mg Tablet 12.5 Mg PO BIDWMEALS 30 Days Invanz (Ertapenem Sodium) 1 Gm Vial 1 Gm IJ DAILY10 14 Days Culturelle (Lactobacillus Rhamnosus Gg) 1 Each Cap.sprink 1 Cap PO BID 30 Days Tylenol (Acetaminophen) 325 Mg Tablet 650 Mg PO PRN Q4HRS PRN 30 Days Hydrocodone-Apap 5-325 (Hydrocodone Bit/Acetaminophen) 1 Tab Tablet 1 Tab PO PRN Q6HRS PRN 14 Days Enoxaparin Sodium 40 Mg/0.4 Ml Disp.syrin 40 Mg SQ Q24H 30 Days Reported Vancomycin Hcl 125 Mg Capsule 1 Cap PO QID Pantoprazole Sodium (Pantoprazole Sodium) 40 Mg Tablet. 40 Mg PO DAILYAC Lantus Solostar (Insulin Glargine,Hum.rec.anlog) 100 Unit/1 Ml Insuln.pen 24 Unit SQ QHS Humalog (Insulin Lispro) 100 Unit/1 Ml Vial 20 Unit SQ TIDPC Vitals/I & O Vital Sign - Last 24 Hours 504/11/20 04/11/20 04/11/20 12:35 13:30 14:30 15:30 Temp 98.8 98.8 Pulse 85 84 76 74 Resp 18 18 18 18 B/P (MAP) 146/74 (98) 146/74 (98) 138/68 (91) 140/71 (94) Pulse Ox 99 98 99 98 O2 Delivery Room Air Room Air Room Air Room Air 04/11/20 04/11/20 04/11/20 04/11/20 16:30 17:30 18:30 19:00 Pulse 76 78 72 72 Resp 18 18 17 17 B/P (MAP) 145/73 (97) 132/64 (86) 134/82 (99) 130/84 (99) Pulse Ox 98 96 99 98 O2 Delivery Room Air Room Air Room Air Room Air 04/11/20 04/11/20 04/11/20 04/12/20 20:01 20:07 23:00 03:00 Temp 98.5 98.5 98.5 98.5 Pulse 72 77 72 Resp 19 19 B/P (MAP) 130/84 138/79 (98) 118/74 (89) Pulse Ox 99 97 O2 Delivery Room Air Room Air Room Air l Intake and Output 04/11/20 04/11/20 04/12/20 15:00 23:00 07:00 Intake Total 50 ml 150 ml Balance 50 ml 150 ml SHALOM KNIGHT MD April 12, 2020 08:17
[2020-04-12] MEDS: VANCOMYCIN 125 MG/2.5 ML ORAL SOLUTION. PO SCH ×4 (08:33→21:01)
[2020-04-12] MEDS: CARVEDILOL 12.5 MG TABLET. PO SCH ×2 (08:33→17:38)
[2020-04-12] MEDS: ASPIRIN ENTERIC COATED 81 MG TABLET.DR. PO SCH (08:33)
[2020-04-12] MEDS: LACTOBACILLUS RHAMNOSUS GG 1 CAPSULE. PO SCH ×2 (08:33→21:01)
[2020-04-12] MEDS: PANTOPRAZOLE 40 MG TABLET.DR. PO SCH (08:33)
--- NOTE | 2020-04-12 09:35 | PDOC2 ---
GI CONSULT Reason For Consult: C Diff colitis HPI: HPI: 45 y/o male w/ right foot wound and fifth ray amputation on antibiotics. Recent C Diff infection - says was diagnosed at wound care before admitted to the hospital last time (+ here on 03/19). Was taking vanco pills at home but diarrhea didn't get any better - sometimes really bad during the night, but sometimes not so bad during the day. On vanco susp here w/ orders to start cholestyramine as well. Might have had similar symptoms when on long-term antibiotics about 3 years ago but doesn't think he was ever checked for C Diff then. Typically no issues w/ diarrhea. Other notes mention h/o non-compliance. Only occasional heartburn, untreated. No dysphagia, n/v, change in appetite, abd pain (though "sides were sore" when diarrhea was worse), constipation, hemat ochezia, or melena. Probably has gained weight. Might have had an EGD years ago because he might have been diagnosed with an ul cer once. No previous colonoscopy. S/p cholecystectomy - not sure about stones. Denies liver and pancreas history. On ASA. Chronically anemic, average Hgb in 8-9 range. PMH: PMH: HTN, IDDM, peripheral neuropathy, right vision loss, CKD, osteomyelitis, C Diff, depression cholecystectomy, appendectomy, right toe amputation, RLE skin graft, right ca taract removal and right eye surgeries, FH: Family History: No pertinent hx (deneis GI cancers) Social History: Smoke: No ALCOHOL: none Drugs: None ROS: GEN: Denies fevers, chills, sweats HEENT: +vision loss CV: Denies chest pain RESP: Denies shortness of air, cough GI: Per HPI : Denies hematuria, dysuria ENDO: +weight gain NEURO: Denies confusion, dizziness MSK: Denies weakness, joint pain/swelling SKIN: right foot wound Vitals: Vitals: Vital Signs Date Time Temp Pulse Resp B/P (MAP) Pulse Ox O2 Delivery O2 Flow Rate FiO2 04/12/20 08:33 74 123/69 04/12/20 08:00 Room Air 04/12/20 07:00 98.0 16 95 98.0 Labs: Labs: Laboratory Tests Test 04/11/20 14:35 04/11/20 20:37 04/12/20 03:10 White Blood Count 6.9 x10^3/uL (4.0-11.0) 6.9 x10^3/uL (4.0-11.0) Red Blood Count 2.68 x10^6/uL (4.30-5.70) 2.62 x10^6/uL (4.30-5.70) Hemoglobin 8.0 g/dL (13.0-17.5) 7.8 g/dL (13.0-17.5) Hematocrit 23.5 % (39.0-53.0) 22.9 % (39.0-53.0) Mean Corpuscular Volume 88 fL (79-100) 87 fL (79-100) Mean Corpuscular Hemoglobin 30 pg (25-35) 30 pg (25-35) Mean Corpuscular Hemoglobin Concent 34 g/dL (31-37) 34 g/dL (31-37) Red Cell Distribution Width 14.4 % (11.5-14.5) 14.3 % (11.5-14.5) Platelet Count 280 x10^3/uL (140-400) 279 x10^3/uL (140-400) Neutrophils (%) (Auto) 65 % (31-73) 65 % (31-73) Lymphocytes (%) (Auto) 18 % (24-48) 20 % (24-48) Monocytes (%) (Auto) 12 % (0-9) 10 % (0-9) Eosinophils (%) (Auto) 4 % (0-3) 4 % (0-3) Basophils (%) (Auto) 1 % (0-3) 1 % (0-3) Neutrophils # (Auto) 4.4 x10^3/uL (1.8-7.7) 4.5 x10^3/uL (1.8-7.7) Lymphocytes # (Auto) 1.2 x10^3/uL (1.0-4.8) 1.3 x10^3/uL (1.0-4.8) Monocytes # (Auto) 0.8 x10^3/uL (0.0-1.1) 0.7 x10^3/uL (0.0-1.1) Eosinophils # (Auto) 0.3 x10^3/uL (0.0-0.7) 0.3 x10^3/uL (0.0-0.7) Basophils # (Auto) 0.1 x10^3/uL (0.0-0.2) 0.1 x10^3/uL (0.0-0.2) Erythrocyte Sedimentation Rate 76 (0-15) Sodium Level 135 mmol/L (136-145) 138 mmol/L (136-145) Potassium Level 5.5 mmol/L (3.5-5.1) 4.9 mmol/L (3.5-5.1) Chloride Level 101 mmol/L (98-107) 105 mmol/L (98-107) Carbon Dioxide Level 27 mmol/L (21-32) 24 mmol/L (21-32) Anion Gap 7 (6-14) 9 (6-14) Blood Urea Nitrogen 41 mg/dL (8-26) 38 mg/dL (8-26) Creatinine 1.6 mg/dL (0.7-1.3) 1.4 mg/dL (0.7-1.3) Estimated GFR (Cockcroft-Gault) 46.6 54.3 BUN/Creatinine Ratio 26 (6-20) Glucose Level 267 mg/dL (70-99) 139 mg/dL (70-99) Lactic Acid Level 1.3 mmol/L (0.4-2.0) Calcium Level 8.8 mg/dL (8.5-10.1) 8.5 mg/dL (8.5-10.1) Total Bilirubin 0.2 mg/dL (0.2-1.0) Aspartate Amino Transf (AST/SGOT) 16 U/L (15-37) Alanine Aminotransferase (ALT/SGPT) 27 U/L (16-63) Alkaline Phosphatase 123 U/L (46-116) C-Reactive Protein, Quantitative 71.3 mg/L (0-3.3) Total Protein 6.7 g/dL (6.4-8.2) Albumin 3.1 g/dL (3.4-5.0) Albumin/Globulin Ratio 0.9 (1.0-1.7) Procalcitonin < 0.10 ng/mL (0.00-0.10) Glucose (Fingerstick) 152 mg/dL (70-99) Allergies: Coded Allergies: sulfamethoxazole (Verified Allergy, Severe, Rash, 12/23/19) HIVES, ITCHINESS trimethoprim (Verified Allergy, Severe, Rash, 12/23/19) HIVES, ITCHINESS diphenhydramine (Verified Allergy, Intermediate, Hives, 12/23/19) erythromycin base (Verified Allergy, Intermediate, 03/27/20) lisinopril (Verified Allergy, Intermediate, 03/27/20) Medications: Current Medications Medications (Trade) Dose Ordered Sig/Fahad Route PRN Reason Start Time Stop Time Status Last Admin Dose Admin Sodium Chloride 1,000 ml @ 125 mls/hr 1X ONCE IV 04/11/20 17:45 04/12/20 01:44 DC 04/11/20 17:45 Aspirin (Ecotrin) 81 mg DAILYWBKFT PO 04/12/20 08:00 04/12/20 08:33 Carvedilol (Coreg) 12.5 mg BIDWMEALS PO 04/11/20 19:00 04/12/20 08:33 Enoxaparin Sodium (Lovenox 40mg Syringe) 40 mg Q24H SQ 04/11/20 21:00 04/11/20 22:00 Lactobacillus Rhamnosus (Culturelle) 1 cap BID PO 04/11/20 21:00 04/12/20 08:33 Pantoprazole Sodium (Protonix) 40 mg DAILYAC PO 04/12/20 07:30 04/12/20 08:33 Insulin Glargine (Lantus Syringe) 24 unit QHS SQ 04/11/20 21:00 04/11/20 21:59 Vancomycin HCl (Vancomycin Oral Solution) 125 mg [id number] PO 04/11/20 21:00 04/12/20 08:33 Meropenem 500 mg/ Sodium Chloride 50 ml @ 100 mls/hr Q6HRS IV 04/11/20 19:00 04/12/20 05:36 Sodium Chloride 1,000 ml @ 100 mls/hr Q10H IV 04/11/20 18:26 04/12/20 05:41 Imaging: Imaging: - PE: GEN: NAD HEENT: Atraumatic LUNGS: CTAB HEART: RRR ABD: NABS, S/ND/NT EXTREMITY: wound vac right foot under sock SKIN: No rashes, no jaundice NEURO/PSYCH: A & O 3 A/P: A/P: Diarrhea, recent h/o C Diff Recent right foot fifth ray amputation/wound on atbx per ID Chronic anemia, DM, CKD Occasional heartburn, h/o PUD - on PPI here CRC screen - average risk S/p cholecystectomy -- ID following - on vanco susp and adding cholestyramine. Check iron profile for completeness. Other per Dr. Ruby. TRISTEN OBRIEN April 12, 2020 09:35
[2020-04-12] MEDS ORDERED: ERTAPENEM 1 GM IV SCH (10:00)
--- NOTE | 2020-04-12 11:04 | PDOC ---
Infectious Disease Note Subjective: Subjective 45-year-old male well-known to our service from previous admission Recently discharged from [facility] Please review last ID consult for full detail See last ID note for full details Patient was discharged on IV Invanz and p.o. vancomycin 125 mg p.o. 4 times daily He returns to the ER with complaints of worsening diarrhea, abdominal pain like a band, Denies fever, nausea, vomiting, shortness of breath, cough, headache, sore throat, rash Otherwise as above Vital Signs: Vital Signs Vital Signs Date Time Temp Pulse Resp B/P (MAP) Pulse Ox O2 Delivery O2 Flow Rate FiO2 04/12/20 08:33 74 123/69 04/12/20 08:00 Room Air 04/12/20 07:00 98.0 16 95 98.0 Physical Exam: PHYSICAL EXAM GENERAL: Alert gentleman, not in distress. HEENT: No icterus NECK: Supple, no JVP, no lymphadenopathy. LUNGS: Clear. HEART: S1, S2 regular. ABDOMEN: Benign. EXTREMITIES: No edema or cyanosis. SKIN: Unremarkable. Right lateral foot wound significant improvement lower part of incision has small wound though probes to the bone, a small sliver exposed NEUROLOGIC: alert, awake and appropriate. No focal neurologic deficit. PICC line site is unremarkable. Medications: Inpatient Meds: Current Medications Medications (Trade) Dose Ordered Sig/Fahad Start Time Stop Time Status Last Admin Dose Admin Acetaminophen (Tylenol) 650 mg PRN Q4HRS PRN 04/11/20 18:30 Acetaminophen/ Hydrocodone Bitart (Lortab 5/325) 1 tab PRN Q6HRS PRN 04/11/20 18:30 Albuterol Sulfate (Ventolin Neb Soln) 2.5 mg PRN Q4HRS PRN 04/11/20 18:30 Aspirin (Ecotrin) 81 mg DAILYWBKFT 04/12/20 08:00 04/12/20 08:33 81 MG Carvedilol (Coreg) 12.5 mg BIDWMEALS 04/11/20 19:00 04/12/20 08:33 12.5 MG Clonidine HCl (Catapres) 0.1 mg PRN Q6HRS PRN 04/11/20 18:30 Dextrose (Dextrose 50%-Water Syringe) 12.5 gm PRN Q15MIN PRN 04/11/20 17:45 Enoxaparin Sodium (Lovenox 40mg Syringe) 40 mg Q24H 04/11/20 21:00 04/11/20 22:00 40 MG Ertapenem (INVanz 1GM IVPB for PT ASSIST PROGRAM) 1 gm DAILY10 04/12/20 10:00 UNV Guaifenesin (Robitussin) 200 mg PRN Q4HRS PRN 04/11/20 18:30 Insulin Glargine (Lantus Syringe) 24 unit QHS 04/11/20 21:00 04/11/20 21:59 24 UNIT Insulin Human Lispro (HumaLOG) 0-5 UNITS TIDWMEALS 04/12/20 08:00 Lactobacillus Rhamnosus (Culturelle) 1 cap BID 04/11/20 21:00 04/12/20 08:33 1 CAP Lorazepam (Ativan Inj) 2 mg PRN Q4HRS PRN 04/11/20 18:30 Meropenem 500 mg/ Sodium Chloride 50 ml @ 100 mls/hr Q6HRS 04/11/20 19:00 04/12/20 05:36 100 MLS/HR Morphine Sulfate (Morphine Sulfate) 2 mg PRN Q2HR PRN 04/11/20 17:45 04/12/20 17:44 Ondansetron HCl (Zofran) 4 mg PRN Q4HRS PRN 04/11/20 18:30 Pantoprazole Sodium (Protonix) 40 mg DAILYAC 04/12/20 07:30 04/12/20 08:33 40 MG Sodium Chloride 1,000 ml @ 100 mls/hr Q10H 04/11/20 18:26 04/12/20 05:41 100 MLS/HR Sodium Chloride (Normal Saline Flush) 3 ml QSHIFT PRN 04/11/20 18:30 Vancomycin HCl (Vancomycin Oral Solution) 125 mg [id number] 04/11/20 21:00 04/12/20 08:33 125 MG Labs: Lab Laboratory Tests Test 04/11/20 14:35 04/11/20 20:37 04/12/20 03:10 White Blood Count 6.9 x10^3/uL (4.0-11.0) 6.9 x10^3/uL (4.0-11.0) Red Blood Count 2.68 x10^6/uL (4.30-5.70) 2.62 x10^6/uL (4.30-5.70) Hemoglobin 8.0 g/dL (13.0-17.5) 7.8 g/dL (13.0-17.5) Hematocrit 23.5 % (39.0-53.0) 22.9 % (39.0-53.0) Mean Corpuscular Volume 88 fL (79-100) 87 fL (79-100) Mean Corpuscular Hemoglobin 30 pg (25-35) 30 pg (25-35) Mean Corpuscular Hemoglobin Concent 34 g/dL (31-37) 34 g/dL (31-37) Red Cell Distribution Width 14.4 % (11.5-14.5) 14.3 % (11.5-14.5) Platelet Count 280 x10^3/uL (140-400) 279 x10^3/uL (140-400) Neutrophils (%) (Auto) 65 % (31-73) 65 % (31-73) Lymphocytes (%) (Auto) 18 % (24-48) 20 % (24-48) Monocytes (%) (Auto) 12 % (0-9) 10 % (0-9) Eosinophils (%) (Auto) 4 % (0-3) 4 % (0-3) Basophils (%) (Auto) 1 % (0-3) 1 % (0-3) Neutrophils # (Auto) 4.4 x10^3/uL (1.8-7.7) 4.5 x10^3/uL (1.8-7.7) Lymphocytes # (Auto) 1.2 x10^3/uL (1.0-4.8) 1.3 x10^3/uL (1.0-4.8) Monocytes # (Auto) 0.8 x10^3/uL (0.0-1.1) 0.7 x10^3/uL (0.0-1.1) Eosinophils # (Auto) 0.3 x10^3/uL (0.0-0.7) 0.3 x10^3/uL (0.0-0.7) Basophils # (Auto) 0.1 x10^3/uL (0.0-0.2) 0.1 x10^3/uL (0.0-0.2) Erythrocyte Sedimentation Rate 76 (0-15) Sodium Level 135 mmol/L (136-145) 138 mmol/L (136-145) Potassium Level 5.5 mmol/L (3.5-5.1) 4.9 mmol/L (3.5-5.1) Chloride Level 101 mmol/L (98-107) 105 mmol/L (98-107) Carbon Dioxide Level 27 mmol/L (21-32) 24 mmol/L (21-32) Anion Gap 7 (6-14) 9 (6-14) Blood Urea Nitrogen 41 mg/dL (8-26) 38 mg/dL (8-26) Creatinine 1.6 mg/dL (0.7-1.3) 1.4 mg/dL (0.7-1.3) Estimated GFR (Cockcroft-Gault) 46.6 54.3 BUN/Creatinine Ratio 26 (6-20) Glucose Level 267 mg/dL (70-99) 139 mg/dL (70-99) Lactic Acid Level 1.3 mmol/L (0.4-2.0) Calcium Level 8.8 mg/dL (8.5-10.1) 8.5 mg/dL (8.5-10.1) Total Bilirubin 0.2 mg/dL (0.2-1.0) Aspartate Amino Transf (AST/SGOT) 16 U/L (15-37) Alanine Aminotransferase (ALT/SGPT) 27 U/L (16-63) Alkaline Phosphatase 123 U/L (46-116) C-Reactive Protein, Quantitative 71.3 mg/L (0-3.3) Total Protein 6.7 g/dL (6.4-8.2) Albumin 3.1 g/dL (3.4-5.0) Albumin/Globulin Ratio 0.9 (1.0-1.7) Procalcitonin < 0.10 ng/mL (0.00-0.10) Glucose (Fingerstick) 152 mg/dL (70-99) Objective: Assessment: Diarrhea, Recent C. difficile colitis, p.o. 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 Diabetes. Hypertension. Neuropathy. History of noncompliance. Plan: Plan of Care Continue meropenem. Continue p.o. vancomycin. Continue local wound care Repeat C. difficile pending Add cholestyramine Continue fluid and electrolyte balance Okay to discharge back on Invanz and p.o. Vanco with wound VAC hopefully tomorrow Continue supportive care Discussed with RN and MARIO Davis MD April 12, 2020 11:03
[2020-04-12 11:47] VITALS: BP 118/68
--- NOTE | 2020-04-12 12:50 | PDOC2 ---
CONSULT Date of Consult Date of Consult DATE: 04/12/20 TIME: 12:45 Reason for Consult Reason for Consult: NISSA Referring Physician Referring Physician: FRANCIS Identification/Chief Complaint Chief Complaint WEAKNESS Source Source: Chart review, Patient History of Present Illness Reason for Visit: THIS IS A 45 YR OLD WITH WEAKNESS. ALSO DIARRHEA FOR ABOUT 3 WEEKS. HAS BEEN ON ANTIBIOTICS FOR RIGHT FOOT TOE WOUND. UNDERWENT 5TH TOE RAY AMP A FEW WEEKS AGO. CR OF 1.6. BASELINE CKD STAGE 3 WITH CR OF 1.2-1.5. HAS RECENT HX OF C DIF WELL. NO NEPHROTOXINS NOTED AND NO OTHER HX REPORTED Past Medical History Cardiovascular: HTN, Hyperlipidemia Pulmonary: Asthma CENTRAL NERVOUS SYSTEM: Periperal neuropathy GI: No pertinent hx Heme/Onc: Anemia NOS Hepatobiliary: Cholelithiasis Psych: Depression Rheumatologic: No pertinent hx Infectious disease: No pertinent hx Renal/: Chronic renal insuff Endocrine: Diabetes Past Surgical History Past Surgical History: Appendectomy, Cholecystectomy, Cataract Removal, Other Family History Family History: Diabetes, Heart Disease Social History No ALCOHOL: none Drugs: None Lives: with Family Current Problem List Problem List Problems Medical Problems: (1) C. difficile colitis Status: Acute (2) Chronic kidney disease Status: Acute (3) Dehydration Status: Acute (4) Diarrhea Status: Acute (5) Hyperkalemia Status: Acute Current Medications Current Medications Current Medications Morphine Sulfate (Morphine Sulfate) 4 mg PRN Q15MIN PRN IV/SQ PAIN GREATER THAN 3/10; Start 04/11/20 at 13:15; Stop 04/12/20 at 13:14 Ondansetron HCl (Zofran) 4 mg PRN Q8HRS PRN IV NAUSEA/VOMITING; Start 04/11/20 at 17:45; Stop 04/12/20 at 17:44 Morphine Sulfate (Morphine Sulfate) 2 mg PRN Q2HR PRN IV PAIN; Start 04/11/20 at 17:45; Stop 04/12/20 at 17:44 Acetaminophen (Tylenol) 650 mg PRN Q4HRS PRN PO FEVER > 100.3'F; Start 04/11/20 at 17:45; Stop 04/11/20 at 18:28; Status DC Sodium Chloride 1,000 ml @ 125 mls/hr 1X ONCE IV Last administered on 04/11/20at 17:45; Start 04/11/20 at 17:45; Stop 04/12/20 at 01:44; Status DC Insulin Human Lispro (HumaLOG) 0-5 UNITS TIDWMEALS SQ ; Start 04/12/20 at 08:00 Dextrose (Dextrose 50%-Water Syringe) 12.5 gm PRN Q15MIN PRN IV SEE COMMENTS; Start 04/11/20 at 17:45 Acetaminophen (Tylenol) 650 mg PRN Q4HRS PRN PO TEMP OVER 100.4F OR MILD PAIN; Start 04/11/20 at 18:30; Status Cancel Aspirin (Ecotrin) 81 mg DAILYWBKFT PO Last administered on 04/12/20at 08:33; Start 04/12/20 at 08:00 Carvedilol (Coreg) 12.5 mg BIDWMEALS PO Last administered on 04/12/20at 08:33; Start 04/11/20 at 19:00 Enoxaparin Sodium (Lovenox 40mg Syringe) 40 mg Q24H SQ Last administered on 04/11/20at 22:00; Start 04/11/20 at 21:00 Ertapenem (INVanz 1GM IVPB for PT ASSIST PROGRAM) 1 gm DAILY10 IV ; Start 04/12/20 at 10:00; Status UNV Acetaminophen/ Hydrocodone Bitart (Lortab 5/325) 1 tab PRN Q6HRS PRN PO MODERATE TO SEVERE PAIN; Start 04/11/20 at 18:30 Lactobacillus Rhamnosus (Culturelle) 1 cap BID PO Last administered on 04/12/20at 08:33; Start 04/11/20 at 21:00 Pantoprazole Sodium (Protonix) 40 mg DAILYAC PO Last administered on 04/12/20at 08:33; Start 04/12/20 at 07:30 Insulin Glargine (Lantus Syringe) 24 unit QHS SQ Last administered on 04/11/20at 21:59; Start 04/11/20 at 21:00 Vancomycin HCl (Vancomycin Oral Solution) 125 mg [id number] PO Last administered on 04/12/20at 08:33; Start 04/11/20 at 21:00 Meropenem 500 mg/ Sodium Chloride 50 ml @ 100 mls/hr Q6HRS IV Last administered on 04/12/20at 05:36; Start 04/11/20 at 19:00 Sodium Chloride (Normal Saline Flush) 3 ml QSHIFT PRN IV AFTER MEDS AND BLOOD DRAWS; Start 04/11/20 at 18:30 Sodium Chloride 1,000 ml @ 100 mls/hr Q10H IV Last administered on 04/12/20at 05:41; Start 04/11/20 at 18:26 Ondansetron HCl (Zofran) 4 mg PRN Q4HRS PRN IV NAUSEA/VOMITING; Start 04/11/20 at 18:30 Acetaminophen (Tylenol) 650 mg PRN Q4HRS PRN PO TEMP OVER 100.4F OR MILD PAIN; Start 04/11/20 at 18:30 Clonidine HCl (Catapres) 0.1 mg PRN Q6HRS PRN PO SBP>160 OR DBP>90; Start 04/11/20 at 18:30 Albuterol Sulfate (Ventolin Neb Soln) 2.5 mg PRN Q4HRS PRN NEB SHORTNESS OF BREATH; Start 04/11/20 at 18:30 Guaifenesin (Robitussin) 200 mg PRN Q4HRS PRN PO COUGH; Start 04/11/20 at 18:30 Lorazepam (Ativan Inj) 2 mg PRN Q4HRS PRN IV ANXIETY / AGITATION; Start 04/11/20 at 18:30 Cholestyramine Resin (Questran Light) 4 gm Q12H PO ; Start 04/12/20 at 19:00 Active Scripts Active Aspirin Ec (Aspirin) 81 Mg Tablet.dr 81 Mg PO DAILYWBKFT 30 Days Carvedilol (Carvedilol) 12.5 Mg Tablet 12.5 Mg PO BIDWMEALS 30 Days Invanz (Ertapenem Sodium) 1 Gm Vial 1 Gm IJ DAILY10 14 Days Culturelle (Lactobacillus Rhamnosus Gg) 1 Each Cap.sprink 1 Cap PO BID 30 Days Tylenol (Acetaminophen) 325 Mg Tablet 650 Mg PO PRN Q4HRS PRN 30 Days Hydrocodone-Apap 5-325 (Hydrocodone Bit/Acetaminophen) 1 Tab Tablet 1 Tab PO PRN Q6HRS PRN 14 Days Enoxaparin Sodium 40 Mg/0.4 Ml Disp.syrin 40 Mg SQ Q24H 30 Days Reported Vancomycin Hcl 125 Mg Capsule 1 Cap PO QID Pantoprazole Sodium (Pantoprazole Sodium) 40 Mg Tablet.dr 40 Mg PO DAILYAC Lantus Solostar (Insulin Glargine,Hum.rec.anlog) 100 Unit/1 Ml Insuln.pen 24 Unit SQ QHS Humalog (Insulin Lispro) 100 Unit/1 Ml Vial 20 Unit SQ TIDPC Allergies Allergies: Coded Allergies: sulfamethoxazole (Verified Allergy, Severe, Rash, 12/23/19) HIVES, ITCHINESS trimethoprim (Verified Allergy, Severe, Rash, 12/23/19) HIVES, ITCHINESS diphenhydramine (Verified Allergy, Intermediate, Hives, 12/23/19) erythromycin base (Verified Allergy, Intermediate, 03/27/20) lisinopril (Verified Allergy, Intermediate, 03/27/20) ROS General: YES: Fatigue, Appetite PSYCHOLOGICAL ROS: YES: Anxiety, Depression Eyes: Yes Decreased vision HEENT: YES: Zev ALLERGY AND IMMUNOLOGY: YES: Seasonal Allergies Respiratory: YES: Cough Gastrointestinal: Yes Nausea, Yes Abdominal Pain, Yes Diarrhea Genitourinary: YES Other (DECREASED UO NOTED) Musculoskeletal: Yes Muscular Weakness Neurological: Yes Weakness Skin: Yes Dry Skin Physical Exam General: Alert, Oriented X3, Cooperative, No acute distress HEENT: Atraumatic Lungs: Clear to auscultation Heart: Regular rate Abdomen: Normal bowel sounds, Soft, No tenderness Extremities: No cyanosis Neuro: Normal speech, Sensation intact Psych/Mental Status: Mental status NL, Mood NL MUSCULOSKELETAL: No joint tenderness, No deformity, No swelling Vitals VITALS Vital Signs Date Time Temp Pulse Resp B/P (MAP) Pulse Ox O2 Delivery O2 Flow Rate FiO2 04/12/20 11:47 98.0 73 15 118/68 (85) 93 Room Air 98.0 Labs Labs Laboratory Tests Test 04/11/20 14:35 04/11/20 20:37 04/12/20 03:10 04/12/20 10:59 White Blood Count 6.9 x10^3/uL (4.0-11.0) 6.9 x10^3/uL (4.0-11.0) Red Blood Count 2.68 x10^6/uL (4.30-5.70) 2.62 x10^6/uL (4.30-5.70) Hemoglobin 8.0 g/dL (13.0-17.5) 7.8 g/dL (13.0-17.5) Hematocrit 23.5 % (39.0-53.0) 22.9 % (39.0-53.0) Mean Corpuscular Volume 88 fL (79-100) 87 fL (79-100) Mean Corpuscular Hemoglobin 30 pg (25-35) 30 pg (25-35) Mean Corpuscular Hemoglobin Concent 34 g/dL (31-37) 34 g/dL (31-37) Red Cell Distribution Width 14.4 % (11.5-14.5) 14.3 % (11.5-14.5) Platelet Count 280 x10^3/uL (140-400) 279 x10^3/uL (140-400) Neutrophils (%) (Auto) 65 % (31-73) 65 % (31-73) Lymphocytes (%) (Auto) 18 % (24-48) 20 % (24-48) Monocytes (%) (Auto) 12 % (0-9) 10 % (0-9) Eosinophils (%) (Auto) 4 % (0-3) 4 % (0-3) Basophils (%) (Auto) 1 % (0-3) 1 % (0-3) Neutrophils # (Auto) 4.4 x10^3/uL (1.8-7.7) 4.5 x10^3/uL (1.8-7.7) Lymphocytes # (Auto) 1.2 x10^3/uL (1.0-4.8) 1.3 x10^3/uL (1.0-4.8) Monocytes # (Auto) 0.8 x10^3/uL (0.0-1.1) 0.7 x10^3/uL (0.0-1.1) Eosinophils # (Auto) 0.3 x10^3/uL (0.0-0.7) 0.3 x10^3/uL (0.0-0.7) Basophils # (Auto) 0.1 x10^3/uL (0.0-0.2) 0.1 x10^3/uL (0.0-0.2) Erythrocyte Sedimentation Rate 76 (0-15) Sodium Level 135 mmol/L (136-145) 138 mmol/L (136-145) Potassium Level 5.5 mmol/L (3.5-5.1) 4.9 mmol/L (3.5-5.1) Chloride Level 101 mmol/L (98-107) 105 mmol/L (98-107) Carbon Dioxide Level 27 mmol/L (21-32) 24 mmol/L (21-32) Anion Gap 7 (6-14) 9 (6-14) Blood Urea Nitrogen 41 mg/dL (8-26) 38 mg/dL (8-26) Creatinine 1.6 mg/dL (0.7-1.3) 1.4 mg/dL (0.7-1.3) Estimated GFR (Cockcroft-Gault) 46.6 54.3 BUN/Creatinine Ratio 26 (6-20) Glucose Level 267 mg/dL (70-99) 139 mg/dL (70-99) Lactic Acid Level 1.3 mmol/L (0.4-2.0) Calcium Level 8.8 mg/dL (8.5-10.1) 8.5 mg/dL (8.5-10.1) Total Bilirubin 0.2 mg/dL (0.2-1.0) Aspartate Amino Transf (AST/SGOT) 16 U/L (15-37) Alanine Aminotransferase (ALT/SGPT) 27 U/L (16-63) Alkaline Phosphatase 123 U/L (46-116) C-Reactive Protein, Quantitative 71.3 mg/L (0-3.3) Total Protein 6.7 g/dL (6.4-8.2) Albumin 3.1 g/dL (3.4-5.0) Albumin/Globulin Ratio 0.9 (1.0-1.7) Procalcitonin < 0.10 ng/mL (0.00-0.10) Glucose (Fingerstick) 152 mg/dL (70-99) 119 mg/dL (70-99) Iron Level 27 ug/dL (65-175) Total Iron Binding Capacity 265 ug/dL (250-450) Iron Saturation 10 % (15-34) Laboratory Tests Test 04/11/20 14:35 04/11/20 20:37 04/12/20 03:10 04/12/20 10:59 White Blood Count 6.9 x10^3/uL (4.0-11.0) 6.9 x10^3/uL (4.0-11.0) Red Blood Count 2.68 x10^6/uL (4.30-5.70) 2.62 x10^6/uL (4.30-5.70) Hemoglobin 8.0 g/dL (13.0-17.5) 7.8 g/dL (13.0-17.5) Hematocrit 23.5 % (39.0-53.0) 22.9 % (39.0-53.0) Mean Corpuscular Volume 88 fL (79-100) 87 fL (79-100) Mean Corpuscular Hemoglobin 30 pg (25-35) 30 pg (25-35) Mean Corpuscular Hemoglobin Concent 34 g/dL (31-37) 34 g/dL (31-37) Red Cell Distribution Width 14.4 % (11.5-14.5) 14.3 % (11.5-14.5) Platelet Count 280 x10^3/uL (140-400) 279 x10^3/uL (140-400) Neutrophils (%) (Auto) 65 % (31-73) 65 % (31-73) Lymphocytes (%) (Auto) 18 % (24-48) 20 % (24-48) Monocytes (%) (Auto) 12 % (0-9) 10 % (0-9) Eosinophils (%) (Auto) 4 % (0-3) 4 % (0-3) Basophils (%) (Auto) 1 % (0-3) 1 % (0-3) Neutrophils # (Auto) 4.4 x10^3/uL (1.8-7.7) 4.5 x10^3/uL (1.8-7.7) Lymphocytes # (Auto) 1.2 x10^3/uL (1.0-4.8) 1.3 x10^3/uL (1.0-4.8) Monocytes # (Auto) 0.8 x10^3/uL (0.0-1.1) 0.7 x10^3/uL (0.0-1.1) Eosinophils # (Auto) 0.3 x10^3/uL (0.0-0.7) 0.3 x10^3/uL (0.0-0.7) Basophils # (Auto) 0.1 x10^3/uL (0.0-0.2) 0.1 x10^3/uL (0.0-0.2) Erythrocyte Sedimentation Rate 76 (0-15) Sodium Level 135 mmol/L (136-145) 138 mmol/L (136-145) Potassium Level 5.5 mmol/L (3.5-5.1) 4.9 mmol/L (3.5-5.1) Chloride Level 101 mmol/L (98-107) 105 mmol/L (98-107) Carbon Dioxide Level 27 mmol/L (21-32) 24 mmol/L (21-32) Anion Gap 7 (6-14) 9 (6-14) Blood Urea Nitrogen 41 mg/dL (8-26) 38 mg/dL (8-26) Creatinine 1.6 mg/dL (0.7-1.3) 1.4 mg/dL (0.7-1.3) Estimated GFR (Cockcroft-Gault) 46.6 54.3 BUN/Creatinine Ratio 26 (6-20) Glucose Level 267 mg/dL (70-99) 139 mg/dL (70-99) Lactic Acid Level 1.3 mmol/L (0.4-2.0) Calcium Level 8.8 mg/dL (8.5-10.1) 8.5 mg/dL (8.5-10.1) Total Bilirubin 0.2 mg/dL (0.2-1.0) Aspartate Amino Transf (AST/SGOT) 16 U/L (15-37) Alanine Aminotransferase (ALT/SGPT) 27 U/L (16-63) Alkaline Phosphatase 123 U/L (46-116) C-Reactive Protein, Quantitative 71.3 mg/L (0-3.3) Total Protein 6.7 g/dL (6.4-8.2) Albumin 3.1 g/dL (3.4-5.0) Albumin/Globulin Ratio 0.9 (1.0-1.7) Procalcitonin < 0.10 ng/mL (0.00-0.10) Glucose (Fingerstick) 152 mg/dL (70-99) 119 mg/dL (70-99) Iron Level 27 ug/dL (65-175) Total Iron Binding Capacity 265 ug/dL (250-450) Iron Saturation 10 % (15-34) Assessment/Plan Assessment/Plan IMP NISSA WITH CR OF 1.6 CKD STAGE 3 WITH CR OF 1.2-1.4 ANEMIA AND IRON DEFICIENCY DEHYDDRATION DIARRHEA RECENT C DIF DM II HTN HX R FOOT 5TH TOE RAY AMP PLAN ANTIBIOTICS PER ID HYDRATION AVOID NEPHROTOXINS CONSIDER IRON WILL FOLLOW DEVYN ROGERS MD April 12, 2020 12:50
--- NOTE | 2020-04-12 13:33 | NUR ---
SS following up with discharge planning. SS reviewed pt chart and discussed with pt RN. Pt is from home and is currently on room air. Pt is on IV Meropenem. Pt has oxygen through [employer], ; fax [phone], and [facility], ; fax [phone]. SS will continue to follow for discharge planning.
--- NOTE | 2020-04-12 14:05 | NUR ---
Wound Care Wound Type/Assessment: right lateral foot DFU. Wound bed is red granulated bertha-wound is macerated. Treatment Recommendations/Plan: Wound vac applied at 125 mmHg continuous pressure, will change on Thursday Education provided: PU prevention and vac protocol education given, Pt verbalized understanding Offloading surface/device: none Recommended Referrals/Tests: none Discharge Recommendations for dressings:
[2020-04-12 15:51] VITALS: BP 136/67
[2020-04-12 19:00] VITALS: BP 152/83
[2020-04-12] MEDS: CHOLESTYRAMINE/ASPARTAME 4 GM PACKET PO SCH (19:34)
[2020-04-12] MEDS: ENOXAPARIN 40 MG/0.4 ML SYRINGE. SQ SCH (21:00)
[2020-04-12] MEDS: INSULIN GLARGINE SYRINGE. SQ SCH (21:01)
[2020-04-12 23:00] VITALS: BP 142/75
[2020-04-13] MEDS: IV NORMAL SALINE 1000ML BAG 1,000 ML IV SCH ×2 (00:26→06:28)
[2020-04-13] MEDS: MEROPENEM 500 MG in IV NORMAL SALINE 50ML 50 ML IV SCH ×3 (00:56→12:36)
[2020-04-13 03:00] VITALS: BP 159/83
[2020-04-13] MEDS: CHOLESTYRAMINE/ASPARTAME 4 GM PACKET PO SCH (06:21)
[2020-04-13 06:22] LABS: CALCIUM 8.4 mg/dL (8.5-10.1); CREATININE 1.5 mg/dL (0.7-1.3); GFR 50.2
[2020-04-13 06:24] LABS: POTASSIUM 5.2 mmol/L (3.5-5.1)
[2020-04-13 06:27] LABS: PHOSPHORUS 3.2 mg/dL (2.6-4.7)
[2020-04-13 07:50] VITALS: BP 153/68
[2020-04-13] MEDS: INSULIN LISPRO 300 UNITS/3 ML VIAL. SQ SCH ×2 (08:00→12:00)
[2020-04-13] MEDS: LACTOBACILLUS RHAMNOSUS GG 1 CAPSULE. PO SCH (09:00)
[2020-04-13] MEDS: PANTOPRAZOLE 40 MG TABLET.DR. PO SCH (09:01)
[2020-04-13] MEDS: ASPIRIN ENTERIC COATED 81 MG TABLET.DR. PO SCH (09:01)
[2020-04-13] MEDS: CARVEDILOL 12.5 MG TABLET. PO SCH (09:01)
[2020-04-13] MEDS: VANCOMYCIN 125 MG/2.5 ML ORAL SOLUTION. PO SCH ×2 (09:01→13:40)
--- NOTE | 2020-04-13 09:14 | PDOC ---
PROGRESS NOTES Chief Complaint Chief Complaint A/P: Hyperkalemia - on initial admissio likely from NISSA NISSA on Chronic kidney disease - Cr 2.1, up from 1.5 baseline. 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 New toxin negative 04/12 Complicated right lateral foot diabetic ulcers - deep tracking, likely osteomyelitis. wound care, iv abx - merrem, to continue, will consult ID for further recs. DM - A1c 7.5 10/18/2019, has a recent A1c pending from last week. Will cont lantus 20u QHS and bolus coverage during day History of Osteomyelitis of right fifth metatarsal head and neck - s/p debridement and amputation Diabetes mellitus with neuropathy - progressive neuropathy Status post history of right toe amputation. Right eye blindness - chronic, progressive, 2/2 cataract surgery previously FEN - ADA diet PPX - lovenox, renally dosed FULL CODE Dispo - inpatient for outpatient failure of complicated diabetic foot ulcer History of Present Illness History of Present Illness Mr Li is a 44yo M w/ PMHx diabetes mellitus type 2, peripheral neuropathy, right vision loss, depression, history of chronic low back pain, chronic nonhealing right foot ulcers, status post amputation of the right great toe and recent amputation of right 5th metatarsal head in February 2020 who returns on 03/26/2020 after feeling short of breath after HBO treatment at wound care clinic, was found with cor pulmonale required oxygen 3L NCO2 to maintain saturations in the 90s. He returns now after worsening diarrhea outpatient, was directed by ID to go to the ED for IV fluids. He was found with K of 5.5, CR 1.6, no EKG changes EKG NSR. Consult Infectious Disease, GI and Wound Care. [He does have multiple diabetic ulcers: right Achilles tendon distally, 2 cm round over lateral right foot fifth metatarsal head area, and dorsomedial midfoot with orthopedic surgery with wound vac and outpatient wound clinic appointment which have been slowly improving until the past 2 weeks. He has previously had multiple non-healing ulcers and skin graft to his right thigh. He tested positive for c. difficile on 03/19/2020 as well] 04/12: Overnight with 1 BM, not on his O2 currently. He says he feels a little better. Wound appears improved CR down to 1.4, K normalized. Afebrile overnight, CRP very elevated at 71.3, CR 1.5, K5.2. C. difficile toxin PCR negative. He is feeling ok. wishes for home. D/w ID will do this Plan: weekly LABS Q MON CBC/BUN/CREAT/ESR FAX RESULTS TO [id number] Cont Invanz Vitals Vitals Vital Signs Date Time Temp Pulse Resp B/P (MAP) Pulse Ox O2 Delivery O2 Flow Rate FiO2 04/13/20 09:01 72 153/68 04/13/20 07:50 98.1 16 94 Room Air 98.1 Physical Exam Physical Exam GENERAL: Alert gentleman, not in distress. HEENT: No icterus NECK: Supple, no JVP, no lymphadenopathy. LUNGS: Clear. HEART: S1, S2 regular. ABDOMEN: Benign. EXTREMITIES: No edema or cyanosis. SKIN: Unremarkable. Right lateral foot wound significant improvement lower part of incision has small wound though probes to the bone, a small sliver exposed NEUROLOGIC: alert, awake and appropriate. No focal neurologic deficit. PICC line site is unremarkable. General: Alert, Oriented X3, Cooperative, No acute distress Heart: Regular rate Lungs: Clear, Other Abdomen: Normal bowel sounds, Soft, No tenderness Extremities: No cyanosis Labs LABS Laboratory Tests Test 04/12/20 10:59 04/12/20 16:26 04/12/20 20:26 04/13/20 04:40 Glucose (Fingerstick) 119 mg/dL (70-99) 161 mg/dL (70-99) 210 mg/dL (70-99) Sodium Level 139 mmol/L (136-145) Potassium Level 5.2 mmol/L (3.5-5.1) Chloride Level 105 mmol/L (98-107) Carbon Dioxide Level 26 mmol/L (21-32) Anion Gap 8 (6-14) Blood Urea Nitrogen 35 mg/dL (8-26) Creatinine 1.5 mg/dL (0.7-1.3) Estimated GFR (Cockcroft-Gault) 50.2 Glucose Level 131 mg/dL (70-99) Calcium Level 8.4 mg/dL (8.5-10.1) Phosphorus Level 3.2 mg/dL (2.6-4.7) Magnesium Level 2.0 mg/dL (1.8-2.4) Test 04/13/20 07:30 Glucose (Fingerstick) 117 mg/dL (70-99) Assessment and Plan Assessmemt and Plan Problems Medical Problems: (1) C. difficile colitis Status: Acute (2) Chronic kidney disease Status: Acute (3) Dehydration Status: Acute (4) Diarrhea Status: Acute (5) Hyperkalemia Status: Acute Comment Review of Relevant I have reviewed the following items lilli (where applicable) has been applied. Labs Laboratory Tests Test 04/11/20 14:35 04/11/20 20:37 04/12/20 01:30 04/12/20 03:10 White Blood Count 6.9 x10^3/uL (4.0-11.0) 6.9 x10^3/uL (4.0-11.0) Red Blood Count 2.68 x10^6/uL (4.30-5.70) 2.62 x10^6/uL (4.30-5.70) Hemoglobin 8.0 g/dL (13.0-17.5) 7.8 g/dL (13.0-17.5) Hematocrit 23.5 % (39.0-53.0) 22.9 % (39.0-53.0) Mean Corpuscular Volume 88 fL (79-100) 87 fL (79-100) Mean Corpuscular Hemoglobin 30 pg (25-35) 30 pg (25-35) Mean Corpuscular Hemoglobin Concent 34 g/dL (31-37) 34 g/dL (31-37) Red Cell Distribution Width 14.4 % (11.5-14.5) 14.3 % (11.5-14.5) Platelet Count 280 x10^3/uL (140-400) 279 x10^3/uL (140-400) Neutrophils (%) (Auto) 65 % (31-73) 65 % (31-73) Lymphocytes (%) (Auto) 18 % (24-48) 20 % (24-48) Monocytes (%) (Auto) 12 % (0-9) 10 % (0-9) Eosinophils (%) (Auto) 4 % (0-3) 4 % (0-3) Basophils (%) (Auto) 1 % (0-3) 1 % (0-3) Neutrophils # (Auto) 4.4 x10^3/uL (1.8-7.7) 4.5 x10^3/uL (1.8-7.7) Lymphocytes # (Auto) 1.2 x10^3/uL (1.0-4.8) 1.3 x10^3/uL (1.0-4.8) Monocytes # (Auto) 0.8 x10^3/uL (0.0-1.1) 0.7 x10^3/uL (0.0-1.1) Eosinophils # (Auto) 0.3 x10^3/uL (0.0-0.7) 0.3 x10^3/uL (0.0-0.7) Basophils # (Auto) 0.1 x10^3/uL (0.0-0.2) 0.1 x10^3/uL (0.0-0.2) Erythrocyte Sedimentation Rate 76 (0-15) Sodium Level 135 mmol/L (136-145) 138 mmol/L (136-145) Potassium Level 5.5 mmol/L (3.5-5.1) 4.9 mmol/L (3.5-5.1) Chloride Level 101 mmol/L (98-107) 105 mmol/L (98-107) Carbon Dioxide Level 27 mmol/L (21-32) 24 mmol/L (21-32) Anion Gap 7 (6-14) 9 (6-14) Blood Urea Nitrogen 41 mg/dL (8-26) 38 mg/dL (8-26) Creatinine 1.6 mg/dL (0.7-1.3) 1.4 mg/dL (0.7-1.3) Estimated GFR (Cockcroft-Gault) 46.6 54.3 BUN/Creatinine Ratio 26 (6-20) Glucose Level 267 mg/dL (70-99) 139 mg/dL (70-99) Lactic Acid Level 1.3 mmol/L (0.4-2.0) Calcium Level 8.8 mg/dL (8.5-10.1) 8.5 mg/dL (8.5-10.1) Total Bilirubin 0.2 mg/dL (0.2-1.0) Aspartate Amino Transf (AST/SGOT) 16 U/L (15-37) Alanine Aminotransferase (ALT/SGPT) 27 U/L (16-63) Alkaline Phosphatase 123 U/L (46-116) C-Reactive Protein, Quantitative 71.3 mg/L (0-3.3) Total Protein 6.7 g/dL (6.4-8.2) Albumin 3.1 g/dL (3.4-5.0) Albumin/Globulin Ratio 0.9 (1.0-1.7) Procalcitonin < 0.10 ng/mL (0.00-0.10) Glucose (Fingerstick) 152 mg/dL (70-99) Clostridium difficile Toxin (PCR) Negative (NEGATIVE) Iron Level 27 ug/dL (65-175) Total Iron Binding Capacity 265 ug/dL (250-450) Iron Saturation 10 % (15-34) Test 04/12/20 10:59 04/12/20 16:26 04/12/20 20:26 04/13/20 04:40 Glucose (Fingerstick) 119 mg/dL (70-99) 161 mg/dL (70-99) 210 mg/dL (70-99) Sodium Level 139 mmol/L (136-145) Potassium Level 5.2 mmol/L (3.5-5.1) Chloride Level 105 mmol/L (98-107) Carbon Dioxide Level 26 mmol/L (21-32) Anion Gap 8 (6-14) Blood Urea Nitrogen 35 mg/dL (8-26) Creatinine 1.5 mg/dL (0.7-1.3) Estimated GFR (Cockcroft-Gault) 50.2 Glucose Level 131 mg/dL (70-99) Calcium Level 8.4 mg/dL (8.5-10.1) Phosphorus Level 3.2 mg/dL (2.6-4.7) Magnesium Level 2.0 mg/dL (1.8-2.4) Test 04/13/20 07:30 Glucose (Fingerstick) 117 mg/dL (70-99) Laboratory Tests Test 04/12/20 10:59 04/12/20 16:26 04/12/20 20:26 04/13/20 04:40 Glucose (Fingerstick) 119 mg/dL (70-99) 161 mg/dL (70-99) 210 mg/dL (70-99) Sodium Level 139 mmol/L (136-145) Potassium Level 5.2 mmol/L (3.5-5.1) Chloride Level 105 mmol/L (98-107) Carbon Dioxide Level 26 mmol/L (21-32) Anion Gap 8 (6-14) Blood Urea Nitrogen 35 mg/dL (8-26) Creatinine 1.5 mg/dL (0.7-1.3) Estimated GFR (Cockcroft-Gault) 50.2 Glucose Level 131 mg/dL (70-99) Calcium Level 8.4 mg/dL (8.5-10.1) Phosphorus Level 3.2 mg/dL (2.6-4.7) Magnesium Level 2.0 mg/dL (1.8-2.4) Test 04/13/20 07:30 Glucose (Fingerstick) 117 mg/dL (70-99) Microbiology 04/11/20 Blood Culture - Final, Complete Medications Current Medications Morphine Sulfate (Morphine Sulfate) 4 mg PRN Q15MIN PRN IV/SQ PAIN GREATER THAN 3/10; Start 04/11/20 at 13:15; Stop 04/12/20 at 13:14; Status DC Ondansetron HCl (Zofran) 4 mg PRN Q8HRS PRN IV NAUSEA/VOMITING; Start 04/11/20 at 17:45; Stop 04/12/20 at 17:44; Status DC Morphine Sulfate (Morphine Sulfate) 2 mg PRN Q2HR PRN IV PAIN; Start 04/11/20 at 17:45; Stop 04/12/20 at 17:44; Status DC Acetaminophen (Tylenol) 650 mg PRN Q4HRS PRN PO FEVER > 100.3'F; Start 04/11/20 at 17:45; Stop 04/11/20 at 18:28; Status DC Sodium Chloride 1,000 ml @ 125 mls/hr 1X ONCE IV Last administered on 04/11/20at 17:45; Start 04/11/20 at 17:45; Stop 04/12/20 at 01:44; Status DC Insulin Human Lispro (HumaLOG) 0-5 UNITS TIDWMEALS SQ Last administered on 04/12/20at 17:43; Start 04/12/20 at 08:00 Dextrose (Dextrose 50%-Water Syringe) 12.5 gm PRN Q15MIN PRN IV SEE COMMENTS; Start 04/11/20 at 17:45 Acetaminophen (Tylenol) 650 mg PRN Q4HRS PRN PO TEMP OVER 100.4F OR MILD PAIN; Start 04/11/20 at 18:30; Status Cancel Aspirin (Ecotrin) 81 mg DAILYWBKFT PO Last administered on 04/13/20at 09:01; Start 04/12/20 at 08:00 Carvedilol (Coreg) 12.5 mg BIDWMEALS PO Last administered on 04/13/20 09:01; Start 04/11/20 at 19:00 Enoxaparin Sodium (Lovenox 40mg Syringe) 40 mg Q24H SQ Last administered on 04/12/20at 21:00; Start 04/11/20 at 21:00 Ertapenem (INVanz 1GM IVPB for PT ASSIST PROGRAM) 1 gm DAILY10 IV ; Start 04/12/20 at 10:00; Status UNV Acetaminophen/ Hydrocodone Bitart (Lortab 5/325) 1 tab PRN Q6HRS PRN PO MODERATE TO SEVERE PAIN; Start 04/11/20 at 18:30 Lactobacillus Rhamnosus (Culturelle) 1 cap BID PO Last administered on at 09:00; Start 04/11/20 at 21:00 Pantoprazole Sodium (Protonix) 40 mg DAILYAC PO Last administered on 04/13/20at 09:01; Start 04/12/20 at 07:30 Insulin Glargine (Lantus Syringe) 24 unit QHS SQ Last administered on 04/12/20at 21:01; Start 04/11/20 at 21:00 Vancomycin HCl (Vancomycin Oral Solution) 125 mg [id number] PO Last administered on 04/13/20at 09:01; Start 04/11/20 at 21:00 Meropenem 500 mg/ Sodium Chloride 50 ml @ 100 mls/hr Q6HRS IV Last administered on 04/13/20at 06:21; Start 04/11/20 at 19:00 Sodium Chloride (Normal Saline Flush) 3 ml QSHIFT PRN IV AFTER MEDS AND BLOOD DRAWS; Start 04/11/20 at 18:30 Sodium Chloride 1,000 ml @ 100 mls/hr Q10H IV Last administered on 04/13/20at 06:28; Start 04/11/20 at 18:26 Ondansetron HCl (Zofran) 4 mg PRN Q4HRS PRN IV NAUSEA/VOMITING; Start 04/11/20 at 18:30 Acetaminophen (Tylenol) 650 mg PRN Q4HRS PRN PO TEMP OVER 100.4F OR MILD PAIN; Start 04/11/20 at 18:30 Clonidine HCl (Catapres) 0.1 mg PRN Q6HRS PRN PO SBP>160 OR DBP>90; Start 04/11/20 at 18:30 Albuterol Sulfate (Ventolin Neb Soln) 2.5 mg PRN Q4HRS PRN NEB SHORTNESS OF BREATH; Start 04/11/20 at 18:30 Guaifenesin (Robitussin) 200 mg PRN Q4HRS PRN PO COUGH; Start 04/11/20 at 18:30 Lorazepam (Ativan Inj) 2 mg PRN Q4HRS PRN IV ANXIETY / AGITATION; Start 04/11/20 at 18:30 Cholestyramine Resin (Questran Light) 4 gm Q12H PO Last administered on 04/13/20at 06:21; Start 04/12/20 at 19:00 Active Scripts Active Aspirin Ec (Aspirin) 81 Mg Tablet. 81 Mg PO DAILYWBKFT 30 Days Carvedilol (Carvedilol) 12.5 Mg Tablet 12.5 Mg PO BIDWMEALS 30 Days Invanz (Ertapenem Sodium) 1 Gm Vial 1 Gm IJ DAILY10 14 Days Culturelle (Lactobacillus Rhamnosus Gg) 1 Each Cap.sprink 1 Cap PO BID 30 Days Tylenol (Acetaminophen) 325 Mg Tablet 650 Mg PO PRN Q4HRS PRN 30 Days Hydrocodone-Apap 5-325 (Hydrocodone Bit/Acetaminophen) 1 Tab Tablet 1 Tab PO PRN Q6HRS PRN 14 Days Enoxaparin Sodium 40 Mg/0.4 Ml Disp.syrin 40 Mg SQ Q24H 30 Days Reported Vancomycin Hcl 125 Mg Capsule 1 Cap PO QID Pantoprazole Sodium (Pantoprazole Sodium) 40 Mg Tablet. 40 Mg PO DAILYAC Lantus Solostar (Insulin Glargine,Hum.rec.anlog) 100 Unit/1 Ml Insuln.pen 24 Unit SQ QHS Humalog (Insulin Lispro) 100 Unit/1 Ml Vial 20 Unit SQ TIDPC Vitals/I & O Vital Sign - Last 24 Hours 04/12/20 04/12/20 04/12/20 04/12/20 11:47 15:51 17:38 19:00 Temp 98.0 98.5 97.9 98.0 98.5 97.9 Pulse 73 80 80 76 Resp 15 17 18 B/P (MAP) 118/68 (85) 136/67 (90) 136/67 152/83 (106) Pulse Ox 93 91 97 O2 Delivery Room Air Room Air Room Air 04/12/20 04/12/20 04/13/20 04/13/20 20:00 23:00 03:00 07:50 Temp 98.3 98.1 98.1 98.3 98.1 98.1 Pulse 76 82 72 Resp 18 18 16 B/P (MAP) 142/75 (97) 159/83 (108) 153/68 (96) Pulse Ox 96 93 94 O2 Delivery Room Air Room Air Room Air Room Air 04/13/20 09:01 Pulse 72 B/P (MAP) 153/68 Intake and Output 04/12/20 04/12/20 04/13/20 15:00 23:00 07:00 Intake Total 440 ml 600 ml Output Total 400 ml 850 ml Balance 40 ml -250 ml SHALOM KNIGHT MD April 13, 2020 09:14
[2020-04-13] MEDS ORDERED: CHOL4POW3 PO (10:27)
[2020-04-13] MEDS ORDERED: ERTA1VIA16 IJ (10:27)
--- NOTE | 2020-04-13 10:27 | PDOC ---
Infectious Disease Note Subjective: Subjective pt feels better no diarrhea Denies fever, nausea, vomiting, shortness of breath, cough, headache, sore throat, rash Otherwise as above Vital Signs: Vital Signs Vital Signs Date Time Temp Pulse Resp B/P (MAP) Pulse Ox O2 Delivery O2 Flow Rate FiO2 04/13/20 09:01 72 153/68 04/13/20 07:50 98.1 16 94 Room Air 98.1 Physical Exam: PHYSICAL EXAM GENERAL: Alert gentleman, not in distress. HEENT: No icterus NECK: Supple, no JVP, no lymphadenopathy. LUNGS: Clear. HEART: S1, S2 regular. ABDOMEN: Benign. EXTREMITIES: No edema or cyanosis. SKIN: Unremarkable. Right lateral foot wound significant improvement lower part of incision has small wound though probes to the bone, a small sl iver exposed NEUROLOGIC: alert, awake and appropriate. No focal neurologic deficit. PICC line site is unremarkable. Medications: Inpatient Meds: Current Medications Medications (Trade) Dose Ordered Sig/Fahad Start Time Stop Time Status Last Admin Dose Admin Acetaminophen (Tylenol) 650 mg PRN Q4HRS PRN 04/11/20 18:30 Acetaminophen/ Hydrocodone Bitart (Lortab 5/325) 1 tab PRN Q6HRS PRN 04/11/20 18:30 Albuterol Sulfate (Ventolin Neb Soln) 2.5 mg PRN Q4HRS PRN 04/11/20 18:30 Aspirin (Ecotrin) 81 mg DAILYWBKFT 04/12/20 08:00 04/13/20 09:01 81 MG Carvedilol (Coreg) 12.5 mg BIDWMEALS 04/11/20 19:00 04/13/20 09:01 12.5 MG Cholestyramine Resin (Questran Light) 4 gm Q12H 04/12/20 19:00 04/13/20 06:21 4 GM Clonidine HCl (Catapres) 0.1 mg PRN Q6HRS PRN 04/11/20 18:30 Dextrose (Dextrose 50%-Water Syringe) 12.5 gm PRN Q15MIN PRN 04/11/20 17:45 Enoxaparin Sodium (Lovenox 40mg Syringe) 40 mg Q24H 04/11/20 21:00 04/12/20 21:00 40 MG Ertapenem (INVanz 1GM IVPB for PT ASSIST PROGRAM) 1 gm DAILY10 04/12/20 10:00 UNV Guaifenesin (Robitussin) 200 mg PRN Q4HRS PRN 04/11/20 18:30 Insulin Glargine (Lantus Syringe) 24 unit QHS 04/11/20 21:00 04/12/20 21:01 24 UNIT Insulin Human Lispro (HumaLOG) 0-5 UNITS TIDWMEALS 04/12/20 08:00 04/12/20 17:43 2 UNITS Lactobacillus Rhamnosus (Culturelle) 1 cap BID 04/11/20 21:00 04/13/20 09:00 1 CAP Lorazepam (Ativan Inj) 2 mg PRN Q4HRS PRN 04/11/20 18:30 Meropenem 500 mg/ Sodium Chloride 50 ml @ 100 mls/hr Q6HRS 04/11/20 19:00 04/13/20 06:21 100 MLS/HR Morphine Sulfate (Morphine Sulfate) 2 mg PRN Q2HR PRN 04/11/20 17:45 04/12/20 17:44 DC Ondansetron HCl (Zofran) 4 mg PRN Q4HRS PRN 04/11/20 18:30 Pantoprazole Sodium (Protonix) 40 mg DAILYAC 04/12/20 07:30 04/13/20 09:01 40 MG Sodium Chloride 1,000 ml @ 100 mls/hr Q10H 04/11/20 18:26 04/13/20 06:28 100 MLS/HR Sodium Chloride (Normal Saline Flush) 3 ml QSHIFT PRN 04/11/20 18:30 Vancomycin HCl (Vancomycin Oral Solution) 125 mg [id number] 04/11/20 21:00 04/13/20 09:01 125 MG Labs: Lab Laboratory Tests Test 04/12/20 10:59 04/12/20 16:26 04/12/20 20:26 04/13/20 04:40 Glucose (Fingerstick) 119 mg/dL (70-99) 161 mg/dL (70-99) 210 mg/dL (70-99) Sodium Level 139 mmol/L (136-145) Potassium Level 5.2 mmol/L (3.5-5.1) Chloride Level 105 mmol/L (98-107) Carbon Dioxide Level 26 mmol/L (21-32) Anion Gap 8 (6-14) Blood Urea Nitrogen 35 mg/dL (8-26) Creatinine 1.5 mg/dL (0.7-1.3) Estimated GFR (Cockcroft-Gault) 50.2 Glucose Level 131 mg/dL (70-99) Calcium Level 8.4 mg/dL (8.5-10.1) Phosphorus Level 3.2 mg/dL (2.6-4.7) Magnesium Level 2.0 mg/dL (1.8-2.4) Test 04/13/20 07:30 Glucose (Fingerstick) 117 mg/dL (70-99) Micro Micro RUN DATE: 02/19/20 [facility] *LIVE* PAGE 1 RUN TIME: 1110 Specimen Inquiry PATIENT: HUGH,WESLEY Andrew ACCT: [id number] LOC: [address] [place] [address] U: [id number] AGE/SX: 45/M ROOM: 422 RE02/15/[address]: SHALOM KNIGHT MD : 1975 BED: 1 DIS: STATUS: ADM IN TLOC: SPEC #: [id number] JERAMY: 02/15/20 STATUS: RES REQ #: [id number] RECD: 02/16/[address] [facility] [address]: SHALOM KNIGHT MD SOURCE: FOOT ENTR: 02/16/[address]UE[facility] MD ORDERED: RAH/BEATRIZ/NOE COMMENTS: RIGHT FOOT WOUND Procedure Result ANAEROBIC-AEROBIC CULTURE PENDING ANAEROBIC RES 1 PENDING AEROBIC CULT Final Final report AEROBIC RES 1 Final Klebsiella pneumoniae 4+ AEROBIC RES 2 Final Hafnia alvei 1+ AEROBIC RES 3 Final Comment Beta hemolytic Streptococcus, group B 4+ Penicillin and ampicillin are drugs of choice for treatment of beta-hemolytic streptococcal infections. Susceptibility testing of penicillins and other beta-lactam agents approved by the FDA for treatment of beta-hemolytic streptococcal infections need not be performed routinely because nonsusceptible isolates are extremely rare in any beta-hemolytic streptococcus and have not been reported for Streptococcus pyogenes (group A). (CLSI) AEROBIC RES 4 Final Mixed skin lexus 1+ CONTINUED ON NEXT PAGE RUN DATE: 02/19/20 [facility] *LIVE* PAGE 2 RUN TIME: 1110 Specimen Inquiry SPEC: [id number] PATIENT: WESLEY REESE [id number] (Continued) Procedure Result - ANTIMICROBIAL SUSCEPTIBILITY Final Comment S = Susceptible; I = Intermediate; R = Resistant P = Positive; N = Negative MICS are expressed in micrograms per mL Antibiotic RSLT#1 RSLT#2 RSLT#3 RSLT#4 Amoxicillin/Clavulanic Acid S<=2 R =R Ampicillin R>=32 R =R Cefazolin R>=64 Cefepime S<=0.12 Ceftriaxone S<=0.25 Cefuroxime S =4 S =4 Ciprofloxacin S<=0.25 S<=0.25 Ertapenem S<=0.12 Gentamicin S<=1 S<=1 Imipenem S<=0.25 Levofloxacin S<=0.12 Meropenem S<=0.25 S<=0.25 Piperacillin/Tazobactam S<=4 Tetracycline S<=1 S =4 Tobramycin S<=1 S<=1 Trimethoprim/Sulfa S<=20 GRAM STAIN Final Final report GRAM STAIN RES 1 Final Comment No white blood cells seen. GRAM STAIN RES 2 Final Comment Few gram positive cocci Performed at: DA - [facility] [address], [place], [place] [id number] Benefits Specialist Recruiter: ADELAIDA Brannon MD, Phone: [phone] Objective: Assessment: Diarrhea, repeat C. difficile negative Recent C. difficile colitis on p.o. vancomycin since last discharge Abdominal pain now resolved Right foot fifth ray amputation February 2020 open wound on IV antibiotics. Diabetes. NISSA with hyperkalemia, improving Hypertension. Neuropathy. History of noncompliance. Plan: Plan of Care cont invanz cont cholestyramine qd-bid cont po vanco bid f/u ID Clinic next local wound /vac care as directed d/w MARIO Colindres MD April 13, 2020 10:27
--- NOTE | 2020-04-13 10:30 | SNU/HH DC ---
DISCHARGE WITH HOME HEALTH DISCHARGE INFORMATION: Discharge Date: April 13, 2020 Final Diagnosis: Problems Medical Problems: (1) C. difficile colitis Status: Acute (2) Chronic kidney disease Status: Acute (3) Dehydration Status: Acute (4) Diarrhea Status: Acute (5) Hyperkalemia Status: Acute Condition on Discharge: Stable CODE STATUS: Code Status: Full HOME HEALTH: Face to Face: I certify this patient is under my care and that I, or a nurse practitioner or physician's store assistant working with me, had a face to face encounter that meets the physician face to face encounter requirements with this patient on 04/13/2020 . Long Term For: Assess/Skilled Observatio, Diabetic Care, Medication Management RN For Eval/Treatment: Yes Physical Therapy For: Evalulation/Treatment Occupational Therapy For: Evaluation/Treatment Pt Meets Homebound Status: Poor coordination w/ amb., Limited distance walking POST DISCHARGE ORDERS: Activity Instructions for Disc: Activity as tolerated DIET AFTER DISCHARGE: ADA Wound/Incision Care: Keep wound/cast CDI, Reinforce dressing PRN CHECKS AFTER DISCHARGE: Checks after discharge: Check blood press - daily, Check blood sugar, ac/hs, Check your Temp as needed, Weigh Yourself Daily FOLLOW-UP: Follow up with: Dr. Joshua - Infectious Disease Additional Instructions: weekly LABS Q MON CBC/BUN/CREAT/ESR FAX RESULTS TO [phone] 1000cc Normal saline solution infusion per PICC up to 3x weekly for hypotension/dehydration TREATMENT/EQUIPMENT ORDERS: Adaptive Equipment Issued: None, Front wheeled walker Discharge Respiratory Equipmen: Oxygen CERTIFICATION STATEMENT: Certification Statement: Certification Statement: Based on the above finding, I certify that this patient is confined to the home and needs intermittent retirement care, physical therapy and/or speech therapy, or continues to need occupational therapy.~ This patient is under my care, and I have initiated the establishment of the plan of care.~ This patient will be followed by myself or a community physician who will periodically review the plan of care. Home Meds Active Scripts Cholestyramine/Aspartame (PREVALITE PACKET) 4 Gm Powd.pack, 4 GM PO Q12H for Diarrhea for 14 Days, #28 PKT As needed for diarrhea. If only 1 bm daily, stop taking. Prov:SHALOM KNIGHT MD 04/13/20 Ertapenem Sodium (INVANZ) 1 Gm Vial, 1 GM IJ DAILY10 for OSTEOMYELITIS for 14 Days, #14 EACH Prov:SHALOM KNIGHT MD 04/13/20 Aspirin (ASPIRIN EC) 81 Mg Tablet., 81 MG PO DAILYWBKFT for CHF for 30 Days, #30 TAB.SR 11 Refills Prov:SHALOM KNIGHT MD 03/30/20 Carvedilol (CARVEDILOL ) 12.5 Mg Tablet, 12.5 MG PO BIDWMEALS for CHF for 30 Days, #60 TAB 2 Refills Prov:SHALOM KNIGHT MD 03/30/20 Lactobacillus Rhamnosus Gg (CULTURELLE) 1 Each Cap.sprink, 1 CAP PO BID for SUPPLEMENT for 30 Days, #60 CAP Prov:SHILOH BLANCO MD 02/21/20 Acetaminophen (TYLENOL) 325 Mg Tablet, 650 MG PO PRN Q4HRS PRN for TEMP OVER 100.4F OR MILD PAIN for 30 Days, #60 TAB Prov:SHILOH BLANCO MD 02/21/20 Hydrocodone Bit/Acetaminophen (HYDROCODONE-APAP 5-325 ) 1 Tab Tablet, 1 TAB PO PRN Q6HRS PRN for MODERATE TO SEVERE PAIN for 14 Days, #30 TAB Prov:SHILOH BLANCO MD 02/21/20 Enoxaparin Sodium (ENOXAPARIN SODIUM) 40 Mg/0.4 Ml Disp.syrin, 40 MG SQ Q24H for DVT PREVENTION for 30 Days, #30 DIS.SYR Prov:SHILOH BLANCO MD 02/21/20 Reported Medications Vancomycin Hcl (VANCOMYCIN HCL) 125 Mg Capsule, 1 CAP PO QID for C-DIFF 03/26/20 Pantoprazole Sodium (PANTOPRAZOLE SODIUM ) 40 Mg Tablet., 40 MG PO DAILYAC for GERD, TAB 02/15/20 Insulin Glargine,Hum.rec.anlog (LANTUS SOLOSTAR) 100 Unit/1 Ml Insuln.pen, 24 UNIT SQ QHS for DM, #15 ML 5 Refills 10/18/19 Discontinued Reported Medications Insulin Lispro (HUMALOG) 100 Unit/1 Ml Vial, 20 UNIT SQ TIDPC for DM, VIAL 10/18/19 SHALOM KNIGHT MD April 13, 2020 10:30
--- NOTE | 2020-04-13 10:33 | PDOC3 ---
Discharge Summary Visit Information Date of Admission: April 11, 2020 Date of Discharge: April 13, 2020 Admitting Diagnosis: Hyperkalemia Final Diagnosis Problems Medical Problems: (1) C. difficile colitis Status: Acute (2) Chronic kidney disease Status: Acute (3) Dehydration Status: Acute (4) Diarrhea Status: Acute (5) Hyperkalemia Status: Acute Brief Hospital Course Allergies Allergies Coded Allergies Type Severity Reaction Last Updated Verified sulfamethoxazole Allergy Severe Rash 12/23/19 Yes trimethoprim Allergy Severe Rash 12/23/19 Yes diphenhydramine Allergy Intermediate Hives 12/23/19 Yes erythromycin base Allergy Intermediate 03/27/20 Yes lisinopril Allergy Intermediate 03/27/20 Yes Vital Signs Vital Signs Date Time Temp Pulse Resp B/P (MAP) Pulse Ox O2 Delivery O2 Flow Rate FiO2 04/13/20 09:01 72 153/68 04/13/20 07:50 98.1 16 94 Room Air 98.1 Lab Results Laboratory Tests Test 04/11/20 14:35 04/11/20 20:37 04/12/20 01:30 04/12/20 03:10 White Blood Count 6.9 x10^3/uL (4.0-11.0) 6.9 x10^3/uL (4.0-11.0) Red Blood Count 2.68 x10^6/uL (4.30-5.70) 2.62 x10^6/uL (4.30-5.70) Hemoglobin 8.0 g/dL (13.0-17.5) 7.8 g/dL (13.0-17.5) Hematocrit 23.5 % (39.0-53.0) 22.9 % (39.0-53.0) Mean Corpuscular Volume 88 fL (79-100) 87 fL (79-100) Mean Corpuscular Hemoglobin 30 pg (25-35) 30 pg (25-35) Mean Corpuscular Hemoglobin Concent 34 g/dL (31-37) 34 g/dL (31-37) Red Cell Distribution Width 14.4 % (11.5-14.5) 14.3 % (11.5-14.5) Platelet Count 280 x10^3/uL (140-400) 279 x10^3/uL (140-400) Neutrophils (%) (Auto) 65 % (31-73) 65 % (31-73) Lymphocytes (%) (Auto) 18 % (24-48) 20 % (24-48) Monocytes (%) (Auto) 12 % (0-9) 10 % (0-9) Eosinophils (%) (Auto) 4 % (0-3) 4 % (0-3) Basophils (%) (Auto) 1 % (0-3) 1 % (0-3) Neutrophils # (Auto) 4.4 x10^3/uL (1.8-7.7) 4.5 x10^3/uL (1.8-7.7) Lymphocytes # (Auto) 1.2 x10^3/uL (1.0-4.8) 1.3 x10^3/uL (1.0-4.8) Monocytes # (Auto) 0.8 x10^3/uL (0.0-1.1) 0.7 x10^3/uL (0.0-1.1) Eosinophils # (Auto) 0.3 x10^3/uL (0.0-0.7) 0.3 x10^3/uL (0.0-0.7) Basophils # (Auto) 0.1 x10^3/uL (0.0-0.2) 0.1 x10^3/uL (0.0-0.2) Erythrocyte Sedimentation Rate 76 (0-15) Sodium Level 135 mmol/L (136-145) 138 mmol/L (136-145) Potassium Level 5.5 mmol/L (3.5-5.1) 4.9 mmol/L (3.5-5.1) Chloride Level 101 mmol/L (98-107) 105 mmol/L (98-107) Carbon Dioxide Level 27 mmol/L (21-32) 24 mmol/L (21-32) Anion Gap 7 (6-14) 9 (6-14) Blood Urea Nitrogen 41 mg/dL (8-26) 38 mg/dL (8-26) Creatinine 1.6 mg/dL (0.7-1.3) 1.4 mg/dL (0.7-1.3) Estimated GFR (Cockcroft-Gault) 46.6 54.3 BUN/Creatinine Ratio 26 (6-20) Glucose Level 267 mg/dL (70-99) 139 mg/dL (70-99) Lactic Acid Level 1.3 mmol/L (0.4-2.0) Calcium Level 8.8 mg/dL (8.5-10.1) 8.5 mg/dL (8.5-10.1) Total Bilirubin 0.2 mg/dL (0.2-1.0) Aspartate Amino Transf (AST/SGOT) 16 U/L (15-37) Alanine Aminotransferase (ALT/SGPT) 27 U/L (16-63) Alkaline Phosphatase 123 U/L (46-116) C-Reactive Protein, Quantitative 71.3 mg/L (0-3.3) Total Protein 6.7 g/dL (6.4-8.2) Albumin 3.1 g/dL (3.4-5.0) Albumin/Globulin Ratio 0.9 (1.0-1.7) Procalcitonin < 0.10 ng/mL (0.00-0.10) Glucose (Fingerstick) 152 mg/dL (70-99) Clostridium difficile Toxin (PCR) Negative (NEGATIVE) Iron Level 27 ug/dL (65-175) Total Iron Binding Capacity 265 ug/dL (250-450) Iron Saturation 10 % (15-34) Test 04/12/20 10:59 04/12/20 16:26 04/12/20 20:26 04/13/20 04:40 Glucose (Fingerstick) 119 mg/dL (70-99) 161 mg/dL (70-99) 210 mg/dL (70-99) Sodium Level 139 mmol/L (136-145) Potassium Level 5.2 mmol/L (3.5-5.1) Chloride Level 105 mmol/L (98-107) Carbon Dioxide Level 26 mmol/L (21-32) Anion Gap 8 (6-14) Blood Urea Nitrogen 35 mg/dL (8-26) Creatinine 1.5 mg/dL (0.7-1.3) Estimated GFR (Cockcroft-Gault) 50.2 Glucose Level 131 mg/dL (70-99) Calcium Level 8.4 mg/dL (8.5-10.1) Phosphorus Level 3.2 mg/dL (2.6-4.7) Magnesium Level 2.0 mg/dL (1.8-2.4) Test 04/13/20 07:30 Glucose (Fingerstick) 117 mg/dL (70-99) Laboratory Tests Test 04/12/20 10:59 04/12/20 16:26 04/12/20 20:26 04/13/20 04:40 Glucose (Fingerstick) 119 mg/dL (70-99) 161 mg/dL (70-99) 210 mg/dL (70-99) Sodium Level 139 mmol/L (136-145) Potassium Level 5.2 mmol/L (3.5-5.1) Chloride Level 105 mmol/L (98-107) Carbon Dioxide Level 26 mmol/L (21-32) Anion Gap 8 (6-14) Blood Urea Nitrogen 35 mg/dL (8-26) Creatinine 1.5 mg/dL (0.7-1.3) Estimated GFR (Cockcroft-Gault) 50.2 Glucose Level 131 mg/dL (70-99) Calcium Level 8.4 mg/dL (8.5-10.1) Phosphorus Level 3.2 mg/dL (2.6-4.7) Magnesium Level 2.0 mg/dL (1.8-2.4) Test 04/13/20 07:30 Glucose (Fingerstick) 117 mg/dL (70-99) Brief Hospital Course Mr Li is a 44yo M w/ PMHx diabetes mellitus type 2, peripheral neuropathy, right vision loss, depression, history of chronic low back pain, chronic nonhealing right foot ulcers, status post amputation of the right great toe and recent amputation of right 5th metatarsal head in February 2020 who returns on 03/26/2020 after feeling short of breath after HBO treatment at wound care clinic , was found with cor pulmonale required oxygen 3L NCO2 to maintain saturations in the 90s. He returns now after worsening diarrhea outpatient, was directed by ID to go to the ED for IV fluids. He was found with K of 5.5, CR 1.6, no EKG changes EKG NSR. Consult Infectious Disease, GI and Wound Care. [He does have multiple diabetic ulcers: right Achilles tendon distally, 2 cm round over lateral right foot fifth metatarsal head area, and dorsomedial midfoot with orthopedic surgery with wound vac and outpatient wound clinic appointment which have been slowly improving until the past 2 weeks. He has previously had multiple non-healing ulcers and skin graft to his right thigh. He tested positive for c. difficile on 03/19/2020 as well] 04/12: Overnight with 1 BM, not on his O2 currently. He says he feels a little better. Wound appears improved CR down to 1.4, K normalized. Afebrile overnight, CRP very elevated at 71.3, CR 1.5, K5.2. C. difficile toxin PCR negative. He is feeling ok. wishes for home. D/w ID will do this Problem list: Hyperkalemia - on initial admissio likely from NISSA NISSA on Chronic kidney disease - Cr 2.1, up from 1.5 baseline. 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 New toxin negative 04/12 Complicated right lateral foot diabetic ulcers - deep tracking, likely osteomyelitis. wound care, iv abx - merrem, to continue, will consult ID for further recs. DM - A1c 7.5 10/18/2019, has a recent A1c pending from last week. Will cont lantus 20u QHS and bolus coverage during day History of Osteomyelitis of right fifth metatarsal head and neck - s/p debridement and amputation Diabetes mellitus with neuropathy - progressive neuropathy Status post history of right toe amputation. Right eye blindness - chronic, progressive, 2/2 cataract surgery previously Plan: weekly LABS Q MON CBC/BUN/CREAT/ESR FAX RESULTS TO [id number] Cont Invanz PRN IV fluids 3x weekly Greater than 30 minutes spent on d/c home with home health Discharge Information Condition at Discharge: Improved Follow Up: Weeks (1) Disposition/Orders: D/C to Home w/ HH Scheduled Aspirin (Aspirin Ec) 81 Mg Tablet., 81 MG PO DAILYWBKFT for CHF for 30 Days, #30 Ref 11 Prescribed by: SHALOM KNIGHT MD on 03/30/20 2361 Last Action: Continued on 04/11/20 182 by SHILOH BLANCO MD Carvedilol (Carvedilol ) 12.5 Mg Tablet, 12.5 MG PO BIDWMEALS for CHF for 30 Days, #60 Ref 2 Prescribed by: SHALOM KNIGHT MD on 03/30/20 1359 Last Action: Continued on 04/11/201825 by SHILOH BLANCO MD Cholestyramine/Aspartame (Prevalite Packet) 4 Gm Powd.pack, 4 GM PO Q12H for Diarrhea for 14 Days, #28 As needed for diarrhea. If only 1 bm daily, stop taking. Prescribed by: SHALOM KNIGHT MD on 04/13/20 1027 Enoxaparin Sodium (Enoxaparin Sodium) 40 Mg/0.4 Ml Disp.syrin, 40 MG SQ Q24H for DVT PREVENTION for 30 Days, #30 Prescribed by: SHILOH BLANCO MD on 02/21/201337 Last Action: Continued on 04/11/201825 by SHILOH BLANCO MD Ertapenem Sodium (Invanz) 1 Gm Vial, 1 GM IJ DAILY10 for OSTEOMYELITIS for 14 Days, #14 Prescribed by: SHALOM KNIGHT MD on 04/13/20 1027 Insulin Glargine,Hum.rec.anlog (Lantus Solostar) 100 Unit/1 Ml Insuln.pen, 24 UNIT SQ QHS for DM, #15 Ref 5 (Reported) Entered as Reported by: MOUNIKA KINCAID on 10/18/19 1432 Last Action: Converted on 04/11/201825 by SHILOH BLANCO MD Lactobacillus Rhamnosus Gg (Culturelle) 1 Each Cap.sprink, 1 CAP PO BID for SUPPLEMENT for 30 Days, #60 Prescribed by: SHILOH BLANCO MD on 02/21/201337 Last Action: Continued on 04/11/201825 by SHILOH BLANCO MD Pantoprazole Sodium (Pantoprazole Sodium ) 40 Mg Tablet.dr, 40 MG PO DAILYAC for GERD, (Reported) Entered as Reported by: KAREN MATTHEWS on 02/15/20 1452 Last Action: Continued on 04/11/201825 by SHILOH BLANCO MD Vancomycin Hcl (Vancomycin Hcl) 125 Mg Capsule, 1 CAP PO QID for C-DIFF, (Reported) Entered as Reported by: SUDEEP FLOOD on 03/26/20 1723 Last Action: Converted on 04/11/201825 by SHILOH BLANCO MD Scheduled PRN Acetaminophen (Tylenol) 325 Mg Tablet, 650 MG PO PRN Q4HRS PRN for TEMP OVER 100.4F OR MILD PAIN for 30 Days, #60 Prescribed by: SHILOH BLANCO MD on 02/21/201337 Last Action: Continued on 04/11/201825 by SHILOH BLANCO MD Hydrocodone Bit/Acetaminophen (Hydrocodone-Apap 5-325 ) 1 Tab Tablet, 1 TAB PO PRN Q6HRS PRN for MODERATE TO SEVERE PAIN for 14 Days, #30 Prescribed by: SHILOH BLANCO MD on 02/21/201337 Last Action: Continued on 04/11/201825 by SHILOH BLANCO MD Discontinued Medications Insulin Lispro (Humalog) 100 Unit/1 Ml Vial, 20 UNIT SQ TIDPC for DM, (Reported) Entered as Reported by: MOUNIKA KINCAID on 10/18/19 1431 Last Action: HELD on 04/11/201825 by MD ANTONIA ARTEAGA CHRISTOPHER S MD April 13, 2020 10:32
--- NOTE | 2020-04-13 11:10 | PDOC ---
Renal-Progress Notes Subjective Notes Notes FEELING BETTER History of Present Illness Hx of present illness STABLE Vitals Vitals Vital Signs Date Time Temp Pulse Resp B/P (MAP) Pulse Ox O2 Delivery O2 Flow Rate FiO2 04/13/20 09:01 72 153/68 04/13/20 07:50 98.1 16 94 Room Air 98.1 Weight Weight [ ] I.O. Intake and Output Intake and Output 04/13/20 07:00 Intake Total 1040 ml Output Total 1250 ml Balance -210 ml Intake Oral 1040 ml Output Urine Total 1250 ml Labs Labs Laboratory Tests Test 04/12/20 16:26 04/12/20 20:26 04/13/20 04:40 04/13/20 07:30 Glucose (Fingerstick) 161 mg/dL (70-99) 210 mg/dL (70-99) 117 mg/dL (70-99) Sodium Level 139 mmol/L (136-145) Potassium Level 5.2 mmol/L (3.5-5.1) Chloride Level 105 mmol/L (98-107) Carbon Dioxide Level 26 mmol/L (21-32) Anion Gap 8 (6-14) Blood Urea Nitrogen 35 mg/dL (8-26) Creatinine 1.5 mg/dL (0.7-1.3) Estimated GFR (Cockcroft-Gault) 50.2 Glucose Level 131 mg/dL (70-99) Calcium Level 8.4 mg/dL (8.5-10.1) Phosphorus Level 3.2 mg/dL (2.6-4.7) Magnesium Level 2.0 mg/dL (1.8-2.4) Test 04/13/20 11:03 Glucose (Fingerstick) 127 mg/dL (70-99) Micro Micro Microbiology 04/11/20 Blood Culture - Final, Complete Review of Systems Constitutional: yes: weakness, alert, oriented Ears/Nose/Throat: Yes: no symptom reported Eyes: Yes: no symptom reported Pulmonary: Yes no symptom reported Cardiovascular: Yes no symptom reported Gastrointestional: Yes: nausea Genitourinary: Yes: no symptom reported Musculoskeletal: Yes: no symptom reported Skin: Yes no symptom reported Psychiatric/Neurological: Yes: no symptom reported Physical Exam General Appearance: no apparent distress Skin: warm Respiratory: bilateral CTA Heart: S1S2, RRR Abdomen: soft, bowel sounds present Genitourinary: bladder flat Extremities: pulses present Neurology: alert, oriented Assessment Assessment IMP NISSA WITH IMPROVED CR OF 1.5 CKD STAGE 3 WITH CR OF 1.2-1.4 ANEMIA AND IRON DEFICIENCY DEHYDDRATION DIARRHEA RECENT C DIF DM II HTN HX R FOOT 5TH TOE RAY AMP PLAN ANTIBIOTICS PER ID ENC PO HYDRATION AVOID NEPHROTOXINS WILL FOLLOW NEEDED DEVYN ROGERS MD April 13, 2020 11:10
--- NOTE | 2020-04-13 11:17 | PDOC ---
Subjective: Subjective: Feeling better, no stools today. Objective: Objective: DC plans noted. Vital Signs: Vital Signs Date Time Temp Pulse Resp B/P (MAP) Pulse Ox O2 Delivery O2 Flow Rate FiO2 04/13/20 09:01 72 153/68 04/13/20 07:50 98.1 16 94 Room Air 98.1 Labs: Laboratory Tests Test 04/12/20 16:26 04/12/20 20:26 04/13/20 04:40 04/13/20 07:30 Glucose (Fingerstick) 161 mg/dL 210 mg/dL 117 mg/dL Sodium Level 139 mmol/L Potassium Level 5.2 mmol/L Chloride Level 105 mmol/L Carbon Dioxide Level 26 mmol/L Anion Gap 8 Blood Urea Nitrogen 35 mg/dL Creatinine 1.5 mg/dL Estimated GFR (Cockcroft-Gault) 50.2 Glucose Level 131 mg/dL Calcium Level 8.4 mg/dL Phosphorus Level 3.2 mg/dL Magnesium Level 2.0 mg/dL Test 04/13/20 11:03 Glucose (Fingerstick) 127 mg/dL BLOOD CULTURE LC Final Final GRAM POSITIVE COCCI PE: GEN: NAD, resting LUNGS: CTAB HEART: RRR ABD: NABS, S/ND/NT NEURO/PSYCH: A & O 3 A/P: Diarrhea, recent C Diff - negative this time, started on cholestyramine yesterday Right foot wound JOB -- DC per primary, antibiotics per ID. Follow-up w/ GI as outpt down the road for EGD/colon re: JOB. Hemodynamically unstable?: No Is patient in severe pain?: No Is NPO status required?: No TRISTEN OBRIEN April 13, 2020 11:17
[2020-04-13 11:34] VITALS: BP 146/82
--- NOTE | 2020-04-13 13:22 | NUR ---
SS received notification that pt was on services with [facility] at home. Script was given to SS. SS phoned and faxed script and clinical to [facility], ; fax [phone], for continued infusion services.
[2020-04-13 15:09] VITALS: BP 132/86
--- NOTE | 2020-04-13 16:59 | NUR ---
Discharge Note: Patient was discharged home with self care. 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 Patient was discharged with home with his home wound vac. Patient was given discharge summary/instructions, follow-ups, and educational material. Patients prescriptions were sent to patients preferred pharmacy. Patient was taken down to the main entrance via wheelchair with all personal belongings accompanied by PEDRO Thompson, where his dad was here to pick him up and take him home.
--- NOTE | 2020-04-16 17:05 | NUR ---
Pt came to [facility] this morning for weekly follow up, after d/c from the hospital on 04/13. Pt stated that the d/c RN was supposed to call in his Prevalite packet and Vancomycin, but when he went to [facility], they had not received any orders. Called [facility] to check if they had received the prescriptions and they had not. Paged and spoke with Dr. Trudy Workman re: clarification on Vancomycin, as Dr. Rajendra Workman had transcribed BID but Dr. Cartwright had written QID in his d/c. Per Dr. Workman, Vanc 125 mg Cap PO BID x2 weeks. Prescriptions called in to [facility], pharmacist.
== END 2020-04-13 16:30 | disposition home health service (06) | DRG 371 ==
LOC: ER 12:10 → 4 NORTH 16:38 → 6 SOUTH 19:10
PROVIDERS: ADMIT Family Medicine; ATTEND Family Medicine
DX: A04.71 Enterocolitis due to Clostridium difficile, recurrent (principal); N17.0 Acute kidney failure with tubular necrosis; E43 Unspecified severe protein-calorie malnutrition; D50.9 Iron deficiency anemia, unspecified; E11.22 Type 2 diabetes mellitus with diabetic chronic kidney disease; E11.42 Type 2 diabetes mellitus with diabetic polyneuropathy; E11.621 Type 2 diabetes mellitus with foot ulcer; E11.69 Type 2 diabetes mellitus with other specified complication; E66.01 Morbid (severe) obesity due to excess calories; E78.00 Pure hypercholesterolemia, unspecified; E78.5 Hyperlipidemia, unspecified; E86.0 Dehydration; E87.5 Hyperkalemia; F32.9 Major depressive disorder, single episode, unspecified; G47.33 Obstructive sleep apnea (adult) (pediatric); H54.61 Unqualified visual loss, right eye, normal vision left eye; I12.9 Hypertensive chronic kidney disease with stage 1 through stage 4 chronic kidney disease, or unspecified chronic kidney disease; I27.29 Other secondary pulmonary hypertension; G89.29 Other chronic pain; I27.81 Cor pulmonale (chronic); J45.909 Unspecified asthma, uncomplicated; K59.00 Constipation, unspecified; L97.519 Non-pressure chronic ulcer of other part of right foot with unspecified severity; N18.3 Chronic kidney disease, stage 3 (moderate); R09.02 Hypoxemia; Z79.4 Long term (current) use of insulin; Z83.3 Family history of diabetes mellitus; Z89.411 Acquired absence of right great toe; Z89.421 Acquired absence of other right toe(s); Z90.49 Acquired absence of other specified parts of digestive tract; Z91.19 Patient's noncompliance with other medical treatment and regimen; Z98.41 Cataract extraction status, right eye; Z79.2 Long term (current) use of antibiotics
CPT/HCPCS: 36415; 80048; 80053; 82962; 83540; 83550; 83605; 83735; 84100; 84145; 85025; 85651; 86140; 87040; 87205; 87493; 96360; 96361; J1650; J1815; J2185; J7030; 99285-25; G0378

== ENCOUNTER → 2020-04-23 | Outpatient (CLI) | payer MEDICAID ==
[2020-04-13 15:09] VITALS: BP 132/86
[~2020-04-23] MED LIST changes: +CHOL4POW3 PO
[2020-04-23 10:10] LABS: BASO # 0.1 x10^3/uL (0.0-0.2); BASO % 1 % (0-3); EOS # 0.6 x10^3/uL (0.0-0.7); EOS % 7 % (0-3); HEMOGLOBIN 9.5 g/dL (13.0-17.5); LYMPH # 1.8 x10^3/uL (1.0-4.8); LYMPH % 23 % (24-48); MEAN CORPUSCULAR HEMOGLOBIN 30 pg (25-35); MEAN CORPUSCULAR HGB CONC 34 g/dL (31-37); MEAN CORPUSCULAR VOLUME 88 fL (79-100); MONO # 0.7 x10^3/uL (0.0-1.1); MONO % 9 % (0-9); NEUT # 4.8 x10^3/uL (1.8-7.7); NEUT % 60 % (31-73); PLATELET COUNT 331 x10^3/uL (140-400); RED CELL DISTRIBUTION WIDTH 15.2 % (11.5-14.5)
[2020-04-23 10:28] LABS: C-REACTIVE PROTEIN 1.4 mg/L (0-3.3); CREATININE 1.5 mg/dL (0.7-1.3); GFR 50.2
== END | disposition home or self-care (01) ==
LOC: LAB 09:28
PROVIDERS: ATTEND Internal Medicine Infectious Disease
DX: M86.9 Osteomyelitis, unspecified (principal)
CPT/HCPCS: 36415; 82565; 84520; 85025; 86140

== ENCOUNTER → 2020-04-30 | Outpatient (CLI) | payer MEDICAID ==
[2020-04-13 15:09] VITALS: BP 132/86
[2020-04-30 13:12] LABS: BASO # 0.1 x10^3/uL (0.0-0.2); BASO % 1 % (0-3); EOS # 0.5 x10^3/uL (0.0-0.7); EOS % 7 % (0-3); HEMATOCRIT 27.4 % (39.0-53.0); HEMOGLOBIN 9.5 g/dL (13.0-17.5); LYMPH # 1.8 x10^3/uL (1.0-4.8); LYMPH % 27 % (24-48); MEAN CORPUSCULAR HEMOGLOBIN 30 pg (25-35); MEAN CORPUSCULAR HGB CONC 35 g/dL (31-37); MEAN CORPUSCULAR VOLUME 86 fL (79-100); MONO # 0.6 x10^3/uL (0.0-1.1); MONO % 9 % (0-9); NEUT # 3.7 x10^3/uL (1.8-7.7); NEUT % 56 % (31-73); PLATELET COUNT 266 x10^3/uL (140-400); RED BLOOD COUNT 3.19 x10^6/uL (4.30-5.70); RED CELL DISTRIBUTION WIDTH 15.1 % (11.5-14.5); WHITE BLOOD COUNT 6.7 x10^3/uL (4.0-11.0)
[2020-04-30 13:26] LABS: ANION GAP 10 (6-14); BLOOD UREA NITROGEN 25 mg/dL (8-26); C-REACTIVE PROTEIN < 0.5 mg/L (0-3.3); CALCIUM 8.6 mg/dL (8.5-10.1); CARBON DIOXIDE 24 mmol/L (21-32); CHLORIDE 101 mmol/L (98-107); CREATININE 1.4 mg/dL (0.7-1.3); GFR 54.3; GLUCOSE 165 mg/dL (70-99); POTASSIUM 4.9 mmol/L (3.5-5.1); SODIUM 135 mmol/L (136-145)
== END | disposition home or self-care (01) ==
LOC: SPEC 13:00
PROVIDERS: ATTEND Internal Medicine Nephrology
DX: N17.9 Acute kidney failure, unspecified (principal); M86.171 Other acute osteomyelitis, right ankle and foot; Z79.2 Long term (current) use of antibiotics
CPT/HCPCS: 36415; 80048; 85025; 86140

== ENCOUNTER → 2020-05-07 | Outpatient (CLI) | payer MEDICAID ==
[2020-04-13 15:09] VITALS: BP 132/86
[2020-05-07 16:33] LABS: CREATININE 1.6 mg/dL (0.7-1.3); GFR 46.6; POTASSIUM 4.9 mmol/L (3.5-5.1)
== END | disposition home or self-care (01) ==
LOC: SPEC 15:45
PROVIDERS: ATTEND Internal Medicine Infectious Disease
DX: N17.9 Acute kidney failure, unspecified (principal); Z79.2 Long term (current) use of antibiotics
CPT/HCPCS: 36415; 80048; 86140

== ENCOUNTER → 2020-05-09 | Outpatient (CLI) | payer MEDICAID ==
[2020-04-13 15:09] VITALS: BP 132/86
[2020-05-09 12:08] LABS: BASO # 0.1 x10^3/uL (0.0-0.2); BASO % 2 % (0-3); EOS # 0.6 x10^3/uL (0.0-0.7); EOS % 8 % (0-3); HEMATOCRIT 27.5 % (39.0-53.0); HEMOGLOBIN 9.3 g/dL (13.0-17.5); LYMPH # 1.8 x10^3/uL (1.0-4.8); LYMPH % 27 % (24-48); MEAN CORPUSCULAR HEMOGLOBIN 29 pg (25-35); MEAN CORPUSCULAR HGB CONC 34 g/dL (31-37); MEAN CORPUSCULAR VOLUME 86 fL (79-100); MONO # 0.6 x10^3/uL (0.0-1.1); MONO % 9 % (0-9); NEUT # 3.7 x10^3/uL (1.8-7.7); NEUT % 54 % (31-73); PLATELET COUNT 253 x10^3/uL (140-400); RED BLOOD COUNT 3.19 x10^6/uL (4.30-5.70); RED CELL DISTRIBUTION WIDTH 15.3 % (11.5-14.5); WHITE BLOOD COUNT 6.8 x10^3/uL (4.0-11.0)
== END | disposition home or self-care (01) ==
LOC: SPEC 11:55
PROVIDERS: ATTEND Internal Medicine Infectious Disease
DX: N17.9 Acute kidney failure, unspecified (principal); Z79.2 Long term (current) use of antibiotics
CPT/HCPCS: 36415; 85025